=== PATIENT | female | born 1945 | race Caucasian/White ===

== ENCOUNTER 2016-06-11 07:54 | Day surgery (SDC) | payer MEDICARE ==
[2016-06-09 09:59] VITALS: BMI 27.6
[~2016-06-11 07:54] MED LIST: ALPRAZolam 0.25 MG TAB PO PRN; ALPRAZolam 0.5 MG TAB PO PRN; ASPIRIN 325 MG TAB PO STA; ATORVASTATIN 80 MG TAB PO STA; NITROGLYCERIN SL TABS 0.4 MG TAB SUBLINGUAL PRN; SODIUM CHLORIDE 0.9% 1,000 ML in EMPTY BAG 1 BAG IV ONE
[2016-06-11 08:18] VITALS: TEMP 99.1
[2016-06-11] MEDS ORDERED: SODIUM CHLORIDE 0.9% (PF) 10 ML VIAL ONE (08:46)
[2016-06-11] MEDS ORDERED: VERAPAMIL 2.5 MG/ML 2 ML AMP ONE (08:46)
[2016-06-11] MEDS ORDERED: LIDOCAINE 2% INJ 20 MG/ML (20 ML MDV) ONE ×2 (08:46→09:55)
[2016-06-11] MEDS ORDERED: HEPARIN SODIUM 1,000 UNIT/ML VIAL ONE (09:15)
[2016-06-11] MEDS ORDERED: diphenhydrAMINE 50 MG/ML 1 ML VIAL ONE (09:15)
[2016-06-11] MEDS ORDERED: fentaNYL (PF) 50 MCG/ML 2 ML AMP ONE (09:15)
[2016-06-11] MEDS ORDERED: diphenhydrAMINE 50 MG/ML 1 ML VIAL IVP ONE (09:38)
[2016-06-11] MEDS ORDERED: fentaNYL (PF) 50 MCG/ML 2 ML AMP IV ONE (09:38)
[2016-06-11] MEDS ORDERED: MIDAZOLAM 2 MG/2 ML VIAL IVP ONE (09:40)
[2016-06-11] MEDS ORDERED: MIDAZOLAM 2 MG/2 ML VIAL ONE (09:41)
[2016-06-11] MEDS ORDERED: LIDOCAINE 2% INJ 20 MG/ML SQ ONE ×2 (09:50→10:00)
[2016-06-11] MEDS ORDERED: IOHEXOL 300 MG/ML 100 ML BOTTLE IV ONE (10:06)
[2016-06-11] MEDS ORDERED: RX INFO: IV CONTRAST WAS GIVEN 1 EACH MISC MISCELLANE PRN (10:27)
[2016-06-11] MEDS ORDERED: HYDROcodone/APAP 10-325MG 1 EACH TAB PO PRN (10:28)
[2016-06-11] MEDS ORDERED: SODIUM CHLORIDE 0.9% 1,000 ML IV SCH (10:30)
--- NOTE | 2016-06-11 10:51 | CC ---
DATE OF SERVICE: Mrs. Kwon is a 71-year-old female with known history of hypertension, peripheral vascular disease, chronic tobacco use, who has been complaining of episode of progressive dyspnea, had a stress test that showed lateral wall ischemia. In view of that, recommendation regarding cardiac catheterization. The procedure as well as the risks and complications were discussed with the patient who is in full understanding and agreement. PROCEDURE: The patient was brought to the label machine operator in a fasting semi-sedated state after receiving fentanyl with Benadryl. She was draped and prepped in the usual conventional fashion. Using Xylocaine anesthesia and Seldinger technique, attempt to cannulate the right radial artery were unsuccessful because of vasospastic response. At that time, using Xylocaine anesthesia and Seldinger technique, a 6-Tuvaluan sheath was introduced in the right femoral artery. Selective right and left coronary angiography was performed using 6 Tuvaluan, 4 Bend right and left Shashank catheters. Multiple views of the coronary arteries including hemiaxial views were obtained. Following that, a 6-Tuvaluan tight pigtail catheter was introduced in the left ventricle, and a 30-degree FREEMAN view of the left ventricle was obtained. Following that, catheter and sheath were removed. Hemostasis was obtained with deployment of an Angio-Seal. There was no evidence of immediate complication. The patient was returned to her room in stable condition. LEFT MAIN: This is a large vessel bifurcating into left circumflex artery, left anterior descending artery. Left main coronary artery is without any obstructive disease. LEFT ANTERIOR DESCENDING ARTERY: This is a large aneurysmal vessel, giving rise to a large diagonal branch. The left anterior descending artery is quite tortuous throughout its course but has no evidence of high-grade stenosis. LEFT CIRCUMFLEX: This is a nondominant vessel giving rise to an obtuse marginal branch. The left circumflex as well as branches have no evidence of obstructive coronary artery disease. RIGHT CORONARY ARTERY: This is a large dominant vessel, aneurysmal, bifurcating into PDA and posterolateral segment and branches. The right coronary artery and its branches have no evidence of obstructive coronary artery disease. LEFT VENTRICULOGRAM: Left ventriculogram was performed in 30-degree FREEMAN view and revealed normal left ventricular size and systolic function. Ejection fraction 60%. There was aneurysmal dilatation of the ascending aorta with tortuosity of the abdominal aorta and calcification. HEMODYNAMICS: There was no gradient across the aortic valve. The left ventricle end-diastolic pressure was 16 mmHg. CONCLUSION: 1. Normal coronary arteries. 2. Normal left ventricular size and systolic function. 3. Aneurysmal ascending aorta. 4. Calcified abdominal aorta. RECOMMENDATIONS: In view of finding anatomy, recommend to continue medical therapy. The importance of smoking cessation was discussed with the patient who is in full understanding and agreement. SIMONA
--- NOTE | 2016-06-11 10:54 | LTR ---
June 11, 2016 SVETLANA KING DO RE: Angelina Kwon Dear Dr. King: I had the opportunity to perform cardiac catheterization on Mrs. Kwon had [facility] on the first june and a full copy of the procedure note will be forwarded to you. In brief, she was found to have no evidence of obstructive coronary artery disease with evidence of ascending aortic aneurysm and atherosclerotic changes of the abdominal aorta and based on those findings, recommend continuing medical therapy with aggressive coronary risk modification that has been initiated. Thank you again for allowing me the opportunity to participate in her care. Please feel free to call for any questions. Sincerely yours, LUZ BALDERAS MD
[2016-06-11 12:14] VITALS: RESP 16
[2016-06-11 13:29] VITALS: BP 121/59; PULSE 61
[2016-06-11] MEDS ORDERED: DICLOFENAC SODIUM 50 MG PO SCH (21:00)
[2016-06-11] MEDS ORDERED: SPIRONOLACTONE 100 MG PO SCH (21:00)
[2016-06-11] MEDS ORDERED: ARIPiprazole 5 MG TAB PO SCH (21:00)
[2016-06-11] MEDS ORDERED: DESVENLAFAXINE SUCCINATE 50 MG TAB.ER.24H PO SCH (21:00)
[2016-06-11] MEDS ORDERED: PRIMIDONE 250 MG TAB PO SCH (21:00)
[2016-06-12] MEDS ORDERED: amLODIPine 10 MG TAB PO SCH (09:00)
[2016-06-12] MEDS ORDERED: NON-FORMULARY DRUG (Aspirin [Adult Low Dose Aspirin Ec] 81 MG) PO SCH (09:00)
[2016-06-12] MEDS ORDERED: NON-FORMULARY DRUG (Flaxseed Oil [Omega-3 Flaxseed Oil] 1,000 MG) PO SCH (09:00)
[2016-06-12] MEDS ORDERED: MONTELUKAST 10 MG TAB PO SCH (09:00)
[2016-06-12] MEDS ORDERED: NON-FORMULARY DRUG (Cetirizine Hcl [Zyrtec] 10 MG) PO SCH (09:00)
[2016-06-12] MEDS ORDERED: NON-FORMULARY DRUG (Vitamin B Complex [Vitamin B Complex] 1 EACH) PO SCH (09:00)
[2016-06-12] MEDS ORDERED: CHOLECALCIFEROL 1,000 UNIT TAB PO SCH (09:00)
[2016-06-12] MEDS ORDERED: NON-FORMULARY DRUG (Turmeric Root Extract [Turmeric] 500 MG) PO SCH (09:00)
[2016-06-12] MEDS ORDERED: GINGER 500 MG PO SCH (09:00)
[2016-06-12] MEDS ORDERED: ATENOLOL 50 MG TAB PO SCH (09:00)
--- NOTE | 2016-06-13 11:31 | CDI ---
Pt Name: Angelina Kwon CONFIDENTIAL MR#: [id number] Adm Date: 06/11/2016 7:54:00 AM Printed:06/13/2016 Physician Documentation Request Page 1 of 1 ICD-10-CM Ready Physicians Documentation Request Patient: Angelina Kwon EPI: [id number] Account: [id number] Payer: MEDICARE Facility: [facility] Location: - Admit Date: 06/11/2016 7:54:00 AM Query Send By: Tabatha Silveira Phone #: Ext. Communication Date: 06/13/2016 11:26:00 AM Clarification Outpatient By submitting this query, we are merely seeking further clarification of documentation to accurately reflect all conditions that you are monitoring, evaluating, treating or that extend the hospitalization or utilize additional resources of care. Please utilize your independent clinical judgment when addressing the question(s) below. Dear Doctor Anil Garrido, The patients Clinical Indicators include: SEE BELOW Documentation Clarification OP The cardiac cath report states "semi-sedated after receiving fentanyl with Benadryl." Will you please clarify the level of sedation? Such as, moderate. Please answer as an addendum to your op report. Thank you. PLEASE DOCUMENT ANY ADDITIONAL DIAGNOSES AND/OR SPECIFICITY IN THE PROGRESS NOTES AND/OR DISCHARGE SUMMARY. Agreed & documented Unable to determine/unknown Disagree with the above request Need to discuss MTDD
--- NOTE | 2016-06-24 08:38 | CDI ---
Pt Name: Angelina Kwon CONFIDENTIAL MR#: [id number] Adm Date: 06/11/2016 7:54:00 AM Printed:06/24/2016 Physician Documentation Request Page 1 of 1 ICD-10-CM Ready Physicians Documentation Request Patient: Angelina Kwon EPI: [id number] Account: [id number] Payer: MEDICARE Facility: [facility] Location: - Admit Date: 06/11/2016 7:54:00 AM Query Send By: Tabatha Silveira Phone #: Ext. Communication Date: 06/24/2016 8:36:00 AM Clarification Outpatient By submitting this query, we are merely seeking further clarification of documentation to accurately reflect all conditions that you are monitoring, evaluating, treating or that extend the hospitalization or utilize additional resources of care. Please utilize your independent clinical judgment when addressing the question(s) below. Dear Doctor Anil Garrido, The patients Clinical Indicators include: see below Documentation Clarification OP The cardiac cath report states "semi-sedated after receiving fentanyl with Benadryl." Will you please clarify the level of sedation? Such as, moderate. Please answer as an addendum to your op report. Thank you. PLEASE DOCUMENT ANY ADDITIONAL DIAGNOSES AND/OR SPECIFICITY IN THE PROGRESS NOTES AND/OR DISCHARGE SUMMARY. Agreed & documented Unable to determine/unknown Disagree with the above request Need to discuss MTDD
--- NOTE | 2016-07-01 08:25 | CDI ---
Pt Name: Angelina Kwon CONFIDENTIAL MR#: [id number] Adm Date: 06/11/2016 7:54:00 AM Printed:07/01/2016 Physician Documentation Request Page 1 of 1 ICD-10-CM Ready Physicians Documentation Request Patient: Angelina Kwon EPI: [id number] Account: [id number] Payer: MEDICARE Facility: [facility] Location: - Admit Date: 06/11/2016 7:54:00 AM Query Send By: Tabatha Silveira Phone #: Ext. Communication Date: 07/01/2016 8:21:00 AM Clarification Outpatient By submitting this query, we are merely seeking further clarification of documentation to accurately reflect all conditions that you are monitoring, evaluating, treating or that extend the hospitalization or utilize additional resources of care. Please utilize your independent clinical judgment when addressing the question(s) below. Dear Doctor Anil Garrido, The patients Clinical Indicators include: see below Documentation Clarification OP The cardiac cath report states "semi-sedated after receiving fentanyl with Benadryl." Will you please clarify the level of sedation? Such as, moderate. This information is required for proper coding and billing purposes. Please answer as an addendum to your op report. If you don't understand what is needed , please contact my coding director, Francie Narayanan . Thank you. PLEASE DOCUMENT ANY ADDITIONAL DIAGNOSES AND/OR SPECIFICITY IN THE PROGRESS NOTES AND/OR DISCHARGE SUMMARY. Agreed & documented Unable to determine/unknown Disagree with the above request Need to discuss MTDD
--- NOTE | 2016-07-04 12:11 | CC ---
ADDENDUM TO CARDIAC CATHETERIZATION REPORT: Sedation was moderate instead of semi-sedated.
== END 2016-06-11 15:29 | disposition home or self-care (01) ==
LOC: CATHCVL 07:54
PROVIDERS: ATTEND Internal Medicine Interventional Cardiology
DX: I71.2 Thoracic aortic aneurysm, without rupture (principal); I70.0 Atherosclerosis of aorta; R94.39 Abnormal result of other cardiovascular function study; R06.00 Dyspnea, unspecified; I25.10 Atherosclerotic heart disease of native coronary artery without angina pectoris; I10 Essential (primary) hypertension; I73.9 Peripheral vascular disease, unspecified; M19.90 Unspecified osteoarthritis, unspecified site; J44.9 Chronic obstructive pulmonary disease, unspecified; G47.33 Obstructive sleep apnea (adult) (pediatric); F17.210 Nicotine dependence, cigarettes, uncomplicated; Z79.82 Long term (current) use of aspirin; Z79.891 Long term (current) use of opiate analgesic; Z79.899 Other long term (current) drug therapy; Z88.1 Allergy status to other antibiotic agents
CPT/HCPCS: 99152; 99153; 93458; C1760; C1894 ×2; C1769; J2001; J2250; J1200; J3010; Q9967

== ENCOUNTER 2016-09-11 10:22 | Day surgery (SDC) | payer MEDICARE ==
[2016-09-09 14:47] VITALS: BMI 28.3
[~2016-09-11 10:22] MED LIST changes: -ALPRAZolam 0.25 MG TAB PO PRN; -ALPRAZolam 0.5 MG TAB PO PRN; -ASPIRIN 325 MG TAB PO STA; -ATORVASTATIN 80 MG TAB PO STA; +LACTATED RINGERS 1,000 ML IV SCH; +LIDOCAINE 1% 20 ML VIAL (10MG/ML) FOR IV START INTRADERMA PRN; -NITROGLYCERIN SL TABS 0.4 MG TAB SUBLINGUAL PRN; -SODIUM CHLORIDE 0.9% 1,000 ML in EMPTY BAG 1 BAG IV ONE
[2016-09-11 11:00] VITALS: TEMP 98
[2016-09-11] MEDS ORDERED: LACTATED RINGERS 1,000 ML IV ONE (11:01)
[2016-09-11] MEDS ORDERED: PROPOFOL 10 MG/ML 20 ML VIAL IV ONE (11:31)
[2016-09-11] MEDS ORDERED: LIDOCAINE 1% INJ 10MG/ML (20 ML MDV) ONE (11:31)
--- NOTE | 2016-09-11 11:52 | P.PCN ---
Date of Procedure: 09/11/16 Preoperative Diagnosis: Postoperative Diagnosis: Procedure(s) Performed: Brief history: Patient is a pleasant 71-year-old white female, scheduled for an elective upper endoscopy as well as colonoscopy as a part of evaluation of abdominal pain, chronic diarrhea and heartburn for the last several months duration. Procedure performed: Esophagogastroduodenoscopy with biopsy Colonoscopy with biopsy Preoperative diagnosis: Abdominal pain, heartburn, chronic diarrhea a few months duration Anesthesia: MAC Procedure: After informed consent was obtained from the patient was brought into the endoscopy unit and IV sedation was administered by anesthesia under continuous monitoring. Initially upper endoscopy was done. The Olympus GF 160 video endoscope was inserted inserted into the mouth and esophagus intubated without any difficulty and was gradually advanced into the stomach and duodenum and carefully examined. The bulb and second part of the duodenum appeared normal. Biopsies were done from the duodenum to rule out celiac disease. The scope was then withdrawn into the stomach adequately insufflated with air and upon careful examination the antrum and body, had mild diffuse gastritis and biopsies were done from this area. The cardia and fundus appeared normal. The scope was then withdrawn into the esophagus. Small sliding Hiatal hernia noted. The GE junction was located at 40 cm to the incisors. It appeared regular with no erythema erosions or ulcerations. Rest of the esophagus appeared normal. Patient tolerated the procedure well. At this time the patient continued to remain sedation. Initial digital rectal examination was normal. Olympus CF 160 video colonoscope was then inserted into the rectum and gradually advanced to the cecum without any difficulty. Careful examination was performed as the scope was gradually being withdrawn. The prep was excellent. The cecum, ascending colon, transverse colon, descending colon, sigmoid colon and rectum appeared normal. Scattered sigmoid diverticulosis seen. Random biopsies were done from the ascending and descending colon to rule out microscopic/collagenous colitis. Retroflexion was performed in the rectum and small internal hemorrhoids were noted. Patient tolerated the procedure well. Impression: 1. Upper endoscopy revealed mild diffuse gastritis and small hiatal hernia. 2. Colonoscopy revealed scattered sigmoid diverticulosis and small internal hemorrhoids. Recommendations: Findings of this examination were discussed with the patient as well as her family. She was advised to follow with the biopsy results. She can have a repeat colonoscopy in 10 years. Implants: Indications for Procedure: Operative Findings: Description of Procedure:
[2016-09-11 11:56] VITALS: PULSE 65; RESP 16
[2016-09-11 12:18] VITALS: BP 143/71
== END 2016-09-11 12:47 | disposition home or self-care (01) ==
LOC: ORWHC2ENDO 10:22
PROVIDERS: ATTEND Internal Medicine Gastroenterology
DX: K44.9 Diaphragmatic hernia without obstruction or gangrene (principal); K57.30 Diverticulosis of large intestine without perforation or abscess without bleeding; I25.10 Atherosclerotic heart disease of native coronary artery without angina pectoris; I10 Essential (primary) hypertension; F17.200 Nicotine dependence, unspecified, uncomplicated; M79.7 Fibromyalgia; J44.9 Chronic obstructive pulmonary disease, unspecified; G47.33 Obstructive sleep apnea (adult) (pediatric); Z99.81 Dependence on supplemental oxygen; Z79.1 Long term (current) use of non-steroidal anti-inflammatories (NSAID); Z79.891 Long term (current) use of opiate analgesic; Z79.899 Other long term (current) drug therapy; Z88.1 Allergy status to other antibiotic agents; Z91.09 Other allergy status, other than to drugs and biological substances
CPT/HCPCS: 45380; 43239; J2001; J2704; 88305; 88313

== ENCOUNTER → 2016-12-03 | Outpatient (CLI) | payer MEDICARE ==
[2016-12-03 13:28] LABS: Blood Urea Nitrogen 11 mg/dL (7-17); Non-African American GFR(MDRD) >60 (>60 ml/min/1.73 sqM)
--- NOTE | 2016-12-03 14:49 | CT ---
EXAMINATION TYPE: CT chest w con DATE OF EXAM: 12/03/2016 COMPARISON: Prior CT chest 03/21/2016 HISTORY: Follow up of lung cancer CT DLP: 276.8 mGycm Automated exposure control for dose reduction was used. CONTRAST: CT scan of the chest is performed with IV Contrast, patient injected with 100 mL of Omnipaque 300. FINDINGS: LUNGS: There are interstitial changes within the lungs. Areas of honeycombing are present. Some bronc hiectasis noted in the lingula with a local subpleural calcification MEDIASTINUM: There are no greater than 1 cm hilar or mediastinal lymph nodes. Coronary artery calcif ications are present, the heart is enlarged. No pericardial effusion is seen. Pulmonary artery is en larged as compared to prior exam measuring 3.6 cm and on previous 3.2 cm, correlate for possible pulm onary artery hypertension. Ascending aorta is borderline enlarged at 4 cm. OTHER: Postop changes are noted to the left hilum IMPRESSION: Interstitial lung disease. Cardiomegaly. Correlate for possible pulmonary artery hyperte nsion.
== END | disposition home or self-care (01) ==
LOC: RADCTMAIN 12:25
PROVIDERS: ATTEND Internal Medicine Hematology & Oncology
DX: J84.9 Interstitial pulmonary disease, unspecified (principal); I51.7 Cardiomegaly; C34.92 Malignant neoplasm of unspecified part of left bronchus or lung
CPT/HCPCS: 82565; 84520; 71260; 36415; Q9967

== ENCOUNTER 2017-07-08 21:42 | Inpatient (IN) | payer MEDICARE ==
[2017-07-08] MEDS ORDERED: ALBUTEROL NEBULIZED 2.5 MG/3 ML INHALATION STA (22:09)
[2017-07-08] MEDS ORDERED: IPRATROPIUM 0.5 MG/2.5 ML NEBU INHALATION STA (22:09)
[2017-07-08] MEDS ORDERED: methylPREDNISolone SOD SUCCI 125 MG/2 ML VIAL IV STA (22:09)
[2017-07-08] MEDS ORDERED: SODIUM CHLORIDE 0.9% 1,000 ML IV STA (22:09)
--- NOTE | 2017-07-08 22:14 | ED ---
General Adult HPI - General Chief complaint: Shortness of Breath Stated complaint: GINGER Time Seen by Provider: 07/08/17 21:57 Source: patient, RN notes reviewed, old records reviewed Mode of arrival: EMS Limitations: no limitations - History of Present Illness Initial comments: 72-year-old female presenting with cough and dyspnea. Patient has past medical history COPD, she had significant previous tobacco use, she is currently still smoking. She reports that over the past 3 days she's had worsening cough which is productive of white and green sputum. She also has history of lung cancer status post resection, no active cancer at this time, no chemotherapy at this time. Patient denies lower extremity edema or calf tenderness. She does report nasal congestion and mild sore throat. Denies fever or chills. Denies myalgias. Denies chest pain, denies abdominal pain or nausea vomiting. - Related Data Home Medications Medication Instructions Recorded Confirmed Diclofenac Sodium [Voltaren] 50 mg PO BID 04/16/16 07/08/17 HYDROcodone/APAP 10-325MG [[place] 1 tab PO Q6H PRN 04/16/16 07/08/17 10-325] Primidone [Mysoline] 250 mg PO BID 04/16/16 07/08/17 Spironolactone 100 mg PO DAILY 04/16/16 07/08/17 amLODIPine [Norvasc] 10 mg PO DAILY 04/16/16 07/08/17 ARIPiprazole [Abilify] 15 mg PO HS 07/08/17 07/08/17 Calcium 600-Vit D3 800 1 tab PO HS 07/08/17 07/08/17 Citalopram Hydrobromide [CeleXA] 40 mg PO HS 07/08/17 07/08/17 Magnesium Oxide [Mag-Ox] 250 mg PO HS 07/08/17 07/08/17 Multivitamins, Thera [Multivitamin 1 tab PO DAILY 07/08/17 07/08/17 (formulary)] Oxybutynin Chloride [Ditropan] 5 mg PO TID 07/08/17 07/08/17 Turmeric Cucumin 500 mg PO DAILY 07/08/17 07/08/17 busPIRone HCL 15 mg PO TID PRN 07/08/17 07/08/17 Allergies Allergy/AdvReac Type Severity Reaction Status Date / Time levofloxacin [From Levaquin] Allergy Severe Diarrhea Verified 07/08/17 22:31 adhesive tape AdvReac Unknown IRRITATES Verified 07/08/17 22:31 SKIN Review of Systems ROS Statement: Those systems with pertinent positive or pertinent negative responses have been documented in the HPI. ROS Other: All systems not noted in ROS Statement are negative. Past Medical History Past Medical History: Coronary Artery Disease (CAD), Cancer, COPD, Fibromyalgia , Hypertension, Osteoarthritis (OA), Sleep Apnea/CPAP/BIPAP Additional Past Medical History / Comment(s): O2-3L AT NIGHT, BREAST, LUNG AND CERVICAL CANCER, TREMORS History of Any Multi-Drug Resistant Organisms: None Reported Past Surgical History: Breast Surgery, Cholecystectomy, Heart Catheterization, Hysterectomy, Joint Replacement, Orthopedic Surgery Additional Past Surgical History / Comment(s): LT TKA RT SHOULDER REPLACEMENT, LT BREAST LUMPECTOMY, CATARACTS REMOVED, LT KNEE SCOPE, THYROID BX, COLONOSCOPY , EGD Past Anesthesia/Blood Transfusion Reactions: No Reported Reaction Additional Past Anesthesia/Blood Transfusion Reaction / Comment(s): PT STATES THAT SHE HAS "HIGH" TOLERANCE TO IV SEDATION Past Psychological History: Anxiety, Depression Smoking Status: Current every day smoker - Past Family History Mother Family Medical History: Cancer Additional Family Medical History / Comment(s): LUNG General Exam Limitations: no limitations General appearance: alert, in distress Head exam: Present: atraumatic, normocephalic Eye exam: Present: normal appearance, PERRL ENT exam: Present: mucous membranes dry Neck exam: Present: normal inspection. Absent: tenderness, meningismus Respiratory exam: Present: respiratory distress, wheezes, rhonchi, decreased breath sounds, prolonged expiratory Cardiovascular Exam: Present: regular rate, normal rhythm GI/Abdominal exam: Present: soft. Absent: distended, tenderness, guarding Extremities exam: Present: normal inspection, normal capillary refill. Absent: pedal edema, calf tenderness Neurological exam: Present: alert, oriented X3, CN II-XII intact. Absent: motor sensory deficit Psychiatric exam: Present: normal affect, normal mood Skin exam: Present: warm, dry, intact. Absent: cyanosis, diaphoretic Course Vital Signs 07/08/17 07/08/17 07/08/17 21:47 22:28 22:44 Temperature 98.2 F Pulse Rate 68 63 75 Respiratory 19 Rate Blood Pressure 162/71 O2 Sat by Pulse 95 Oximetry 07/08/17 07/08/17 07/08/17 22:50 22:51 22:52 Temperature Pulse Rate 75 Respiratory 20 Rate Blood Pressure O2 Sat by Pulse 93 L Oximetry - Reevaluation(s) Reevaluation #1: 07/08/17 23:49 After initial treatment, patient does have improved air entry, however she has persistent rhonchi and wheezing throughout both lung [place], she remains quite dyspneic. EKG Findings - EKG Comments: EKG Findings:: EKG: Normal sinus rhythm, left axis deviation, left ventricular hypertrophy, ventricular rate 63, AZ interval 174, QRS duration 102, QTC 433, no ST segment elevation or depression Medical Decision Making - Medical Decision Making 72-year-old female presenting with worsening cough and dyspnea. Patient is in mild respiratory distress with rhonchi, and wheezing bilaterally. Chest x-ray is obtained, there is extensive fibrosis, no focal pneumonia. White blood cell count, stable hemoglobin, normal lites, troponin and BNP are normal. Patient's will be admitted for further treatment of COPD exacerbation. - Lab Data Result diagrams: 07/08/17 22:36 07/08/17 22:36 Lab Results 07/08/17 07/08/17 07/08/17 Range/Units 22:36 22:36 22:36 WBC 7.5 (3.8-10.6) k/uL RBC 4.26 (3.80-5.40) m/uL Hgb 13.1 (11.4-16.0) gm/dL Hct 39.7 (34.0-46.0) % MCV 93.1 (80.0-100.0) fL MCH 30.8 (25.0-35.0) pg MCHC 33.0 (31.0-37.0) g/dL RDW 13.5 (11.5-15.5) % Plt Count 323 (150-450) k/uL Neutrophils % 52 % Lymphocytes % 34 % Monocytes % 7 % Eosinophils % 4 % Basophils % 1 % Neutrophils # 3.9 (1.3-7.7) k/uL Lymphocytes # 2.6 (1.0-4.8) k/uL Monocytes # 0.5 (0-1.0) k/uL Eosinophils # 0.3 (0-0.7) k/uL Basophils # 0.0 (0-0.2) k/uL PT (9.0-12.0) sec INR (<1.2) APTT (22.0-30.0) sec Sodium 137 (137-145) mmol/L Potassium 3.6 (3.5-5.1) mmol/L Chloride 98 (98-107) mmol/L Carbon Dioxide 29 (22-30) mmol/L Anion Gap 10 mmol/L BUN 12 (7-17) mg/dL Creatinine 0.60 (0.52-1.04) mg/dL Est GFR (CKD-EPI)AfAm >90 (>60 ml/min/1.73 sqM) Est GFR (CKD-EPI)NonAf >90 (>60 ml/min/1.73 sqM) Glucose 124 H (74-99) mg/dL Plasma Lactic Acid Joe (0.7-2.0) mmol/L Calcium 9.8 (8.4-10.2) mg/dL Magnesium 2.0 (1.6-2.3) mg/dL Total Bilirubin 0.3 (0.2-1.3) mg/dL AST 19 (14-36) U/L ALT 20 (9-52) U/L Alkaline Phosphatase 71 (38-126) U/L Total Creatine Kinase 39 (30-135) U/L CK-MB (CK-2) 0.6 (0.0-2.4) ng/mL CK-MB (CK-2) Rel Index 1.5 Troponin I <0.012 (0.000-0.034) ng/mL NT-Pro-B Natriuret Pep pg/mL Total Protein 6.7 (6.3-8.2) g/dL Albumin 3.5 (3.5-5.0) g/dL Influenza Type A RNA (Not Detectd) Influenza Type B (PCR) (Not Detectd) 07/08/17 07/08/17 07/08/17 Range/Units 22:36 22:36 22:36 WBC (3.8-10.6) k/uL RBC (3.80-5.40) m/uL Hgb (11.4-16.0) gm/dL Hct (34.0-46.0) % MCV (80.0-100.0) fL MCH (25.0-35.0) pg MCHC (31.0-37.0) g/dL RDW (11.5-15.5) % Plt Count (150-450) k/uL Neutrophils % % Lymphocytes % % Monocytes % % Eosinophils % % Basophils % % Neutrophils # (1.3-7.7) k/uL Lymphocytes # (1.0-4.8) k/uL Monocytes # (0-1.0) k/uL Eosinophils # (0-0.7) k/uL Basophils # (0-0.2) k/uL PT 10.7 (9.0-12.0) sec INR 1.1 (<1.2) APTT 24.6 (22.0-30.0) sec Sodium (137-145) mmol/L Potassium (3.5-5.1) mmol/L Chloride (98-107) mmol/L Carbon Dioxide (22-30) mmol/L Anion Gap mmol/L BUN (7-17) mg/dL Creatinine (0.52-1.04) mg/dL Est GFR (CKD-EPI)AfAm (>60 ml/min/1.73 sqM) Est GFR (CKD-EPI)NonAf (>60 ml/min/1.73 sqM) Glucose (74-99) mg/dL Plasma Lactic Acid Joe 1.2 (0.7-2.0) mmol/L Calcium (8.4-10.2) mg/dL Magnesium (1.6-2.3) mg/dL Total Bilirubin (0.2-1.3) mg/dL AST (14-36) U/L ALT (9-52) U/L Alkaline Phosphatase (38-126) U/L Total Creatine Kinase (30-135) U/L CK-MB (CK-2) (0.0-2.4) ng/mL CK-MB (CK-2) Rel Index Troponin I (0.000-0.034) ng/mL NT-Pro-B Natriuret Pep 330 pg/mL Total Protein (6.3-8.2) g/dL Albumin (3.5-5.0) g/dL Influenza Type A RNA (Not Detectd) Influenza Type B (PCR) (Not Detectd) 07/08/17 Range/Units 22:43 WBC (3.8-10.6) k/uL RBC (3.80-5.40) m/uL Hgb (11.4-16.0) gm/dL Hct (34.0-46.0) % MCV (80.0-100.0) fL MCH (25.0-35.0) pg MCHC (31.0-37.0) g/dL RDW (11.5-15.5) % Plt Count (150-450) k/uL Neutrophils % % Lymphocytes % % Monocytes % % Eosinophils % % Basophils % % Neutrophils # (1.3-7.7) k/uL Lymphocytes # (1.0-4.8) k/uL Monocytes # (0-1.0) k/uL Eosinophils # (0-0.7) k/uL Basophils # (0-0.2) k/uL PT (9.0-12.0) sec INR (<1.2) APTT (22.0-30.0) sec Sodium (137-145) mmol/L Potassium (3.5-5.1) mmol/L Chloride (98-107) mmol/L Carbon Dioxide (22-30) mmol/L Anion Gap mmol/L BUN (7-17) mg/dL Creatinine (0.52-1.04) mg/dL Est GFR (CKD-EPI)AfAm (>60 ml/min/1.73 sqM) Est GFR (CKD-EPI)NonAf (>60 ml/min/1.73 sqM) Glucose (74-99) mg/dL Plasma Lactic Acid Joe (0.7-2.0) mmol/L Calcium (8.4-10.2) mg/dL Magnesium (1.6-2.3) mg/dL Total Bilirubin (0.2-1.3) mg/dL AST (14-36) U/L ALT (9-52) U/L Alkaline Phosphatase (38-126) U/L Total Creatine Kinase (30-135) U/L CK-MB (CK-2) (0.0-2.4) ng/mL CK-MB (CK-2) Rel Index Troponin I (0.000-0.034) ng/mL NT-Pro-B Natriuret Pep pg/mL Total Protein (6.3-8.2) g/dL Albumin (3.5-5.0) g/dL Influenza Type A RNA Not Detected (Not Detectd) Influenza Type B (PCR) Not Detected (Not Detectd) Disposition Clinical Impression: Acute exacerbation of chronic obstructive airways disease Disposition: ADMITTED IP TO THIS HOSP Condition: Stable Referrals: Landon King DO [Primary Care Provider] - 1-2 days Decision to Admit Reason: Admit from EC Decision Date: 07/08/17 Decision Time: 23:50
[2017-07-08 22:47] LABS: Basophils % (A) 1 %; Eosinophils # (A) 0.3 k/uL (0-0.7); Eosinophils % (A) 4 %; HCT 39.7 % (34.0-46.0); HGB 13.1 gm/dL (11.4-16.0); Lymphocytes # (A) 2.6 k/uL (1.0-4.8); Lymphocytes % (A) 34 %; MCH 30.8 pg (25.0-35.0); MCV 93.1 fL (80.0-100.0); Monocytes # (A) 0.5 k/uL (0-1.0); Monocytes % (A) 7 %; Neutrophils # (A) 3.9 k/uL (1.3-7.7); Neutrophils % (A) 52 %; Platelet Count 323 k/uL (150-450); RBC 4.26 m/uL (3.80-5.40); RDW 13.5 % (11.5-15.5); WBC 7.5 k/uL (3.8-10.6)
[2017-07-08 22:55] LABS: INR 1.1 (<1.2); Partial Thromboplastin Time 24.6 sec (22.0-30.0); Prothrombin Time 10.7 sec (9.0-12.0)
[2017-07-08 22:58] LABS: ALT 20 U/L (9-52); AST 19 U/L (14-36); Albumin 3.5 g/dL (3.5-5.0); Alkaline Phosphatase 71 U/L (38-126); Anion Gap 10 mmol/L; Blood Urea Nitrogen 12 mg/dL (7-17); Calcium 9.8 mg/dL (8.4-10.2); Carbon Dioxide 29 mmol/L (22-30); Chloride 98 mmol/L (98-107); Glucose 124 mg/dL (74-99); Potassium 3.6 mmol/L (3.5-5.1); Sodium 137 mmol/L (137-145); Total Bilirubin 0.3 mg/dL (0.2-1.3); Total Protein 6.7 g/dL (6.3-8.2)
--- NOTE | 2017-07-08 23:09 | XR ---
EXAMINATION TYPE: XR chest 2V DATE OF EXAM: 07/08/2017 COMPARISON: NONE HISTORY: Lung cancer. Short of breath. TECHNIQUE: Frontal and lateral views of the chest are obtained. FINDINGS: Heart appears enlarged. There is extensive coarse interstitial density in the lungs. Pulmo nary vasculature is difficult to evaluate because of the lung disease. I see no definite heart failur e. There are chest leads. There is no definite pleural effusion. IMPRESSION: Extensive pulmonary fibrosis. Atheromatous aorta. There is probably no change compared t o the chest CT scan of 12/03/2016.
[2017-07-08 23:14] LABS: Creatine Kinase 39 U/L (30-135)
[2017-07-08 23:27] LABS: Creatine Kinase MB 0.6 ng/mL (0.0-2.4); Troponin I <0.012 ng/mL (0.000-0.034)
[2017-07-08] MEDS ORDERED: IPRATROPIUM-ALBUTEROL 3 ML NEB INHALATION PRN (23:47)
[2017-07-09] MEDS: methylPREDNISolone SOD SUCCI 125 MG/2 ML VIAL IV SCH ×4 (03:07→17:05)
[2017-07-09] MEDS: HYDROcodone/APAP 10-325MG 1 EACH TAB PO PRN ×3 (04:21→20:55)
[2017-07-09 07:44] LABS: Glucose,Whole Blood 144 mg/dL (75-99)
[2017-07-09] MEDS: IPRATROPIUM-ALBUTEROL 3 ML NEB INHALATION SCH ×4 (07:45→21:09)
[2017-07-09] MEDS: OXYBUTYNIN CHLORIDE 5 MG TAB PO SCH ×3 (07:51→20:48)
[2017-07-09] MEDS: amLODIPine 10 MG TAB PO SCH (07:51)
[2017-07-09] MEDS: SPIRONOLACTONE 25 MG TAB PO SCH (07:52)
[2017-07-09] MEDS: ETODOLAC 200 MG CAPSULE PO SCH ×2 (07:52→20:47)
[2017-07-09] MEDS ORDERED: AZITHROMYCIN 500 MG in SODIUM CHLORIDE 0.9% 250 ML IVPB SCH (12:00)
[2017-07-09] MEDS: cefTRIAXone IN SWFI 1,000 MG/10 ML SYRINGE IVP SCH (12:09)
[2017-07-09 12:24] LABS: Glucose,Whole Blood 148 mg/dL (75-99)
[2017-07-09 14:16] VITALS: RESP 20
[2017-07-09 14:57] VITALS: BMI 29.2
--- NOTE | 2017-07-09 15:01 | P.HPIM ---
History of Present Illness H&P Date: 07/09/17 Chief Complaint: Shortness of breath 72 years old female patient of Dr. King past medical history of COPD, current tobacco use, history of lung cancer status post resection, depression. Presents in with acute shortness of breath and cough production for the past 1 week and stop patient's endorses productive cough. She is an active smoker and smokes half to three fourths of pack a day for 50+ years. Today patient denies any chest pain or fever or chills. She denies any lower extremity edema to stop she does have some nasal congestion and mild sore throat. Chest x-ray done in the ER suggestive of pulmonary fibrosis which is similar to the previous chest CT done on November 2016 is. Patient was unaware of the diagnosis of interstitial lung disease. Labs otherwise including CBC and BMP was unremarkable. Patient wears 2-3 L of oxygen during the night. He was found to be hypoxic to 86% on room air and is requiring 3 L of oxygen at rest during the day now. Patient will be admitted for acute bronchitis. Pulmonary consulted Review of Systems Constitutional: Denies chills, Denies fever, Denies lethargy, Denies malaise, Denies poor appetite, Denies weakness, Denies weight loss Eyes: denies decreased vision, denies diplopia, denies discharge, denies pain Ears: deny: decreased hearing Ears, nose, mouth and throat: Denies dental pain, Denies headache, Denies nasal discharge, Denies nose pain Cardiovascular: Denies chest pain, Denies decreased exercise tolerance, Denies edema, Denies high blood pressure, Denies irregular heart beat, Denies palpitations, Denies paroxysmal nocturnal dyspnea, Denies rapid heart beat, Denies shortness of breath Respiratory: Endorses congestion, cough with sputum production, dyspnea, home oxygen and wheezing Gastrointestinal: Denies abdominal pain, Denies change in bowel habits, Denies coffee ground emesis, Denies early satiety, Denies excessive gas, Denies heartburn, Denies hematemesis, Denies hematochezia, Denies loss of appetite, Denies nausea, Denies vomiting Genitourinary: Denies dysuria, Denies flank pain, Denies kidney stones, Denies menorrhagia, Denies urgency, Denies urinary frequency Musculoskeletal: Denies gait dysfunction, Denies limitation of motion, Denies morning stiffness, Denies muscle cramps Integumentary: Denies rash, Denies wounds, Denies brittle nails, Denies change in hair/nails, Denies darkening of skin Neurological: Denies balance difficulties, Denies change in speech, Denies double vision, Denies gait dysfunction, Denies loss of vision, Denies motor disturbance, Denies numbness, Denies paralysis, Denies paresthesias, Denies seizures Psychiatric: Denies anxiety, Denies depression Endocrine: Denies excessive sweating, Denies excessive thirst, Denies high blood sugars, Denies palpitations Hematologic/Lymphatic: Denies easy bruising, Denies lymphadenopathy Past Medical History Past Medical History: Cancer, COPD, Fibromyalgia, Hypertension, Osteoarthritis ( OA), Sleep Apnea/CPAP/BIPAP Additional Past Medical History / Comment(s): O2-3L AT NIGHT, BREAST, LUNG AND CERVICAL CANCER, ESSENTIAL TREMORS History of Any Multi-Drug Resistant Organisms: None Reported Past Surgical History: Breast Surgery, Cholecystectomy, Heart Catheterization, Hysterectomy, Joint Replacement, Orthopedic Surgery Additional Past Surgical History / Comment(s): LT TKA RT SHOULDER REPLACEMENT, LT BREAST LUMPECTOMY, CATARACTS REMOVED, LT KNEE SCOPE, THYROID BX, COLONOSCOPY , EGD Past Anesthesia/Blood Transfusion Reactions: No Reported Reaction Additional Past Anesthesia/Blood Transfusion Reaction / Comment(s): PT STATES THAT SHE HAS "HIGH" TOLERANCE TO IV SEDATION Past Psychological History: Anxiety, Depression Smoking Status: Current every day smoker Past Alcohol Use History: None Reported Additional Past Alcohol Use History / Comment(s): HAS BEEN SMOKING OFF AND ON SINCE 1966 Past Drug Use History: None Reported - Past Family History Mother Family Medical History: Cancer Additional Family Medical History / Comment(s): LUNG Medications and Allergies Home Medications Medication Instructions Recorded Confirmed Type Diclofenac Sodium [Voltaren] 50 mg PO BID 04/16/16 07/08/17 History HYDROcodone/APAP 10-325MG [[place] 1 tab PO Q6H PRN 04/16/16 07/08/17 History 10-325] Primidone [Mysoline] 250 mg PO BID 04/16/16 07/08/17 History Spironolactone 100 mg PO DAILY 04/16/16 07/08/17 History amLODIPine [Norvasc] 10 mg PO DAILY 04/16/16 07/08/17 History ARIPiprazole [Abilify] 15 mg PO HS 07/08/17 07/08/17 History Calcium 600-Vit D3 800 1 tab PO HS 07/08/17 07/08/17 History Citalopram Hydrobromide [CeleXA] 40 mg PO HS 07/08/17 07/08/17 History Magnesium Oxide [Mag-Ox] 250 mg PO HS 07/08/17 07/08/17 History Multivitamins, Thera [Multivitamin 1 tab PO DAILY 07/08/17 07/08/17 History (formulary)] Oxybutynin Chloride [Ditropan] 5 mg PO TID 07/08/17 07/08/17 History Turmeric Cucumin 500 mg PO DAILY 07/08/17 07/08/17 History busPIRone HCL 15 mg PO TID PRN 07/08/17 07/08/17 History Allergies Allergy/AdvReac Type Severity Reaction Status Date / Time levofloxacin [From Levaquin] Allergy Severe Diarrhea Verified 07/08/17 22:31 adhesive tape AdvReac Unknown IRRITATES Verified 07/08/17 22:31 SKIN Physical Exam Vitals: Vital Signs Temp Pulse Pulse Resp BP BP Pulse Ox 07/09/17 14:05 95 07/09/17 14:00 97.3 F L 96 20 154/80 86 L 07/09/17 11:54 92 07/09/17 11:45 92 07/09/17 07:53 76 07/09/17 07:46 76 07/09/17 07:15 98.0 F 90 18 142/96 94 L 07/09/17 00:40 97.6 F 77 20 143/83 95 07/09/17 00:33 95 07/09/17 00:00 98 F 77 20 139/68 97 07/08/17 22:52 20 07/08/17 22:51 93 L 07/08/17 22:50 75 07/08/17 22:44 75 07/08/17 22:28 63 07/08/17 21:47 98.2 F 68 19 162/71 95 Intake and Output 07/08/17 07/09/17 07/09/17 22:59 06:59 14:59 Intake Total 100 Balance 100 Intake: Oral 100 Other: # Voids 2 1 # Bowel Movements 0 Weight 68.039 kg 70.307 kg - Constitutional General appearance: cooperative, no acute distress, obese - EENT Eyes: anicteric sclerae, PERRLA, normal appearance ENT: hearing grossly normal - Neck Neck: no lymphadenopathy, normal ROM, no other, no rigidity, no stridor, no thyromegaly - Respiratory Respiratory: bilateral diminished with wheezing bilaterally, fine crackles heard at bases - Cardiovascular Rhythm: regular Heart sounds: normal: S1, S2 Abnormal Heart Sounds: no systolic murmur, no diastolic murmur, no rub, no S3 Gallop, no S4 Gallop, no click, no other - Gastrointestinal General gastrointestinal: normal bowel sounds, soft - Integumentary Integumentary: no rash - Neurologic Neurologic: CNII-XII intact - Musculoskeletal Musculoskeletal: gait normal, strength equal bilaterally - Psychiatric Psychiatric: A&O x's 3, appropriate affect Results CBC & Chem 7: 07/08/17 22:36 07/08/17 22:36 Labs: Abnormal Lab Results - Last 24 Hours (Table) 07/08/17 07/09/17 07/09/17 Range/Units 22:36 07:38 12:22 Glucose 124 H (74-99) mg/dL POC Glucose (mg/dL) 144 H 148 H (75-99) mg/dL Thrombosis Risk Factor Assmnt - DVT/VTE Prophylaxis DVT/VTE Prophylaxis: Pharmacologic Prophylaxis ordered - Choose All That Apply Any of the Below Risk Factors Present?: Yes Each Factor Represents 1 point: Abnormal pulmonary function (COPD), Obesity ( BMI >25), Swollen legs (current) Other Risk Factors: Yes Each Risk Factor Represents 2 Points: Age 61-74 years Thrombosis Risk Factor Assessment Total Risk Factor Score: 5 Thrombosis Risk Factor Assessment Level: High Risk Assessment and Plan Plan: #1 acute hypoxic respiratory failure secondary to acute bronchitis/COPD exacerbation. Continue Rocephin and azithromycin. Chest x-ray suggestive of underlying pulmonary fibrosis. Pulmonary consult. DuoNeb as needed for shortness of breath. Sputum culture. Incentive spirometry continue Solu- Medrol 60 IV every 6 hours #2 history of lung cancer status post resection, stable in remission #3 current tobacco abuse with history of ascending aortic aneurysm. Patient explained the importance of smoking cessation, and try Chantix in the past with no results. Patient currently not on beta mateo. We'll initiate on metoprolol 12.5 mg twice a day #4 history of sleep apnea wears 2-3 L at night. #5 DVT prophylaxis with heparin every 12 #6 GI prophylaxis with Pepcid 20 mg twice a day #6 hypertension continue Norvasc 10 mg by mouth daily, Spiriva lactone #7 history of depression continue Celexa #8 overactive bladder continue Ditropan 5 mg 3 times a day CODE STATUS full code Disposition patient need 1-2 inpatient nights
[2017-07-09] MEDS ORDERED: ACETAMINOPHEN TAB 325 MG TAB PO PRN (15:02)
[2017-07-09] MEDS ORDERED: MORPHINE SULFATE/PF 10MG/10ML VL IVP PRN (15:02)
[2017-07-09] MEDS ORDERED: RX INFO: IV CONTRAST WAS GIVEN 1 EACH MISC MISCELLANE PRN (15:56)
--- NOTE | 2017-07-09 15:56 | P.CNPUL ---
History of Present Illness Consult date: 07/09/17 Reason for consult: dyspnea History of present illness: A very pleasant 72-year-old female patient who moved from [place] to [place] approximately year ago. She has an extensive history. She has established herself with Dr. Spence. She is also seeing Dr. Aguillon from oncology knowing that she has history of malignancies From the pulmonary standpoint, the patient has history of COPD and a chest x- ray clearly shows underlying bibasilar pulmonary fibrosis which the patient was not aware of. She has chronic hypoxic respiratory failure maintained on oxygen at 2 L/m nasal cannula. 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 She was initially found to have a nodule in the left upper lobe upon lung cancer screening that was done in 2013. This was monitored and subsequent CAT scan of the chest from January 2015 showed enlargement in the size of the left upper lobe lesion and for that reason the patient underwent a thoracotomy and left upper lobe resection. Lymph node samplings were done and they were negative and the patient was found to have a 1.8 cm small cell lung cancer. She was started on adjuvant chemotherapy however it was stopped after 1 or 2 cycles as the patient did not tolerate the treatment and she declined any further treatment. Her treatment was in [place]. In addition, the patient has history of early stage breast cancer that was diagnosed in 2002. She has undergone left breast lumpectomy followed by radiation therapy and 5 years of adjuvant Arimidex. The patient also has history of cervical cancer with a previous hysterectomy. In terms of her lung cancer, the patient had a CAT scan of the chest on 2015 that showed no evidence of any recurrence. She also had a CAT scan on that revealed underlying COPD and interstitial lung disease and pulmonary fibrosis without evidence of any recurrence. This patient has history of chronic exertional dyspnea. She comes into the hospital because of increased cough and congestion and increased wheeze. She was being seen by nurse practitioner in her home setting or a visiting nurse who suggested the patient coming to the hospital for further evaluation. Her chest x-ray revealed evidence of pulmonary fibrosis. There is also some postsurgical changes on the left. Otherwise, no fever or chills. No hemoptysis or pleurisy. No angina. No other complaints. Review of Systems Constitutional: Denies chills, Denies fever, Denies lethargy, Denies malaise, Denies poor appetite, Denies weakness, Denies weight loss Eyes: denies decreased vision, denies diplopia, denies discharge, denies pain Ears: deny: decreased hearing Ears, nose, mouth and throat: Denies dental pain, Denies headache, Denies nasal discharge, Denies nose pain Cardiovascular: Denies chest pain, Denies decreased exercise tolerance, Denies edema, Denies high blood pressure, Denies irregular heart beat, Denies palpitations, Denies paroxysmal nocturnal dyspnea, Denies rapid heart beat, Denies shortness of breath Respiratory: Endorses congestion, cough with sputum production, dyspnea, home oxygen and wheezing Gastrointestinal: Denies abdominal pain, Denies change in bowel habits, Denies coffee ground emesis, Denies early satiety, Denies excessive gas, Denies heartburn, Denies hematemesis, Denies hematochezia, Denies loss of appetite, Denies nausea, Denies vomiting Genitourinary: Denies dysuria, Denies flank pain, Denies kidney stones, Denies menorrhagia, Denies urgency, Denies urinary frequency Musculoskeletal: Denies gait dysfunction, Denies limitation of motion, Denies morning stiffness, Denies muscle cramps Integumentary: Denies rash, Denies wounds, Denies brittle nails, Denies change in hair/nails, Denies darkening of skin Neurological: Denies balance difficulties, Denies change in speech, Denies double vision, Denies gait dysfunction, Denies loss of vision, Denies motor disturbance, Denies numbness, Denies paralysis, Denies paresthesias, Denies seizures Psychiatric: Denies anxiety, Denies depression Endocrine: Denies excessive sweating, Denies excessive thirst, Denies high blood sugars, Denies palpitations Hematologic/Lymphatic: Denies easy bruising, Denies lymphadenopathy Past Medical History Past Medical History: Cancer, COPD, Fibromyalgia, Hypertension, Osteoarthritis ( OA), Sleep Apnea/CPAP/BIPAP Additional Past Medical History / Comment(s): Chronic hypoxic respiratory failure maintained on oxygen, COPD, pulmonary fibrosis, history of small cell lung cancer with a previous left upper lobe resection details as mentioned above , history of cervical cancer with a previous hysterectomy, history of lung cancer with a previous lumpectomy followed by radiation therapy and Arimidex treatment, essential tremors, hypertension, fibromyalgia History of Any Multi-Drug Resistant Organisms: None Reported Past Surgical History: Breast Surgery, Cholecystectomy, Heart Catheterization, Hysterectomy, Joint Replacement, Orthopedic Surgery Additional Past Surgical History / Comment(s): LT TKA RT SHOULDER REPLACEMENT, LT BREAST LUMPECTOMY, CATARACTS REMOVED, LT KNEE SCOPE, THYROID BX, COLONOSCOPY , EGD Past Anesthesia/Blood Transfusion Reactions: No Reported Reaction Additional Past Anesthesia/Blood Transfusion Reaction / Comment(s): PT STATES THAT SHE HAS "HIGH" TOLERANCE TO IV SEDATION Past Psychological History: Anxiety, Depression Smoking Status: Current every day smoker Past Alcohol Use History: None Reported Additional Past Alcohol Use History / Comment(s): HAS BEEN SMOKING OFF AND ON SINCE 1966 Past Drug Use History: None Reported - Past Family History Mother Family Medical History: Cancer Additional Family Medical History / Comment(s): LUNG Medications and Allergies Home Medications Medication Instructions Recorded Confirmed Type Diclofenac Sodium [Voltaren] 50 mg PO BID 04/16/16 07/08/17 History HYDROcodone/APAP 10-325MG [[place] 1 tab PO Q6H PRN 04/16/16 07/08/17 History 10-325] Primidone [Mysoline] 250 mg PO BID 04/16/16 07/08/17 History Spironolactone 100 mg PO DAILY 04/16/16 07/08/17 History amLODIPine [Norvasc] 10 mg PO DAILY 04/16/16 07/08/17 History ARIPiprazole [Abilify] 15 mg PO HS 07/08/17 07/08/17 History Calcium 600-Vit D3 800 1 tab PO HS 07/08/17 07/08/17 History Citalopram Hydrobromide [CeleXA] 40 mg PO HS 07/08/17 07/08/17 History Magnesium Oxide [Mag-Ox] 250 mg PO HS 07/08/17 07/08/17 History Multivitamins, Thera [Multivitamin 1 tab PO DAILY 07/08/17 07/08/17 History (formulary)] Oxybutynin Chloride [Ditropan] 5 mg PO TID 07/08/17 07/08/17 History Turmeric Cucumin 500 mg PO DAILY 07/08/17 07/08/17 History busPIRone HCL 15 mg PO TID PRN 07/08/17 07/08/17 History Allergies Allergy/AdvReac Type Severity Reaction Status Date / Time levofloxacin [From [facility]aqbristol[facility]] Allergy Severe Diarrhea Verified 07/08/17 22:31 adhesive tape AdvReac Unknown IRRITATES Verified 07/08/17 22:31 SKIN Physical Exam Vitals: Vital Signs Temp Pulse Pulse Resp BP BP Pulse Ox 07/09/17 14:05 95 07/09/17 14:00 97.3 F L 96 20 154/80 86 L 07/09/17 11:54 92 07/09/17 11:45 92 07/09/17 07:53 76 07/09/17 07:46 76 07/09/17 07:15 98.0 F 90 18 142/96 94 L 07/09/17 00:40 97.6 F 77 20 143/83 95 07/09/17 00:33 95 07/09/17 00:00 98 F 77 20 139/68 97 07/08/17 22:52 20 07/08/17 22:51 93 L 07/08/17 22:50 75 07/08/17 22:44 75 07/08/17 22:28 63 07/08/17 21:47 98.2 F 68 19 162/71 95 Intake and Output 07/09/17 07/09/17 07/09/17 06:59 14:59 22:59 Intake Total 100 Balance 100 Intake: Oral 100 Other: # Voids 2 1 # Bowel Movements 0 Weight 70.307 kg 70.307 kg - Constitutional General appearance: cooperative, no acute distress, obese - EENT Eyes: anicteric sclerae, PERRLA, normal appearance ENT: hearing grossly normal - Neck Neck: no lymphadenopathy, normal ROM, no other, no rigidity, no stridor, no thyromegaly - Respiratory Respiratory: bilateral diminished with wheezing bilaterally, there are coarse Velcro crackles heard at bases - Cardiovascular Rhythm: regular Heart sounds: normal: S1, S2 Abnormal Heart Sounds: no systolic murmur, no diastolic murmur, no rub, no S3 Gallop, no S4 Gallop, no click, no other - Gastrointestinal General gastrointestinal: normal bowel sounds, soft - Integumentary Integumentary: no rash - Neurologic Neurologic: CNII-XII intact - Musculoskeletal Musculoskeletal: gait normal, strength equal bilaterally - Psychiatric Psychiatric: A&O x's 3, appropriate affect Results - Laboratory Findings CBC and BMP: 07/08/17 22:36 07/08/17 22:36 PT/INR, D-dimer PT 10.7 sec (9.0-12.0) 07/08/17 22:36 INR 1.1 (<1.2) 07/08/17 22:36 Abnormal lab findings: Abnormal Labs 07/08/17 07/09/17 07/09/17 22:36 07:38 12:22 Glucose 124 H POC Glucose (mg/dL) 144 H 148 H - Diagnostic Findings Chest x-ray: image reviewed Assessment and Plan Plan: Assessment 1 acute exacerbation of COPD with secondary shortness of breath. Noted the patient's chronic dyspnea related to her underlying COPD and pulmonary fibrosis 2 pulmonary fibrosis with seems to be most consistent with IPF knowing that it has bilateral lower lobe distribution along the subpleural areas more so on the lower lobes bilaterally 3 chronic hypoxic respiratory failure secondary to above 4 history of small cell lung cancer with a previous left upper lobe resection that was done in 2015 and the patient was unable to complete adjuvant chemotherapy due to toxicity and side effects. Noted the patient has had follow -up CAT scans in the last CAT scan of the chest was done on 12/03/2016 that showed no evidence of any tumor recurrence. 5 breast cancer with a previous lumpectomy followed by radiation therapy and Arimidex treatment for a total of 5 years 6 history of cervical cancer with a previous hysterectomy 7 smoker 8 fibromyalgia 9 coronary artery disease 10 abdominal aortic aneurysm 11 Depression 12 Degenerative arthritis Plan Patient's presentation is typical for an acute COPD exacerbation. Nevertheless , based on her history of small cell lung cancer with an increased risk of recurrence, I would like to obtain a follow-up CAT scan of the chest looking for any evidence of recurrence. This will also assess the progression of the underlying pulmonary fibrosis. Meanwhile, continue the current antibiotic coverage steroids and bronchodilator regimen. Heparin subcu for DVT prophylaxis. Smoking cessation counseling was done. Outpatient pulmonary function test to assess her baseline lung capacity. It seems that the patient has been maintained on Symbicort. Addition of Spiriva may be of value special that underlying COPD/fibrosis combination.
[2017-07-09 16:51] LABS: Glucose,Whole Blood 159 mg/dL (75-99)
--- NOTE | 2017-07-09 17:08 | CT ---
EXAMINATION TYPE: CT chest w con DATE OF EXAM: 07/09/2017 COMPARISON: 12/03/2016 HISTORY: Exacerbation of COPD CT DLP: 588 mGycm Automated exposure control for dose reduction was used. CONTRAST: CT scan of the chest is performed with IV Contrast, patient injected with 100 mL of Omnipaque 300. FINDINGS: There is pulmonary emphysema. There is patchy subpleural reticular interstitial infiltrate in both suki ngs consistent with moderate pulmonary fibrosis. Thoracic aorta is atheromatous. Ascending aorta jennifer ures up to 3.9 cm. There is no evidence of dissection. There are large central pulmonary arteries con sistent with pulmonary hypertension. There are mediastinal and bronchial lymph nodes that measure up to 1 cm. There is no pericardial effusion. Heart is enlarged. There is no pleural effusion. There is no adrenal mass. There are cysts in the liver that measure less than 1 cm. There is spurring in the t horacic spine. I see no compression fracture. IMPRESSION: Cardiomegaly. Emphysema. Pulmonary interstitial fibrosis. Mild aneurysm of ascending aor ta. Atherosclerotic vascular disease. Nonspecific mediastinal and bronchial lymph nodes. Changes of p ulmonary hypertension. No significant change compared to old exam.
[2017-07-09 18:51] LABS: Hemoglobin A1C 5.4 % (4.0-6.0)
[2017-07-09] MEDS: guaiFENesin 600 MG TABLET.ER PO SCH (20:46)
[2017-07-09] MEDS: METOPROLOL TARTRATE 12.5 MG TAB PO SCH (20:47)
[2017-07-09] MEDS: FAMOTIDINE 20 MG TAB PO SCH (20:48)
[2017-07-09] MEDS: HEPARIN SODIUM,PORCINE 5,000 UNIT/ML 1 ML VIAL SQ SCH (20:48)
[2017-07-09] MEDS ORDERED: ARIPiprazole 15 MG TAB PO SCH (21:00)
[2017-07-09] MEDS ORDERED: MAGNESIUM OXIDE 400 MG TAB PO SCH (21:00)
[2017-07-09 21:08] LABS: Glucose,Whole Blood 146 mg/dL (75-99)
[2017-07-10] MEDS: methylPREDNISolone SOD SUCCI 125 MG/2 ML VIAL IV SCH ×3 (01:12→11:49)
[2017-07-10] MEDS: IPRATROPIUM-ALBUTEROL 3 ML NEB INHALATION SCH ×2 (07:17→11:12)
[2017-07-10 07:35] LABS: Glucose,Whole Blood 154 mg/dL (75-99)
[2017-07-10 07:56] VITALS: BP 147/73; TEMP 97.4
[2017-07-10] MEDS: FAMOTIDINE 20 MG TAB PO SCH (08:22)
[2017-07-10] MEDS: guaiFENesin 600 MG TABLET.ER PO SCH (08:22)
[2017-07-10] MEDS: ETODOLAC 200 MG CAPSULE PO SCH (08:22)
[2017-07-10] MEDS: amLODIPine 10 MG TAB PO SCH (08:22)
[2017-07-10] MEDS: METOPROLOL TARTRATE 12.5 MG TAB PO SCH (08:22)
[2017-07-10] MEDS: HEPARIN SODIUM,PORCINE 5,000 UNIT/ML 1 ML VIAL SQ SCH (08:22)
[2017-07-10] MEDS: OXYBUTYNIN CHLORIDE 5 MG TAB PO SCH (08:22)
[2017-07-10] MEDS: SPIRONOLACTONE 25 MG TAB PO SCH (08:23)
[2017-07-10] MEDS: HYDROcodone/APAP 10-325MG 1 EACH TAB PO PRN (08:31)
[2017-07-10 09:24] LABS: Basophils % (A) 0 %; Eosinophils % (A) 0 %; HCT 41.3 % (34.0-46.0); HGB 13.4 gm/dL (11.4-16.0); Lymphocytes # (A) 1.1 k/uL (1.0-4.8); Lymphocytes % (A) 11 %; MCHC 32.5 g/dL (31.0-37.0); MCV 95.3 fL (80.0-100.0); Mean Platelet Volume 6.9; Monocytes # (A) 0.3 k/uL (0-1.0); Monocytes % (A) 3 %; Neutrophils # (A) 9.3 k/uL (1.3-7.7); Neutrophils % (A) 86 %; Platelet Count 321 k/uL (150-450); RBC 4.33 m/uL (3.80-5.40); RDW 13.7 % (11.5-15.5); WBC 10.8 k/uL (3.8-10.6)
[2017-07-10 09:42] LABS: ALT 22 U/L (9-52); AST 21 U/L (14-36); Alkaline Phosphatase 75 U/L (38-126); Anion Gap 11 mmol/L; Blood Urea Nitrogen 17 mg/dL (7-17); Calcium 10.2 mg/dL (8.4-10.2); Carbon Dioxide 26 mmol/L (22-30); Chloride 98 mmol/L (98-107); Glucose 147 mg/dL (74-99); Potassium 5.1 mmol/L (3.5-5.1); Sodium 135 mmol/L (137-145); Total Bilirubin 0.3 mg/dL (0.2-1.3); Total Protein 7.2 g/dL (6.3-8.2)
[2017-07-10 11:22] VITALS: PULSE 92
[2017-07-10] MEDS ORDERED: AZITHROMYCIN 500 MG TAB PO SCH (11:45)
[2017-07-10] MEDS ORDERED: DOCUSATE 100 MG CAP PO SCH (11:45)
[2017-07-10] MEDS: cefTRIAXone IN SWFI 1,000 MG/10 ML SYRINGE IVP SCH (11:50)
[2017-07-10 12:01] LABS: Glucose,Whole Blood 155 mg/dL (75-99)
[2017-07-10] MEDS ORDERED: MORPHINE SULFATE IR 15 MG TABLET PO PRN (13:00)
--- NOTE | 2017-07-10 14:58 | P.DS ---
Providers Date of admission: 07/08/17 23:47 Expected date of discharge: 07/10/17 Attending physician: James Andersen MD Consults: 07/09/17 11:53 Consult Physician Routine Consulting Provider: Dorene Anderson Consult Reason/Comments: pulmonary fibrosis and acute bronchitis Do you want consulting provider notified?: Yes Primary care physician: L[facility] Course: 72 years old female patient of Dr. King past medical history of COPD, current tobacco use, history of lung cancer status post resection, depression. Presents in with acute shortness of breath and cough production for the past 1 week and stop patient's endorses productive cough. She is an active smoker and smokes half to three fourths of pack a day for 50+ years. Today patient denies any chest pain or fever or chills. She denies any lower extremity edema to stop she does have some nasal congestion and mild sore throat. Chest x-ray done in the ER suggestive of pulmonary fibrosis which is similar to the previous chest CT done on November 2016 is. Patient was unaware of the diagnosis of interstitial lung disease. Labs otherwise including CBC and BMP was unremarkable. Patient wears 2-3 L of oxygen during the night. He was found to be hypoxic to 86% on room air and is requiring 3 L of oxygen at rest during the day now. Patient will be admitted for acute bronchitis. Pulmonary consulted 07/10: Patient states that her breathing status is much improved today. New nebulizer has been ordered for home through director of casework services. CT of the chest shows cardiomegaly, emphysema, pulmonary interstitial fibrosis. Mild aneurysm of ascending aorta. Atherosclerotic vascular disease. Nonspecific mediastinal and bronchial lymph nodes. Changes of pulmonary hypertension. No significant change compared to old exam from November 2016. Patient will be discharged home today in stable condition. Discharge diagnoses: 1 acute hypoxic respiratory failure secondary to acute bronchitis and COPD exacerbation. #2 history of lung cancer status post resection, stable in remission #3 current tobacco abuse with history of ascending aortic aneurysm. #4 history of sleep apnea wears 2-3 L at night. #5 hypertension #6 recurrent depression #7 overactive bladder Discharge plan: Return home Impression and plan of care have been directed as dictated by the signing physician. Belinda Gaona nurse practitioner acting as scribe for signing physician. Patient Condition at Discharge: Good Plan - Discharge Summary Discharge Rx Participant: Yes New Discharge Prescriptions: New Cefpodoxime Proxetil [Vantin] 100 mg PO Q12HR #10 tab Famotidine [Pepcid] 20 mg PO BID #60 tab guaiFENesin [Mucinex] 600 mg PO Q12HR tablet.er Ipratropium-Albuterol Nebulize [Duoneb 0.5 mg-3 mg/3 ml Soln] 3 ml INHALATION RT-QID #120 ampul.neb Metoprolol Tartrate [Lopressor] 12.5 mg PO BID #60 tab predniSONE 10 mg PO DAILY #30 tab Continue Primidone [Mysoline] 250 mg PO BID amLODIPine [Norvasc] 10 mg PO DAILY Spironolactone 100 mg PO DAILY HYDROcodone/APAP 10-325MG [[place] 10-325] 1 tab PO Q6H PRN PRN Reason: Pain Diclofenac Sodium [Voltaren] 50 mg PO BID Oxybutynin Chloride [Ditropan] 5 mg PO TID Calcium 600-Vit D3 800 1 tab PO HS Turmeric Cucumin 500 mg PO DAILY Multivitamins, Thera [Multivitamin (formulary)] 1 tab PO DAILY busPIRone HCL 15 mg PO TID PRN PRN Reason: Anxiety Magnesium Oxide [Mag-Ox] 250 mg PO HS Citalopram Hydrobromide [CeleXA] 40 mg PO HS ARIPiprazole [Abilify] 15 mg PO HS Discharge Medication List Diclofenac Sodium [Voltaren] 50 mg PO BID 04/16/16 [History] HYDROcodone/APAP 10-325MG [[place] 10-325] 1 tab PO Q6H PRN 04/16/16 [History] Primidone [Mysoline] 250 mg PO BID 04/16/16 [History] Spironolactone 100 mg PO DAILY 04/16/16 [History] amLODIPine [Norvasc] 10 mg PO DAILY 04/16/16 [History] ARIPiprazole [Abilify] 15 mg PO HS 07/08/17 [History] Calcium 600-Vit D3 800 1 tab PO HS 07/08/17 [History] Citalopram Hydrobromide [CeleXA] 40 mg PO HS 07/08/17 [History] Magnesium Oxide [Mag-Ox] 250 mg PO HS 07/08/17 [History] Multivitamins, Thera [Multivitamin (formulary)] 1 tab PO DAILY 07/08/17 [History ] Oxybutynin Chloride [Ditropan] 5 mg PO TID 07/08/17 [History] Turmeric Cucumin 500 mg PO DAILY 07/08/17 [History] busPIRone HCL 15 mg PO TID PRN 07/08/17 [History] Cefpodoxime Proxetil [Vantin] 100 mg PO Q12HR #10 tab 07/10/17 [Rx] Famotidine [Pepcid] 20 mg PO BID #60 tab 07/10/17 [Rx] Ipratropium-Albuterol Nebulize [Duoneb 0.5 mg-3 mg/3 ml Soln] 3 ml INHALATION RT -QID #120 ampul.neb 07/10/17 [Rx] Metoprolol Tartrate [Lopressor] 12.5 mg PO BID #60 tab 07/10/17 [Rx] guaiFENesin [Mucinex] 600 mg PO Q12HR tablet.er 07/10/17 [Rx] predniSONE 10 mg PO DAILY #30 tab 07/10/17 [Rx] Follow up Appointment(s)/Referral(s): Landon King DO [Primary Care Provider] - 1-2 days (Office closed, please call for appointment) Dorene Anderson MD [STAFF PHYSICIAN] - 07/17/17 3:30 pm [facility] Visiting Nurse, [NON-STAFF] - Patient Instructions/Handouts: COPD (Chronic Obstructive Pulmonary Disease) (DC ) Activity/Diet/Wound Care/Special Instructions: Activity as tolerated, limited until follow up. No smoking, cessation information provided and encouraged. Nebulizer ordered from [place]. Cardiac diet. Discharge Disposition: HOME WITH HOME HEALTH SERVICES
--- NOTE | 2017-07-10 15:07 | P.PN ---
Subjective Progress Note Date: 07/10/17 Principal diagnosis: Acute exacerbation of COPD was shortness of breath, pulmonary fibrosis, most consistent with IPF, chronic hypoxic respiratory failure A very pleasant 72-year-old female patient who moved from [place] to [place] approximately year ago. She has an extensive history. She has established herself with Dr. Spence. She is also seeing Dr. Aguillon from oncology knowing that she has history of malignancies From the pulmonary standpoint, the patient has history of COPD and a chest x- ray clearly shows underlying bibasilar pulmonary fibrosis which the patient was not aware of. She has chronic hypoxic respiratory failure maintained on oxygen at 2 L/m nasal cannula. 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 She was initially found to have a nodule in the left upper lobe upon lung cancer screening that was done in 2013. This was monitored and subsequent CAT scan of the chest from January 2015 showed enlargement in the size of the left upper lobe lesion and for that reason the patient underwent a thoracotomy and left upper lobe resection. Lymph node samplings were done and they were negative and the patient was found to have a 1.8 cm small cell lung cancer. She was started on adjuvant chemotherapy however it was stopped after 1 or 2 cycles as the patient did not tolerate the treatment and she declined any further treatment. Her treatment was in [place]. In addition, the patient has history of early stage breast cancer that was diagnosed in 2002. She has undergone left breast lumpectomy followed by radiation therapy and 5 years of adjuvant Arimidex. The patient also has history of cervical cancer with a previous hysterectomy. In terms of her lung cancer, the patient had a CAT scan of the chest on 2015 that showed no evidence of any recurrence. She also had a CAT scan on that revealed underlying COPD and interstitial lung disease and pulmonary fibrosis without evidence of any recurrence. This patient has history of chronic exertional dyspnea. She comes into the hospital because of increased cough and congestion and increased wheeze. She was being seen by nurse practitioner in her home setting or a visiting nurse who suggested the patient coming to the hospital for further evaluation. Her chest x-ray revealed evidence of pulmonary fibrosis. There is also some postsurgical changes on the left. Otherwise, no fever or chills. No hemoptysis or pleurisy. No angina. No other complaints. 07/10/2017 patient seen in follow-up. Reports improvement in dyspnea and wheezing, she has been afebrile, vital signs are stable. She did have some coughing last night, and some trouble sleeping related to that. No significant coughing this morning. She has been ambulating about the room, tolerating activity well. Lung sounds are Less wheezy, no rhonchi or rales noted, there are some coarse bibasilar crackles noted. Extremities. Nasal cannula with O2 sat 96% vital signs are stable. Her CAT scan from 07/09/[address] has been [address] Dr[address] Anderson showed cardiomegaly, emphysema, pulmonary interstitial fibrosis , nonspecific mediastinal and bronchial lymph nodes, changes of pulmonary hypertension. It was negative or any evidence of malignancy. This was shared with the patient. Overall patient is improving, requesting to go home today. From pulmonary standpoint patient is stable for discharge home today. She will need follow-up appointment in the office for follow-up regarding her pulmonary fibrosis, and her COPD, as well as to obtain a baseline PFT. Objective - Vital Signs Vital signs: Vital Signs Temp 97.4 F L 07/10/17 07:00 Pulse 92 07/10/17 11:22 Resp 20 07/10/17 00:05 BP 147/73 07/10/17 07:00 Pulse Ox 96 07/10/17 07:00 Intake & Output 07/09/17 07/10/17 07/10/17 18:59 06:59 18:59 Intake Total 500 Balance 500 Weight 70.307 kg Intake: Oral 500 Other: # Voids 3 2 3 # Bowel Movements 0 - Exam Constitutional General appearance: cooperative, no acute distress, obese - EENT Eyes: anicteric sclerae, PERRLA, normal appearance ENT: hearing grossly normal - Neck Neck: no lymphadenopathy, normal ROM, no other, no rigidity, no stridor, no thyromegaly - Respiratory Respiratory: there are coarse Velcro crackles heard at bases, no wheezes noted - Cardiovascular Rhythm: regular Heart sounds: normal: S1, S2 Abnormal Heart Sounds: no systolic murmur, no diastolic murmur, no rub, no S3 Gallop, no S4 Gallop, no click, no other - Gastrointestinal General gastrointestinal: normal bowel sounds, soft - Integumentary Integumentary: no rash - Neurologic Neurologic: CNII-XII intact - Musculoskeletal Musculoskeletal: gait normal, strength equal bilaterally - Psychiatric Psychiatric: A&O x's 3, appropriate affect - Labs CBC & Chem 7: 07/10/17 08:43 07/10/17 08:43 Labs: Abnormal Lab Results - Last 24 Hours (Table) 07/09/17 07/09/17 07/10/17 Range/Units 16:48 20:55 07:29 WBC (3.8-10.6) k/uL Neutrophils # (1.3-7.7) k/uL Sodium (137-145) mmol/L Glucose (74-99) mg/dL POC Glucose (mg/dL) 159 H 146 H 154 H (75-99) mg/dL 07/10/17 07/10/17 07/10/17 Range/Units 08:43 08:43 11:53 WBC 10.8 H (3.8-10.6) k/uL Neutrophils # 9.3 H (1.3-7.7) k/uL Sodium 135 L (137-145) mmol/L Glucose 147 H (74-99) mg/dL POC Glucose (mg/dL) 155 H (75-99) mg/dL Microbiology - Last 24 Hours (Table) 07/08/17 22:36 Blood Culture - Preliminary Blood No Growth after 24 hours Assessment and Plan Plan: Assessment: 1 acute exacerbation of COPD with secondary shortness of breath. Noted the patient's chronic dyspnea related to her underlying COPD and pulmonary fibrosis 2 pulmonary fibrosis with seems to be most consistent with IPF knowing that it has bilateral lower lobe distribution along the subpleural areas more so on the lower lobes bilaterally 3 chronic hypoxic respiratory failure secondary to above 4 history of small cell lung cancer with a previous left upper lobe resection that was done in 2016 and the patient was unable to complete adjuvant chemotherapy due to toxicity and side effects. Noted the patient has had follow -up CAT scans in the last CAT scan of the chest was done on 12/03/2016 that showed no evidence of any tumor recurrence. 5 breast cancer with a previous lumpectomy followed by radiation therapy and Arimidex treatment for a total of 5 years 6 history of cervical cancer with a previous hysterectomy 7 smoker 8 fibromyalgia 9 coronary artery disease 10 abdominal aortic aneurysm 11 Depression 12 Degenerative arthritis Plan Patient is improving, responded well to inpatient treatments, requesting to go home. Vital signs are stable, she's been afebrile. She is tolerating ambulation. Results of the CAT scan she or better, patient will need a follow- up appointment Dr. Anderson in the office regarding the pulmonary fibrosis, and COPD management. She will need a baseline PFT. From pulmonary standpoint patient is stable for discharge home today. I performed a history & physical examination of the patient and discussed their management with my nurse practitioner, Queenie Spear. I reviewed the nurse practitioner's note and agree with the documented findings and plan of care. Lung sounds are positive for Velcro cracles at the bases. The findings and the impression was discussed with the patient. I attest to the documentation by the nurse practitioner. Time with Patient: Less than 30
--- NOTE | 2017-08-04 08:53 | CDI ---
Last Revision, March 2017 Documentation Clarification Form Date: 08/04/17 From: Mayda Nunez Phone: If you have a question regarding this query, please call Francie Narayanan at [phone] between 8am and 5pm Admit Date: 07/08/2017 11:47:00 PM Patient Name: Angelina Kwon Visit Number: [id number] Discharge Date: 07/10/17 ATTENTION: The Clinical Documentation Specialists (CDI) and [facility] Coding Staff appreciate your assistance in clarifying documentation. Please respond to the clarification below the line at the bottom and electronically sign. The CDI & [facility] Coding staff will review the response and follow-up if needed. Please note: Queries are made part of the Legal Health Record. If you have any questions, please contact the author of this message via ITS. Dr. James Andersen Conflicting documentation has been found in the medical record. Acute hypoxic respiratory failure is documented in the H&P and discharge summary. Chronic hypoxic respiratory failure is documented in the pulmonology consult note and progress note. History/Risk Factors: Patient has a history of COPD and pulmonary fibrosis. Clinical Indicators: Chronic dyspnea, Patient is on home O2. Was maintained on O2 at 2 lpm while in the hospital. Respiratory rate stayed around 18 - 20, pulse ox dropped to 93 once and then to 86 once and then stayed around 94 - 97. Vital signs: T. 98.2, P. 68, R. 19, BP 162/71 Treatment: Ventolin and Duoneb inhalation. IV Zithromax, IV Solu-Medrol In your opinion can you clarify the acuity of the respiratory failure? Acute Chronic Acute on Chronic Other explanation of clinical findings Unable to determine (no explanation for clinical findings) Acute on chronic ____ MTDD
== END 2017-07-10 14:23 | disposition home health service (06) | DRG 202 ==
LOC: EC 21:42 → 4MS4W 23:47
PROVIDERS: ADMIT Internal Medicine; ATTEND Internal Medicine
DX: J20.9 Acute bronchitis, unspecified (principal); J96.21 Acute and chronic respiratory failure with hypoxia; F33.9 Major depressive disorder, recurrent, unspecified; J96.11 Chronic respiratory failure with hypoxia; I27.20 Pulmonary hypertension, unspecified; I71.2 Thoracic aortic aneurysm, without rupture; J43.9 Emphysema, unspecified; J84.112 Idiopathic pulmonary fibrosis; F17.210 Nicotine dependence, cigarettes, uncomplicated; F41.9 Anxiety disorder, unspecified; G25.0 Essential tremor; G47.30 Sleep apnea, unspecified; I10 Essential (primary) hypertension; I25.10 Atherosclerotic heart disease of native coronary artery without angina pectoris; I71.4 Abdominal aortic aneurysm, without rupture; M19.90 Unspecified osteoarthritis, unspecified site; M79.7 Fibromyalgia; N32.81 Overactive bladder; J02.9 Acute pharyngitis, unspecified; E66.9 Obesity, unspecified; Z68.29 Body mass index [BMI] 29.0-29.9, adult; Z79.899 Other long term (current) drug therapy; Z88.1 Allergy status to other antibiotic agents; Z91.048 Other nonmedicinal substance allergy status; Z85.118 Personal history of other malignant neoplasm of bronchus and lung; Z85.3 Personal history of malignant neoplasm of breast; Z85.41 Personal history of malignant neoplasm of cervix uteri; Z90.710 Acquired absence of both cervix and uterus; Z96.611 Presence of right artificial shoulder joint; Z96.652 Presence of left artificial knee joint; Z98.42 Cataract extraction status, left eye; Z98.41 Cataract extraction status, right eye; Z96.1 Presence of intraocular lens; Z99.81 Dependence on supplemental oxygen; Z90.49 Acquired absence of other specified parts of digestive tract; Z90.2 Acquired absence of lung [part of]; Z71.6 Tobacco abuse counseling; Z80.1 Family history of malignant neoplasm of trachea, bronchus and lung
CPT/HCPCS: 36415; 71046; 71260; 80053; 82550; 82553; 83036; 83605; 83735; 83880; 84484; 85025; 85610; 85730; 87040; 87502; 93005; 94640; 94760; 96361; 96374; 99285

== ENCOUNTER 2017-08-20 11:50 | Day surgery (SDC) | payer MEDICARE ==
[2017-08-18 14:20] VITALS: BMI 28.5
[~2017-08-20 11:50] MED LIST changes: -LIDOCAINE 1% 20 ML VIAL (10MG/ML) FOR IV START INTRADERMA PRN; +Pre Op ABX Message 1 EACH MISC MISCELLANE ONE
[2017-08-20 12:18] VITALS: RESP 16; TEMP 98.6
[2017-08-20] MEDS ORDERED: LIDOCAINE 1% 20 ML VIAL (10MG/ML) FOR IV START INTRADERMA ONE (12:24)
[2017-08-20] MEDS ORDERED: PROPOFOL 10 MG/ML 20 ML VIAL IV ONE (13:18)
[2017-08-20] MEDS ORDERED: LIDOCAINE 1% INJ 10MG/ML (20 ML MDV) ONE (13:18)
[2017-08-20] MEDS ORDERED: GLYCOPYRROLATE 0.2 MG/ML 2 ML VIAL ONE (13:18)
[2017-08-20] MEDS ORDERED: LIDOCAINE 2% INJ 20 MG/ML INTRATRACH ONE (13:31)
--- NOTE | 2017-08-20 13:49 | P.PCN ---
Date of Procedure: 08/20/17 Preoperative Diagnosis: COPD, shortness of breath Postoperative Diagnosis: 1 tracheal bronchomalacia 2 mucous impaction 3 oropharyngeal and laryngeal candidiasis Procedure(s) Performed: Flexible bronchoscopy, therapeutic airway suctioning Anesthesia: MAC Surgeon: Dorene Anderson Estimated Blood Loss (ml): 0 Pathology: none sent Condition: stable Disposition: ICU Indications for Procedure: SOB Operative Findings: This procedure was done under conscious sedation with an acidic it is being administered by anesthesia the bedside. After achieving adequate sedation, the flexible bronchoscope was inserted to the left nostril until both upper airway. The patient had significant crowding of the posterior oropharynx and larynx with significant obstruction, dynamic obstruction of the upper airways under conscious sedation. There was evidence of white cottage cheese-type of material covering the epiglottis, vallecula, and the laryngeal and pharyngeal wall. The arytenoids were visualized. The vocal cords were function is within normal limits. A total of 2 mL of 1% lidocaine was applied to the vocal cords and following that the bronchoscope was advanced into the upper trachea. Immediately, it was very obvious that the patient had significant and severe tracheal bronchomalacia with near complete occlusion of the airways with expiratory maneuvers and coughing mechanism. There was copious amount of relatively thick respiratory secretions that were creamy scattered throughout the patient's airways. These secretions were present in the trachea, bilateral mainstem bronchi, upper lobes and lower lobes bilaterally. There was symmetric changes of the mucosa especially in the left side, left upper lobe and lingular segment. As mentioned, the tracheal bronchomalacia was reviewed and the membranous trachea was nearly occluding the airway with axillary maneuvers and coughing. Therapeutic airway suctioning was done. The rest or secretions were irrigated with saline and following that there were suctioned out without any major problems. Lavage of the left lung was also done male in the lingular segment and a total of 5 mL of fluid was also collected and sent for analysis. Postop diagnosis 1 severe tracheal bronchomalacia 2 pharyngeal/laryngeal candidiasis 3 obstructive sleep apnea 4 mucous accumulation within the airway, mucous inspissation status post having airway suctioning. Possible underlying taken bronchitis.
[2017-08-20] MEDS ORDERED: ACETAMINOPHEN TAB 325 MG TAB PO ONE (14:23)
[2017-08-20] MEDS ORDERED: IPRATROPIUM-ALBUTEROL 3 ML NEB INHALATION STA (14:53)
[2017-08-20 15:23] VITALS: BP 127/83
[2017-08-20 15:35] VITALS: PULSE 70
[2017-08-20 20:49] LABS: Appearance,BF Clear; Color,BF Colorless; Nucleated Cells, Body Fluid 90 /uL; RBC, Body Fluid 860 /uL
[2017-08-20 21:26] LABS: Mononuclear WBC,Body Fluid 8 %; Polynuclear WBC,Body Fluid 91 %
[2017-08-21] MEDS ORDERED: LIDOCAINE 2% (PF) 20 MG/ML 2 ML AMP INHALATION ONE (05:00)
[2017-08-21] MEDS ORDERED: ALBUTEROL NEB (CONC) 2.5 MG/0.5 ML INHALATION ONE (05:00)
[2017-08-21] MEDS ORDERED: LACTATED RINGERS 1,000 ML IV ONE (05:00)
== END 2017-08-20 15:42 | disposition home or self-care (01) ==
LOC: ORWHC2ENDO 11:50
PROVIDERS: ATTEND Internal Medicine Critical Care Medicine
DX: J98.09 Other diseases of bronchus, not elsewhere classified (principal); B37.89 Other sites of candidiasis; J44.1 Chronic obstructive pulmonary disease with (acute) exacerbation; C34.90 Malignant neoplasm of unspecified part of unspecified bronchus or lung; J84.112 Idiopathic pulmonary fibrosis; G47.33 Obstructive sleep apnea (adult) (pediatric); J39.8 Other specified diseases of upper respiratory tract; F17.210 Nicotine dependence, cigarettes, uncomplicated; Z99.81 Dependence on supplemental oxygen; F41.9 Anxiety disorder, unspecified; M79.7 Fibromyalgia; I10 Essential (primary) hypertension; I72.9 Aneurysm of unspecified site; F32.9 Major depressive disorder, single episode, unspecified; K21.9 Gastro-esophageal reflux disease without esophagitis; Z79.1 Long term (current) use of non-steroidal anti-inflammatories (NSAID); Z79.891 Long term (current) use of opiate analgesic; Z79.51 Long term (current) use of inhaled steroids; Z79.52 Long term (current) use of systemic steroids; Z79.899 Other long term (current) drug therapy; Z88.1 Allergy status to other antibiotic agents; Z91.09 Other allergy status, other than to drugs and biological substances
CPT/HCPCS: 94640 ×2; 87798 ×3; 87496; 87498; 87529; 88108; 88305; 89050; 87252; 87502; 87634; 87070; 87205; 87116; 87102; 87206; 31624; J2001 ×3; J2704; 31645

== ENCOUNTER → 2017-08-26 | Outpatient (CLI) | payer MEDICARE ==
[2017-08-26 13:20] LABS: Blood Urea Nitrogen 11 mg/dL (7-17)
--- NOTE | 2017-08-26 15:24 | CT ---
EXAMINATION TYPE: CT soft tissue neck w con DATE OF EXAM: 08/26/2017 COMPARISON: Chest CT July 09, 2017 and older studies. HISTORY: History of lung cancer presents with hoarseness for 3 months. History of left breast cancer. CT DLP: 561 mGycm. Automated Exposure Control for Dose Reduction was Utilized. TECHNIQUE: CT scan of the neck is performed following with IV Contrast, patient injected with 100 mL of Isovue 300. FINDINGS: Airway: Slight asymmetric fullness of left piriform sinus is seen without obvious mass. Left-sided th yroid nodularity is redemonstrated now suspected greater than 1 cm in size axial image 49. There is e mphysematous change with subpleural reticulation and fibrosis with distortion bilaterally, increasing in prominence from older CT studies. Parotid/submandibular glands: No gross abnormality seen. Carotid/Vascular Structures: There is moderate plaque in the left common carotid artery. There is mor e mild plaque at left carotid bulb. No significant stenosis is seen. There is mild to moderate plaque in the distal right common carotid artery. There is moderate calcified plaque at right carotid bulb extending into proximal internal carotid artery. No significant stenosis is evident. There is moderat e mixed plaque in the aorta extending into 3 great vessels. Osseous Structures: Spine is straightened. There is moderate spurring and disc space narrowing C5-C6 and to greater degree C6-C7 levels . There is grade 1 anterolisthesis of C4 on C5. Other: There is a prominent tortuous posterior right paraspinal muscle likely reflecting varicose vei n seen near axial image 23, other etiologies are not excluded. There is no suspicious greater than 1 cm neck adenopathy identified. IMPRESSION: No significant abnormality is seen in the neck to account for patient's symptoms of hoar seness. No obvious mass or adenopathy. Emphysematous change with peripheral fibrosis is redemonstrate d. Thyroid nodularity is again seen, consider dedicated thyroid ultrasound to better evaluate and rodrigo racterize. Other chronic findings as noted above.
== END | disposition home or self-care (01) ==
LOC: RADCTMAIN 12:27
PROVIDERS: ATTEND Internal Medicine Hematology & Oncology
DX: C34.92 Malignant neoplasm of unspecified part of left bronchus or lung (principal); E07.89 Other specified disorders of thyroid
CPT/HCPCS: 82565; 84520; 70491; 36415; Q9967

== ENCOUNTER → 2017-11-18 | Outpatient (CLI) | payer MEDICARE ==
--- NOTE | 2017-11-19 08:40 | CT ---
CT CHEST FOR PULMONARY EMBOLISM. EXAMINATION TYPE: CT angio chest DATE OF EXAM: 11/18/2017 INDICATION: Thoracic aneurysm without mention of rupture. CT DLP: 476.2 mGycm, Automated exposure control for dose reduction was used. CONTRAST: Patient injected with 100 mL of Isovue 370. COMPARISON: 07/09/2017 TECHNIQUE: CT of the chest is performed on a spiral scan at 2 mm thick sections. Study is performed with intravenous contrast timed for evaluation for pulmonary embolism. This will limit additional po rtions of the evaluation. 3-D MIP images reconstructed by the technologist are reviewed on the compu ter in the coronal and sagittal planes. FINDINGS: There is some vague hypodensity within the lateral left lobe of the thyroid on postcontrast imaging. This was present R2 2018. Ultrasound can be performed for additional evaluation. No persistent filling defects are evident to suggest an acute pulmonary embolism. There are multiple pretracheal and superior mediastinal lymph nodes. Small subcarinal lymph node is p resent. There is an enlarged lymph node in the pretracheal space. Reference image series 3 image 22, node measuring 1.1 cm. Coronary artery calcification is present. The ascending aorta diameter at the level of the main pulm onary artery is 4.0 cm. The main pulmonary artery diameter at the bifurcation is 3.7 cm. No suspicious acute pulmonary emboli are evident. Note is made of vascular calcification within the a tomas. The aorta tapers throughout its visualized course. Three-D reconstructed images through the aor ta are performed by the technologist on the [employer] computer. Some mild increased lung markings at the lung apices appear to be chronic. The paraseptal emphysematous changes and/or pulmonary fibrosis is within the periphery. Calcified gra nuloma is in the lingula above the diaphragm. Limited CT section through the upper abdomen are unremarkable. IMPRESSIONS: 1. Ascending thoracic aortic aneurysm measuring 4.0 cm. 2. 0.8 cm hypodensity within the left lobe thyroid. Additional evaluation with ultrasound can be perf ormed. 3. Stable pulmonary fibrosis.
== END | disposition home or self-care (01) ==
LOC: RADCTMAIN 15:07
PROVIDERS: ATTEND Internal Medicine Interventional Cardiology
DX: I71.2 Thoracic aortic aneurysm, without rupture (principal); J84.10 Pulmonary fibrosis, unspecified
CPT/HCPCS: 82565; 84520; 71275; 36415; Q9967

== ENCOUNTER → 2018-04-20 | Outpatient (CLI) | payer MEDICARE ==
[2018-04-20 12:49] LABS: Blood Urea Nitrogen 10 mg/dL (7-17)
--- NOTE | 2018-04-20 17:53 | CT ---
EXAMINATION TYPE: CT chest w con DATE OF EXAM: 04/20/2018 COMPARISON: CTA chest 11/18/2017 HISTORY: SOB CT DLP: 528 mGycm, Automated exposure control for dose reduction was used. CONTRAST: Performed injected with 100 mL of Isovue 300. TECHNIQUE: Axial images were obtained at 5 mm thick sections. Reconstructed images are reviewed on [employer] computer in the coronal plane. FINDINGS: Portion of the thyroid visualized is normal. Paraseptal emphysematous changes and pulmonary fibrosis is present. Some very subtle soft tissue dens ity may be inferior to a bifurcating vessel measuring 0.8 cm in transverse dimension. Series 3 image 32 this could be volume averaging. Short-term follow-up is recommended. There is a 1.3 cm right suprahilar lymph node. Smaller pretracheal lymph nodes are present. The ascending aorta diameter at the level of the main pulmonary artery is 3.7 cm. The main pulmonary artery diameter at the bifurcation is 3.[address] sections are obtained through the upper abdomen. Abdomen is essentially unremarkable. Smal l cysts likely within the inferior right lobe liver. IMPRESSIONS: 1. Couple of subtle soft tissue type densities within the right hilar and right lower lobe. This is s omewhat more prominent than comparison. 2. 1.3 cm right suprahilar lymph node. 3. Consider PET CT for additional evaluation of these findings.
== END ==
LOC: RADCTMAIN 12:09
PROVIDERS: ATTEND Internal Medicine Critical Care Medicine
DX: R93.89 Abnormal findings on diagnostic imaging of other specified body structures (principal); R59.0 Localized enlarged lymph nodes
CPT/HCPCS: 82565; 84520; 71260; 36415; Q9967

== ENCOUNTER 2018-05-14 10:32 | Day surgery (SDC) | payer MEDICARE ==
[2018-05-13 09:52] VITALS: BMI 26.8
[~2018-05-14 10:32] MED LIST changes: +LIDOCAINE 1% 20 ML VIAL (10MG/ML) FOR IV START INTRADERMA PRN; -Pre Op ABX Message 1 EACH MISC MISCELLANE ONE
[2018-05-14 10:53] VITALS: RESP 16; TEMP 97.9
[2018-05-14] MEDS ORDERED: PROPOFOL 10 MG/ML 20 ML VIAL IV ONE (11:10)
--- NOTE | 2018-05-14 11:37 | P.PCN ---
Date of Procedure: 05/14/18 Procedure(s) Performed: Brief history: Patient is a pleasant 72-year-old white female, scheduled for an elective upper endoscopy as well as colonoscopy as a part of evaluation of abdominal pain, nausea vomiting and bloody diarrhea for the last 6 months duration. She has bowel movements every from this x-ray today. (See with small amount of blood and mucus in the stool. Procedure performed: Esophagogastroduodenoscopy with biopsy Colonoscopy with random biopsies Preoperative diagnosis: Nausea vomiting Diarrhea with rectal bleeding for 6 months duration Anesthesia: MAC Procedure: After informed consent was obtained from the patient was brought into the endoscopy unit and IV sedation was administered by anesthesia under continuous monitoring. Initially upper endoscopy was done. The Olympus GF 160 video endoscope was inserted inserted into the mouth and esophagus intubated without any difficulty and was gradually advanced into the stomach and duodenum and carefully examined. The bulb and second part of the duodenum appeared normal. Biopsies were done from the duodenum to rule out celiac disease. The scope was then withdrawn into the stomach adequately insufflated with air and upon careful examination the antrum had erosive gastritis and biopsies were done from this area. The body, cardia and fundus appeared normal. The scope was then withdrawn into the esophagus. The GE junction was located at 40 cm to the incisors. It appeared regular with no erythema erosions or ulcerations. Rest of the esophagus appeared normal. Patient tolerated the procedure well. At this time the patient continued to remain sedation. Initial digital rectal examination was normal. Olympus CF 160 video colonoscope was then inserted into the rectum and gradually advanced to the cecum without any difficulty. Careful examination was performed as the scope was gradually being withdrawn. The prep was excellent. The cecum, ascending colon, transverse colon, descending colon, sigmoid colon and rectum appeared normal. Random biopsies were done from ascending and descending colon to rule out microscopic/ collagenous colitis Retroflexion was performed in the rectum and grade 2 internal hemorrhoids were noted. Patient tolerated the procedure well. Impression: 1. Upper endoscopy revealed erosive gastritis and duodenitis but no evidence of peptic ulcer disease. 2. Colonoscopy revealed small internal hemorrhoids but no evidence of colitis or colorectal neoplasia status post random biopsies to rule out microscopic/ collagenous colitis Recommendations: Findings of this examination were discussed with the patient as well as her family. She was advised to follow with the biopsy results. She'll be seen in office in one to 2 weeks
[2018-05-14 11:59] VITALS: BP 148/90; PULSE 78
== END 2018-05-14 13:32 | disposition home or self-care (01) ==
LOC: ORWHC2ENDO 10:32
PROVIDERS: ATTEND Internal Medicine Gastroenterology
DX: K29.50 Unspecified chronic gastritis without bleeding (principal); K29.80 Duodenitis without bleeding; K64.1 Second degree hemorrhoids; Z88.3 Allergy status to other anti-infective agents; I10 Essential (primary) hypertension; J44.9 Chronic obstructive pulmonary disease, unspecified; G47.33 Obstructive sleep apnea (adult) (pediatric); Z99.89 Dependence on other enabling machines and devices; Z99.81 Dependence on supplemental oxygen; K21.9 Gastro-esophageal reflux disease without esophagitis; F17.200 Nicotine dependence, unspecified, uncomplicated; Z79.82 Long term (current) use of aspirin; Z79.899 Other long term (current) drug therapy; M79.7 Fibromyalgia; Z85.3 Personal history of malignant neoplasm of breast; Z79.891 Long term (current) use of opiate analgesic
CPT/HCPCS: 45380; 43239; 88305; J2704

== ENCOUNTER 2018-09-02 14:04 | Inpatient (IN) | payer MEDICARE ==
[2018-09-02] MEDS ORDERED: IPRATROPIUM-ALBUTEROL 3 ML NEB INHALATION STA ×2 (14:10→17:57)
--- NOTE | 2018-09-02 14:17 | ED ---
SOB HPI - General Stated Complaint: SOB Time Seen by Provider: 09/02/18 14:04 Source: patient, EMS, RN notes reviewed Mode of arrival: EMS - History of Present Illness Initial Comments: This is a 73-year-old female history of multiple medical problems including lung cancer Pulmicort fibrosis COPD who still is an occasional smoker who apparently yesterday started developing shortness of breath and perioral edema. She states it shortness breath is got worse she denies any fevers chills nausea vomiting sweats she is on multiple medications including Macrobid and Ditropan which are themedication she's been on she has been on for a while she states. No prior history of any thing like the edema before she does have a cough for the most part nonproductive no chest pain no abdominal pain or other symptoms reported. She was brought in by EMS she was noted to be hypoxemic when not on oxygen. She was given steroids and Benadryl by medics and route she did get some improvement in her breathing. MD Complaint: shortness of breath - Related Data Home Medications Medication Instructions Recorded Confirmed Diclofenac Sodium [Voltaren] 50 mg PO BID 04/16/16 09/02/18 Primidone [Mysoline] 250 mg PO TID 04/16/16 09/02/18 Spironolactone 100 mg PO DAILY 04/16/16 09/02/18 amLODIPine [Norvasc] 10 mg PO DAILY 04/16/16 09/02/18 Citalopram Hydrobromide [CeleXA] 40 mg PO HS 07/08/17 09/02/18 Oxybutynin Chloride [Ditropan] 5 mg PO TID 07/08/17 09/02/18 Aspirin [Adult Low Dose Aspirin EC] 81 mg PO DAILY 08/18/17 09/02/18 Atenolol [Tenormin] 100 mg PO BID 08/18/17 09/02/18 ARIPiprazole [Abilify] 5 mg PO DAILY 09/02/18 09/02/18 Albuterol Nebulized [Ventolin 2.5 mg INHALATION RT-Q6H PRN 09/02/18 09/02/18 Nebulized] Multivitamins, Thera [Multivitamin 1 tab PO DAILY 09/02/18 09/02/18 (formulary)] Nitrofurantoin Monohyd/M-Cryst 100 mg PO BID 09/02/18 09/02/18 [Macrobid] Omeprazole 20 mg PO DAILY 09/02/18 09/02/18 Allergies Allergy/AdvReac Type Severity Reaction Status Date / Time levofloxacin [From Levaquin] AdvReac Severe Diarrhea Verified 09/02/18 14:52 adhesive tape AdvReac Unknown IRRITATES Verified 09/02/18 14:52 SKIN Review of Systems ROS Statement: Those systems with pertinent positive or pertinent negative responses have been documented in the HPI. ROS Other: All systems not noted in ROS Statement are negative. 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 History of Any Multi-Drug Resistant Organisms: None Reported Past Surgical History: Breast Surgery, Cholecystectomy, Heart Catheterization, Hysterectomy, Joint Replacement, Orthopedic Surgery Additional Past Surgical History / Comment(s): Left total knee, Right Total shoulder, Left BREAST LUMPECTOMY, CATARACTS , LT KNEE SCOPE, THYROID BX, COLONOSCOPY, EGD, BRONCHOSCOPY, LEFT UPPER LOBE LUNG RESECTION Past Anesthesia/Blood Transfusion Reactions: Previous Problems w/ Anesthesia Additional Past Anesthesia/Blood Transfusion Reaction / Comment(s): PT STATES THAT SHE HAS "HIGH" TOLERANCE TO IV SEDATION. Smoking Status: Current some day smoker - Past Family History Mother Family Medical History: Cancer Additional Family Medical History / Comment(s): LUNG General Exam - General Exam Comments Initial Comments: This is a well-developed well-nourished awake alert oriented 3 female General appearance: alert, in no apparent distress Head exam: Present: atraumatic, normocephalic, normal inspection Eye exam: Present: normal appearance, PERRL, EOMI. Absent: scleral icterus, conjunctival injection, periorbital swelling ENT exam: Present: mucous membranes dry, other (He does demonstrate perioral edema to the upper and lower lips with erythema the posterior pharynx is clear) Neck exam: Present: normal inspection, full ROM Respiratory exam: Present: wheezes, rhonchi, decreased breath sounds Cardiovascular Exam: Present: regular rate, normal rhythm, normal heart sounds. Absent: systolic murmur, diastolic murmur, rubs, gallop, clicks GI/Abdominal exam: Present: soft, normal bowel sounds. Absent: distended, tenderness, guarding, rebound, rigid Extremities exam: Present: normal inspection, full ROM, normal capillary refill. Absent: tenderness, pedal edema, joint swelling, calf tenderness Back exam: Present: normal inspection Neurological exam: Present: alert, oriented X3, CN II-XII intact Psychiatric exam: Present: normal affect, normal mood Skin exam: Present: warm, dry, intact, normal color. Absent: rash Course Vital Signs 09/02/18 09/02/18 09/02/18 14:16 15:03 15:13 Temperature 98 F Pulse Rate 88 84 84 Respiratory 18 Rate Blood Pressure 151/85 O2 Sat by Pulse 98 Oximetry 09/02/18 09/02/18 09/02/18 18:10 18:20 19:54 Temperature Pulse Rate 116 H 116 H 105 H Respiratory 20 Rate Blood Pressure 147/93 O2 Sat by Pulse 95 Oximetry Medical Decision Making - Medical Decision Making I did review the patient's previous admissions as well as discussed the findings the patient and with Dr. Grissom who did come the emergency department see the patient. Patient be admitted with consultation by Dr. Anderson is somewhat unclear what may have triggered the angioedema he considerations are the diclofenac versus the Mysoline. Will be admitted these will be withheld no AARON inhibitor apparent on her med list that she is aware of. - Lab Data Result diagrams: 09/02/18 14:58 09/02/18 14:58 Lab Results 09/02/18 09/02/18 09/02/18 Range/Units 14:58 14:58 14:58 WBC 8.7 (3.8-10.6) k/uL RBC 4.48 (3.80-5.40) m/uL Hgb 12.8 (11.4-16.0) gm/dL Hct 39.7 (34.0-46.0) % MCV 88.6 (80.0-100.0) fL MCH 28.5 (25.0-35.0) pg MCHC 32.1 (31.0-37.0) g/dL RDW 16.8 H (11.5-15.5) % Plt Count 442 (150-450) k/uL Neutrophils % 89 % Lymphocytes % 9 % Monocytes % 1 % Eosinophils % 0 % Basophils % 0 % Neutrophils # 7.8 H (1.3-7.7) k/uL Lymphocytes # 0.8 L (1.0-4.8) k/uL Monocytes # 0.1 (0-1.0) k/uL Eosinophils # 0.0 (0-0.7) k/uL Basophils # 0.0 (0-0.2) k/uL Anisocytosis Slight PT 10.6 (9.0-12.0) sec INR 1.0 (<1.2) APTT 26.5 (22.0-30.0) sec Sodium 136 L (137-145) mmol/L Potassium 4.5 (3.5-5.1) mmol/L Chloride 99 (98-107) mmol/L Carbon Dioxide 29 (22-30) mmol/L Anion Gap 8 mmol/L BUN 10 (7-17) mg/dL Creatinine 0.50 L (0.52-1.04) mg/dL Est GFR (CKD-EPI)AfAm >90 (>60 ml/min/1.73 sqM) Est GFR (CKD-EPI)NonAf >90 (>60 ml/min/1.73 sqM) Glucose 128 H (74-99) mg/dL Calcium 10.4 H (8.4-10.2) mg/dL Magnesium 2.1 (1.6-2.3) mg/dL Total Bilirubin 0.3 (0.2-1.3) mg/dL AST 23 (14-36) U/L ALT 23 (9-52) U/L Alkaline Phosphatase 92 (38-126) U/L Troponin I (0.000-0.034) ng/mL NT-Pro-B Natriuret Pep pg/mL Total Protein 7.9 (6.3-8.2) g/dL Albumin 4.4 (3.5-5.0) g/dL 09/02/18 09/02/18 Range/Units 14:58 14:58 WBC (3.8-10.6) k/uL RBC (3.80-5.40) m/uL Hgb (11.4-16.0) gm/dL Hct (34.0-46.0) % MCV (80.0-100.0) fL MCH (25.0-35.0) pg MCHC (31.0-37.0) g/dL RDW (11.5-15.5) % Plt Count (150-450) k/uL Neutrophils % % Lymphocytes % % Monocytes % % Eosinophils % % Basophils % % Neutrophils # (1.3-7.7) k/uL Lymphocytes # (1.0-4.8) k/uL Monocytes # (0-1.0) k/uL Eosinophils # (0-0.7) k/uL Basophils # (0-0.2) k/uL Anisocytosis PT (9.0-12.0) sec INR (<1.2) APTT (22.0-30.0) sec Sodium (137-145) mmol/L Potassium (3.5-5.1) mmol/L Chloride (98-107) mmol/L Carbon Dioxide (22-30) mmol/L Anion Gap mmol/L BUN (7-17) mg/dL Creatinine (0.52-1.04) mg/dL Est GFR (CKD-EPI)AfAm (>60 ml/min/1.73 sqM) Est GFR (CKD-EPI)NonAf (>60 ml/min/1.73 sqM) Glucose (74-99) mg/dL Calcium (8.4-10.2) mg/dL Magnesium (1.6-2.3) mg/dL Total Bilirubin (0.2-1.3) mg/dL AST (14-36) U/L ALT (9-52) U/L Alkaline Phosphatase (38-126) U/L Troponin I <0.012 (0.000-0.034) ng/mL NT-Pro-B Natriuret Pep 606 pg/mL Total Protein (6.3-8.2) g/dL Albumin (3.5-5.0) g/dL - EKG Data -: EKG Interpreted by Oh EKG shows normal: sinus rhythm (Sinus rhythm rate of 91 appear interval 196 respiration 100 QT since QTC 360/442 left exodeviation pulmonary disease pattern some artifact is present LVH) - Radiology Data Radiology results: report reviewed (I did review the imaging and reports no definite acute findings are seen.), image reviewed Disposition Clinical Impression: Acute exacerbation of chronic obstructive airways disease, Adult respiratory distress syndrome, Angioedema Disposition: ADMITTED IP TO THIS HOSP Condition: Fair Referrals: Landon King DO [Primary Care Provider] - 1-2 days
[2018-09-02 15:18] LABS: Anisocytosis Slight; Basophils % (A) 0 %; Eosinophils % (A) 0 %; HCT 39.7 % (34.0-46.0); HGB 12.8 gm/dL (11.4-16.0); Lymphocytes # (A) 0.8 k/uL (1.0-4.8); Lymphocytes % (A) 9 %; MCH 28.5 pg (25.0-35.0); MCHC 32.1 g/dL (31.0-37.0); MCV 88.6 fL (80.0-100.0); Mean Platelet Volume 6.2; Monocytes # (A) 0.1 k/uL (0-1.0); Monocytes % (A) 1 %; Neutrophils # (A) 7.8 k/uL (1.3-7.7); Neutrophils % (A) 89 %; Platelet Count 442 k/uL (150-450); RBC 4.48 m/uL (3.80-5.40); RDW 16.8 % (11.5-15.5); WBC 8.7 k/uL (3.8-10.6)
[2018-09-02 15:27] LABS: Partial Thromboplastin Time 26.5 sec (22.0-30.0); Prothrombin Time 10.6 sec (9.0-12.0)
[2018-09-02 15:29] LABS: ALT 23 U/L (9-52); AST 23 U/L (14-36); African American GFR (CKD) >90 (>60 ml/min/1.73 sqM); Albumin 4.4 g/dL (3.5-5.0); Alkaline Phosphatase 92 U/L (38-126); Anion Gap 8 mmol/L; Blood Urea Nitrogen 10 mg/dL (7-17); Calcium 10.4 mg/dL (8.4-10.2); Carbon Dioxide 29 mmol/L (22-30); Chloride 99 mmol/L (98-107); Glucose 128 mg/dL (74-99); Magnesium 2.1 mg/dL (1.6-2.3); Potassium 4.5 mmol/L (3.5-5.1); Sodium 136 mmol/L (137-145); Total Bilirubin 0.3 mg/dL (0.2-1.3); Total Protein 7.9 g/dL (6.3-8.2)
--- NOTE | 2018-09-02 15:37 | XR ---
EXAMINATION TYPE: XR chest 2V DATE OF EXAM: 09/02/2018 COMPARISON: Chest CT dated 04/20/2018 and x-ray dated 07/08/2017 HISTORY: Difficulty breathing TECHNIQUE: Frontal and lateral views of the chest are obtained. FINDINGS: Prominence of the sheyla may relate to adenopathy seen on the exam of 04/20/2018. Cardia media stinal silhouette is mildly enlarged. Underlying emphysematous changes and pulmonary fibrosis seen pe ripherally are redemonstrated. Interstitial prominence is chronic. Mild/moderate degenerative changes of the spine are present. Cholecystectomy clips are seen. Post surgical change of the right shoulder . IMPRESSION: Chronic changes of pulmonary fibrosis with enlarged sheyla possibly related to the adenopa thy seen on the exam of 04/20/2018.
[2018-09-02] MEDS ORDERED: MAG HYDROX/AL HYDROX/SIMETH 30 ML, HYOSCYAMINE ELIXIR 10 ML, CIMETIDINE HCL 300 MG, LID... PO STA ×4 (17:57)
[2018-09-02] MEDS ORDERED: SODIUM CHLORIDE 0.9% 1,000 ML IV SCH (20:15)
[2018-09-02] MEDS: methylPREDNISolone SOD SUCCI 125 MG/2 ML VIAL IV SCH (22:24)
[2018-09-02] MEDS: CITALOPRAM HYDROBROMIDE 20 MG TAB PO SCH (22:24)
[2018-09-02] MEDS: FAMOTIDINE 20 MG/2 ML VIAL IV SCH (22:24)
[2018-09-02] MEDS: OXYBUTYNIN CHLORIDE 5 MG TAB PO SCH (22:24)
[2018-09-02] MEDS: ATENOLOL 50 MG TAB PO SCH (22:24)
[2018-09-02 22:46] VITALS: BMI 24.8
[2018-09-02] MEDS: HYDROcodone/APAP 7.5-325MG 1 EACH TAB PO PRN (23:21)
[2018-09-02] MEDS: IPRATROPIUM-ALBUTEROL 3 ML NEB INHALATION SCH (23:51)
[2018-09-03] MEDS: IPRATROPIUM-ALBUTEROL 3 ML NEB INHALATION SCH ×6 (04:35→23:41)
[2018-09-03] MEDS: methylPREDNISolone SOD SUCCI 125 MG/2 ML VIAL IV SCH ×4 (05:57→23:18)
[2018-09-03 07:12] LABS: Glucose,Whole Blood 114 mg/dL (75-99)
--- NOTE | 2018-09-03 08:04 | P.HPIM ---
History of Present Illness H&P Date: 09/02/18 Chief Complaint: Severe dyspnea and shortness of breath, COPD exacerbation, angioedema, pulm 73-year-old female one of Dr. King's patient with past history of COPD, pulmonary fibrosis, history of breast cancer, atherosclerotic heart disease who also had familial tremor presented to demurs department on 09/02/2018 with significant dyspnea and shortness of breath cough and wheezes with development of angioedema with swelling in the lips her mouth and the ton damon area as well for few hours earlier to hasn't patient she brought by EMS was seen and evaluated was diagnosed with injury edema was having mild hypoxia along with inspiratory expiratory wheezes. Patient was diagnosed with COPD exacerbation along with angioedema started on steroids, updraft treatment, O2 no AARON inhibitor on board was found patient has been on diclofenac and higher dose of primidone which might have caused angioedema which will be held for now. Patient seen pulmonary on regular basis no be consulted. Review of Systems CONSTITUTIONAL: Well-developed no acute respiratory distress. EYES: No icterus sclerae, no conjunctivitis. EARS, NOSE, MOUTH, THROAT, and FACE: Positive injury edema with swelling in the lips mouth in the back of her throat. RESPIRATORY: Positive dyspnea and shortness of breath cough wheezes. CARDIOVASCULAR: No CP, Palpitation, PND, Orthopnea, or angina. GASTROINTESTINAL: No Abd pain, Nausea or vomiting, no Diarrhea or constipation, No GI Bleed, no distention or masses. GENITOURINARY: Negative for Hematuria or UTI, no kidney stones. INTEGUMENT/BREAST: Negative for any muscular injury with mild osteoarthritis.. HEMATOLOGIC/LYMPHATIC: Negative for bleed or purpura. MUSCULOSKELTAL: Negative for Myalgia or arthralgia. NEURLOGICAL: No LOC, Sz or syncope, blurred vision dizziness or abnormality.. BEHAVIORAL/PSYCH: Negative. ENDOCRINE: Negative. 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 History of Any Multi-Drug Resistant Organisms: None Reported Date of last positivie culture/infection: 2013 Past Surgical History: Breast Surgery, Cholecystectomy, Heart Catheterization, Hysterectomy, Joint Replacement, Orthopedic Surgery Additional Past Surgical History / Comment(s): Left total knee, Right Total shoulder, Left BREAST LUMPECTOMY, CATARACTS , LT KNEE SCOPE, THYROID BX, COLONOSCOPY, EGD, BRONCHOSCOPY, LEFT UPPER LOBE LUNG RESECTION Past Anesthesia/Blood Transfusion Reactions: Previous Problems w/ Anesthesia Additional Past Anesthesia/Blood Transfusion Reaction / Comment(s): PT STATES THAT SHE HAS "HIGH" TOLERANCE TO IV SEDATION. Past Psychological History: Anxiety, Depression Smoking Status: Current some day smoker Past Alcohol Use History: None Reported Additional Past Alcohol Use History / Comment(s): TRYING TO QUIT, HAS NOT SMOKED IN 2 DAYS,HAS BEEN SMOKING OFF AND ON SINCE 1966. UP TO 1PPD Past Drug Use History: None Reported Additional Drug Use History / Comment(s): STATES MARIJUANA OVER 20 YEARS AGO- NO CURRENT USE. - Past Family History Mother Family Medical History: Cancer Additional Family Medical History / Comment(s): LUNG Medications and Allergies Home Medications Medication Instructions Recorded Confirmed Type Diclofenac Sodium [Voltaren] 50 mg PO BID 04/16/16 09/02/18 History Primidone [Mysoline] 250 mg PO TID 04/16/16 09/02/18 History Spironolactone 100 mg PO DAILY 04/16/16 09/02/18 History amLODIPine [Norvasc] 10 mg PO DAILY 04/16/16 09/02/18 History Citalopram Hydrobromide [CeleXA] 40 mg PO HS 07/08/17 09/02/18 History Oxybutynin Chloride [Ditropan] 5 mg PO TID 07/08/17 09/02/18 History Aspirin [Adult Low Dose Aspirin EC] 81 mg PO DAILY 08/18/17 09/02/18 History Atenolol [Tenormin] 100 mg PO BID 08/18/17 09/02/18 History ARIPiprazole [Abilify] 5 mg PO DAILY 09/02/18 09/02/18 History Albuterol Nebulized [Ventolin 2.5 mg INHALATION RT-Q6H PRN 09/02/18 09/02/18 History Nebulized] Multivitamins, Thera [Multivitamin 1 tab PO DAILY 09/02/18 09/02/18 History (formulary)] Nitrofurantoin Monohyd/M-Cryst 100 mg PO BID 09/02/18 09/02/18 History [Macrobid] Omeprazole 20 mg PO DAILY 09/02/18 09/02/18 History Allergies Allergy/AdvReac Type Severity Reaction Status Date / Time levofloxacin [From [facility]] AdvReac Severe Diarrhea Verified 09/02/18 14:52 adhesive tape AdvReac Unknown IRRITATES Verified 09/02/18 14:52 SKIN Physical Exam Vitals: Vital Signs Temp Pulse Pulse Resp BP BP Pulse Ox 09/02/18 22:00 98.2 F 96 20 141/85 93 L 09/02/18 21:22 97.6 F 103 H 20 144/84 97 09/02/18 19:54 105 H 20 147/93 95 09/02/18 18:20 116 H 09/02/18 18:10 116 H 09/02/18 15:13 84 09/02/18 15:03 84 09/02/18 14:16 98 F 88 18 151/85 98 Intake and Output 09/02/18 09/02/18 09/03/18 14:59 22:59 06:59 Other: Weight 61.6 kg General Appearance: Alert, cooperative, no distress, appears stated age. Neck HEENT: Supple, no lymphadenopathy, no thyroid enlargement, no carotid bruits. Positive swelling in the lips and tongue to become for moderate angioedema. Lungs: Decreased breath sound bilaterally with fine rhonchi possible mild expiratory wheezes. Chest Wall: Decrease expansion with deep inspiration no tenderness and no defo rmity was found on exam, no costochondral pain or discomfort. Heart: Regular rate and rhythm, S1, S2 normal, no murmur, rub or gallop. Back: Symmetric, no curvature, ROM normal, no CVA tenderness. Abdomen: Soft, non-tender, bowel sounds active all four quadrants, no masses, no organomegaly. Extremities: Extremities normal, atraumatic, no cyanosis or edema. Pulses: 2+ and symmetric. Skin: Skin color, texture, tugor normal, no rashes or lesions. Neurologic: Alert oriented x3 cranial nerves II through XII intact, no motor deficit, no abnormal balance or gait. Results CBC & Chem 7: 09/02/18 14:58 09/02/18 14:58 Labs: Abnormal Lab Results - Last 24 Hours (Table) 09/02/18 09/02/18 Range/Units 14:58 14:58 RDW 16.8 H (11.5-15.5) % Neutrophils # 7.8 H (1.3-7.7) k/uL Lymphocytes # 0.8 L (1.0-4.8) k/uL Sodium 136 L (137-145) mmol/L Creatinine 0.50 L (0.52-1.04) mg/dL Glucose 128 H (74-99) mg/dL Calcium 10.4 H (8.4-10.2) mg/dL Thrombosis Risk Factor Assmnt - DVT/VTE Prophylaxis DVT/VTE Prophylaxis: Pharmacologic Prophylaxis ordered, Mechanical Prophylaxis ordered - Choose All That Apply Any of the Below Risk Factors Present?: Yes Other Risk Factors: Yes Each Risk Factor Represents 2 Points: Age 61-74 years Thrombosis Risk Factor Assessment Total Risk Factor Score: 2 Thrombosis Risk Factor Assessment Level: Low Risk Assessment and Plan Plan: 1 acute respiratory failure: Combination of COPD exacerbation, pulmonary fibrosis, severe bronchitis and angioedema with treat underlying disease watch symptoms closely consult pulmonary continue O2 continue supportive care. 2 COPD excessive patient: Patient was started on Solu-Medrol, DuoNeb and Pulmicort. 3 acute angioedema: Cause is not a clear at this point patient is on Macrobid, diclofenac, and primidone no AARON inhibitor or ARB, we will eliminate those 3 meds continue to watch patient for any worsening and decompression might airway. 4 tracheal bronchitis: With patient's current symptoms use single agent like Rocephin 1 g daily for now. 5 atherosclerotic heart disease: Continue atenolol and amlodipine and will resume patient's spironolactone. 6 Hypertension: Well controlled currently on amlodipine and atenolol. 7 familial tremor: Will hold off on primidone for now patient using medication with the overdose and intended. 8 depression: Has been on citalopram and Abilify. 9 history of breast cancer: Has been in remission. 10 severe GERD: Patient is on omeprazole 20 mg daily. 11 DVT prophylaxis: Patient be on heparin 5000 units daily twice a day. 12 nicotine dependency: Was start patient on nicotine patch. CODE STATUS: Full code. Admit patient to inpatient status for more than 2 nights.
[2018-09-03 08:26] LABS: Anisocytosis Slight; Basophils % (A) 0 %; Eosinophils % (A) 0 %; HCT 35.9 % (34.0-46.0); HGB 11.4 gm/dL (11.4-16.0); Lymphocytes # (A) 1.5 k/uL (1.0-4.8); Lymphocytes % (A) 17 %; MCH 28.1 pg (25.0-35.0); MCHC 31.9 g/dL (31.0-37.0); MCV 88.3 fL (80.0-100.0); Mean Platelet Volume 6.2; Monocytes # (A) 0.4 k/uL (0-1.0); Monocytes % (A) 4 %; Neutrophils # (A) 6.8 k/uL (1.3-7.7); Neutrophils % (A) 77 %; Platelet Count 400 k/uL (150-450); RBC 4.06 m/uL (3.80-5.40); RDW 16.9 % (11.5-15.5); WBC 8.8 k/uL (3.8-10.6)
[2018-09-03] MEDS: HEPARIN SODIUM,PORCINE 5,000 UNIT/ML 1 ML VIAL SQ SCH ×2 (08:36→21:40)
[2018-09-03] MEDS: FAMOTIDINE 20 MG/2 ML VIAL IV SCH (08:36)
[2018-09-03] MEDS: SPIRONOLACTONE 25 MG TAB PO SCH (08:37)
[2018-09-03] MEDS: HYDROcodone/APAP 7.5-325MG 1 EACH TAB PO PRN ×2 (08:37→18:43)
[2018-09-03] MEDS: amLODIPine 10 MG TAB PO SCH (08:38)
[2018-09-03] MEDS: PANTOPRAZOLE 40 MG TABLET PO SCH (08:38)
[2018-09-03] MEDS: ATENOLOL 50 MG TAB PO SCH ×2 (08:38→21:39)
[2018-09-03] MEDS: ASPIRIN 81 MG PO SCH (08:38)
[2018-09-03] MEDS: OXYBUTYNIN CHLORIDE 5 MG TAB PO SCH ×3 (08:38→21:40)
[2018-09-03] MEDS: ARIPiprazole 5 MG TAB PO SCH (08:38)
[2018-09-03] MEDS: MULTIVITAMINS, THERA 1 EACH TAB PO SCH (08:38)
[2018-09-03 08:46] LABS: ALT 26 U/L (9-52); AST 20 U/L (14-36); African American GFR (CKD) >90 (>60 ml/min/1.73 sqM); Albumin 3.8 g/dL (3.5-5.0); Alkaline Phosphatase 74 U/L (38-126); Anion Gap 5 mmol/L; Blood Urea Nitrogen 12 mg/dL (7-17); Calcium 9.7 mg/dL (8.4-10.2); Carbon Dioxide 25 mmol/L (22-30); Chloride 103 mmol/L (98-107); Glucose 112 mg/dL (74-99); Potassium 4.2 mmol/L (3.5-5.1); Sodium 133 mmol/L (137-145); Total Bilirubin 0.4 mg/dL (0.2-1.3); Total Protein 7.1 g/dL (6.3-8.2)
--- NOTE | 2018-09-03 10:10 | P.PN ---
Subjective Progress Note Date: 09/03/18 73-year-old female one of Dr. King's patient with past history of COPD, pulmonary fibrosis, history of breast cancer, atherosclerotic heart disease who also had familial tremor presented to demurs department on 09/02/2018 with significant dyspnea and shortness of breath cough and wheezes wi th development of angioedema with swelling in the lips her mouth and the tongue area as well for few hours earlier to hasn't patient she brought by EMS was seen and evaluated was diagnosed with injury edema was having mild hypoxia along with inspiratory expiratory wheezes. Patient was diagnosed with COPD exacerbation along with angioedema started on steroids, updraft treatment, O2 no AARON inhibito r on board was found patient has been on diclofenac and higher dose of primidone which might have caused angioedema which will be held for now. Patient seen pulmonary on regular basis no be consulted. 09/03: Patient continues to have significant edema to the upper left and having soreness and difficulty eating. Lidocaine gel will be added. Patient states her breathing is a little bit better today. She is on IV Solu-Medrol and Humalog scale will be added. PT and OT will be added to evaluate for subacute rehab. Patient currently lives alone. She has been afebrile, blood pressure 144/75, heart rate 67 and pulse ox 95% on [address] Anderson is on consult. Objective - Vital Signs Vital signs: Vital Signs Temp 98.1 F 09/03/18 05:30 Pulse 67 09/03/18 05:30 Resp 18 09/03/18 05:30 BP 144/75 09/03/18 05:30 Pulse Ox 95 09/03/18 08:03 Intake & Output 09/02/18 09/03/18 09/03/18 18:59 06:59 18:59 Intake Total 1000 Balance 1000 Weight 61.6 kg Intake: Oral 1000 Other: # Voids 2 - Exam Review of Systems CONSTITUTIONAL: Well-developed no acute respiratory distress. EYES: No icterus sclerae, no conjunctivitis. EARS, NOSE, MOUTH, THROAT, and FACE: Positive edema with swelling in the lips mouth in the back of her throat. RESPIRATORY: Positive dyspnea and shortness of breath cough wheezes. CARDIOVASCULAR: No CP, Palpitation, PND, Orthopnea, or angina. GASTROINTESTINAL: No Abd pain, Nausea or vomiting, no Diarrhea or constipation, No GI Bleed, no distention or masses. GENITOURINARY: Negative for Hematuria or UTI, no kidney stones. INTEGUMENT/BREAST: Negative for any muscular injury with mild osteoarthritis.. HEMATOLOGIC/LYMPHATIC: Negative for bleed or purpura. MUSCULOSKELTAL: Negative for Myalgia or arthralgia. NEURLOGICAL: No LOC, Sz or syncope, blurred vision dizziness or abnormality.. BEHAVIORAL/PSYCH: Negative. ENDOCRINE: Negative. General Appearance: Alert, cooperative, no respiratory distress, appears stated age. Neck HEENT: Supple, no lymphadenopathy, no thyroid enlargement, no carotid bruits. Positive swelling in the lips and tongue to become for moderate angioedema-slight improvement from yesterday. Lungs: Decreased breath sound bilaterally with fine rhonchi possible mild expiratory wheezes. Chest Wall: Decrease expansion with deep inspiration no tenderness and no deformity was found on exam, no costochondral pain or discomfort. Heart: Regular rate and rhythm, S1, S2 normal, no murmur, rub or gallop. Back: Symmetric, no curvature, ROM normal, no CVA tenderness. Abdomen: Soft, non-tender, bowel sounds active all four quadrants, no masses, no organomegaly. Extremities: Extremities normal, atraumatic, no cyanosis or edema. Pulses: 2+ and symmetric. Skin: Skin color, texture, tugor normal, no rashes or lesions. Neurologic: Alert oriented x3 cranial nerves II through XII intact, no motor deficit, no abnormal balance or gait. - Labs CBC & Chem 7: 09/03/18 07:40 09/03/18 07:40 Labs: Abnormal Lab Results - Last 24 Hours (Table) 09/02/18 09/02/18 09/03/18 Range/Units 14:58 14:58 06:57 RDW 16.8 H (11.5-15.5) % Neutrophils # 7.8 H (1.3-7.7) k/uL Lymphocytes # 0.8 L (1.0-4.8) k/uL Sodium 136 L (137-145) mmol/L Creatinine 0.50 L (0.52-1.04) mg/dL Glucose 128 H (74-99) mg/dL POC Glucose (mg/dL) 114 H (75-99) mg/dL Calcium 10.4 H (8.4-10.2) mg/dL 09/03/18 09/03/18 Range/Units 07:40 07:40 RDW 16.9 H (11.5-15.5) % Neutrophils # (1.3-7.7) k/uL Lymphocytes # (1.0-4.8) k/uL Sodium 133 L (137-145) mmol/L Creatinine 0.48 L (0.52-1.04) mg/dL Glucose 112 H (74-99) mg/dL POC Glucose (mg/dL) (75-99) mg/dL Calcium (8.4-10.2) mg/dL Assessment and Plan Plan: 1 acute respiratory distress secondary to Combination of COPD exacerbation, pulmonary fibrosis, severe bronchitis and angioedema with treat underlying disease watch symptoms closely consult pulmonary continue O2 continue supportive care. 2 COPD exacerbation: Patient was started on Solu-Medrol, DuoNeb and Pulmicort. Consult with Dr. Anderson. 3 acute angioedema: Cause is not a clear at this point patient is on Macrobid, diclofenac, and primidone no AARON inhibitor or ARB, we will eliminate those 3 meds continue to watch patient for any worsening and decompression might airway. 4 tracheal bronchitis: With patient's current symptoms use single agent like Rocephin 1 g daily for now. 5 atherosclerotic heart disease: Continue atenolol and amlodipine and will resume patient's spironolactone. 6 Hypertension: Well controlled currently on amlodipine and atenolol. 7 familial tremor: Will hold off on primidone for now patient using medication with the overdose and intended. 8 . Recurrent depression: Has been on citalopram and Abilify. 9 history of breast cancer: Has been in remission. 10 severe GERD: Patient is on omeprazole 20 mg daily. 11 DVT prophylaxis: Patient be on heparin 5000 units daily twice a day. 12 nicotine dependency: Was start patient on nicotine patch. CODE STATUS: Full code. Discharge plan: To be determined. PT and OT added. Impression and plan of care have been directed as dictated by the signing physician. Belinda Gaona nurse practitioner acting as scribe for signing physician.
[2018-09-03] MEDS: INSULIN ASPART (NovoLOG) 100 UNIT/ML VIAL SQ SCH ×3 (11:22→21:40)
[2018-09-03] MEDS: NICOTINE 14MG/24HR PATCH TRANSDERM SCH (11:25)
[2018-09-03 11:29] LABS: Glucose,Whole Blood 116 mg/dL (75-99)
[2018-09-03] MEDS: LIDOCAINE VISCOUS 2% 15 ML CUP MUCOUS MEM PRN ×2 (12:13→19:48)
--- NOTE | 2018-09-03 16:18 | P.CNPUL ---
History of Present Illness Consult date: 09/03/18 Reason for consult: dyspnea Chief complaint: Shortness of breath, facial swelling, lip swelling History of present illness: This is a 73-year-old white female patient of Dr. 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 She denied any fever, chills, denies nausea vomiting, denied any sweats. Upon presentation to the emergency department patient was significantly dyspneic, and wheezing and mildly hypoxemic. Patient was not on any AARON inhibitor's, her dose of primidone and diclofenac suspected to be the culprit for her angioedema. Patient was started on IV steroids and Benadryl, chest x-ray was completed showing chronic changes of pulmonary fibrosis with enlarged adenopathy seen on the exam from April 2018. Patient regularly follows with Dr. Anderson in the pulmonary clinic, and her baseline FEV1 is 1.42 L or 75% of predicted, and forced vital capacity 1.77 L or 70% of predicted consistent with restrictive pulmonary defect. Patient had of follow- up CAT scan in April 2018 and there was no convincing evidence that the patient had a new lesion or cancer progression, there was supine hilar lymph nodes and a couple soft tissue densities in the right hilum and the right lower lobe, they were not thought to be malignant, however they are being followed on outpatient basis. Patient is calm and comfortable, she is afebrile, hemodynamically stable, she is on 3 L of oxygen with a pulse ox of 96%. She states her breathing is much better, and the swelling has gone down. No acute issues overnight. Lung sounds reveal decreased breath sounds bilaterally, with a few scattered rhonchi, and a few wheezes. Review of Systems All systems: negative Constitutional: Denies chills, Denies fever Eyes: denies blurred vision, denies pain Ears, nose, mouth and throat: Denies headache, Denies sore throat Cardiovascular: Denies chest pain, Denies shortness of breath Respiratory: Reports dyspnea, Reports home oxygen, Reports wheezing, Denies cough Gastrointestinal: Denies abdominal pain, Denies diarrhea, Denies nausea, Denies vomiting Genitourinary: Denies dysuria, Denies hematuria Musculoskeletal: Denies myalgias Integumentary: Denies pruritus, Denies rash Neurological: Denies numbness, Denies weakness Psychiatric: Denies anxiety, Denies depression Endocrine: Denies fatigue, Denies weight change Past Medical History Past Medical History: Cancer, COPD, Fibromyalgia, Hypertension, Osteoarthritis (OA), Respiratory Disorder, Sleep Apnea/CPAP/BIPAP Additional Past Medical History / Comment(s): CURRENT RECTAL BLEEDING, FREQUENT DIARRHEA, Chronic hypoxic respiratory failure , OXYGEN @ 3L AT NIGHT, pulmonary fibrosis, 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 History of Any Multi-Drug Resistant Organisms: None Reported Date of last positivie culture/infection: 2013 Past Surgical History: Breast Surgery, Cholecystectomy, Heart Catheterization, Hysterectomy, Joint Replacement, Orthopedic Surgery Additional Past Surgical History / Comment(s): Left total knee, Right Total shoulder, Left BREAST LUMPECTOMY, CATARACTS , LT KNEE SCOPE, THYROID BX, COLONOSCOPY, EGD, BRONCHOSCOPY, LEFT UPPER LOBE LUNG RESECTION Past Anesthesia/Blood Transfusion Reactions: Previous Problems w/ Anesthesia Additional Past Anesthesia/Blood Transfusion Reaction / Comment(s): PT STATES THAT SHE HAS "HIGH" TOLERANCE TO IV SEDATION. Past Psychological History: Anxiety, Depression Smoking Status: Current some day smoker Past Alcohol Use History: None Reported Additional Past Alcohol Use History / Comment(s): TRYING TO QUIT, HAS NOT SMOKED IN 2 DAYS,HAS BEEN SMOKING OFF AND ON SINCE 1966. UP TO 1PPD Past Drug Use History: None Reported Additional Drug Use History / Comment(s): STATES MARIJUANA OVER 20 YEARS AGO- NO CURRENT USE. - Past Family History Mother Family Medical History: Cancer Additional Family Medical History / Comment(s): LUNG Medications and Allergies Home Medications Medication Instructions Recorded Confirmed Type Diclofenac Sodium [Voltaren] 50 mg PO BID 04/16/16 09/02/18 History Primidone [Mysoline] 250 mg PO TID 04/16/16 09/02/18 History Spironolactone 100 mg PO DAILY 04/16/16 09/02/18 History amLODIPine [Norvasc] 10 mg PO DAILY 04/16/16 09/02/18 History Citalopram Hydrobromide [CeleXA] 40 mg PO HS 07/08/17 09/02/18 History Oxybutynin Chloride [Ditropan] 5 mg PO TID 07/08/17 09/02/18 History Aspirin [Adult Low Dose Aspirin EC] 81 mg PO DAILY 08/18/17 09/02/18 History Atenolol [Tenormin] 100 mg PO BID 08/18/17 09/02/18 History ARIPiprazole [Abilify] 5 mg PO DAILY 09/02/18 09/02/18 History Albuterol Nebulized [Ventolin 2.5 mg INHALATION RT-Q6H PRN 09/02/18 09/02/18 History Nebulized] Multivitamins, Thera [Multivitamin 1 tab PO DAILY 09/02/18 09/02/18 History (formulary)] Nitrofurantoin Monohyd/M-Cryst 100 mg PO BID 09/02/18 09/02/18 History [Macrobid] Omeprazole 20 mg PO DAILY 09/02/18 09/02/18 History Allergies Allergy/AdvReac Type Severity Reaction Status Date / Time levofloxacin [From [facility]] AdvReac Severe Diarrhea Verified 09/02/18 14:52 adhesive tape AdvReac Unknown IRRITATES Verified 09/02/18 14:52 SKIN Physical Exam Vitals: Vital Signs Temp Pulse Pulse Resp BP BP BP 09/03/18 15:13 92 09/03/18 15:04 90 09/03/18 13:28 97.8 F 89 18 139/74 09/03/18 11:39 92 09/03/18 11:30 96 09/03/18 08:11 84 09/03/18 08:03 88 09/03/18 05:30 98.1 F 67 18 144/75 09/03/18 04:44 92 09/03/18 04:35 92 09/03/18 00:10 100 09/02/18 23:51 100 09/02/18 22:00 98.2 F 96 20 141/85 09/02/18 21:22 97.6 F 103 H 20 144/84 09/02/18 19:54 105 H 20 147/93 05/23/19 18:20 116 H 09/02/18 18:10 116 H Pulse Ox 09/03/18 15:13 09/03/18 15:04 96 09/03/18 13:28 90 L 09/03/18 11:39 09/03/18 11:30 09/03/18 08:11 09/03/18 08:03 95 09/03/18 05:30 97 09/03/18 04:44 09/03/18 04:35 09/03/18 00:10 09/02/18 23:51 94 L 09/02/18 22:00 93 L 09/02/18 21:22 97 09/02/18 19:54 95 09/02/18 18:20 09/02/18 18:10 Intake and Output 09/03/18 09/03/18 09/03/18 06:59 14:59 22:59 Intake Total 1000 1170 Balance 1000 1170 Intake: IV 690 Sodium Chloride 0.9% 1, 640 000 ml @ 80 mls/hr IV . [id number] MORALES Rx#:[id number] cefTRIAXone 1 gm In 50 Sodium Chloride 0.9% 50 ml @ 100 mls/hr IVPB Q24HR MORALES Rx#:[id number] Oral 1000 480 Other: # Voids 2 Weight 61.6 kg GENERAL EXAM: Alert, pleasant, elderly 73-year-old white female on 3 L of oxygen comfortable in no apparent distress. HEAD: Normocephalic/atraumatic. EYES: Normal reaction of pupils, equal size. Conjunctiva pink, sclera white. NOSE: Clear with pink turbinates. THROAT: No erythema or exudates. NECK: No masses, no JVD, no thyroid enlargement, no adenopathy. CHEST: No chest wall deformity. Symmetrical expansion. LUNGS: Equal air entry with a few rhonchi, and a few expiratory wheezes CVS: Regular rate and rhythm, normal S1 and S2, no gallops, no murmurs, no rubs ABDOMEN: Soft, nontender. No hepatosplenomegaly, normal bowel sounds, no gua rding or rigidity. EXTREMITIES: No clubbing, no edema, no cyanosis, 2+ pulses and upper and lower extremities. MUSCULOSKELETAL: Muscle strength and tone normal. SPINE: No scoliosis or deformity SKIN: No rashes CENTRAL NERVOUS SYSTEM: Alert and oriented -3. No focal deficits, tone is normal in all 4 extremities. PSYCHIATRIC: Alert and oriented -3. Appropriate affect. Intact judgment and insight. Results - Laboratory Findings CBC and BMP: 09/03/18 07:40 09/03/18 07:40 PT/INR, D-dimer PT 10.6 sec (9.0-12.0) 09/02/18 14:58 INR 1.0 (<1.2) 09/02/18 14:58 Abnormal lab findings: Abnormal Labs 09/02/18 09/02/18 09/03/18 14:58 14:58 06:57 RDW 16.8 H Neutrophils # 7.8 H Lymphocytes # 0.8 L Sodium 136 L Creatinine 0.50 L Glucose 128 H POC Glucose (mg/dL) 114 H Calcium 10.4 H 09/03/18 09/03/18 09/03/18 07:40 07:40 11:18 RDW 16.9 H Neutrophils # Lymphocytes # Sodium 133 L Creatinine 0.48 L Glucose 112 H POC Glucose (mg/dL) 116 H Calcium - Diagnostic Findings Chest x-ray: report reviewed, image reviewed Assessment and Plan Plan: 1. Acute on chronic hypoxemic respiratory failure related to acute episode of angioedema, and bronchospasm, suspected to be related to primidone 2. History of COPD 3. Pulmonary fibrosis with chronic hypoxemic respiratory failure, and outpatient PFT showed FEV1 of 1.43 L or 75% of predicted, and forced vital capacity of 1.77 L or 70% of predicted related to restrictive pulmonary defect 4. History of small cell lung cancer, status post left lung wedge resection followed by chemotherapy, most recent CAT scan on 04/20/2018 showed no convincing evidence that the patient had a new lesion or cancer progression. There were a suprahilar lymph node and a couple of soft tissue densities in the right hilum in the right lower lobe that were not suspected to be malignant, however will be followed with a follow-up CAT scan in the 6 months time 5. Tracheobronchomalacia 6. History of [id number] smoking, and patient is a current smoker 7. Hypertension 8. Anxiety 9. Fibromyalgia 10. Sleep apnea 11. History of left breast cancer with lumpectomy and radiation and patient is on Arimidex Plan: Continue the IV steroids, Benadryl, breathing treatments, patient is doing better, swelling has gone down, no difficulty breathing. Vital signs are stable, patient is maintaining good oxygenation on 3 L of oxygen. Chest x-ray has been reviewed, and showed chronic changes of pulmonary fibrosis with an enlarged hilum that were previously seen on the exam on 04/20/2018. I performed a history & physical examination of the patient and discussed their management with my nurse practitioner, Queenie Spear. I reviewed the nurse practitioner's note and agree with the documented findings and plan of care. Lung sounds are positive for a few scattered wheezes. The findings and the impression was discussed with the patient. I attest to the documentation by the nurse practitioner. Time with Patient: Greater than 30
[2018-09-03 17:27] LABS: Glucose,Whole Blood 144 mg/dL (75-99)
[2018-09-03 20:28] LABS: Glucose,Whole Blood 153 mg/dL (75-99)
[2018-09-03] MEDS: CITALOPRAM HYDROBROMIDE 20 MG TAB PO SCH (21:39)
[2018-09-03] MEDS: FAMOTIDINE 20 MG TAB PO SCH (21:42)
[2018-09-03] MEDS ORDERED: ALPRAZolam 0.25 MG TAB PO STA (22:08)
[2018-09-04] MEDS: HYDROcodone/APAP 7.5-325MG 1 EACH TAB PO PRN ×4 (00:57→20:59)
[2018-09-04] MEDS: IPRATROPIUM-ALBUTEROL 3 ML NEB INHALATION SCH ×6 (03:25→23:09)
[2018-09-04] MEDS: methylPREDNISolone SOD SUCCI 125 MG/2 ML VIAL IV SCH ×2 (06:05→12:53)
[2018-09-04 06:51] LABS: Glucose,Whole Blood 131 mg/dL (75-99)
[2018-09-04] MEDS: ATENOLOL 50 MG TAB PO SCH ×2 (08:15→20:59)
[2018-09-04] MEDS: OXYBUTYNIN CHLORIDE 5 MG TAB PO SCH ×3 (08:16→21:00)
[2018-09-04] MEDS: FAMOTIDINE 20 MG TAB PO SCH ×2 (08:16→21:00)
[2018-09-04] MEDS: MULTIVITAMINS, THERA 1 EACH TAB PO SCH (08:16)
[2018-09-04] MEDS: amLODIPine 10 MG TAB PO SCH (08:16)
[2018-09-04] MEDS: ASPIRIN 81 MG PO SCH (08:16)
[2018-09-04] MEDS: HEPARIN SODIUM,PORCINE 5,000 UNIT/ML 1 ML VIAL SQ SCH ×2 (08:16→21:00)
[2018-09-04] MEDS: PANTOPRAZOLE 40 MG TABLET PO SCH (08:16)
[2018-09-04] MEDS: SPIRONOLACTONE 25 MG TAB PO SCH (08:16)
[2018-09-04] MEDS: NICOTINE 14MG/24HR PATCH TRANSDERM SCH (08:16)
[2018-09-04] MEDS: INSULIN ASPART (NovoLOG) 100 UNIT/ML VIAL SQ SCH ×4 (08:17→21:00)
[2018-09-04] MEDS: ARIPiprazole 5 MG TAB PO SCH (08:17)
[2018-09-04] MEDS: LIDOCAINE VISCOUS 2% 15 ML CUP MUCOUS MEM PRN ×2 (10:53→14:20)
[2018-09-04 12:03] LABS: Glucose,Whole Blood 118 mg/dL (75-99)
--- NOTE | 2018-09-04 13:49 | P.PN ---
Subjective Progress Note Date: 09/04/18 73-year-old female one of Dr. King's patient with past history of COPD, pulmonary fibrosis, history of breast cancer, atherosclerotic heart disease who also had familial tremor presented to demurs department on 09/02/2018 with significant dyspnea and shortness of breath cough and wheezes wi th development of angioedema with swelling in the lips her mouth and the tongue area as well for few hours earlier to hasn't patient she brought by EMS was seen and evaluated was diagnosed with injury edema was having mild hypoxia along with inspiratory expiratory wheezes. Patient was diagnosed with COPD exacerbation along with angioedema started on steroids, updraft treatment, O2 no AARON inhibito r on board was found patient has been on diclofenac and higher dose of primidone which might have caused angioedema which will be held for now. Patient seen pulmonary on regular basis no be consulted. 09/03: Patient continues to have significant edema to the upper left and having soreness and difficulty eating. Lidocaine gel will be added. Patient states her breathing is a little bit better today. She is on IV Solu-Medrol and Humalog scale will be added. PT and OT will be added to evaluate for subacute rehab. Patient currently lives alone. She has been afebrile, blood pressure 144/75, heart rate 67 and pulse ox 95% on [address] Anderson is on consult. 09/04: Patient is sitting at the edge of the bed she can use to have some issues with her upper lip she continues to progress better she was seen in consultation by pulmonary medicine we will start the patient would need to be in the hospital for another 24 hours, we'll decrease her Solu-Medrol, we'll continue nebulized treatment, we'll Hep-Lock IV. Objective - Vital Signs Vital signs: Vital Signs Temp 97.8 F 09/04/18 05:32 Pulse 78 09/04/18 07:44 Resp 18 09/04/18 05:32 BP 153/78 09/04/18 05:32 Pulse Ox 96 09/04/18 05:32 Intake & Output 09/03/18 09/04/18 09/04/18 18:59 06:59 18:59 Intake Total 1170 Balance 1170 Weight 61.6 kg Intake: IV 690 Sodium Chloride 0.9% 1, 640 000 ml @ 80 mls/hr IV . [id number] MORALES Rx#:[id number] cefTRIAXone 1 gm In 50 Sodium Chloride 0.9% 50 ml @ 100 mls/hr IVPB Q24HR MORALES Rx#:[id number] Oral 480 Other: Voiding Method Toilet Bedside Commode # Voids 2 - Exam Review of Systems CONSTITUTIONAL: Well-developed no acute respiratory distress. EYES: No icterus sclerae, no conjunctivitis. EARS, NOSE, MOUTH, THROAT, and FACE: Positive edema with swelling in the lips mouth in the back of her throat. RESPIRATORY: Positive dyspnea and shortness of breath cough wheezes. CARDIOVASCULAR: No CP, Palpitation, PND, Orthopnea, or angina. GASTROINTESTINAL: No Abd pain, Nausea or vomiting, no Diarrhea or constipation, No GI Bleed, no distention or masses. GENITOURINARY: Negative for Hematuria or UTI, no kidney stones. INTEGUMENT/BREAST: Negative for any muscular injury with mild osteoarthritis.. HEMATOLOGIC/LYMPHATIC: Negative for bleed or purpura. MUSCULOSKELTAL: Negative for Myalgia or arthralgia. NEURLOGICAL: No LOC, Sz or syncope, blurred vision dizziness or abnormality.. BEHAVIORAL/PSYCH: Negative. ENDOCRINE: Negative. General Appearance: Alert, cooperative, no respiratory distress, appears stated age. Neck HEENT: Supple, no lymphadenopathy, no thyroid enlargement, no carotid bruits. Positive swelling in the lips and tongue to become for moderate angioedema-slight improvement from yesterday. Lungs: Decreased breath sound bilaterally with fine rhonchi possible mild expiratory wheezes. Chest Wall: Decrease expansion with deep inspiration no tenderness and no deformity was found on exam, no costochondral pain or discomfort. Heart: Regular rate and rhythm, S1, S2 normal, no murmur, rub or gallop. Back: Symmetric, no curvature, ROM normal, no CVA tenderness. Abdomen: Soft, non-tender, bowel sounds active all four quadrants, no masses, no organomegaly. Extremities: Extremities normal, atraumatic, no cyanosis or edema. Pulses: 2+ and symmetric. Skin: Skin color, texture, tugor normal, no rashes or lesions. Neurologic: Alert oriented x3 cranial nerves II through XII intact, no motor def icit, no abnormal balance or gait. - Labs CBC & Chem 7: 09/03/18 07:40 09/03/18 07:40 Labs: Abnormal Lab Results - Last 24 Hours (Table) 09/03/18 09/03/18 09/03/18 Range/Units 11:18 17:16 20:28 POC Glucose (mg/dL) 116 H 144 H 153 H (75-99) mg/dL 09/04/18 Range/Units 06:48 POC Glucose (mg/dL) 131 H (75-99) mg/dL Microbiology - Last 24 Hours (Table) 09/02/18 14:58 Blood Culture - Preliminary Blood No Growth after 24 hours Assessment and Plan Assessment: Assessment and Plan Plan: 1 acute respiratory distress secondary to Combination of COPD exacerbation, pulmonary fibrosis, severe bronchitis and angioedema with treat underlying disease watch symptoms closely consult pulmonary continue O2 continue supportive care. 2 COPD exacerbation: Patient was started on Solu-Medrol, DuoNeb and Pulmicort. Consult with Dr. Justin clemons. 3 acute angioedema: Cause is not a clear at this point patient is on Macrobid, diclofenac, and primidone no AARON inhibitor or ARB, we will eliminate those 3 meds continue to watch patient for any worsening and decompression might airway. 4 tracheal bronchitis: With patient's current symptoms use single agent like Rocephin 1 g daily for now. 5 atherosclerotic heart disease: Continue atenolol and amlodipine and will res ume patient's spironolactone. 6 Hypertension: Well controlled currently on amlodipine and atenolol. 7 familial tremor: Will hold off on primidone for now patient using medication with the overdose and intended. 8 . Recurrent depression: Has been on citalopram and Abilify. 9 history of breast cancer: Has been in remission. 10 severe GERD: Patient is on omeprazole 20 mg daily. 11 DVT prophylaxis: Patient be on heparin 5000 units daily twice a day. 12 nicotine dependency: Was start patient on nicotine patch.
--- NOTE | 2018-09-04 14:28 | P.PN ---
Subjective Progress Note Date: 09/04/18 On 09/04/2018, the patient is doing well. Has sinus slightly swollen still. The patient remains on IV Solu Medrol. No significant chest pain. No shortness of breath. No nausea or vomiting. She is less bronchospastic and wheezy compared to yesterday. She is still on IV Solu Medrol. She is also on n ebulized treatments around the clock. Overall she is improving. She is on 3 L of oxygen by nasal cannula. She has history of extensive pulmonary fibrosis addition to underlying COPD. She also has a remote history of small cell lung cancer and her disease has been in remission since. Objective - Vital Signs Vital signs: Vital Signs Temp 97.8 F 09/04/18 05:32 Pulse 78 09/04/18 07:44 Resp 18 09/04/18 08:15 BP 153/78 09/04/18 05:32 Pulse Ox 96 09/04/18 05:32 Intake & Output 09/03/18 09/04/18 09/04/18 18:59 06:59 18:59 Intake Total 1170 Balance 1170 Weight 61.6 kg Intake: IV 690 Sodium Chloride 0.9% 1, 640 000 ml @ 80 mls/hr IV . [id number] [facility] Rx#:[id number] cefTRIAXone 1 gm In 50 Sodium Chloride 0.9% 50 ml @ 100 mls/hr IVPB Q24HR [facility] Rx#:[id number] Oral 480 Other: Voiding Method Toilet Bedside Commode # Voids 2 - Labs CBC & Chem 7: 09/03/18 07:40 09/03/18 07:40 Labs: Abnormal Lab Results - Last 24 Hours (Table) 09/03/18 09/03/18 09/04/18 Range/Units 17:16 20:28 06:48 POC Glucose (mg/dL) 144 H 153 H 131 H (75-99) mg/dL 09/04/18 Range/Units 12:01 POC Glucose (mg/dL) 118 H (75-99) mg/dL Microbiology - Last 24 Hours (Table) 09/02/18 14:58 Blood Culture - Preliminary Blood No Growth after 24 hours Assessment and Plan Plan: 1. Acute on chronic hypoxemic respiratory failure related to acute episode of angioedema, and bronchospasm, suspected to be related to primidone, versus any other agents whether is environment or medical. Improving while on IV Solu- Medrol. Less short of breath. Tongue swelling is improved. 2. History of COPD 3. Pulmonary fibrosis with chronic hypoxemic respiratory failure, and outpatient PFT showed FEV1 of 1.43 L or 75% of predicted, and forced vital capacity of 1.77 L or 70% of predicted related to restrictive pulmonary defect 4. History of small cell lung cancer, status post left lung wedge resection followed by chemotherapy, most recent CAT scan on 04/20/2018 showed no convincing evidence that the patient had a new lesion or cancer progression. T here were a suprahilar lymph node and a couple of soft tissue densities in the right hilum in the right lower lobe that were not suspected to be malignant, however will be followed with a follow-up CAT scan in the 6 months time 5. Tracheobronchomalacia 6. History of [id number] smoking, and patient is a current smoker 7. Hypertension 8. Anxiety 9. Fibromyalgia 10. Sleep apnea 11. History of left breast cancer with lumpectomy and radiation and patient is on Arimidex Plan New treatment for another 24 hours with IV Solu-Medrol. Continue bronchodilators. Discharge probably within next 24-48 hours. Overall condition is stable for now. No signs of any airway compromise. She is following up with final without any aspiration. Her speech is within normal limits.
[2018-09-04 16:49] LABS: Glucose,Whole Blood 194 mg/dL (75-99)
[2018-09-04] MEDS: methylPREDNISolone SOD SUCCI 40 MG/ML 1 ML VIAL IV SCH (17:06)
[2018-09-04] MEDS: LIDOCAINE 5% PATCH TOPICAL SCH (20:58)
[2018-09-04] MEDS: CITALOPRAM HYDROBROMIDE 20 MG TAB PO SCH (20:59)
[2018-09-04 21:15] LABS: Glucose,Whole Blood 180 mg/dL (75-99)
[2018-09-05] MEDS: methylPREDNISolone SOD SUCCI 40 MG/ML 1 ML VIAL IV SCH ×2 (00:08→08:33)
[2018-09-05] MEDS: IPRATROPIUM-ALBUTEROL 3 ML NEB INHALATION SCH ×5 (03:37→19:37)
[2018-09-05 07:27] LABS: Glucose,Whole Blood 128 mg/dL (75-99)
[2018-09-05 07:30] LABS: ALT 29 U/L (9-52); AST 27 U/L (14-36); African American GFR (CKD) >90 (>60 ml/min/1.73 sqM); Albumin 3.8 g/dL (3.5-5.0); Alkaline Phosphatase 67 U/L (38-126); Anion Gap 5 mmol/L; Blood Urea Nitrogen 22 mg/dL (7-17); Calcium 9.8 mg/dL (8.4-10.2); Carbon Dioxide 31 mmol/L (22-30); Chloride 99 mmol/L (98-107); Glucose 116 mg/dL (74-99); Potassium 4.2 mmol/L (3.5-5.1); Sodium 135 mmol/L (137-145); Total Bilirubin 0.3 mg/dL (0.2-1.3); Total Protein 6.9 g/dL (6.3-8.2)
[2018-09-05 08:08] LABS: Anisocytosis Slight; HCT 35.5 % (34.0-46.0); HGB 11.2 gm/dL (11.4-16.0); MCH 28.6 pg (25.0-35.0); MCHC 31.7 g/dL (31.0-37.0); MCV 90.3 fL (80.0-100.0); Mean Platelet Volume 6.9; Platelet Count 329 k/uL (150-450); RBC 3.93 m/uL (3.80-5.40); RDW 17.4 % (11.5-15.5); WBC 8.3 k/uL (3.8-10.6)
[2018-09-05] MEDS: FAMOTIDINE 20 MG TAB PO SCH ×2 (08:33→20:26)
[2018-09-05] MEDS: amLODIPine 10 MG TAB PO SCH (08:33)
[2018-09-05] MEDS: PANTOPRAZOLE 40 MG TABLET PO SCH (08:33)
[2018-09-05] MEDS: MULTIVITAMINS, THERA 1 EACH TAB PO SCH (08:33)
[2018-09-05] MEDS: ASPIRIN 81 MG PO SCH (08:33)
[2018-09-05] MEDS: OXYBUTYNIN CHLORIDE 5 MG TAB PO SCH ×3 (08:33→20:34)
[2018-09-05] MEDS: SPIRONOLACTONE 25 MG TAB PO SCH (08:33)
[2018-09-05] MEDS: NICOTINE 14MG/24HR PATCH TRANSDERM SCH (08:33)
[2018-09-05] MEDS: HEPARIN SODIUM,PORCINE 5,000 UNIT/ML 1 ML VIAL SQ SCH ×2 (08:33→20:23)
[2018-09-05] MEDS: ATENOLOL 50 MG TAB PO SCH ×2 (08:33→20:25)
[2018-09-05] MEDS: INSULIN ASPART (NovoLOG) 100 UNIT/ML VIAL SQ SCH (08:34)
[2018-09-05] MEDS: LIDOCAINE 5% PATCH TOPICAL SCH (08:40)
[2018-09-05] MEDS: HYDROcodone/APAP 7.5-325MG 1 EACH TAB PO PRN ×3 (08:41→23:59)
[2018-09-05] MEDS: ARIPiprazole 5 MG TAB PO SCH (08:41)
[2018-09-05 09:23] LABS: Lymphocytes # (M) 2.41 k/uL (1.0-4.8); Monocytes # (M) 0.66 k/uL (0-1.0); Neutrophils % (M) 63 %; Nucleated Red Blood Cells 0 /100 WBC (0-0); Total Cells Counted 100
[2018-09-05 09:24] LABS: Poikilocytosis (M) Present
[2018-09-05] MEDS: LIDOCAINE VISCOUS 2% 15 ML CUP MUCOUS MEM PRN (10:47)
[2018-09-05] MEDS: predniSONE 10 MG TAB PO SCH (10:56)
[2018-09-05] MEDS: NYSTATIN 100,000 UNIT/ML SUSP 500,000 UNIT/5 ML CUP PO SCH ×3 (10:57→20:34)
--- NOTE | 2018-09-05 11:06 | P.PN ---
Subjective Progress Note Date: 09/05/18 73-year-old female one of Dr. King's patient with past history of COPD, pulmonary fibrosis, history of breast cancer, atherosclerotic heart disease who also had familial tremor presented to demurs department on 09/02/2018 with significant dyspnea and shortness of breath cough and wheezes wi th development of angioedema with swelling in the lips her mouth and the tongue area as well for few hours earlier to hasn't patient she brought by EMS was seen and evaluated was diagnosed with injury edema was having mild hypoxia along with inspiratory expiratory wheezes. Patient was diagnosed with COPD exacerbation along with angioedema started on steroids, updraft treatment, O2 no AARON inhibito r on board was found patient has been on diclofenac and higher dose of primidone which might have caused angioedema which will be held for now. Patient seen pulmonary on regular basis no be consulted. 09/03: Patient continues to have significant edema to the upper left and having soreness and difficulty eating. Lidocaine gel will be added. Patient states her breathing is a little bit better today. She is on IV Solu-Medrol and Humalog scale will be added. PT and OT will be added to evaluate for subacute rehab. Patient currently lives alone. She has been afebrile, blood pressure 144/75, heart rate 67 and pulse ox 95% on [address] Anderson is on consult. 09/04: Patient is sitting at the edge of the bed she can use to have some issues with her upper lip she continues to progress better she was seen in consultation by pulmonary medicine we will start the patient would need to be in the hospital for another 24 hours, we'll decrease her Solu-Medrol, we'll continue nebulized treatment, we'll Hep-Lock IV. 09/05: Patient is sitting up in bed in no apparent distress, she is feeling better she continues to have some hoarsness in her voice, she has no shortness breath no drooling she will stay in the hospital for another 24 hours we'll switch her to oral medication she will be discharged home in the next 24 hours. Objective - Vital Signs Vital signs: Vital Signs Temp 97.3 F L 09/05/18 06:00 Pulse 74 09/05/18 08:41 Resp 16 09/05/18 06:00 BP 178/88 09/05/18 06:00 Pulse Ox 98 09/05/18 06:00 Intake & Output 09/04/18 09/05/18 09/05/18 18:59 06:59 18:59 Other: Voiding Method Toilet Bedside Commode # Voids 3 2 - Exam Review of Systems CONSTITUTIONAL: Well-developed no acute respiratory distress. EYES: No icterus sclerae, no conjunctivitis. EARS, NOSE, MOUTH, THROAT, and FACE: Positive edema with swelling in the lips mouth in the back of her throat. RESPIRATORY: Positive dyspnea and shortness of breath cough wheezes. CARDIOVASCULAR: No CP, Palpitation, PND, Orthopnea, or angina. GASTROINTESTINAL: No Abd pain, Nausea or vomiting, no Diarrhea or constipation, No GI Bleed, no distention or masses. GENITOURINARY: Negative for Hematuria or UTI, no kidney stones. INTEGUMENT/BREAST: Negative for any muscular injury with mild osteoarthritis.. HEMATOLOGIC/LYMPHATIC: Negative for bleed or purpura. MUSCULOSKELTAL: Negative for Myalgia or arthralgia. NEURLOGICAL: No LOC, Sz or syncope, blurred vision dizziness or abnormality.. BEHAVIORAL/PSYCH: Negative. ENDOCRINE: Negative. General Appearance: Alert, cooperative, no respiratory distress, appears stated age. Neck HEENT: Supple, no lymphadenopathy, no thyroid enlargement, no carotid bruits. Positive swelling in the lips and tongue to become for moderate angioedema-slight improvement from yesterday. Lungs: Decreased breath sound bilaterally with fine rhonchi possible mild expiratory wheezes. Chest Wall: Decrease expansion with deep inspiration no tenderness and no deformity was found on exam, no costochondral pain or discomfort. Heart: Regular rate and rhythm, S1, S2 normal, no murmur, rub or gallop. Back: Symmetric, no curvature, ROM normal, no CVA tenderness. Abdomen: Soft, non-tender, bowel sounds active all four quadrants, no masses, no organomegaly. Extremities: Extremities normal, atraumatic, no cyanosis or edema. Pulses: 2+ and symmetric. Skin: Skin color, texture, tugor normal, no rashes or lesions. Neurologic: Alert oriented x3 cranial nerves II through XII intact, no motor deficit, no abnormal balance or gait. - Labs CBC & Chem 7: 09/05/18 06:40 09/05/18 06:40 Labs: Abnormal Lab Results - Last 24 Hours (Table) 05/25/19 05/25/19 05/25/19 Range/Units 12:01 16:47 21:13 Hgb (11.4-16.0) gm/dL RDW (11.5-15.5) % Sodium (137-145) mmol/L Carbon Dioxide (22-30) mmol/L BUN (7-17) mg/dL Glucose (74-99) mg/dL POC Glucose (mg/dL) 118 H 194 H 180 H (75-99) mg/dL 09/05/18 09/05/18 09/05/18 Range/Units 06:40 06:40 07:18 Hgb 11.2 L (11.4-16.0) gm/dL RDW 17.4 H (11.5-15.5) % Sodium 135 L (137-145) mmol/L Carbon Dioxide 31 H (22-30) mmol/L BUN 22 H (7-17) mg/dL Glucose 116 H (74-99) mg/dL POC Glucose (mg/dL) 128 H (75-99) mg/dL Microbiology - Last 24 Hours (Table) 09/02/18 14:58 Blood Culture - Preliminary Blood No Growth after 48 hours Assessment and Plan Assessment: Assessment and Plan Plan: 1 acute respiratory distress secondary to Combination of COPD exacerbation, pulmonary fibrosis, severe bronchitis and angioedema. We will switch her to prednisone 40 mg orally once every day, discontinue IV antibiotic started on oral Omnicef 300 mg orally twice every day, Hep-Lock IV in anticipation of discharge. 2 COPD exacerbation. Continue patient on DuoNeb 3 mg nebulization 4 times every day, switch to prednisone 40 mg orally once every day. 3 acute angioedema: Cause is not a clear at this point patient is on Macrobid, diclofenac, and primidone. Appears better continue with prednisone. 4 tracheal bronchitis. Discontinue Rocephin and start the patient on Omnicef 300 mg orally twice every day. 5 atherosclerotic heart disease: Continue atenolol and amlodipine and will resume patient's spironolactone. 6 Hypertension: Well controlled currently on amlodipine and atenolol. 7 familial tremor: Will hold off on primidone for now patient using medication with the overdose and intended. 8 . Recurrent depression: Has been on citalopram and Abilify. 9 history of breast cancer: Has been in remission. 10 severe GERD: Patient is on omeprazole 20 mg daily. 11 DVT prophylaxis: Patient be on heparin 5000 units daily twice a day. 12 nicotine dependency: Was start patient on nicotine patch. 13. patient will be discharged home in the next 24 hours.
--- NOTE | 2018-09-05 12:56 | P.PN ---
Subjective Progress Note Date: 09/05/18 e. on 09/05/2018,patient is comfortable in bed. She feels weak. No significant shortness of breath. I discontinued IV Solu Medrol start the patient prednisone burst taper. She has no specific respiratory complaints. She is able to move around and walk and ambulate without any major difficulties. No altered mentation. No nausea. No vomiting. No diarrhea. No abdominal pain. Objective - Vital Signs Vital signs: Vital Signs Temp 97.3 F L 09/05/18 06:00 Pulse 78 09/05/18 12:16 Resp 16 09/05/18 08:00 BP 178/88 09/05/18 06:00 Pulse Ox 98 09/05/18 06:00 Intake & Output 09/04/18 09/05/18 09/05/18 18:59 06:59 18:59 Other: Voiding Method Toilet Bedside Commode # Voids 3 2 - Exam GENERAL EXAM: Alert, pleasant, elderly 73-year-old white female on 3 L of oxygen comfortable in no apparent distress. HEAD: Normocephalic/atraumatic. EYES: Normal reaction of pupils, equal size. Conjunctiva pink, sclera white. NOSE: Clear with pink turbinates. THROAT: No erythema or exudates. NECK: No masses, no JVD, no thyroid enlargement, no adenopathy. CHEST: No chest wall deformity. Symmetrical expansion. LUNGS: Equal air entry with a few rhonchi, and a few expiratory wheezes CVS: Regular rate and rhythm, normal S1 and S2, no gallops, no murmurs, no rubs ABDOMEN: Soft, nontender. No hepatosplenomegaly, normal bowel sounds, no guarding or rigidity. EXTREMITIES: No clubbing, no edema, no cyanosis, 2+ pulses and upper and lower extremities. MUSCULOSKELETAL: Muscle strength and tone normal. SPINE: No scoliosis or deformity SKIN: No rashes CENTRAL NERVOUS SYSTEM: Alert and oriented -3. No focal deficits, tone is normal in all 4 extremities. PSYCHIATRIC: Alert and oriented -3. Appropriate affect. Intact judgment and insight. - Labs CBC & Chem 7: 09/05/18 06:40 09/05/18 06:40 Labs: Abnormal Lab Results - Last 24 Hours (Table) 09/04/18 09/04/18 09/05/18 Range/Units 16:47 21:13 06:40 Hgb 11.2 L (11.4-16.0) gm/dL RDW 17.4 H (11.5-15.5) % Sodium (137-145) mmol/L Carbon Dioxide (22-30) mmol/L BUN (7-17) mg/dL Glucose (74-99) mg/dL POC Glucose (mg/dL) 194 H 180 H (75-99) mg/dL 09/05/18 09/05/18 Range/Units 06:40 07:18 Hgb (11.4-16.0) gm/dL RDW (11.5-15.5) % Sodium 135 L (137-145) mmol/L Carbon Dioxide 31 H (22-30) mmol/L BUN 22 H (7-17) mg/dL Glucose 116 H (74-99) mg/dL POC Glucose (mg/dL) 128 H (75-99) mg/dL Microbiology - Last 24 Hours (Table) 09/02/18 14:58 Blood Culture - Preliminary Blood No Growth after 48 hours Assessment and Plan Plan: 1. Acute on chronic hypoxemic respiratory failure related to acute episode of angioedema, and bronchospasm, suspected to be related to primidone, versus any other agents whether is environment or medical. Improving while on IV Solu- Medrol. Less short of breath. Tongue swelling is improved. 2. History of COPD 3. Pulmonary fibrosis with chronic hypoxemic respiratory failure, and outpatient PFT showed FEV1 of 1.43 L or 75% of predicted, and forced vital capacity of 1.77 L or 70% of predicted related to restrictive pulmonary defect 4. History of small cell lung cancer, status post left lung wedge resection followed by chemotherapy, most recent CAT scan on 04/20/2018 showed no convincing evidence that the patient had a new lesion or cancer progression. There were a suprahilar lymph node and a couple of soft tissue densities in the right hilum in the right lower lobe that were not suspected to be malignant, however will be followed with a follow-up CAT scan in the 6 months time 5. Tracheobronchomalacia 6. History of [id number] smoking, and patient is a current smoker 7. Hypertension 8. Anxiety 9. Fibromyalgia 10. Sleep apnea 11. History of left breast cancer with lumpectomy and radiation and patient is on Arimidex Plan prednisone burst taper started. Continue bronchodilators. Discharge from medicine. We'll sign off the case. IV antibiotics would also discontinue the patient was started on Omnicef.
[2018-09-05] MEDS: CITALOPRAM HYDROBROMIDE 20 MG TAB PO SCH (20:24)
[2018-09-05] MEDS ORDERED: ALPRAZolam 0.25 MG TAB PO STA (22:20)
[2018-09-06] MEDS: IPRATROPIUM-ALBUTEROL 3 ML NEB INHALATION SCH ×4 (00:36→11:32)
[2018-09-06 04:51] VITALS: BP 152/75; RESP 17; TEMP 97.4
[2018-09-06] MEDS: NICOTINE 14MG/24HR PATCH TRANSDERM SCH (08:05)
[2018-09-06] MEDS: SPIRONOLACTONE 25 MG TAB PO SCH (08:05)
[2018-09-06] MEDS: HEPARIN SODIUM,PORCINE 5,000 UNIT/ML 1 ML VIAL SQ SCH (08:05)
[2018-09-06] MEDS: FAMOTIDINE 20 MG TAB PO SCH (08:05)
[2018-09-06] MEDS: ATENOLOL 50 MG TAB PO SCH (08:06)
[2018-09-06] MEDS: amLODIPine 10 MG TAB PO SCH (08:06)
[2018-09-06] MEDS: MULTIVITAMINS, THERA 1 EACH TAB PO SCH (08:06)
[2018-09-06] MEDS: PANTOPRAZOLE 40 MG TABLET PO SCH (08:06)
[2018-09-06] MEDS: OXYBUTYNIN CHLORIDE 5 MG TAB PO SCH (08:06)
[2018-09-06] MEDS: ARIPiprazole 5 MG TAB PO SCH (08:06)
[2018-09-06] MEDS: ASPIRIN 81 MG PO SCH (08:06)
[2018-09-06] MEDS: predniSONE 10 MG TAB PO SCH (08:06)
[2018-09-06] MEDS: LIDOCAINE 5% PATCH TOPICAL SCH (08:07)
[2018-09-06] MEDS: NYSTATIN 100,000 UNIT/ML SUSP 500,000 UNIT/5 ML CUP PO SCH ×2 (08:07→13:38)
[2018-09-06] MEDS: HYDROcodone/APAP 7.5-325MG 1 EACH TAB PO PRN (08:14)
--- NOTE | 2018-09-06 10:41 | P.DS ---
Providers Date of admission: 09/03/18 08:28 Attending physician: Henrique Grissom Consults: 09/02/18 20:11 Consult Physician Routine Consulting Provider: Dorene Anderson Consult Reason/Comments: COPD, pulmonary fibrosis exacerbation Do you want consulting provider notified?: Yes [facility] [place] [facility] Course: 73-year-old female one of Dr. King's patient with past history of COPD, pulmonary fibrosis, history of breast cancer, atherosclerotic heart disease who also had familial tremor presented to demurs department on 09/02/2018 with significant dyspnea and shortness of breath cough and wheezes with development of angioedema with swelling in the lips her mouth and the tongue area as well for few hours earlier to hasn't patient she brought by EMS was seen and evaluated was diagnosed with injury edema was having mild hypoxia along with inspiratory expiratory wheezes. Patient was diagnosed with COPD exacerbation along with angioedema started on steroids, updraft treatment, O2 no AARON inhibitor on board was found patient has been on diclofenac and higher dose of primidone which might have caused angioedema which will be held for now. Patient seen pulmonary on regular basis no be consulted. 09/03: Patient continues to have significant edema to the upper left and having soreness and difficulty eating. Lidocaine gel will be added. Patient states her breathing is a little bit better today. She is on IV Solu-Medrol and Humalog scale will be added. PT and OT will be added to evaluate for subacute rehab. Patient currently lives alone. She has been afebrile, blood pressure 144/75, heart rate 67 and pulse ox 95% on [address] Anderson is on consult. 09/04: Patient is sitting at the edge of the bed she can use to have some issues with her upper lip she continues to progress better she was seen in consultation by pulmonary medicine we will start the patient would need to be in the hospital for another 24 hours, we'll decrease her Solu-Medrol, we'll continue nebulized treatment, we'll Hep-Lock IV. 09/05: Patient is sitting up in bed in no apparent distress, she is feeling better she continues to have some hoarsness in her voice, she has no shortness breath no drooling she will stay in the hospital for another 24 hours we'll switch her to oral medication she will be discharged home in the next 24 hours. discharge diagnoses: 1 acute respiratory distress secondary to Combination of COPD exacerbation, pulmonary fibrosis, severe bronchitis and angioedema. 2 COPD exacerbation. 3 acute angioedema. 4 tracheal bronchitis. 5 atherosclerotic heart disease. 6 Hypertension. 7 familial tremor. 8 . Recurrent depression. 9 history of breast cancer. 10 severe GERD: Patient Condition at Discharge: Fair Plan - Discharge Summary New Discharge Prescriptions: No Action Primidone [Mysoline] 250 mg PO TID amLODIPine [Norvasc] 10 mg PO DAILY Spironolactone 100 mg PO DAILY Diclofenac Sodium [Voltaren] 50 mg PO BID Oxybutynin Chloride [Ditropan] 5 mg PO TID Citalopram Hydrobromide [CeleXA] 40 mg PO HS Atenolol [Tenormin] 100 mg PO BID Aspirin [Adult Low Dose Aspirin EC] 81 mg PO DAILY Albuterol Nebulized [Ventolin Nebulized] 2.5 mg INHALATION RT-Q6H PRN PRN Reason: Shortness Of Breath Omeprazole 20 mg PO DAILY Nitrofurantoin Monohyd/M-Cryst [Macrobid] 100 mg PO BID Multivitamins, Thera [Multivitamin (formulary)] 1 tab PO DAILY ARIPiprazole [Abilify] 5 mg PO DAILY Discharge Medication List Diclofenac Sodium [Voltaren] 50 mg PO BID 04/16/16 [History] Primidone [Mysoline] 250 mg PO TID 04/16/16 [History] Spironolactone 100 mg PO DAILY 04/16/16 [History] amLODIPine [Norvasc] 10 mg PO DAILY 04/16/16 [History] Citalopram Hydrobromide [CeleXA] 40 mg PO HS 07/08/17 [History] Oxybutynin Chloride [Ditropan] 5 mg PO TID 07/08/17 [History] Aspirin [Adult Low Dose Aspirin EC] 81 mg PO DAILY 08/18/17 [History] Atenolol [Tenormin] 100 mg PO BID 08/18/17 [History] ARIPiprazole [Abilify] 5 mg PO DAILY 09/02/18 [History] Albuterol Nebulized [Ventolin Nebulized] 2.5 mg INHALATION RT-Q6H PRN 09/02/18 [History] Multivitamins, Thera [Multivitamin (formulary)] 1 tab PO DAILY 09/02/18 [History] Nitrofurantoin Monohyd/M-Cryst [Macrobid] 100 mg PO BID 09/02/18 [History] Omeprazole 20 mg PO DAILY 09/02/18 [History] Follow up Appointment(s)/Referral(s): Landon King DO [Primary Care Provider] - 1-2 days Patient Instructions/Handouts: COPD (Chronic Obstructive Pulmonary Disease) (DC) Activity/Diet/Wound Care/Special Instructions: activity as tolerated heart healthy diet continue 2-3L O2 at home as needed.
[2018-09-06 11:47] VITALS: PULSE 70
== END 2018-09-06 14:25 | disposition home or self-care (01) | DRG 191 ==
LOC: EC 14:04 → 4MS4W 20:12 → OBSVTOIN 09-03 08:28 → 4MS4W 09-06 00:31
PROVIDERS: ADMIT Internal Medicine Geriatric Medicine; ATTEND Internal Medicine Geriatric Medicine
DX: J44.0 Chronic obstructive pulmonary disease with (acute) lower respiratory infection (principal); F33.9 Major depressive disorder, recurrent, unspecified; J96.11 Chronic respiratory failure with hypoxia; J44.1 Chronic obstructive pulmonary disease with (acute) exacerbation; J84.10 Pulmonary fibrosis, unspecified; M41.9 Scoliosis, unspecified; J39.8 Other specified diseases of upper respiratory tract; R06.03 Acute respiratory distress; J20.9 Acute bronchitis, unspecified; T78.3XXA Angioneurotic edema, initial encounter; I25.10 Atherosclerotic heart disease of native coronary artery without angina pectoris; M79.7 Fibromyalgia; I10 Essential (primary) hypertension; M19.90 Unspecified osteoarthritis, unspecified site; G47.30 Sleep apnea, unspecified; G25.0 Essential tremor; M54.30 Sciatica, unspecified side; F41.9 Anxiety disorder, unspecified; K21.9 Gastro-esophageal reflux disease without esophagitis; R59.9 Enlarged lymph nodes, unspecified; R63.3 Feeding difficulties; F17.210 Nicotine dependence, cigarettes, uncomplicated; Z71.6 Tobacco abuse counseling; Z99.81 Dependence on supplemental oxygen; Z79.82 Long term (current) use of aspirin; Z79.899 Other long term (current) drug therapy; Z85.118 Personal history of other malignant neoplasm of bronchus and lung; Z90.2 Acquired absence of lung [part of]; Z90.710 Acquired absence of both cervix and uterus; Z85.41 Personal history of malignant neoplasm of cervix uteri; Z85.3 Personal history of malignant neoplasm of breast; Z90.49 Acquired absence of other specified parts of digestive tract; Z99.89 Dependence on other enabling machines and devices; Z88.1 Allergy status to other antibiotic agents; Z91.048 Other nonmedicinal substance allergy status; Z96.611 Presence of right artificial shoulder joint; Z96.652 Presence of left artificial knee joint; Z80.1 Family history of malignant neoplasm of trachea, bronchus and lung; Z98.42 Cataract extraction status, left eye; Z98.41 Cataract extraction status, right eye; Z87.19 Personal history of other diseases of the digestive system
CPT/HCPCS: 36415; 71046; 80053; 83735; 83880; 84484; 85025; 85610; 85730; 87040; 93005; 94640; 94760; 96360; 99285

== ENCOUNTER 2018-09-11 16:07 | Emergency (ER) | payer MEDICARE ==
[2018-09-11 16:13] VITALS: TEMP 98
[2018-09-11] MEDS ORDERED: IPRATROPIUM 0.5 MG/2.5 ML NEBU INHALATION STA (16:32)
[2018-09-11] MEDS ORDERED: ALBUTEROL NEBULIZED 2.5 MG/3 ML INHALATION STA (16:32)
[2018-09-11] MEDS ORDERED: DEXAMETHASONE 4 MG TAB PO STA (16:32)
--- NOTE | 2018-09-11 16:34 | ED ---
General Adult HPI - General Chief complaint: Shortness of Breath Stated complaint: SOB Time Seen by Provider: 09/11/18 16:22 Source: patient Mode of arrival: wheelchair Limitations: no limitations - History of Present Illness Initial comments: Dictation was produced using [employer] dictation software. please excuse any grammatical, word or spelling errors. Chief Complaint: 73-year-old female with past medical history of COPD, hypertension presents with shortness of breath History of Present Illness: Patient is a 73-year-old female presents with chief complaint of shortness of breath. The last 2-3 days she's been having worsening dyspnea. Patient has a history of COPD. 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 Denies any exacerbating factors. Patient does complain of some chills but no fevers. Denies any pain complaints. No lower extremity complaints. Patient has no history of blood clots. The ROS documented in this emergency department record has been reviewed and confirmed by me. Those systems with pertinent positive or negative responses have been documented in the HPI. All other systems are other negative and/or noncontributory. PHYSICAL EXAM: General Impression: Alert and oriented x3, not in acute distress HEENT: Normocephalic atraumatic, extra-ocular movements intact, pupils equal and reactive to light bilaterally, mucous membranes moist. Cardiovascular: Heart regular rate and rhythm, S1&S2 audible, no murmurs, rubs or gallops Chest: Bilateral wheezing, worse in the right than the left and the right posterior lung hamilton Abdomen: Bowel sounds present, abdomen soft, non-tender, non-distended, no organomegaly Musculoskeletal: Pulses present and equal in all extremities, no peripheral edema Motor: no focal deficits noted Neurological: CN II-XII grossly intact, no focal motor or sensory deficits noted Skin: Intact with no visualized rashes Psych: Normal affect and mood ED course: 73-year-old female clinical presentation consistent with COPD exacerbation. There is concern of concomitant pneumonia. Vital signs upon arrival are within acceptable limits. Patient's well-appearing and shows no respiratory distress at the moment. He does have positive lung auscultatory findings.Laboratory evaluation obtained. CBC, coag panel, metabolic panel is unremarkable. No signs of heart failure with negative prematurity peptide. Chest x-ray shows atelectasis and chronic changes. Patient given breathing treatment and corticosteroids. She is reevaluated with improvement of symptoms. Patient's clinical presentation consistent with COPD exacerbation. Patient brought up another concern with pain to her lips patient states she had a pos itive staph infection to her lips. Patient given antibiotics for that told to follow-up with her primary care physician. EKG interpretation: Ventricular rate 85, normal sinus rhythm, MN interval 160, care is 86, QTC 440. No MN prolongation, no QTC prolongation, no ST or T-wave changes noted. Overall, this EKG is unremarkable - Related Data Home Medications Medication Instructions Recorded Confirmed Spironolactone 100 mg PO DAILY 04/16/16 09/11/18 amLODIPine [Norvasc] 10 mg PO DAILY 04/16/16 09/11/18 Citalopram Hydrobromide [CeleXA] 40 mg PO HS 07/08/17 09/11/18 Oxybutynin Chloride [Ditropan] 5 mg PO TID 07/08/17 09/11/18 Aspirin [Adult Low Dose Aspirin EC] 81 mg PO DAILY 08/18/17 09/11/18 Atenolol [Tenormin] 100 mg PO DAILY 08/18/17 09/11/18 ARIPiprazole [Abilify] 5 mg PO DAILY 09/02/18 09/11/18 Multivitamins, Thera [Multivitamin 1 tab PO DAILY 09/02/18 09/11/18 (formulary)] Omeprazole 20 mg PO DAILY 09/02/18 09/11/18 Previous Rx's Medication Instructions Recorded Ipratropium-Albuterol Nebulize 3 ml INHALATION RT-Q4H #120 09/06/18 [Duoneb 0.5 mg-3 mg/3 ml Soln] ampul.neb Nicotine 14Mg/24Hr Patch [Habitrol] 1 patch TRANSDERM DAILY #28 patch 09/06/18 Nystatin 100,000 Unit/ml Susp 500,000 unit PO QID #28 cup 09/06/18 [Mycostatin Oral Susp] Primidone [Mysoline] 250 mg PO BID #60 09/06/18 predniSONE 10 mg PO DAILY #30 tab 09/06/18 Cephalexin [Keflex] 500 mg PO Q6HR 5 Days #20 cap 09/11/18 Allergies Allergy/AdvReac Type Severity Reaction Status Date / Time levofloxacin [From Levaquin] AdvReac Severe Diarrhea Verified 09/11/18 17:32 adhesive tape AdvReac Unknown IRRITATES Verified 09/11/18 17:32 SKIN Review of Systems ROS Statement: Those systems with pertinent positive or pertinent negative responses have been documented in the HPI. ROS Other: All systems not noted in ROS Statement are negative. 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 History of Any Multi-Drug Resistant Organisms: None Reported Date of last positivie culture/infection: 2013 Past Surgical History: Breast Surgery, Cholecystectomy, Heart Catheterization, Hysterectomy, Joint Replacement, Orthopedic Surgery Additional Past Surgical History / Comment(s): Left total knee, Right Total shoulder, Left BREAST LUMPECTOMY, CATARACTS , LT KNEE SCOPE, THYROID BX, COLONOSCOPY, EGD, BRONCHOSCOPY, LEFT UPPER LOBE LUNG RESECTION Past Anesthesia/Blood Transfusion Reactions: Previous Problems w/ Anesthesia Additional Past Anesthesia/Blood Transfusion Reaction / Comment(s): PT STATES THAT SHE HAS "HIGH" TOLERANCE TO IV SEDATION. Past Psychological History: Anxiety, Depression Smoking Status: Former smoker Past Alcohol Use History: None Reported Past Drug Use History: None Reported - Past Family History Mother Family Medical History: Cancer Additional Family Medical History / Comment(s): LUNG General Exam Limitations: no limitations Course Vital Signs 09/11/18 09/11/18 09/11/18 16:11 17:28 18:03 Temperature 98.0 F Pulse Rate 100 80 78 Respiratory 20 20 16 Rate Blood Pressure 142/78 O2 Sat by Pulse 96 Oximetry 09/11/18 18:33 Temperature Pulse Rate 103 H Respiratory 16 Rate Blood Pressure 142/87 O2 Sat by Pulse 95 Oximetry Medical Decision Making - Lab Data Result diagrams: 09/11/18 17:16 09/11/18 17:16 Lab Results 0609/11/18 09/11/18 Range/Units 17:16 17:16 17:16 WBC 7.0 (3.8-10.6) k/uL RBC 4.28 (3.80-5.40) m/uL Hgb 12.0 (11.4-16.0) gm/dL Hct 38.2 (34.0-46.0) % MCV 89.1 (80.0-100.0) fL MCH 28.1 (25.0-35.0) pg MCHC 31.5 (31.0-37.0) g/dL RDW 17.3 H (11.5-15.5) % Plt Count 365 (150-450) k/uL Neutrophils % 57 % Lymphocytes % 31 % Monocytes % 7 % Eosinophils % 2 % Basophils % 0 % Neutrophils # 3.9 (1.3-7.7) k/uL Lymphocytes # 2.2 (1.0-4.8) k/uL Monocytes # 0.5 (0-1.0) k/uL Eosinophils # 0.2 (0-0.7) k/uL Basophils # 0.0 (0-0.2) k/uL Anisocytosis Slight PT (9.0-12.0) sec INR (<1.2) APTT (22.0-30.0) sec Sodium 133 L (137-145) mmol/L Potassium 4.9 (3.5-5.1) mmol/L Chloride 96 L (98-107) mmol/L Carbon Dioxide 30 (22-30) mmol/L Anion Gap 7 mmol/L BUN 12 (7-17) mg/dL Creatinine 0.53 (0.52-1.04) mg/dL Est GFR (CKD-EPI)AfAm >90 (>60 ml/min/1.73 sqM) Est GFR (CKD-EPI)NonAf >90 (>60 ml/min/1.73 sqM) Glucose 119 H (74-99) mg/dL Calcium 9.7 (8.4-10.2) mg/dL Total Bilirubin 0.5 (0.2-1.3) mg/dL AST 34 (14-36) U/L ALT 45 (9-52) U/L Alkaline Phosphatase 62 (38-126) U/L Troponin I (0.000-0.034) ng/mL NT-Pro-B Natriuret Pep 577 pg/mL Total Protein 7.1 (6.3-8.2) g/dL Albumin 4.0 (3.5-5.0) g/dL 09/11/18 09/11/18 Range/Units 17:16 17:16 WBC (3.8-10.6) k/uL RBC (3.80-5.40) m/uL Hgb (11.4-16.0) gm/dL Hct (34.0-46.0) % MCV (80.0-100.0) fL MCH (25.0-35.0) pg MCHC (31.0-37.0) g/dL RDW (11.5-15.5) % Plt Count (150-450) k/uL Neutrophils % % Lymphocytes % % Monocytes % % Eosinophils % % Basophils % % Neutrophils # (1.3-7.7) k/uL Lymphocytes # (1.0-4.8) k/uL Monocytes # (0-1.0) k/uL Eosinophils # (0-0.7) k/uL Basophils # (0-0.2) k/uL Anisocytosis PT 10.9 (9.0-12.0) sec INR 1.0 (<1.2) APTT 22.5 (22.0-30.0) sec Sodium (137-145) mmol/L Potassium (3.5-5.1) mmol/L Chloride (98-107) mmol/L Carbon Dioxide (22-30) mmol/L Anion Gap mmol/L BUN (7-17) mg/dL Creatinine (0.52-1.04) mg/dL Est GFR (CKD-EPI)AfAm (>60 ml/min/1.73 sqM) Est GFR (CKD-EPI)NonAf (>60 ml/min/1.73 sqM) Glucose (74-99) mg/dL Calcium (8.4-10.2) mg/dL Total Bilirubin (0.2-1.3) mg/dL AST (14-36) U/L ALT (9-52) U/L Alkaline Phosphatase (38-126) U/L Troponin I <0.012 (0.000-0.034) ng/mL NT-Pro-B Natriuret Pep pg/mL Total Protein (6.3-8.2) g/dL Albumin (3.5-5.0) g/dL Disposition Clinical Impression: COPD exacerbation Disposition: HOME SELF-CARE Condition: Good Instructions (If sedation given, give patient instructions): COPD (Chronic Obstructive Pulmonary Disease) (ED) Prescriptions: Cephalexin [Keflex] 500 mg PO Q6HR 5 Days #20 cap Is patient prescribed a controlled substance at d/c from ED?: No Referrals: Landon King DO [Primary Care Provider] - 1-2 days Time of Disposition: 20:13
[2018-09-11 17:29] LABS: Anisocytosis Slight; Basophils % (A) 0 %; Eosinophils # (A) 0.2 k/uL (0-0.7); Eosinophils % (A) 2 %; HCT 38.2 % (34.0-46.0); Lymphocytes # (A) 2.2 k/uL (1.0-4.8); Lymphocytes % (A) 31 %; MCH 28.1 pg (25.0-35.0); MCHC 31.5 g/dL (31.0-37.0); MCV 89.1 fL (80.0-100.0); Mean Platelet Volume 6.3; Monocytes # (A) 0.5 k/uL (0-1.0); Monocytes % (A) 7 %; Neutrophils # (A) 3.9 k/uL (1.3-7.7); Neutrophils % (A) 57 %; Platelet Count 365 k/uL (150-450); RBC 4.28 m/uL (3.80-5.40); RDW 17.3 % (11.5-15.5)
[2018-09-11 17:46] LABS: ALT 45 U/L (9-52); AST 34 U/L (14-36); Alkaline Phosphatase 62 U/L (38-126); Anion Gap 7 mmol/L; Blood Urea Nitrogen 12 mg/dL (7-17); Calcium 9.7 mg/dL (8.4-10.2); Carbon Dioxide 30 mmol/L (22-30); Chloride 96 mmol/L (98-107); Glucose 119 mg/dL (74-99); Sodium 133 mmol/L (137-145); Total Bilirubin 0.5 mg/dL (0.2-1.3); Total Protein 7.1 g/dL (6.3-8.2)
[2018-09-11 17:50] LABS: Potassium 4.9 mmol/L (3.5-5.1)
[2018-09-11 18:08] LABS: Partial Thromboplastin Time 22.5 sec (22.0-30.0); Prothrombin Time 10.9 sec (9.0-12.0)
--- NOTE | 2018-09-11 19:00 | XR ---
EXAMINATION TYPE: XR chest 2V DATE OF EXAM: 09/11/2018 COMPARISON: Chest x-ray September 02, 2018. CT chest April 20, 2018. HISTORY: Shortness of breath. TECHNIQUE: Frontal and lateral views of the chest are obtained. FINDINGS: There is chronic parenchymal changes bilaterally without suspicious new focal airspace [place], pleural effusion, or pneumothorax.. The cardiac silhouette size remains enlarged. Metallic willis dware from right shoulder surgery is partially imaged. Levoconvex scoliosis centered in the lumbar sp ine is noted. Cholecystectomy clips are redemonstrated. IMPRESSION: Significant bilateral chronic parenchymal fibrosis raising concern for underlying IPF an d background of chronic emphysematous change and cardiomegaly without suspicious acute pulmonary proc ess
[2018-09-11] MEDS ORDERED: CEPHALEXIN 500 MG CAP PO STA (20:13)
[2018-09-11 20:34] VITALS: BP 133/79; PULSE 92; RESP 18
== END 2018-09-11 20:32 | disposition home or self-care (01) ==
LOC: EC 16:07
DX: J44.1 Chronic obstructive pulmonary disease with (acute) exacerbation (principal); I10 Essential (primary) hypertension; G47.30 Sleep apnea, unspecified; F41.9 Anxiety disorder, unspecified; F32.9 Major depressive disorder, single episode, unspecified; M19.90 Unspecified osteoarthritis, unspecified site; Z79.82 Long term (current) use of aspirin; Z79.899 Other long term (current) drug therapy; Z88.1 Allergy status to other antibiotic agents; Z91.040 Latex allergy status; Z95.5 Presence of coronary angioplasty implant and graft; Z96.652 Presence of left artificial knee joint; Z96.611 Presence of right artificial shoulder joint; Z85.3 Personal history of malignant neoplasm of breast; Z85.118 Personal history of other malignant neoplasm of bronchus and lung; Z85.41 Personal history of malignant neoplasm of cervix uteri; Z87.891 Personal history of nicotine dependence
CPT/HCPCS: 36415; 94640; 93005; 83880; 80053; 84484; 85025; 85610; 85730; 71046; 99285; J8540

== ENCOUNTER → 2018-11-03 | Outpatient (CLI) | payer MEDICARE ==
[2018-11-03 14:34] LABS: African American GFR (CKD) >90 (>60 ml/min/1.73 sqM); Blood Urea Nitrogen 10 mg/dL (7-17)
--- NOTE | 2018-11-03 15:32 | CT ---
EXAMINATION TYPE: CT chest w con DATE OF EXAM: 11/03/2018 COMPARISON: April 13, 2018 HISTORY: History of lung cancer and COPD. CT DLP: 406 mGycm Automated exposure control for dose reduction was used. CONTRAST: CT scan of the chest is performed with IV Contrast, patient injected with 100 mL of Isovue M300. FINDINGS: LUNGS: There is underlying pulmonary fibrosis. Paraseptal emphysematous changes noted. No definite ev idence for pulmonary nodule or mass. No evidence for volume loss. MEDIASTINUM: There are no greater than 1 cm hilar or mediastinal lymph nodes. No pericardial effusi on is seen. Ectasia thoracic without aneurysm. The heart is not enlarged. Pulmonary arterial hyperten laura noted. UPPER ABDOMEN: Splenic calcifications noted. Hepatic cyst is stable. OTHER: No additional significant abnormality is seen. IMPRESSION: 1. No evidence for suspicious mass or nodule. 2. Pulmonary fibrosis and paraseptal emphysema.
== END | disposition home or self-care (01) ==
LOC: RADCTMAIN 13:17
PROVIDERS: ATTEND Internal Medicine Critical Care Medicine
DX: C34.90 Malignant neoplasm of unspecified part of unspecified bronchus or lung (principal); J84.10 Pulmonary fibrosis, unspecified; J43.9 Emphysema, unspecified
CPT/HCPCS: 82565; 84520; 71260; 36415; Q9967

== ENCOUNTER 2019-02-01 01:14 | Inpatient (IN) | payer MEDICARE ==
[2019-02-01] MEDS ORDERED: IPRATROPIUM-ALBUTEROL 3 ML NEB INHALATION STA ×2 (02:02→05:33)
--- NOTE | 2019-02-01 02:15 | XR ---
EXAMINATION TYPE: XR chest 2V DATE OF EXAM: 02/01/2019 COMPARISON: 09/11/2018 HISTORY: Difficulty breathing TECHNIQUE: Frontal and lateral views of the chest are obtained. FINDINGS: There is general coarsening interstitial density throughout the lungs. Heart is slightly e nlarged. There is no heart failure. There is no pleural effusion. Thoracic aorta is atheromatous. The re is right shoulder prosthesis. IMPRESSION: Mild cardiomegaly. Pulmonary moderate interstitial fibrosis. Lungs unchanged compared to last exam. Heart appears increased compared to last exam.
[2019-02-01 02:41] LABS: Basophils # (A) 0.1 k/uL (0-0.2); Basophils % (A) 1 %; Eosinophils # (A) 0.3 k/uL (0-0.7); Eosinophils % (A) 4 %; HCT 36.3 % (34.0-46.0); HGB 11.5 gm/dL (11.4-16.0); Lymphocytes # (A) 2.4 k/uL (1.0-4.8); Lymphocytes % (A) 33 %; MCH 30.6 pg (25.0-35.0); MCHC 31.6 g/dL (31.0-37.0); MCV 96.9 fL (80.0-100.0); Monocytes # (A) 0.5 k/uL (0-1.0); Monocytes % (A) 7 %; Neutrophils # (A) 3.8 k/uL (1.3-7.7); Neutrophils % (A) 52 %; Platelet Count 301 k/uL (150-450); RBC 3.74 m/uL (3.80-5.40); RDW 15.6 % (11.5-15.5); WBC 7.3 k/uL (3.8-10.6)
--- NOTE | 2019-02-01 02:57 | ED ---
General Adult HPI - General Source: patient, EMS Mode of arrival: EMS <Orly Sotelo - Last Filed: 02/02/19 14:02> <Laine Bob - Last Filed: 02/03/19 01:47> - General Chief complaint: Shortness of Breath Stated complaint: GINGER Time Seen by Provider: 02/01/19 01:31 - History of Present Illness Initial comments: 73-year-old female presenting for shortness of breath 4 hours. Patient states she had had shortness breath 4 hours. She states she has history of COPD and feels that this is exacerbation admits to wheezing. Patient states she did to an at-home treatment was given a steroid as well as [address] after she called EMS for transportation to emergency department for evaluation. Patient denies any chest pain or thoracic back pain. Patient states that she did fall sleep the toilet then fell forward approximately 3 days ago striking her face. Patient unsure if she lost consciousness. Patient states she also hit the left side of her low back has been sore since the fall, she states she placed a lidocaine patch on the area. patient denies any increase in the pain tonight, denies new trauma, headaches, dizziness, visual changes, neck pain. Patient denies and leg swellling or hemoptysis. Patient denies experiencing low back pain before the fall. Patient denies loss of bowel or bladder control, urinary rentetion or loss of sensation of the LE. Patient states she has had increased sputum production denies fevers. Patient states she has had a mild cough. Immediately system negative. Upon arrival patient appears well no signs of acute distress. (Orly Sotelo) - Related Data Home Medications Medication Instructions Recorded Confirmed Spironolactone 100 mg PO DAILY 04/16/16 02/01/19 amLODIPine [Norvasc] 10 mg PO DAILY 04/16/16 02/01/19 Citalopram Hydrobromide [CeleXA] 40 mg PO HS 07/08/17 02/01/19 Oxybutynin Chloride [Ditropan] 5 mg PO TID 07/08/17 02/01/19 Aspirin [Adult Low Dose Aspirin EC] 81 mg PO DAILY 08/18/17 02/01/19 Atenolol [Tenormin] 100 mg PO DAILY 08/18/17 02/01/19 ARIPiprazole [Abilify] 5 mg PO DAILY 09/02/18 02/01/19 Multivitamins, Thera [Multivitamin 1 tab PO DAILY 09/02/18 02/01/19 (formulary)] Omeprazole 20 mg PO DAILY 09/02/18 02/01/19 Albuterol Sulfate [Proair Hfa] 1 - 2 puff INHALATION RT-Q6H PRN 02/01/19 02/01/19 Budesonide/Formoterol Fumarate 2 puff INHALATION RT-BID 02/01/19 02/01/19 [Symbicort 160-4.5 Mcg Inhaler] Calcium Carb-Vit D 250Mg-125Un 1 tab PO DAILY 02/01/19 02/01/19 [Oscal 250+D] Carbidopa-Levodopa 25-100 mg 1 tab PO DAILY 02/01/19 02/01/19 [Sinemet 25-100] Diclofenac Sodium [Voltaren] 50 mg PO BID 02/01/19 02/01/19 HYDROcodone/APAP 7.5-325MG [Showell 1 tab PO QID PRN 02/01/19 02/01/19 7.5-325] Mirtazapine [Remeron] 15 mg PO HS 02/01/19 02/01/19 Vitamin B Complex 1 cap PO DAILY 02/01/19 02/01/19 Previous Rx's Medication Instructions Recorded Nicotine 14Mg/24Hr Patch [Habitrol] 1 patch TRANSDERM DAILY #28 patch 09/06/18 Primidone [Mysoline] 250 mg PO BID #60 09/06/18 Allergies Allergy/AdvReac Type Severity Reaction Status Date / Time levofloxacin [From Levaquin] AdvReac Severe Diarrhea Verified 02/01/19 09:45 adhesive tape AdvReac Unknown IRRITATES Verified 02/01/19 09:45 SKIN Review of Systems ROS Other: All systems not noted in ROS Statement are negative. <Orly Sotelo - Last Filed: 02/02/19 14:02> ROS Other: All systems not noted in ROS Statement are negative. <Laine Bob P - Last Filed: 02/03/19 01:47> ROS Statement: Those systems with pertinent positive or pertinent negative responses have been documented in the HPI. 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 History of Any Multi-Drug Resistant Organisms: None Reported Date of last positivie culture/infection: 2013 Past Surgical History: Breast Surgery, Cholecystectomy, Heart Catheterization, Hysterectomy, Joint Replacement, Orthopedic Surgery Additional Past Surgical History / Comment(s): Left total knee, Right Total shoulder, Left BREAST LUMPECTOMY, CATARACTS , LT KNEE SCOPE, THYROID BX, C OLONOSCOPY, EGD, BRONCHOSCOPY, LEFT UPPER LOBE LUNG RESECTION Past Anesthesia/Blood Transfusion Reactions: Previous Problems w/ Anesthesia Additional Past Anesthesia/Blood Transfusion Reaction / Comment(s): PT STATES THAT SHE HAS "HIGH" TOLERANCE TO IV SEDATION. Past Psychological History: Anxiety, Depression Smoking Status: Former smoker Past Alcohol Use History: None Reported Past Drug Use History: None Reported - Past Family History Mother Family Medical History: Cancer Additional Family Medical History / Comment(s): LUNG Father Additional Family Medical History / Comment(s): Father at age 86 from COPD. Sister(s) Additional Family Medical History / Comment(s): Patient has one sister with hy pertension and rheumatoid arthritis. Patient is not have any brothers. Patient has 2 daughters with no major medical problems. <Orly Sotelo L - Last Filed: 02/02/19 14:02> General Exam <Orly Sotelo L - Last Filed: 02/02/19 14:02> - General Exam Comments Initial Comments: General: The patient is awake and alert, in no distress Eye: +3 mm pupils are equal, round and reactive to light, extra-ocular movements are intact. No nystagmus. There is normal conjunctiva bilaterally. No signs of icterus. Ears, nose, mouth and throat: There are moist mucous membranes and no oral lesions. No raccoon or Mclean sign. Neck: The neck is supple, there is no tenderness or JVD. Patient has no midline tenderness to patient of the cervical spine. Full range motion for flexion extension and flexion. There is small bruise of the nasal bridge. No deviation. No flattening. Cardiovascular: There is a regular rate and rhythm. No murmur, rub or gallop is appreciated. Respiratory: Respirations are non-labored, breath sounds are equal. No inspiratory wheeze, there was significant expiratory wheeze. There is no stridor or rales. Mild rhonchi. Gastrointestinal: Soft, non-distended, non-tender abdomen without masses or organomegaly noted. There is no rebound or guarding present. No CVA tenderness. Bowel sounds are unremarkable. Musculoskeletal: No bruising or lesions noted of the lumbar spine. Patient has paravertebral tenderness of the lumbar spine. No midline tenderness. Normal ROM, no tenderness. Strength 5/5. Sensation intact. Radial and DP pulses equal bilaterally 2+. Neurological: A&O x 3. CN II-XII intact grossly, There are no obvious motor or sensory deficits. Coordination appears grossly intact. Speech is normal. Skin: Skin is warm and dry and no rashes or lesions are noted. No LE edema. Psychiatric: Cooperative, appropriate mood & affect, normal judgment. (Orly Sotelo) Course <Orly Sotelo - Last Filed: 02/02/19 14:02> Vital Signs 02/01/19 02/01/19 02/01/19 01:16 01:24 02:22 Temperature Pulse Rate 72 66 Pulse Rate [ Bilateral Dorsalis Pedis] Respiratory 26 H 26 H 18 Rate Blood Pressure 135/75 Blood Pressure [Right Arm Sitting] O2 Sat by Pulse 97 Oximetry 02/01/19 02/01/19 02/01/19 02:30 03:30 04:00 Temperature Pulse Rate 69 72 65 Pulse Rate [ Bilateral Dorsalis Pedis] Respiratory 20 21 19 Rate Blood Pressure 126/64 120/73 136/77 Blood Pressure [Right Arm Sitting] O2 Sat by Pulse 96 94 L 91 L Oximetry 02/01/19 02/01/19 02/01/19 04:30 05:45 05:54 Temperature Pulse Rate 67 66 69 Pulse Rate [ Bilateral Dorsalis Pedis] Respiratory 21 Rate Blood Pressure 132/76 Blood Pressure [Right Arm Sitting] O2 Sat by Pulse 94 L Oximetry 02/01/19 02/01/1902/01/19 07:30 07:31 07:50 Temperature Pulse Rate 87 86 Pulse Rate [ Bilateral Dorsalis Pedis] Respiratory Rate Blood Pressure Blood Pressure [Right Arm Sitting] O2 Sat by Pulse 96 Oximetry 02/01/19 02/01/19 02/01/19 12:20 12:36 14:57 Temperature Pulse Rate 84 84 Pulse Rate [ Bilateral Dorsalis Pedis] Respiratory 19 Rate Blood Pressure Blood Pressure [Right Arm Sitting] O2 Sat by Pulse Oximetry 02/01/19 15:00 Temperature 97.8 F Pulse Rate Pulse Rate [ 79 Bilateral Dorsalis Pedis] Respiratory 19 Rate Blood Pressure Blood Pressure 123/57 [Right Arm Sitting] O2 Sat by Pulse 97 Oximetry - Reevaluation(s) Reevaluation #1: Patient care delayed from hemolyzed blood draw. 02/01/19 03:40 (Orly Sotelo) Reevaluation #2: After multiple duoneb treatments patient lung still have significant expiratory wheeze and dimished air movement will admit to further treatments and evaluation. 02/01/19 05:34 (Orly Sotelo) EKG Findings - EKG Comments: EKG Findings:: Ventricular rate 72 bpm, KS interval 162 ms, QRS duration 96 no seconds, QT/QTC 426/466 pulse ox. Normal sinus rhythm. There is nonspecific ST abnormality T-wave inversion is noted however this appreciated on previous EKG. EKG was reviewed by attending. <Orly Sotelo - Last Filed: 02/02/19 14:02> Medical Decision Making - Lab Data Result diagrams: 02/01/19 02:22 02/01/19 03:38 <Orly Sotelo - Last Filed: 02/02/19 14:02> - Lab Data Result diagrams: 02/01/19 02:22 02/01/19 03:38 <Laine Bob - Last Filed: 02/03/19 01:47> - Medical Decision Making 73-year-old female presents emergency department for evaluation of shortness of breath. Patient has history of COPD extensive wheezing on examination. Given DuoNeb treatments in the emergency department minimal improvement. Dimer elevated CTA negative. Aneurysm stable. Patient denied chest pain patient was complaining of left lower back pain after recent fall, denies pain prior to fall. There was paravertebral tenderness no midline tenderness. Given norco. Patient denies extremity injury or pain. Hx of head injury, CT (-). Patient has no other complaints. Will be admitted for COPD exacerbation. Discussed case with Dr. Bob who is agreeable with admission. Patient remains hold in ER. (Orly Sotelo) Patient care was discussed with Dr. chavarria her who agrees with plan for admission for COPD exacerbation and elderly female. (Laine Bob) - Lab Data Lab Results 02/01/19 02/01/19 02/01/19 Range/Units 02:22 02:22 03:35 WBC 7.3 (3.8-10.6) k/uL RBC 3.74 L (3.80-5.40) m/uL Hgb 11.5 (11.4-16.0) gm/dL Hct 36.3 (34.0-46.0) % MCV 96.9 (80.0-100.0) fL MCH 30.6 (25.0-35.0) pg MCHC 31.6 (31.0-37.0) g/dL RDW 15.6 H (11.5-15.5) % Plt Count 301 (150-450) k/uL Neutrophils % 52 % Lymphocytes % 33 % Monocytes % 7 % Eosinophils % 4 % Basophils % 1 % Neutrophils # 3.8 (1.3-7.7) k/uL Lymphocytes # 2.4 (1.0-4.8) k/uL Monocytes # 0.5 (0-1.0) k/uL Eosinophils # 0.3 (0-0.7) k/uL Basophils # 0.1 (0-0.2) k/uL PT 10.3 (9.0-12.0) sec INR 1.0 (<1.2) APTT 26.5 (22.0-30.0) sec D-Dimer 0.65 H (<0.60) mg/L FEU Sodium (137-145) mmol/L Potassium (3.5-5.1) mmol/L Chloride (98-107) mmol/L Carbon Dioxide (22-30) mmol/L Anion Gap mmol/L BUN (7-17) mg/dL Creatinine (0.52-1.04) mg/dL Est GFR (CKD-EPI)AfAm (>60 ml/min/1.73 sqM) Est GFR (CKD-EPI)NonAf (>60 ml/min/1.73 sqM) Glucose (74-99) mg/dL Calcium (8.4-10.2) mg/dL Magnesium (1.6-2.3) mg/dL Total Bilirubin (0.2-1.3) mg/dL AST (14-36) U/L ALT (9-52) U/L Alkaline Phosphatase (38-126) U/L Troponin I (0.000-0.034) ng/mL NT-Pro-B Natriuret Pep 443 pg/mL Total Protein (6.3-8.2) g/dL Albumin (3.5-5.0) g/dL 02/01/19 02/01/19 Range/Units 03:38 03:38 WBC (3.8-10.6) k/uL RBC (3.80-5.40) m/uL Hgb (11.4-16.0) gm/dL Hct (34.0-46.0) % MCV (80.0-100.0) fL MCH (25.0-35.0) pg MCHC (31.0-37.0) g/dL RDW (11.5-15.5) % Plt Count (150-450) k/uL Neutrophils % % Lymphocytes % % Monocytes % % Eosinophils % % Basophils % % Neutrophils # (1.3-7.7) k/uL Lymphocytes # (1.0-4.8) k/uL Monocytes # (0-1.0) k/uL Eosinophils # (0-0.7) k/uL Basophils # (0-0.2) k/uL PT (9.0-12.0) sec INR (<1.2) APTT (22.0-30.0) sec D-Dimer (<0.60) mg/L FEU Sodium 136 L (137-145) mmol/L Potassium 3.9 (3.5-5.1) mmol/L Chloride 103 (98-107) mmol/L Carbon Dioxide 24 (22-30) mmol/L Anion Gap 9 mmol/L BUN 15 (7-17) mg/dL Creatinine 0.76 (0.52-1.04) mg/dL Est GFR (CKD-EPI)AfAm 90 (>60 ml/min/1.73 sqM) Est GFR (CKD-EPI)NonAf 78 (>60 ml/min/1.73 sqM) Glucose 130 H (74-99) mg/dL Calcium 9.7 (8.4-10.2) mg/dL Magnesium 2.1 (1.6-2.3) mg/dL Total Bilirubin 0.1 L (0.2-1.3) mg/dL AST 22 (14-36) U/L ALT 15 (9-52) U/L Alkaline Phosphatase 83 (38-126) U/L Troponin I <0.012 (0.000-0.034) ng/mL NT-Pro-B Natriuret Pep pg/mL Total Protein 7.2 (6.3-8.2) g/dL Albumin 3.9 (3.5-5.0) g/dL Disposition Is patient prescribed a controlled substance at d/c from ED?: No Time of Disposition: 05:36 Decision to Admit Reason: Admit from EC Decision Date: 02/01/19 Decision Time: 05:36 <Orly Sotelo - Last Filed: 02/02/19 14:02> <Laine Bob P - Last Filed: 02/03/19 01:47> Clinical Impression: Shortness of breath, COPD exacerbation Disposition: ADMITTED IP TO THIS HOSP Condition: Stable
--- NOTE | 2019-02-01 03:28 | CT ---
EXAMINATION TYPE: CT [facility] DATE OF EXAM: 02/01/2019 COMPARISON: None HISTORY: Patient presents with pain after fall x3 days ago. CT DLP: 1297.1 mGycm Automated exposure control for dose reduction was used. TECHNIQUE: CT scan of the head and cervical spine are performed without contrast. FINDINGS: There is diffuse cerebral cortical atrophy. There is no mass effect nor midline shift. Th ere is no sign of intracranial hemorrhage. There is hypodensity in the periventricular white matter a nd more noticeable around the frontal horns of the lateral ventricles. There is 5 mm lacunar infarct left internal capsule. Calvarium is intact. Cervical vertebra have fairly normal alignment. There is a few millimeter anterior subluxation of C4 in relation to C5 that appears chronic. There is mild hypertrophic facet arthropathy in the mid cervi ben spine. There is degenerative disc space narrowing from C2 to C7. There is spur formation of the e ndplates. The skull base is intact. There is no compression fracture. IMPRESSION: There is a mild degenerative first-degree C4-5 spondylolisthesis. Multilevel spondylotic changes. No cervical spine fracture. Cerebral atrophy and chronic small vessel ischemia. No acute intracranial abnormality.
[2019-02-01 04:12] LABS: Albumin 3.9 g/dL (3.5-5.0); Calcium 9.7 mg/dL (8.4-10.2); Magnesium 2.1 mg/dL (1.6-2.3); Potassium 3.9 mmol/L (3.5-5.1); Total Bilirubin 0.1 mg/dL (0.2-1.3); Total Protein 7.2 g/dL (6.3-8.2)
[2019-02-01 04:34] LABS: Partial Thromboplastin Time 26.5 sec (22.0-30.0); Prothrombin Time 10.3 sec (9.0-12.0)
[2019-02-01 04:45] LABS: D-Dimer 0.65 mg/L FEU (<0.60)
--- NOTE | 2019-02-01 05:25 | CT ---
EXAMINATION TYPE: CT angio chest DATE OF EXAM: 02/01/2019 5:18 AM COMPARISON: 11/03/2018 HISTORY: R/O PE, SOB CT DLP: 318.60 mGycm Automated exposure control for dose reduction was used. CONTRAST: CTA scan of the thorax is performed with IV Contrast, patient injected with 90 mL of Isovue 370, pulm onary embolism protocol. There are 3-D post processed images.. FINDINGS: There is extensive reticular interstitial density throughout the lungs consistent with advanced pulmo nary fibrosis. There is honeycomb pattern in the periphery of both lungs. Thoracic aorta is atheromatous. There is 4.4 cm aneurysm of the ascending aorta. There is no dissecti on. Heart is slightly enlarged. There is no pericardial effusion. There is no pleural effusion. There is normal contrast opacification of the pulmonary arteries. There are no filling defects. There are large central pulmonary arteries. There are multiple bronchial and mediastinal lymph nodes that measure up to 1.5 cm. The bony thorax is intact. There is right shoulder prosthesis. IMPRESSION: NO EVIDENCE OF PULMONARY EMBOLISM. MEDIASTINAL AND BRONCHIAL ADENOPATHY ARE NONSPECIFIC AND COULD RELATE TO INFLAMMATORY DISEASE. ADVANCED PULMONARY INTERSTITIAL FIBROSIS. ENLARGED PULMONARY ARTERIES CONSISTENT WITH PULMONARY HYPER TENSION. 4.4 CM ANEURYSM OF THE ASCENDING AORTA.
[2019-02-01] MEDS ORDERED: HYDROcodone/APAP 5-325MG 1 EACH TAB PO STA (06:06)
[2019-02-01] MEDS: SODIUM CHLORIDE 0.9% 1,000 ML IV SCH (06:25)
[2019-02-01] MEDS: IPRATROPIUM-ALBUTEROL 3 ML NEB INHALATION SCH ×4 (07:29→20:59)
[2019-02-01] MEDS: AZITHROMYCIN 500 MG TAB PO SCH (08:50)
[2019-02-01] MEDS ORDERED: predniSONE 20 MG TAB PO SCH (09:00)
[2019-02-01] MEDS ORDERED: NON FORMULARY DRUG (Vitamin B Complex [Vitamin B Complex] 1 CAP) PO SCH (10:30)
[2019-02-01 12:28] LABS: Glucose,Whole Blood 159 mg/dL (75-99)
[2019-02-01] MEDS: SPIRONOLACTONE 25 MG TAB PO SCH (12:39)
[2019-02-01] MEDS: ASPIRIN 81 MG PO SCH (12:39)
[2019-02-01] MEDS: amLODIPine 10 MG TAB PO SCH (12:39)
[2019-02-01] MEDS: CARBIDOPA-LEVODOPA 25-100 MG 1 EACH TAB PO SCH (12:39)
[2019-02-01] MEDS: ARIPiprazole 5 MG TAB PO SCH (12:39)
[2019-02-01] MEDS: NICOTINE 14MG/24HR PATCH TRANSDERM SCH (12:40)
[2019-02-01] MEDS: ATENOLOL 50 MG TAB PO SCH (12:40)
[2019-02-01] MEDS: methylPREDNISolone SOD SUCCI 125 MG/2 ML VIAL IV SCH ×2 (12:40→16:54)
[2019-02-01] MEDS: PANTOPRAZOLE 40 MG TABLET PO SCH (13:30)
[2019-02-01] MEDS: INSULIN ASPART (NovoLOG) 100 UNIT/ML VIAL SQ SCH ×3 (13:30→22:09)
--- NOTE | 2019-02-01 13:33 | P.CNPUL ---
History of Present Illness Consult date: 02/01/19 Requesting physician: Sowmya Rodriguez Reason for consult: dyspnea, COPD Chief complaint: Shortness of breath, cough, congestion History of present illness: This is a very pleasant 73-year-old female patient who follows with Dr. King as her primary care physician. She has a history of anxiety, fibromyalgia, hypertension, sleep apnea. 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 She follows with Dr. Anderson in our office for the same. Her CAT scan of the chest done 11/03/2018 did not reveal any evidence of malignancy. There is scarring and emphysema and fibrosis. She was last seen 11/10/2018. Since that time she had been doing well until recently she developed increasing shortness of breath, cough and congestion. She also sustained a fall at home 3 days ago. She lives alone. She presented here today via EMS. Computed tomography scan of the brain and C- spine revealed no cervical spine fractures. No acute intracranial abnormalities. CT angiogram of the chest revealed no evidence of pulmonary embolism. There is mediastinal bronchial adenopathy which are nonspecific and suspected secondary to inflammatory process. There is advanced pulmonary interstitial fibrosis. Enlarged pulmonary arteries consistent with pulmonary hypertension. There is also a 4.4 cm aneurysm of the ascending aorta. She is seen in the emergency room with Dr. Beckham. She is awake and alert oriented 3. Feeling a bit easier today. She is maintaining O2 saturations in the mid 90s on 4 L/m per nasal cannula. White count 7.3. Hemoglobin 11.5. Sodium 136. Potassium 3.9. Creatinine 0.76. Troponin negative times one. ProBNP 443. She has been initiated and DuoNeb inhalations, Symbicort, IV Solu-Medrol, empiric antibiotics the form of azithromycin. NicoDerm patch is in place. Review of Systems REVIEW OF SYSTEMS: CONSTITUTIONAL: Denies any recent significant weight loss or weight gain. EYES: Denies change in vision. EARS, NOSE, MOUTH, THROAT: Denies headaches, denies sore throat. CARDIOVASCULAR: Denies chest pain, palpitations or syncopal episodes. RESPIRATORY: Positive for shortness of breath, cough, congestion no hemoptysis. GASTROINTESTINAL: Denies change in appetite, denies abdominal pain GENITOURINARY: Denies hematuria, denies infections. MUSKULOSKELETAL: Denies pain, denies swelling. INTEGUMENTARY: Denies rash, denies eczema. NEUROLOGICAL: Denies recent memory loss, no recent seizure activity. PSYCHIATRIC: Denies anxiety, denies depression. HEMATOLOGIC/LYMPHATIC: Denies anemia, denies enlarged lymph nodes. Past Medical History Past Medical History: Cancer, COPD, GI Bleed, Hypertension, Osteoarthritis (OA), Pneumonia, Respiratory Disorder, Sleep Apnea/CPAP/BIPAP Additional Past Medical History / Comment(s): L lung small cell lung cancer with upper lobe resection and chemo, cervical cancer with hysterectomy, L breast cancer with lumpectomy/radiation and arimidex treatment, bronchitis, scoliosis, chronic low back pain with bilateral sciatica, arthritis R knee and L hip, lower GI bleed, frequent diarrhea, EDMAR which resolved with weight loss. History of Any Multi-Drug Resistant Organisms: None Reported Date of last positivie culture/infection: 2013 Past Surgical History: Breast Surgery, Cholecystectomy, Heart Catheterization, Hysterectomy, Joint Replacement, Orthopedic Surgery Additional Past Surgical History / Comment(s): Bronchoscopy, L upper lobe resection, L breast lumpectomy, L knee arthroscopy, L total knee arthroplasty, R total shoulder arthroplasty, thyroid biopsy, EGD, colonoscopy. Past Anesthesia/Blood Transfusion Reactions: Previous Problems w/ Anesthesia Additional Past Anesthesia/Blood Transfusion Reaction / Comment(s): PT STATES THAT SHE HAS "HIGH" TOLERANCE TO IV SEDATION. Smoking Status: Former smoker - Past Family History Mother Family Medical History: Cancer Additional Family Medical History / Comment(s): LUNG Medications and Allergies Home Medications Medication Instructions Recorded Confirmed Type Spironolactone 100 mg PO DAILY 04/16/16 02/01/19 History amLODIPine [Norvasc] 10 mg PO DAILY 04/16/16 02/01/19 History Citalopram Hydrobromide [CeleXA] 40 mg PO HS 07/08/17 02/01/19 History Oxybutynin Chloride [Ditropan] 5 mg PO TID 07/08/17 02/01/19 History Aspirin [Adult Low Dose Aspirin EC] 81 mg PO DAILY 08/18/17 02/01/19 History Atenolol [Tenormin] 100 mg PO DAILY 08/18/17 02/01/19 History ARIPiprazole [Abilify] 5 mg PO DAILY 09/02/18 02/01/19 History Multivitamins, Thera [Multivitamin 1 tab PO DAILY 09/02/18 02/01/19 History (formulary)] Omeprazole 20 mg PO DAILY 09/02/18 02/01/19 History Nicotine 14Mg/24Hr Patch [Habitrol] 1 patch TRANSDERM DAILY #28 patch 09/06/18 02/01/19 Rx Primidone [Mysoline] 250 mg PO BID #60 09/06/18 02/01/19 Rx Albuterol Sulfate [Proair Hfa] 1 - 2 puff INHALATION RT-Q6H PRN 02/01/19 02/01/19 History Budesonide/Formoterol Fumarate 2 puff INHALATION RT-BID 02/01/19 02/01/19 History [Symbicort 160-4.5 Mcg Inhaler] Calcium Carb-Vit D 250Mg-125Un 1 tab PO DAILY 02/01/19 02/01/19 History [Oscal 250+D] Carbidopa-Levodopa 25-100 mg 1 tab PO DAILY 02/01/19 02/01/19 History [Sinemet 25-100] Diclofenac Sodium [Voltaren] 50 mg PO BID 02/01/19 02/01/19 History HYDROcodone/APAP 7.5-325MG [[place] 1 tab PO QID PRN 02/01/19 02/01/19 History 7.5-325] Mirtazapine [Remeron] 15 mg PO HS 02/01/19 02/01/19 History Vitamin B Complex 1 cap PO DAILY 02/01/19 02/01/19 History Allergies Allergy/AdvReac Type Severity Reaction Status Date / Time [facility] AdvReac Severe Diarrhea Verified 02/01/19 09:45 adhesive tape AdvReac Unknown IRRITATES Verified 02/01/19 09:45 SKIN Physical Exam Vitals: Vital Signs Pulse Resp BP Pulse Ox 02/01/19 12:36 84 02/01/19 12:20 84 02/01/19 07:50 86 02/01/19 07:31 96 02/01/19 07:30 87 02/01/19 05:54 69 02/01/19 05:45 66 02/01/19 04:30 67 21 132/76 94 L 02/01/19 04:00 65 19 136/77 91 L 02/01/19 03:30 72 21 120/73 94 L 02/01/19 02:30 69 20 126/64 96 02/01/19 02:22 66 18 02/01/19 01:24 26 H 02/01/19 01:16 72 26 H 135/75 97 Intake and Output 01/31/19 02/01/19 02/01/19 22:59 06:59 14:59 Other: Weight 61.689 kg GENERAL EXAM: Alert, pleasant 73-year-old female patient, on 4 L nasal cannula, comfortable in no apparent distress. HEAD: Normocephalic. Ecchymosis on the bridge of her nose. EYES: Normal reaction of pupils, equal size. NOSE: Clear with pink turbinates. THROAT: No erythema or exudates. NECK: No masses, no JVD. CHEST: No chest wall deformity. LUNGS: Equal air entry with bilateral end expiratory wheeze, few scattered rhonchi, coarse crackles in the posterior bases, diminished. CVS: S1 and S2 normal with no audible murmur, regular rhythm. ABDOMEN: No hepatosplenomegaly, normal bowel sounds, no guarding or rigidity. SPINE: No scoliosis or deformity SKIN: No rashes CENTRAL NERVOUS SYSTEM: No focal deficits, tone is normal in all 4 extremities. EXTREMITIES: There is no peripheral edema. No clubbing, no cyanosis. Peripheral pulses are intact. Results - Laboratory Findings CBC and BMP: 02/01/19 02:22 02/01/19 03:38 PT/INR, D-dimer PT 10.3 sec (9.0-12.0) 02/01/19 03:35 INR 1.0 (<1.2) 02/01/19 03:35 D-Dimer 0.65 mg/L FEU (<0.60) H 02/01/19 03:35 Abnormal lab findings: Abnormal Labs 02/01/19 02/01/19 02/01/19 02:22 03:35 03:38 RBC 3.74 L RDW 15.6 H D-Dimer 0.65 H Sodium 136 L Glucose 130 H POC Glucose (mg/dL) Total Bilirubin 0.1 L 02/01/19 12:25 RBC RDW D-Dimer Sodium Glucose POC Glucose (mg/dL) 159 H Total Bilirubin - Diagnostic Findings Chest x-ray: image reviewed CT scan - chest: image reviewed Assessment and Plan Assessment: Impression: #1 Acute exacerbation of chronic oxygen dependent obstructive pulmonary disease, complicated by purulent tracheobronchitis. #2 Chronic and ongoing tobacco dependence. #3 Advanced pulmonary fibrosis. 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 Status post left upper lobe resection with 2 cycles of adjuvant chemotherapy w hich the patient did not tolerate. Follow-up CT scans have not revealed any recurrence. #6 History of breast cancer status post left breast lumpectomy followed by radiation and 5 years of adjuvant Arimidex. #7 History of cervical cancer status post hysterectomy. #8 Hypertension. #9 Anxiety. Plan: The patient was seen and evaluated by Dr. Beckham. Chest x-ray and CAT scan reviewed. No evidence of malignancy. We'll continue with her treatment for COPD exacerbation including IV Solu-Medrol, DuoNeb inhalations, Symbicort, empiric antibiotics in the form of azithromycin. She is again educated regarding the importance of complete smoking cessation. NicoDerm patch is in place. We will continue to follow and make further recommendations based on her clinical status. I, the cosigning physician, performed a history & physical examination of the patient. Lungs sounds with bilateral end expiratory wheeze, few scattered rhonchi, coarse crackles in the bases, diminished. Maintaining good O2 saturations in the 90s on 4 L/m per nasal cannula. I discussed the assessment and plan of care with my nurse practitioner, Luz Elena Sanders. I attest to the above consultation as dictated by her. Time with Patient: Greater than 30
--- NOTE | 2019-02-01 15:04 | P.HPIM ---
History of Present Illness H&P Date: 02/01/19 Chief Complaint: Difficulty breathing This is a 73-year-old female patient of Dr. King and Dr. Anderson with past medical history of hypertension, COPD, pulmonary fibrosis, sleep apnea-not on CPAP-patient thinks it has resolved after weight loss, chronic hypoxic respira tory failure on home O2 at 3 L nasal cannula, small cell lung cancer with left upper lobe resection, cervical cancer, left breast cancer with lumpectomy and radiation and Arimidex treatment, essential tremors, generalized anxiety disorder, fibromyalgia, chronic tobacco use and dependencequit one week ago and now on nicotine patch, frequent urinary tract infections. Patient states that trouble started on Thursday at 3 AM when she was sitting on the toilet and she thinks she fell asleep ended up falling between the toilet and the tub and hit her face on the top. She thinks she had a brief period of loss of consciousness. She was not able to get herself up and scoot herself into the living room was finally able to climb up onto a chair. Patient states she was recently started on Remeron by her PCP and thinks this is too strong for her but it is helping her insomnia. She injured her left flank area and yesterday back pain was severe and she also developed difficulty in breathing. She complains of dysphagia with food this been going on for couple months and worsening. She complains of a cough and has noted some blood since yesterday but it has been going on and off but more frequently lately. She denies any fever or chills. CT of the chest done 11/03/2018 did not reveal any evidence of malignancy. There is scarring and emphysema and fibrosis. Patient came into [facility] emergency center for evaluation. Computed tomography scan of the brain and C-spine revealed no cervical spine fractures. No acute intracranial abnormalities. CT angiogram of the chest revealed no evidence of pulmonary embolism. There is mediastinal bronchial adenopathy which are nonspecific and suspected secondary to inflammatory process. There is advanced pulmonary interstitial fibrosis. Enlarged pulmonary arteries consistent with pulmonary hypertension. There is also a 4.4 cm aneurysm of the ascending aorta. White count 7.3. Hemoglobin 11.5. Sodium 136. Potassium 3.9. Creatinine 0.76. Troponin negative times one. ProBNP 443. Patient ordered for patient to MedSurg floor and consult with Dr. Beckham has been added. Review of Systems Constitutional: Reports fatigue, Reports weakness, Denies anorexia, Denies chills, Denies fever, Denies poor appetite Eyes: denies blurred vision, denies pain Ears, nose, mouth and throat: Reports dysphagia, Reports hoarseness, Reports s ore throat, Denies dental pain, Denies headache, Denies nasal congestion, Denies nasal discharge, Denies vertigo Cardiovascular: Reports decreased exercise tolerance, Reports dyspnea on exertion, Reports shortness of breath, Reports syncope, Denies edema, Denies leg edema, Denies lightheadedness, Denies palpitations Respiratory: Reports cough, Reports cough with sputum, Reports dyspnea, Reports hemoptysis, Reports home oxygen, Reports wheezing, Denies excessive sputum, Denies respiratory infections, Denies sleep apnea Gastrointestinal: Denies abdominal pain, Denies diarrhea, Denies loss of appetite, Denies nausea, Denies vomiting Genitourinary: Reports flank pain (left), Denies dysuria, Denies hematuria Musculoskeletal: Reports muscle weakness, Denies frequent falls, Denies gait dysfunction, Denies myalgias Integumentary: Reports darkening of skin, Denies pruritus, Denies rash, Denies wounds Neurological: Denies change in mentation, Denies change in speech, Denies numbness, Denies seizures, Denies weakness Psychiatric: Denies anxiety, Denies depression Endocrine: Denies fatigue, Denies weight change Past Medical History Past Medical History: Cancer, COPD, Fibromyalgia, Hypertension, Osteoarthritis (OA), Respiratory Disorder Additional Past Medical History / Comment(s): CURRENT RECTAL BLEEDING, FREQUENT DIARRHEA, Chronic hypoxic respiratory failure , OXYGEN @ 3L AT NIGHT, pulmonary fibrosis, 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 History of Any Multi-Drug Resistant Organisms: None Reported Date of last positivie culture/infection: 2013 Past Surgical History: Breast Surgery, Cholecystectomy, Heart Catheterization, Hysterectomy, Joint Replacement, Orthopedic Surgery Additional Past Surgical History / Comment(s): Left total knee, Right Total shoulder, Left BREAST LUMPECTOMY, CATARACTS , LT KNEE SCOPE, THYROID BX, COLONOSCOPY, EGD, BRONCHOSCOPY, LEFT UPPER LOBE LUNG RESECTION Past Anesthesia/Blood Transfusion Reactions: Previous Problems w/ Anesthesia Additional Past Anesthesia/Blood Transfusion Reaction / Comment(s): PT STATES THAT SHE HAS "HIGH" TOLERANCE TO IV SEDATION. Past Psychological History: Anxiety, Depression Smoking Status: Former smoker Past Alcohol Use History: None Reported Additional Past Alcohol Use History / Comment(s): Patient is a smoker one pack per day since 1966 and quit one week ago. She is currently in a nicotine patch. She no longer uses marijuana. No illicit drug use, no alcohol use. She lives alone with her cat. She has a walker, nebulizer and home O2 at 3 L nasal cannula. She does not have a CPAP. Past Drug Use History: None Reported - Past Family History Mother Family Medical History: Cancer Additional Family Medical History / Comment(s): Mother at age 73 from lung cancer. Father Additional Family Medical History / Comment(s): Father at age 86 from COPD. Sister(s) Additional Family Medical History / Comment(s): Patient has one sister with hypertension and rheumatoid arthritis. Patient is not have any brothers. Patient has 2 daughters with no major medical problems. Medications and Allergies Home Medications Medication Instructions Recorded Confirmed Type Spironolactone 100 mg PO DAILY 04/16/16 02/01/19 History amLODIPine [Norvasc] 10 mg PO DAILY 04/16/16 02/01/19 History Citalopram Hydrobromide [CeleXA] 40 mg PO HS 07/08/17 02/01/19 History Oxybutynin Chloride [Ditropan] 5 mg PO TID 07/08/17 02/01/19 History Aspirin [Adult Low Dose Aspirin EC] 81 mg PO DAILY 08/18/17 02/01/19 History Atenolol [Tenormin] 100 mg PO DAILY 08/18/17 02/01/19 History ARIPiprazole [Abilify] 5 mg PO DAILY 09/02/18 02/01/19 History Multivitamins, Thera [Multivitamin 1 tab PO DAILY 09/02/18 02/01/19 History (formulary)] Omeprazole 20 mg PO DAILY 09/02/18 02/01/19 History Nicotine 14Mg/24Hr Patch [Habitrol] 1 patch TRANSDERM DAILY #28 patch 09/06/18 02/01/19 Rx Primidone [Mysoline] 250 mg PO BID #60 09/06/18 02/01/19 Rx Albuterol Sulfate [Proair Hfa] 1 - 2 puff INHALATION RT-Q6H PRN 02/01/19 02/01/19 History Budesonide/Formoterol Fumarate 2 puff INHALATION RT-BID 02/01/19 02/01/19 History [Symbicort 160-4.5 Mcg Inhaler] Calcium Carb-Vit D 250Mg-125Un 1 tab PO DAILY 02/01/19 02/01/19 History [Oscal 250+D] Carbidopa-Levodopa 25-100 mg 1 tab PO DAILY 02/01/19 02/01/19 History [Sinemet 25-100] Diclofenac Sodium [Voltaren] 50 mg PO BID 02/01/19 02/01/19 History HYDROcodone/APAP 7.5-325MG [[place] 1 tab PO QID PRN 02/01/19 02/01/19 History 7.5-325] Mirtazapine [Remeron] 15 mg PO HS 02/01/19 02/01/19 History Vitamin B Complex 1 cap PO DAILY 02/01/19 02/01/19 History Allergies Allergy/AdvReac Type Severity Reaction Status Date / [facility] AdvReac Severe Diarrhea Verified 02/01/19 09:45 adhesive tape AdvReac Unknown IRRITATES Verified 02/01/19 09:45 SKIN Physical Exam Vitals: Vital Signs Pulse Resp BP Pulse Ox 02/01/19 07:31 96 02/01/19 07:30 87 02/01/19 05:54 69 02/01/19 05:45 66 02/01/19 04:30 67 21 132/76 94 L 02/01/19 04:00 65 19 136/77 91 L 02/01/19 03:30 72 21 120/73 94 L 02/01/19 02:30 69 20 126/64 96 02/01/19 02:22 66 18 02/01/19 01:24 26 H 02/01/19 01:16 72 26 H 135/75 97 Intake and Output 01/31/19 02/01/19 02/01/19 22:59 06:59 14:59 Other: Weight 61.689 kg Gen: This is a 73-year-old female. Patient is resting sitting up right on the ER stretcher and appears to be comfortable. Mild tachypnea noted. HEENT: Head is atraumatic, normocephalic. Pupils equal, round. Sclerae is anicteric. NECK: Supple. No JVD. No lymphadenopathy. No thyromegaly. LUNGS: Bilateral end expiratory wheeze, few scattered rhonchi, fine crackles. No intercostal retractions. HEART: Regular rate and rhythm. No murmur. ABDOMEN: Soft. Bowel sounds are present. No masses. No tenderness. EXTREMITIES: No pedal edema bilaterally. No calf tenderness. NEUROLOGICAL: Patient is awake, alert and oriented x3. Cranial nerves 2 through 12 are grossly intact. Results CBC & Chem 7: 02/01/19 02:22 02/01/19 03:38 Labs: Abnormal Lab Results - Last 24 Hours (Table) 02/01/19 02/01/19 02/01/19 Range/Units 02:22 03:35 03:38 RBC 3.74 L (3.80-5.40) m/uL RDW 15.6 H (11.5-15.5) % D-Dimer 0.65 H (<0.60) mg/L FEU Sodium 136 L (137-145) mmol/L Glucose 130 H (74-99) mg/dL Total Bilirubin 0.1 L (0.2-1.3) mg/dL Thrombosis Risk Factor Assmnt - DVT/VTE Prophylaxis DVT/VTE Prophylaxis: Pharmacologic Prophylaxis ordered Assessment and Plan Plan: 1. COPD exacerbation. Continue DuoNeb treatments 4 times daily and every 4 hours as needed, Symbicort twice daily, azithromycin, Solu-Medrol 60 mg IV every 6 hours, pulmonary consult appreciated. 2. Dysphagia with solid foods. Consult with speech therapy and possible modified barium swallow. 3. Pulmonary fibrosis. 4. Chronic hypoxic respiratory failure on home O2 at 3 L nasal cannula. 5. 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 6. History of cervical cancer status post hysterectomy and left breast cancer with lumpectomy and radiation and Arimidex treatment, stable. 7. Essential tremors. Continue primidone and Sinemet. 8. Generalized anxiety disorder. Continue Abilify 5 mg daily, Celexa 40 mg at bedtime. 9. Fibromyalgia. 10. Chronic tobacco use and dependence. Patient quit one week ago. Continue nicotine patch. 11. Tracheobronchial malacia. 12. Insomnia. Continue Remeron at reduced dose 7.5 mg at bedtime. 13. Hypertension. Continue Norvasc 10 mg daily, atenolol 100 mg daily, Aldactone 100 mg daily. 14. DVT prophylaxis. Heparin subcu. 15. GI prophylaxis. Protonix 40 mg daily. Patient will be admitted to the hospital for a minimum of 2 night stay. Discharge plan: To be determined. PT and OT added. Impression and plan of care have been directed as dictated by the signing physician. Belinda Gaona nurse practitioner acting as scribe for signing physician.
[2019-02-01] MEDS: HYDROcodone/APAP 7.5-325MG 1 EACH TAB PO PRN (15:10)
[2019-02-01] MEDS: OXYBUTYNIN CHLORIDE 5 MG TAB PO SCH ×2 (16:36→22:08)
[2019-02-01 17:09] LABS: Glucose,Whole Blood 169 mg/dL (75-99)
[2019-02-01 20:24] LABS: Glucose,Whole Blood 131 mg/dL (75-99)
[2019-02-01] MEDS: SYMBICORT 160-4.5 MCG INHALER INHALATION SCH (20:59)
[2019-02-01] MEDS ORDERED: MIRTAZAPINE 15 MG TAB PO SCH (21:00)
[2019-02-01] MEDS: MIRTAZAPINE 15 MG TAB PO SCH (22:08)
[2019-02-01] MEDS: CITALOPRAM HYDROBROMIDE 20 MG TAB PO SCH (22:08)
[2019-02-01] MEDS: HEPARIN SODIUM,PORCINE 5,000 UNIT/ML 1 ML VIAL SQ SCH (22:09)
[2019-02-01] MEDS: IPRATROPIUM-ALBUTEROL 3 ML NEB INHALATION PRN (22:26)
[2019-02-01] MEDS: PRIMIDONE 250 MG TAB PO SCH (22:51)
[2019-02-01] MEDS: ETODOLAC 200 MG CAPSULE PO SCH (22:51)
[2019-02-02] MEDS: methylPREDNISolone SOD SUCCI 125 MG/2 ML VIAL IV SCH ×3 (00:17→13:34)
[2019-02-02 07:11] LABS: Glucose,Whole Blood 151 mg/dL (75-99)
[2019-02-02] MEDS: IPRATROPIUM-ALBUTEROL 3 ML NEB INHALATION SCH ×4 (07:19→19:48)
[2019-02-02] MEDS: SYMBICORT 160-4.5 MCG INHALER INHALATION SCH ×2 (07:19→19:48)
[2019-02-02] MEDS: ETODOLAC 200 MG CAPSULE PO SCH ×2 (08:01→21:53)
[2019-02-02] MEDS: ARIPiprazole 5 MG TAB PO SCH (08:01)
[2019-02-02] MEDS: NICOTINE 14MG/24HR PATCH TRANSDERM SCH (08:01)
[2019-02-02] MEDS: PRIMIDONE 250 MG TAB PO SCH ×2 (08:01→21:53)
[2019-02-02] MEDS: AZITHROMYCIN 500 MG TAB PO SCH (08:02)
[2019-02-02] MEDS: SPIRONOLACTONE 25 MG TAB PO SCH (08:02)
[2019-02-02] MEDS: ATENOLOL 50 MG TAB PO SCH (08:02)
[2019-02-02] MEDS: amLODIPine 10 MG TAB PO SCH (08:02)
[2019-02-02] MEDS: ASPIRIN 81 MG PO SCH (08:03)
[2019-02-02] MEDS: HEPARIN SODIUM,PORCINE 5,000 UNIT/ML 1 ML VIAL SQ SCH ×2 (08:03→21:53)
[2019-02-02] MEDS: MULTIVITAMINS, THERA 1 EACH TAB PO SCH (08:03)
[2019-02-02] MEDS: OXYBUTYNIN CHLORIDE 5 MG TAB PO SCH ×3 (08:03→21:53)
[2019-02-02] MEDS: CALCIUM CARB-VIT D 500MG-200UN 1 EACH TAB PO SCH (08:03)
[2019-02-02] MEDS: CARBIDOPA-LEVODOPA 25-100 MG 1 EACH TAB PO SCH (08:03)
[2019-02-02] MEDS: PANTOPRAZOLE 40 MG TABLET PO SCH (08:03)
[2019-02-02] MEDS: INSULIN ASPART (NovoLOG) 100 UNIT/ML VIAL SQ SCH ×4 (08:04→21:54)
[2019-02-02] MEDS ORDERED: FAMOTIDINE 20 MG TAB PO SCH (09:00)
--- NOTE | 2019-02-02 10:19 | FL ---
EXAMINATION TYPE: FL barium swallow w video DATE OF EXAM: 02/02/2019 MODIFIED SWALLOW / DEGLUTITION STUDY CLINICAL HISTORY: Dysphagia. Rule out aspiration. TECHNIQUE: Deglutition study is performed utilizing thin liquid barium, honey and nectar thick liqui d barium, barium thick applesauce, and barium coated cracker. Total 1 minute 42 seconds of fluoroscop ic time was provided. 0 spot images are saved to PACS. COMPARISON: None. FINDINGS: The oral and pharyngeal phases show satisfactory initiation with all modalities tested. Mil dly sluggish epiglottis inversion is noted. Satisfactory mastication is seen with solid modalities te sted. There is some transient penetration which clears with subsequent swallowing with several modal ity tested. No aspiration observed. No significant pharyngeal residue was appreciated. IMPRESSION: No aspiration observed. Please refer to speech therapist notes for further details if ne cessary.
--- NOTE | 2019-02-02 10:39 | P.PN ---
Subjective Progress Note Date: 02/02/19 Principal diagnosis: Acute exacerbation of chronic obstructive pulmonary disease. This is a very pleasant 73-year-old female patient who follows with Dr. King as her primary care physician. She has a history of anxiety, fibromyalgia, hypertension, sleep apnea. 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 She follows with Dr. Anderson in our office for the same. Her CAT scan of the chest done 11/03/2018 did not reveal any evidence of malignancy. There is scarring and emphysema and fibrosis. She was last seen 11/10/2018. Since that time she had been doing well until recently she developed increasing shortness of breath, cough and congestion. She also sustained a fall at home 3 days ago. She lives alone. She presented here today via EMS. Computed tomography scan of the brain and C- spine revealed no cervical spine fractures. No acute intracranial abnormalities. CT angiogram of the chest revealed no evidence of pulmonary embolism. There is mediastinal bronchial adenopathy which are nonspecific and suspected secondary to inflammatory process. There is advanced pulmonary interstitial fibrosis. Enlarged pulmonary arteries consistent with pulmonary hypertension. There is also a 4.4 cm aneurysm of the ascending aorta. She is seen in the emergency room with Dr. Beckham. She is awake and alert oriented 3. Feeling a bit easier today. She is maintaining O2 saturations in the mid 90s on 4 L/m per nasal cannula. White count 7.3. Hemoglobin 11.5. Sodium 136. Potassium 3.9. Creatinine 0.76. Troponin negative times one. ProBNP 443. She has been initiated and DuoNeb inhalations, Symbicort, IV Solu-Medrol, empiric antibiotics the form of azithromycin. NicoDerm patch is in place. The patient is seen today 02/02/2019 in follow-up on the regular medical floor. She is currently resting comfortably in bed. Awake and alert in no acute distress. She is maintaining O2 saturation in the mid 90s on 3 L/m per nasal cannula. She is breathing easier today as compared to yesterday. Less bronchospastic and wheezy. She's been afebrile. Hemodynamically stable. She did go down for a barium swallow this morning. No aspiration observed. No significant pharyngeal residue appreciated. She is continued on DuoNeb inhalations, Symbicort, IV Solu-Medrol, antibiotics in form of azithromycin. NicoDerm patch is in place. Objective - Vital Signs Vital signs: Vital Signs Temp 98.2 F 02/02/19 05:00 Pulse 76 02/02/19 07:29 Resp 18 02/02/19 05:00 BP 127/74 02/02/19 05:00 Pulse Ox 95 02/02/19 05:00 Intake & Output 02/01/19 02/02/19 02/02/19 18:59 06:59 18:59 Intake Total 600 650 Balance 600 650 Intake: IV 60 Sodium Chloride 0.9% 1, 60 000 ml @ 20 mls/hr IV . Q24H [facility] Rx#:[id number] Oral 540 650 Other: # Voids 2 2 # Bowel Movements 1 - Exam GENERAL EXAM: Alert, pleasant 73-year-old female patient, on 3 L nasal cannula, O2 saturation 95%, comfortable in no apparent distress. HEAD: Normocephalic. Ecchymosis on the bridge of her nose. EYES: Normal reaction of pupils, equal size. NOSE: Clear with pink turbinates. THROAT: No erythema or exudates. NECK: No masses, no JVD. CHEST: No chest wall deformity. LUNGS: Equal air entry with bilateral end expiratory wheeze, coarse crackles in the posterior bases, diminished. CVS: S1 and S2 normal with no audible murmur, regular rhythm. ABDOMEN: No hepatosplenomegaly, normal bowel sounds, no guarding or rigidity. SPINE: No scoliosis or deformity SKIN: No rashes CENTRAL NERVOUS SYSTEM: No focal deficits, tone is normal in all 4 extremities. EXTREMITIES: There is no peripheral edema. No clubbing, no cyanosis. Peripheral pulses are intact. - Labs CBC & Chem 7: 02/01/19 02:22 02/01/19 03:38 Labs: Abnormal Lab Results - Last 24 Hours (Table) 02/01/19 02/01/19 02/01/19 Range/Units 12:25 16:49 20:22 POC Glucose (mg/dL) 159 H 169 H 131 H (75-99) mg/dL 02/02/19 Range/Units 07:08 POC Glucose (mg/dL) 151 H (75-99) mg/dL Assessment and Plan Assessment: Impression: #1 Acute exacerbation of chronic oxygen dependent obstructive pulmonary disease, complicated by purulent tracheobronchitis. #2 Chronic and ongoing tobacco dependence. #3 Advanced pulmonary fibrosis. 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 Status post left upper lobe resection with 2 cycles of adjuvant chemotherapy which the patient did not tolerate. Follow-up CT scans have not revealed any recurrence. #6 History of breast cancer status post left breast lumpectomy followed by radiation and 5 years of adjuvant Arimidex. #7 History of cervical cancer status post hysterectomy. #8 Hypertension. #9 Anxiety. Plan: The patient was seen and evaluated by Dr. Beckham. She is improved today compared to yesterday. No evidence of aspiration on barium swallow. We'll c ontinue with her treatment for COPD exacerbation. She is again educated regarding the importance of complete smoking cessation. NicoDerm patch is in place. We will continue to follow and make further recommendations based on her clinical status. Probable discharge in the a.m. I, the cosigning physician, performed a history & physical examination of the patient. Lungs sounds with bilateral end expiratory wheeze, coarse crackles in the bases, diminished. Maintaining good O2 saturations in the 90s on 3 L/m per nasal cannula. I discussed the assessment and plan of care with my nurse practitioner, Luz Elena Sanders. I attest to the above consultation as dictated by her.
[2019-02-02 12:02] LABS: Glucose,Whole Blood 158 mg/dL (75-99)
[2019-02-02] MEDS: SODIUM CHLORIDE 0.9% 1,000 ML IV SCH (13:28)
[2019-02-02 13:33] VITALS: BMI 24.8
--- NOTE | 2019-02-02 14:25 | P.PN ---
Subjective Progress Note Date: 02/02/19 This is a 73-year-old female patient of Dr. King and Dr. 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 Patient states that trouble started on Thursday at 3 AM when she was sitting on the toilet and she thinks she fell asleep ended up falling between the toilet and the tub and hit her face on the top. She thinks she had a brief period of loss of consciousness. She was not able to get herself up and scoot herself into the living room was finally able to climb up onto a chair. Patient states she was recently started on Remeron by her PCP and thinks this is too strong for her but it is helping her insomnia. She injured her left flank area and yesterday back pain was severe and she also developed difficulty in breathing. She complains of dysphagia with food this been going on for couple months and worsening. She complains of a cough and has noted some blood since yesterday but it has been going on and off but more frequently lately. She denies any fever or chills. CT of the chest done 11/03/2018 did not reveal any evidence of malignancy. There is scarring and emphysema and fibrosis. Patient came into [facility] emergency center for evaluation. Computed tomography scan of the brain and C-spine revealed no cervical spine fractures. No acute intracranial abnormalities. CT angiogram of the chest revealed no evidence of pulmonary embolism. There is mediastinal bronchial adenopathy which are nonspecific and suspected secondary to inflammatory process. There is advanced pulmonary interstitial fibrosis. Enlarged pulmonary arteries consistent with pulmonary hypertension. There is also a 4.4 cm aneurysm of the ascending aorta. White count 7.3. Hemoglobin 11.5. Sodium 136. Potassium 3.9. Creatinine 0.76. Troponin negative times one. ProBNP 443. Patient ordered for patient to [facility] floor and consult with Dr. Beckham has been added. 02/02: Patient states that she is still feeling poorly. Her respiratory status seems to be stable and she continues to have hoarseness and sensation of dysphagia. She underwent modified area and swallow that was negative and she was cleared for regular food and thin liquids. She has been afebrile, heart rate 69, blood pressure 127/74, pulse ox 95% on 3 L. Patient states she has been concerned because her aortic aneurysm has increased. Upon review in November 2017, ascending aortic aneurysm measured 4.0 and most recently at 4.4. We will plan to change her Solu-Medrol to 40 mg every 8 hours with anticipation that she will be ready for discharge by tomorrow. Objective - Vital Signs Vital signs: Vital Signs Temp 98.2 F 02/02/19 05:00 Pulse 76 02/02/19 11:28 Resp 18 02/02/19 05:00 BP 127/74 02/02/19 05:00 Pulse Ox 95 02/02/19 05:00 Intake & Output 02/01/19 02/02/19 02/02/19 18:59 06:59 18:59 Intake Total 600 650 Balance 600 650 Intake: IV 60 Sodium Chloride 0.9% 1, 60 000 ml @ 20 mls/hr IV . Q24H [facility] Rx#:[id number] Oral 540 650 Other: # Voids 2 2 # Bowel Movements 1 - Exam Review of Systems Constitutional: Reports fatigue, Reports weakness, Denies anorexia, Denies chills, Denies fever, Denies poor appetite Ears, nose, mouth and throat: Reports dysphagia, Reports hoarseness, Reports sore throat, Denies dental pain, Denies headache, Denies nasal congestion, Denies nasal discharge, Denies vertigo Cardiovascular: Reports decreased exercise tolerance, Reports dyspnea on exertion, Reports shortness of breath, Reports syncope, Denies edema, Denies leg edema, Denies lightheadedness, Denies palpitations Respiratory: Reports cough, Reports cough with sputum, Reports dyspnea, Reports hemoptysis, Reports home oxygen, Reports wheezing, Denies excessive sputum, Denies respiratory infections, Denies sleep apnea Gastrointestinal: Denies abdominal pain, Denies diarrhea, Denies loss of appetite, Denies nausea, Denies vomiting Genitourinary: Reports flank pain (left), Denies dysuria, Denies hematuria Musculoskeletal: Reports muscle weakness, Denies frequent falls, Denies gait dysfunction, Denies myalgias Integumentary: Reports darkening of skin, Denies pruritus, Denies rash, Denies wounds Neurological: Denies change in mentation, Denies change in speech, Denies numbness, Denies seizures, Denies weakness Psychiatric: Denies anxiety, Denies depression Endocrine: Denies fatigue, Denies weight change Gen: This is a 73-year-old female. Patient is resting sitting up right on the ER stretcher and appears to be comfortable. Mild tachypnea noted. HEENT: Head is atraumatic, normocephalic. Pupils equal, round. Sclerae is anicteric. NECK: Supple. No JVD. No lymphadenopathy. No thyromegaly. LUNGS: Diminished bilaterally with expiratory wheeze, few scattered rhonchi, fine crackles. No intercostal retractions. HEART: Regular rate and rhythm. No murmur. ABDOMEN: Soft. Bowel sounds are present. No masses. No tenderness. EXTREMITIES: No pedal edema bilaterally. No calf tenderness. NEUROLOGICAL: Patient is awake, alert and oriented x3. Cranial nerves 2 through 12 are grossly intact. - Labs CBC & Chem 7: 02/01/19 02:22 02/01/19 03:38 Labs: Abnormal Lab Results - Last 24 Hours (Table) 02/01/19 02/01/19 02/02/19 Range/Units 16:49 20:22 07:08 POC Glucose (mg/dL) 169 H 131 H 151 H (75-99) mg/dL 02/02/19 Range/Units 11:59 POC Glucose (mg/dL) 158 H (75-99) mg/dL Assessment and Plan Plan: 1. COPD exacerbation. Continue DuoNeb treatments 4 times daily and every 4 hours as needed, Symbicort twice daily, azithromycin, Solu-Medrol decreased to 40 mg every 8 hours, pulmonary consult appreciated. 2. Dysphagia with solid foods. Consult with speech therapy and possible modified barium swallow. 3. Pulmonary fibrosis. 4. Chronic hypoxic respiratory failure on home O2 at 3 L nasal cannula. 5. 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 6. History of cervical cancer status post hysterectomy and left breast cancer with lumpectomy and radiation and Arimidex treatment, stable. 7. Essential tremors. Continue primidone and Sinemet. 8. Generalized anxiety disorder. Continue Abilify 5 mg daily, Celexa 40 mg at bedtime. 9. Fibromyalgia. 10. Chronic tobacco use and dependence. Patient quit one week ago. Continue nicotine patch. 11. Tracheobronchial malacia. 12. Insomnia. Continue Remeron at reduced dose 7.5 mg at bedtime. 13. Hypertension. Continue Norvasc 10 mg daily, atenolol 100 mg daily, Aldactone 100 mg daily. 14. DVT prophylaxis. Heparin subcu. 15. GI prophylaxis. Protonix 40 mg daily. 16. Ascending aortic aneurysm measuring 4.4 cm, monitored by Dr. Garrido Discharge plan: Home tomorrow. Impression and plan of care have been directed as dictated by the signing physician. Belinda Gaona nurse practitioner acting as scribe for signing angel lazo.
[2019-02-02 17:03] LABS: Glucose,Whole Blood 98 mg/dL (75-99)
[2019-02-02] MEDS: HYDROcodone/APAP 7.5-325MG 1 EACH TAB PO PRN ×2 (17:03→23:27)
[2019-02-02] MEDS: methylPREDNISolone SOD SUCCI 40 MG/ML 1 ML VIAL IV SCH ×2 (17:04→23:27)
[2019-02-02 21:06] LABS: Glucose,Whole Blood 139 mg/dL (75-99)
[2019-02-02] MEDS: CITALOPRAM HYDROBROMIDE 20 MG TAB PO SCH (21:53)
[2019-02-02] MEDS: MIRTAZAPINE 15 MG TAB PO SCH (21:53)
[2019-02-03] MEDS: IPRATROPIUM-ALBUTEROL 3 ML NEB INHALATION PRN (00:06)
[2019-02-03] MEDS: HYDROcodone/APAP 7.5-325MG 1 EACH TAB PO PRN ×3 (05:43→20:46)
[2019-02-03] MEDS: SODIUM CHLORIDE 0.9% 1,000 ML IV SCH (05:49)
[2019-02-03 07:40] LABS: Glucose,Whole Blood 114 mg/dL (75-99)
[2019-02-03] MEDS: IPRATROPIUM-ALBUTEROL 3 ML NEB INHALATION SCH ×4 (08:07→21:14)
[2019-02-03] MEDS: SYMBICORT 160-4.5 MCG INHALER INHALATION SCH ×2 (08:11→21:14)
[2019-02-03] MEDS: INSULIN ASPART (NovoLOG) 100 UNIT/ML VIAL SQ SCH ×4 (08:30→20:38)
[2019-02-03] MEDS: amLODIPine 10 MG TAB PO SCH (08:39)
[2019-02-03] MEDS: SPIRONOLACTONE 25 MG TAB PO SCH (08:39)
[2019-02-03] MEDS: CALCIUM CARB-VIT D 500MG-200UN 1 EACH TAB PO SCH (08:39)
[2019-02-03] MEDS: PRIMIDONE 250 MG TAB PO SCH ×2 (08:39→20:46)
[2019-02-03] MEDS: methylPREDNISolone SOD SUCCI 40 MG/ML 1 ML VIAL IV SCH (08:39)
[2019-02-03] MEDS: HEPARIN SODIUM,PORCINE 5,000 UNIT/ML 1 ML VIAL SQ SCH ×2 (08:39→20:46)
[2019-02-03] MEDS: ETODOLAC 200 MG CAPSULE PO SCH ×2 (08:40→20:46)
[2019-02-03] MEDS: ASPIRIN 81 MG PO SCH (08:40)
[2019-02-03] MEDS: PANTOPRAZOLE 40 MG TABLET PO SCH (08:40)
[2019-02-03] MEDS: ATENOLOL 50 MG TAB PO SCH (08:40)
[2019-02-03] MEDS: CARBIDOPA-LEVODOPA 25-100 MG 1 EACH TAB PO SCH (08:40)
[2019-02-03] MEDS: MULTIVITAMINS, THERA 1 EACH TAB PO SCH (08:40)
[2019-02-03] MEDS: AZITHROMYCIN 500 MG TAB PO SCH (08:40)
[2019-02-03] MEDS: ARIPiprazole 5 MG TAB PO SCH (08:40)
[2019-02-03] MEDS: OXYBUTYNIN CHLORIDE 5 MG TAB PO SCH ×3 (08:40→20:46)
[2019-02-03] MEDS: NICOTINE 14MG/24HR PATCH TRANSDERM SCH (08:41)
--- NOTE | 2019-02-03 10:02 | P.PN ---
Subjective Progress Note Date: 02/03/19 Principal diagnosis: Acute exacerbation of chronic obstructive pulmonary disease. This is a very pleasant 73-year-old female patient who follows with Dr. King as her primary care physician. She has a history of anxiety, fibromyalgia, hypertension, sleep apnea. 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 She follows with Dr. Anderson in our office for the same. Her CAT scan of the chest done 11/03/2018 did not reveal any evidence of malignancy. There is scarring and emphysema and fibrosis. She was last seen 11/10/2018. Since that time she had been doing well until recently she developed increasing shortness of breath, cough and congestion. She also sustained a fall at home 3 days ago. She lives alone. She presented here today via EMS. Computed tomography scan of the brain and C- spine revealed no cervical spine fractures. No acute intracranial abnormalities. CT angiogram of the chest revealed no evidence of pulmonary embolism. There is mediastinal bronchial adenopathy which are nonspecific and suspected secondary to inflammatory process. There is advanced pulmonary interstitial fibrosis. Enlarged pulmonary arteries consistent with pulmonary hypertension. There is also a 4.4 cm aneurysm of the ascending aorta. She is seen in the emergency room with Dr. Beckham. She is awake and alert oriented 3. Feeling a bit easier today. She is maintaining O2 saturations in the mid 90s on 4 L/m per nasal cannula. White count 7.3. Hemoglobin 11.5. Sodium 136. Potassium 3.9. Creatinine 0.76. Troponin negative times one. ProBNP 443. She has been initiated and DuoNeb inhalations, Symbicort, IV Solu-Medrol, empiric antibiotics the form of azithromycin. NicoDerm patch is in place. The patient is seen today 02/02/2019 in follow-up on the regular medical floor. She is currently resting comfortably in bed. Awake and alert in no acute distress. She is maintaining O2 saturation in the mid 90s on 3 L/m per nasal cannula. She is breathing easier today as compared to yesterday. Less bronchospastic and wheezy. She's been afebrile. Hemodynamically stable. She did go down for a barium swallow this morning. No aspiration observed. No significant pharyngeal residue appreciated. She is continued on DuoNeb inhalations, Symbicort, IV Solu-Medrol, antibiotics in form of azithromycin. NicoDerm patch is in place. The patient is seen today 02/03/2018 in follow-up on the regular medical floor. She is currently awake and alert in no acute distress. Breathing easier today as compared to yesterday. Maintaining O2 saturations in the 90s on 2 L/m per nasal cannula. She's been afebrile. Hemodynamically stable.She is continued on DuoNeb inhalations, Symbicort, IV Solu-Medrol, antibiotics in form of azithromycin. NicoDerm patch is in place. Objective - Vital Signs Vital signs: Vital Signs Temp 98 F 02/03/19 08:35 Pulse 67 02/03/19 08:35 Resp 18 02/03/19 08:35 BP 158/75 02/03/19 08:35 Pulse Ox 93 L 02/03/19 05:00 Intake & Output 02/02/19 02/03/19 02/03/19 18:59 06:59 18:59 Intake Total 700 650 Balance 700 650 Weight 61.689 kg Intake: Intake, IV Titration 160 Amount Sodium Chloride 0.9% 1, 160 000 ml @ 20 mls/hr IV . Q24H [facility] Rx#:[id number] Oral 540 650 Other: Voiding Method Toilet # Voids 2 2 - Exam GENERAL EXAM: Alert, pleasant 73-year-old female patient, on 2 L nasal cannula, comfortable in no apparent distress. HEAD: Normocephalic. Ecchymosis on the bridge of her nose. EYES: Normal reaction of pupils, equal size. NOSE: Clear with pink turbinates. THROAT: No erythema or exudates. NECK: No masses, no JVD. CHEST: No chest wall deformity. LUNGS: Equal air entry with coarse crackles in the posterior bases, diminished. CVS: S1 and S2 normal with no audible murmur, regular rhythm. ABDOMEN: No hepatosplenomegaly, normal bowel sounds, no guarding or rigidity. SPINE: No scoliosis or deformity SKIN: No rashes CENTRAL NERVOUS SYSTEM: No focal deficits, tone is normal in all 4 extremities. EXTREMITIES: There is no peripheral edema. No clubbing, no cyanosis. Peripheral pulses are intact. - Labs CBC & Chem 7: 02/01/19 02:22 02/01/19 03:38 Labs: Abnormal Lab Results - Last 24 Hours (Table) 02/02/19 02/02/19 02/03/19 Range/Units 11:59 20:58 07:24 POC Glucose (mg/dL) 158 H 139 H 114 H (75-99) mg/dL Assessment and Plan Assessment: Impression: #1 Acute exacerbation of chronic oxygen dependent obstructive pulmonary disease, complicated by purulent tracheobronchitis. #2 Chronic and ongoing tobacco dependence. #3 Advanced pulmonary fibrosis. 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 Status post left upper lobe resection with 2 cycles of adjuvant chemotherapy wh ich the patient did not tolerate. Follow-up CT scans have not revealed any recurrence. #6 History of breast cancer status post left breast lumpectomy followed by radiation and 5 years of adjuvant Arimidex. #7 History of cervical cancer status post hysterectomy. #8 Hypertension. #9 Anxiety. Plan: The patient was seen and evaluated by Dr. Beckham. She is cleared for discharge from the pulmonary standpoint. Complete prednisone burst and taper. Complete course of antibiotics. Follow-up in our office in 1-2 weeks' time. She is again educated regarding the importance of complete smoking cessation. NicoDerm patch is in place. I, the cosigning physician, performed a history & physical examination of the patient. Lungs sounds with coarse crackles in the bases, diminished. Maintaining good O2 saturations in the 90s on 2 L/m per nasal cannula. I discussed the assessment and plan of care with my nurse practitioner, Luz Elena Sanders. I attest to the above note as dictated by her.
[2019-02-03 12:22] LABS: Glucose,Whole Blood 135 mg/dL (75-99)
--- NOTE | 2019-02-03 15:15 | P.PN ---
Subjective Progress Note Date: 02/03/19 This is a 73-year-old female patient of Dr. King and Dr. 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 Patient states that trouble started on Thursday at 3 AM when she was sitting on the toilet and she thinks she fell asleep ended up falling between the toilet and the tub and hit her face on the top. She thinks she had a brief period of loss of consciousness. She was not able to get herself up and scoot herself into the living room was finally able to climb up onto a chair. Patient states she was recently started on Remeron by her PCP and thinks this is too strong for her but it is helping her insomnia. She injured her left flank area and yesterday back pain was severe and she also developed difficulty in breathing. She complains of dysphagia with food this been going on for couple months and worsening. She complains of a cough and has noted some blood since yesterday but it has been going on and off but more frequently lately. She denies any fever or chills. CT of the chest done 11/03/2018 did not reveal any evidence of malignancy. There is scarring and emphysema and fibrosis. Patient came into [facility] emergency center for evaluation. Computed tomography scan of the brain and C-spine revealed no cervical spine fractures. No acute intracranial abnormalities. CT angiogram of the chest revealed no evidence of pulmonary embolism. There is mediastinal bronchial adenopathy which are nonspecific and suspected secondary to inflammatory process. There is advanced pulmonary interstitial fibrosis. Enlarged pulmonary arteries consistent with pulmonary hypertension. There is also a 4.4 cm aneurysm of the ascending aorta. White count 7.3. Hemoglobin 11.5. Sodium 136. Potassium 3.9. Creatinine 0.76. Troponin negative times one. ProBNP 443. Patient ordered for patient to [facility] floor and consult with Dr. Beckham has been added. 02/02: Patient states that she is still feeling poorly. Her respiratory status seems to be stable and she continues to have hoarseness and sensation of dysphagia. She underwent modified area and swallow that was negative and she was cleared for regular food and thin liquids. She has been afebrile, heart rate 69, blood pressure 127/74, pulse ox 95% on 3 L. Patient states she has been concerned because her aortic aneurysm has increased. Upon review in November 2017, ascending aortic aneurysm measured 4.0 and most recently at 4.4. We will plan to change her Solu-Medrol to 40 mg every 8 hours with anticipation that she will be ready for discharge by tomorrow. 02/03: Patient states that she is feeling terrible today. She states she is coughing a lot. She did not sleep well during the night. Patient has been afebrile, heart rate 67, blood pressure 158/75, pulse ox 93% on 3 L nasal cannula. Blood sugars running between 114 and 139. Patient has been seen by both her medicine today and cleared for discharge. We will plan to monitor overnight and plan for discharge home tomorrow. Objective - Vital Signs Vital signs: Vital Signs Temp 98 F 02/03/19 08:35 Pulse 72 02/03/19 12:30 Resp 18 02/03/19 08:35 BP 158/75 02/03/19 08:35 Pulse Ox 93 L 02/03/19 05:00 Intake & Output 02/02/19 02/03/19 02/03/19 18:59 06:59 18:59 Intake Total 700 650 Balance 700 650 Weight 61.689 kg Intake: Intake, IV Titration 160 Amount Sodium Chloride 0.9% 1, 160 000 ml @ 20 mls/hr IV . Q24H MORALES Rx#:[id number] Oral 540 650 Other: Voiding Method Toilet Toilet # Voids 2 2 2 - Exam Review of Systems Constitutional: Reports fatigue, Reports weakness, Denies anorexia, Denies chil ls, Denies fever, Denies poor appetite, complains of generalized malaise Ears, nose, mouth and throat: Reports dysphagia, Reports hoarseness, Reports sore throat, Denies dental pain, Denies headache, Denies nasal congestion, Denies nasal discharge, Denies vertigo Cardiovascular: Reports decreased exercise tolerance, Reports dyspnea on exertion, Reports shortness of breath, Reports syncope, Denies edema, Denies leg edema, Denies lightheadedness, Denies palpitations Respiratory: Reports cough, Reports cough with sputum, Reports dyspnea, Reports hemoptysis, Reports home oxygen, Reports wheezing, Denies excessive sputum, Denies respiratory infections, Denies sleep apnea Gastrointestinal: Denies abdominal pain, Denies diarrhea, Denies loss of appetite, Denies nausea, Denies vomiting Genitourinary: Reports flank pain (left), Denies dysuria, Denies hematuria Musculoskeletal: Reports muscle weakness, Denies frequent falls, Denies gait dysfunction, Denies myalgias Integumentary: Reports darkening of skin, Denies pruritus, Denies rash, Denies wounds Neurological: Denies change in mentation, Denies change in speech, Denies numbness, Denies seizures, Denies weakness Psychiatric: Denies anxiety, Denies depression Endocrine: Denies fatigue, Denies weight change Gen: This is a 73-year-old female. Patient is resting sitting up on t he edge of the bed and appears to be comfortable. HEENT: Head is atraumatic, normocephalic. Pupils equal, round. Sclerae is anicteric. NECK: Supple. No JVD. No lymphadenopathy. No thyromegaly. LUNGS: Diminished bilaterally with few expiratory wheeze, few scattered rhonchi, fine crackles. No intercostal retractions. HEART: Regular rate and rhythm. No murmur. ABDOMEN: Soft. Bowel sounds are present. No masses. No tenderness. EXTREMITIES: No pedal edema bilaterally. No calf tenderness. NEUROLOGICAL: Patient is awake, alert and oriented x3. Cranial nerves 2 through 12 are grossly intact. - Labs CBC & Chem 7: 02/01/19 02:22 02/01/19 03:38 Labs: Abnormal Lab Results - Last 24 Hours (Table) 02/02/19 02/03/19 02/03/19 Range/Units 20:58 07:24 11:54 POC Glucose (mg/dL) 139 H 114 H 135 H (75-99) mg/dL Assessment and Plan Plan: 1. COPD exacerbation. Continue DuoNeb treatments 4 times daily and every 4 hours as needed, Symbicort twice daily, azithromycin, Solu-Medrol transitioned to oral prednisone for morning, pulmonary consult appreciated. 2. Dysphagia with solid foods. Consult with speech therapy and possible modified barium swallow. 3. Pulmonary fibrosis. 4. Chronic hypoxic respiratory failure on home O2 at 3 L nasal cannula. 5. 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 6. History of cervical cancer status post hysterectomy and left breast cancer with lumpectomy and radiation and Arimidex treatment, stable. 7. Essential tremors. Continue primidone and Sinemet. 8. Generalized anxiety disorder. Continue Abilify 5 mg daily, Celexa 40 mg at bedtime. 9. Fibromyalgia. 10. Chronic tobacco use and dependence. Patient quit one week ago. Continue nicotine patch. 11. Tracheobronchial malacia. 12. Insomnia. Continue Remeron at reduced dose 7.5 mg at bedtime. 13. Hypertension. Continue Norvasc 10 mg daily, atenolol 100 mg daily, Aldactone 100 mg daily. 14. DVT prophylaxis. Heparin subcu. 15. GI prophylaxis. Protonix 40 mg daily. 16. Ascending aortic aneurysm measuring 4.4 cm, monitored by Dr. Garrido Discharge plan: Home tomorrow. Impression and plan of care have been directed as dictated by the signing physician. Belinda Gaona nurse practitioner acting as scribe for signing physician.
[2019-02-03 16:59] LABS: Glucose,Whole Blood 98 mg/dL (75-99)
[2019-02-03 20:21] LABS: Glucose,Whole Blood 107 mg/dL (75-99)
[2019-02-03] MEDS: MIRTAZAPINE 15 MG TAB PO SCH (20:46)
[2019-02-03] MEDS: CITALOPRAM HYDROBROMIDE 20 MG TAB PO SCH (20:46)
[2019-02-04] MEDS: SODIUM CHLORIDE 0.9% 1,000 ML IV SCH (04:39)
[2019-02-04] MEDS: AZITHROMYCIN 500 MG TAB PO SCH (06:59)
[2019-02-04] MEDS: NICOTINE 14MG/24HR PATCH TRANSDERM SCH (06:59)
[2019-02-04] MEDS: ETODOLAC 200 MG CAPSULE PO SCH (06:59)
[2019-02-04] MEDS: CALCIUM CARB-VIT D 500MG-200UN 1 EACH TAB PO SCH (06:59)
[2019-02-04] MEDS: amLODIPine 10 MG TAB PO SCH (06:59)
[2019-02-04] MEDS: SPIRONOLACTONE 25 MG TAB PO SCH (06:59)
[2019-02-04] MEDS: PRIMIDONE 250 MG TAB PO SCH (06:59)
[2019-02-04] MEDS: PANTOPRAZOLE 40 MG TABLET PO SCH (06:59)
[2019-02-04] MEDS: OXYBUTYNIN CHLORIDE 5 MG TAB PO SCH (06:59)
[2019-02-04] MEDS: MULTIVITAMINS, THERA 1 EACH TAB PO SCH (06:59)
[2019-02-04] MEDS: ASPIRIN 81 MG PO SCH (06:59)
[2019-02-04] MEDS: HYDROcodone/APAP 7.5-325MG 1 EACH TAB PO PRN (07:00)
[2019-02-04] MEDS: HEPARIN SODIUM,PORCINE 5,000 UNIT/ML 1 ML VIAL SQ SCH (07:00)
[2019-02-04] MEDS: ARIPiprazole 5 MG TAB PO SCH (07:00)
[2019-02-04] MEDS: CARBIDOPA-LEVODOPA 25-100 MG 1 EACH TAB PO SCH (07:00)
[2019-02-04] MEDS: ATENOLOL 50 MG TAB PO SCH (07:00)
[2019-02-04 07:02] LABS: Glucose,Whole Blood 106 mg/dL (75-99)
[2019-02-04] MEDS: INSULIN ASPART (NovoLOG) 100 UNIT/ML VIAL SQ SCH ×2 (07:03→12:07)
[2019-02-04] MEDS: IPRATROPIUM-ALBUTEROL 3 ML NEB INHALATION SCH ×2 (07:34→11:22)
[2019-02-04] MEDS: SYMBICORT 160-4.5 MCG INHALER INHALATION SCH (07:34)
[2019-02-04] MEDS ORDERED: predniSONE 20 MG TAB PO SCH (09:00)
--- NOTE | 2019-02-04 11:19 | P.PN ---
Subjective Progress Note Date: 02/04/19 Principal diagnosis: Acute exacerbation of chronic obstructive pulmonary disease. This is a very pleasant 73-year-old female patient who follows with Dr. King as her primary care physician. She has a history of anxiety, fibromyalgia, hypertension, sleep apnea. 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 She follows with Dr. Anderson in our office for the same. Her CAT scan of the chest done 11/03/2018 did not reveal any evidence of malignancy. There is scarring and emphysema and fibrosis. She was last seen 11/10/2018. Since that time she had been doing well until recently she developed increasing shortness of breath, cough and congestion. She also sustained a fall at home 3 days ago. She lives alone. She presented here today via EMS. Computed tomography scan of the brain and C- spine revealed no cervical spine fractures. No acute intracranial abnormalities. CT angiogram of the chest revealed no evidence of pulmonary embolism. There is mediastinal bronchial adenopathy which are nonspecific and suspected secondary to inflammatory process. There is advanced pulmonary interstitial fibrosis. Enlarged pulmonary arteries consistent with pulmonary hypertension. There is also a 4.4 cm aneurysm of the ascending aorta. She is seen in the emergency room with Dr. Beckham. She is awake and alert oriented 3. Feeling a bit easier today. She is maintaining O2 saturations in the mid 90s on 4 L/m per nasal cannula. White count 7.3. Hemoglobin 11.5. Sodium 136. Potassium 3.9. Creatinine 0.76. Troponin negative times one. ProBNP 443. She has been initiated and DuoNeb inhalations, Symbicort, IV Solu-Medrol, empiric antibiotics the form of azithromycin. NicoDerm patch is in place. The patient is seen today 02/02/2019 in follow-up on the regular medical floor. She is currently resting comfortably in bed. Awake and alert in no acute distress. She is maintaining O2 saturation in the mid 90s on 3 L/m per nasal cannula. She is breathing easier today as compared to yesterday. Less bronchospastic and wheezy. She's been afebrile. Hemodynamically stable. She did go down for a barium swallow this morning. No aspiration observed. No significant pharyngeal residue appreciated. She is continued on DuoNeb inhalations, Symbicort, IV Solu-Medrol, antibiotics in form of azithromycin. NicoDerm patch is in place. The patient is seen today 02/03/2018 in follow-up on the regular medical floor. She is currently awake and alert in no acute distress. Breathing easier today as compared to yesterday. Maintaining O2 saturations in the 90s on 2 L/m per nasal cannula. She's been afebrile. Hemodynamically stable.She is continued on DuoNeb inhalations, Symbicort, IV Solu-Medrol, antibiotics in form of azithromycin. NicoDerm patch is in place. The patient is seen today 02/04/2019 in follow-up on the regular medical floor. She is currently resting comfortably in bed. Awake and alert in no acute distress. Her breathing is back to her baseline. She is continued on DuoNeb inhalations, Symbicort, IV Solu-Medrol, antibiotics in form of azithromycin. NicoDerm patch is in place. She is continued on oxygen at 2 L/m. She does have home oxygen. She has a nebulizer. Objective - Vital Signs Vital signs: Vital Signs Temp 97.9 F 02/04/19 08:15 Pulse 61 02/04/19 08:15 Resp 22 02/04/19 08:35 BP 137/82 02/04/19 08:15 Pulse Ox 96 02/04/19 08:15 Intake & Output 02/03/19 02/04/19 02/04/19 18:59 06:59 18:59 Intake Total 500 Balance 500 Intake: Oral 500 Other: Voiding Method Toilet Toilet Toilet # Voids 2 3 # Bowel Movements 1 - Exam GENERAL EXAM: Alert, pleasant 73-year-old female patient, on 2 L nasal cannula, comfortable in no apparent distress. HEAD: Normocephalic. Ecchymosis on the bridge of her nose. EYES: Normal reaction of pupils, equal size. NOSE: Clear with pink turbinates. THROAT: No erythema or exudates. NECK: No masses, no JVD. CHEST: No chest wall deformity. LUNGS: Equal air entry with coarse crackles in the posterior bases, diminished. CVS: S1 and S2 normal with no audible murmur, regular rhythm. ABDOMEN: No hepatosplenomegaly, normal bowel sounds, no guarding or rigidity. SPINE: No scoliosis or deformity SKIN: No rashes CENTRAL NERVOUS SYSTEM: No focal deficits, tone is normal in all 4 extremities. EXTREMITIES: There is no peripheral edema. No clubbing, no cyanosis. Peripheral pulses are intact. - Labs CBC & Chem 7: 02/01/19 02:22 02/01/19 03:38 Labs: Abnormal Lab Results - Last 24 Hours (Table) 02/03/19 02/03/19 02/04/19 Range/Units 11:54 20:07 06:53 POC Glucose (mg/dL) 135 H 107 H 106 H (75-99) mg/dL Assessment and Plan Assessment: Impression: #1 Acute exacerbation of chronic oxygen dependent obstructive pulmonary disease, complicated by purulent tracheobronchitis. #2 Chronic and ongoing tobacco dependence. #3 Advanced pulmonary fibrosis. 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 Status post left upper lobe resection with 2 cycles of adjuvant chemotherapy which the patient did not tolerate. Follow-up CT scans have not revealed any recurrence. #6 History of breast cancer status post left breast lumpectomy followed by radiation and 5 years of adjuvant Arimidex. #7 History of cervical cancer status post hysterectomy. #8 Hypertension. #9 Anxiety. Plan: The patient was seen and evaluated by Dr. Beckham. She is cleared for discharge from the pulmonary standpoint. Complete prednisone burst and taper. Complete course of antibiotics. She is again educated regarding the importance of complete smoking cessation. NicoDerm patch is in place. Follow-up in our office in 1-2 weeks' time. I, the cosigning physician, performed a history & physical examination of the patient. Lungs sounds with coarse crackles in the bases, diminished. Estela ntaining good O2 saturations in the 90s on 2 L/m per nasal cannula. I discussed the assessment and plan of care with my nurse practitioner, Luz Elena Sanders. I attest to the above note as dictated by her.
[2019-02-04 11:52] LABS: Glucose,Whole Blood 147 mg/dL (75-99)
[2019-02-04 14:35] VITALS: BP 152/85; PULSE 70; RESP 16; TEMP 98.6
--- NOTE | 2019-02-04 15:46 | P.DS ---
Providers Date of admission: 02/01/19 05:48 Expected date of discharge: 02/04/19 Attending physician: Henrique Grissom Consults: 02/01/19 10:20 Consult Physician Routine Consulting Provider: Dorene Anderson Consult Reason/Comments: copd exac Do you want consulting provider notified?: Yes Primary care physician: [facility] Hospital Course: This is a 73-year-old female patient of Dr. King and Dr. 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 Patient states that trouble started on Thursday at 3 AM when she was sitting on the toilet and she thinks she fell asleep ended up falling between the toilet and the tub and hit her face on the top. She thinks she had a brief period of loss of consciousness. She was not able to get herself up and scoot herself into the living room was finally able to climb up onto a chair. Patient states she was recently started on Remeron by her PCP and thinks this is too strong for her but it is helping her insomnia. She injured her left flank area and yesterday back pain was severe and she also developed difficulty in breathing. She complains of dysphagia with food this been going on for couple months and worsening. She complains of a cough and has noted some blood since yesterday but it has been going on and off but more frequently lately. She denies any fever or chills. CT of the chest done 11/03/2018 did not reveal any evidence of malignancy. There is scarring and emphysema and fibrosis. Patient came into [facility] emergency center for evaluation. Computed tomography scan of the brain and C-spine revealed no cervical spine fractures. No acute intracranial abnormalities. CT angiogram of the chest revealed no evidence of pulmonary embolism. There is mediastinal bronchial adenopathy which are nonspecific and suspected secondary to inflammatory process. There is advanced pulmonary interstitial fibrosis. Enlarged pulmonary arteries consistent with pulmonary hypertension. There is also a 4.4 cm aneurysm of the ascending aorta. White count 7.3. Hemoglobin 11.5. Sodium 136. Potassium 3.9. Creatinine 0.76. Troponin negative times one. ProBNP 443. Patient ordered for patient to [facility] floor and consult with Dr. Beckham has been added. 02/02: Patient states that she is still feeling poorly. Her respiratory status seems to be stable and she continues to have hoarseness and sensation of dysphagia. She underwent modified area and swallow that was negative and she was cleared for regular food and thin liquids. She has been afebrile, heart rate 69, blood pressure 127/74, pulse ox 95% on 3 L. Patient states she has been concerned because her aortic aneurysm has increased. Upon review in November 2017, ascending aortic aneurysm measured 4.0 and most recently at 4.4. We will plan to change her Solu-Medrol to 40 mg every 8 hours with anticipation that she will be ready for discharge by tomorrow. 02/03: Patient states that she is feeling terrible today. She states she is coughing a lot. She did not sleep well during the night. Patient has been afebrile, heart rate 67, blood pressure 158/75, pulse ox 93% on 3 L nasal cannula. Blood sugars running between 114 and 139. Patient has been seen by both her medicine today and cleared for discharge. We will plan to monitor overnight and plan for discharge home tomorrow. 02/04: Patient is sleeping and arouses easily to verbal stimuli. She is resting and states that she is feeling much improved from yesterday. We will plan for discharge home today in stable condition. Discharge diagnoses: 1. COPD exacerbation. 2. Dysphagia with solid foods. No abnormality on modified barium swallow. 3. Pulmonary fibrosis. 4. Chronic hypoxic respiratory failure on home O2 at 3 L nasal cannula. 5. 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 6. History of cervical cancer status post hysterectomy and left breast cancer with lumpectomy and radiation and Arimidex treatment, stable. 7. Essential tremors. 8. Generalized anxiety disorder. 9. Fibromyalgia. 10. Chronic tobacco use and dependence. 11. Tracheobronchial malacia. 12. Insomnia. 13. Hypertension. 14. Ascending aortic aneurysm measuring 4.4 cm, monitored by Dr. Garrido Discharge plan: Home Impression and plan of care have been directed as dictated by the signing physician. Belinda Gaona nurse practitioner acting as scribe for signing physician. Patient Condition at Discharge: Good Plan - Discharge Summary Discharge Rx Participant: No New Discharge Prescriptions: New Azithromycin [Zithromax] 500 mg PO DAILY #3 tab predniSONE 0 mg PO DIRECTED #30 tab Continue amLODIPine [Norvasc] 10 mg PO DAILY Spironolactone 100 mg PO DAILY Oxybutynin Chloride [Ditropan] 5 mg PO TID Citalopram Hydrobromide [CeleXA] 40 mg PO HS Atenolol [Tenormin] 100 mg PO DAILY Aspirin [Adult Low Dose Aspirin EC] 81 mg PO DAILY Omeprazole 20 mg PO DAILY Multivitamins, Thera [Multivitamin (formulary)] 1 tab PO DAILY ARIPiprazole [Abilify] 5 mg PO DAILY Nicotine 14Mg/24Hr Patch [Habitrol] 1 patch TRANSDERM DAILY #28 patch Primidone [Mysoline] 250 mg PO BID #60 Vitamin B Complex 1 cap PO DAILY Diclofenac Sodium [Voltaren] 50 mg PO BID Carbidopa-Levodopa 25-100 mg [Sinemet 25-100 mg] 1 tab PO DAILY Mirtazapine [Remeron] 15 mg PO HS Calcium Carb-Vit D 250Mg-125Un [Oscal 250+D] 1 tab PO DAILY HYDROcodone/APAP 7.5-325MG [[place] 7.5-325] 1 tab PO QID PRN PRN Reason: Pain Albuterol Sulfate [Proair Hfa] 1 - 2 puff INHALATION RT-Q6H PRN PRN Reason: Shortness Of Breath Budesonide/Formoterol Fumarate [Symbicort 160-4.5 Mcg Inhaler] 2 puff INHALATION RT-BID Discharge Medication List Spironolactone 100 mg PO DAILY 04/16/16 [History] amLODIPine [Norvasc] 10 mg PO DAILY 04/16/16 [History] Citalopram Hydrobromide [CeleXA] 40 mg PO HS 07/08/17 [History] Oxybutynin Chloride [Ditropan] 5 mg PO TID 07/08/17 [History] Aspirin [Adult Low Dose Aspirin EC] 81 mg PO DAILY 08/18/17 [History] Atenolol [Tenormin] 100 mg PO DAILY 08/18/17 [History] ARIPiprazole [Abilify] 5 mg PO DAILY 09/02/18 [History] Multivitamins, Thera [Multivitamin (formulary)] 1 tab PO DAILY 09/02/18 [History] Omeprazole 20 mg PO DAILY 09/02/18 [History] Nicotine 14Mg/24Hr Patch [Habitrol] 1 patch TRANSDERM DAILY #28 patch 09/06/18 [Rx] Primidone [Mysoline] 250 mg PO BID #60 09/06/18 [Rx] Albuterol Sulfate [Proair Hfa] 1 - 2 puff INHALATION RT-Q6H PRN 02/01/19 [History] Budesonide/Formoterol Fumarate [Symbicort 160-4.5 Mcg Inhaler] 2 puff INHALATION RT-BID 02/01/19 [History] Calcium Carb-Vit D 250Mg-125Un [[place] 250+D] 1 tab PO DAILY 02/01/19 [History] Carbidopa-Levodopa 25-100 mg [Sinemet 25-100 mg] 1 tab PO DAILY 02/01/19 [History] Diclofenac Sodium [Voltaren] 50 mg PO BID 02/01/19 [History] HYDROcodone/APAP 7.5-325MG [[place] 7.5-325] 1 tab PO QID PRN 02/01/19 [History] Mirtazapine [Remeron] 15 mg PO HS 02/01/19 [History] Vitamin B Complex 1 cap PO DAILY 02/01/19 [History] Azithromycin [Zithromax] 500 mg PO DAILY #3 tab 02/04/19 [Rx] predniSONE 0 mg PO DIRECTED #30 tab 02/04/19 [Rx] Follow up Appointment(s)/Referral(s): Luz Elena Sanders NPC [Nurse Practitioner] - 02/11/19 3:30 pm Landon King DO [Primary Care Provider] - 02/17/19 2:30 pm Patient Instructions/Handouts: How to Stop Smoking (DC), COPD (Chronic Obstructive Pulmonary Disease) (DC) Activity/Diet/Wound Care/Special Instructions: activity as tolerated, continue with Home O2 Consistent Carb diet smoking cessation Discharge Disposition: HOME SELF-CARE
== END 2019-02-04 14:13 | disposition home or self-care (01) | DRG 191 ==
LOC: EC 01:14 → 4MS4W 05:48 → OBSVTOIN 02-03 10:59
PROVIDERS: ADMIT Internal Medicine Geriatric Medicine; ATTEND Internal Medicine Geriatric Medicine
DX: J43.9 Emphysema, unspecified (principal); J96.11 Chronic respiratory failure with hypoxia; F17.200 Nicotine dependence, unspecified, uncomplicated; F32.9 Major depressive disorder, single episode, unspecified; F41.1 Generalized anxiety disorder; G25.0 Essential tremor; G47.00 Insomnia, unspecified; G47.33 Obstructive sleep apnea (adult) (pediatric); I10 Essential (primary) hypertension; I27.20 Pulmonary hypertension, unspecified; I71.2 Thoracic aortic aneurysm, without rupture; J39.8 Other specified diseases of upper respiratory tract; J84.10 Pulmonary fibrosis, unspecified; M41.9 Scoliosis, unspecified; M79.7 Fibromyalgia; M17.11 Unilateral primary osteoarthritis, right knee; R13.10 Dysphagia, unspecified; Z79.51 Long term (current) use of inhaled steroids; Z79.82 Long term (current) use of aspirin; Z79.899 Other long term (current) drug therapy; Z80.1 Family history of malignant neoplasm of trachea, bronchus and lung; Z82.49 Family history of ischemic heart disease and other diseases of the circulatory system; Z82.5 Family history of asthma and other chronic lower respiratory diseases; Z85.118 Personal history of other malignant neoplasm of bronchus and lung; Z85.3 Personal history of malignant neoplasm of breast; Z85.41 Personal history of malignant neoplasm of cervix uteri; Z90.710 Acquired absence of both cervix and uterus; Z96.611 Presence of right artificial shoulder joint; Z96.652 Presence of left artificial knee joint; Z99.81 Dependence on supplemental oxygen; Z90.49 Acquired absence of other specified parts of digestive tract
CPT/HCPCS: 36415; 70450; 71046; 71275; 72125; 74230; 80053; 83735; 83880; 84484; 85025; 85379; 85610; 85730; 93005; 94640; 94760; 96374; 99285

== ENCOUNTER 2019-02-10 18:09 | Inpatient (IN) | payer MEDICARE ==
--- NOTE | 2019-02-10 18:36 | ED ---
General Adult HPI - General Chief complaint: Shortness of Breath Stated complaint: SOB Time Seen by Provider: 02/10/19 18:10 Source: patient, RN notes reviewed Mode of arrival: ambulatory Limitations: no limitations - History of Present Illness Initial comments: This a 73-year-old female who presents emergency department with past medical history significant for COPD and lung cancer. Patient was here about a week ago and discharged on Thursday. Patient states shortly thereafter she started having shortness of breath and has gotten progressively worse over the week. Patient denies any fever chills. Patient denies any chest pain or palpitations. Patient states the difficulty breathing is gotten worse with exertion for sure. Patient denies any sputum production but does states she is coughing quite a bit. Patient denies any leg swelling or calf tenderness. Patient denies any abdominal pain patient denies nausea vomiting diarrhea. Patient has any headache patient denies numbness weakness. Patient denies lightheadedness dizziness or near syncopal episode. - Related Data Home Medications Medication Instructions Recorded Confirmed Spironolactone 100 mg PO BID 04/16/16 02/10/19 amLODIPine [Norvasc] 10 mg PO DAILY 04/16/16 02/10/19 Citalopram Hydrobromide [CeleXA] 40 mg PO HS 07/08/17 02/10/19 Oxybutynin Chloride [Ditropan] 5 mg PO TID 07/08/17 02/10/19 Aspirin [Adult Low Dose Aspirin EC] 81 mg PO DAILY 08/18/17 02/10/19 Atenolol [Tenormin] 50 mg PO HS 08/18/17 02/10/19 ARIPiprazole [Abilify] 5 mg PO HS 09/02/18 02/10/19 Multivitamins, Thera [Multivitamin 1 tab PO DAILY 09/02/18 02/10/19 (formulary)] Omeprazole 20 mg PO DAILY 09/02/18 02/10/19 Albuterol Sulfate [Proair Hfa] 1 - 2 puff INHALATION RT-Q6H PRN 02/01/19 02/10/19 Budesonide/Formoterol Fumarate 2 puff INHALATION RT-BID 02/01/19 02/10/19 [Symbicort 160-4.5 Mcg Inhaler] Calcium Carb-Vit D 250Mg-125Un 1 tab PO DAILY 02/01/19 02/10/19 [Oscal 250+D] Carbidopa-Levodopa 25-100 mg 1 tab PO HS 02/01/19 02/10/19 [Sinemet 25-100 mg] Diclofenac Sodium [Voltaren] 50 mg PO BID 02/01/19 02/10/19 HYDROcodone/APAP 7.5-325MG [[place] 1 tab PO Q6H PRN 02/01/19 02/10/19 7.5-325] Mirtazapine [Remeron] 15 mg PO HS 02/01/19 02/10/19 Vitamin B Complex 1 cap PO DAILY 02/01/19 02/10/19 Chlorhexidine Gluconate [Peridex] 15 ml PO BID 02/10/19 02/10/19 Primidone [Mysoline] 250 mg PO TID 02/10/19 02/10/19 predniSONE See Taper PO DIRECTED 02/10/19 02/10/19 Previous Rx's Medication Instructions Recorded Nicotine 14Mg/24Hr Patch [Habitrol] 1 patch TRANSDERM DAILY #28 patch 09/06/18 Allergies Allergy/AdvReac Type Severity Reaction Status Date / Time levofloxacin [From Levaquin] AdvReac Severe Diarrhea Verified 02/10/19 18:57 adhesive tape AdvReac Unknown IRRITATES Verified 02/10/19 18:57 SKIN Review of Systems ROS Statement: Those systems with pertinent positive or pertinent negative responses have been documented in the HPI. ROS Other: All systems not noted in ROS Statement are negative. 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 History of Any Multi-Drug Resistant Organisms: None Reported Date of last positivie culture/infection: 2013 Past Surgical History: Breast Surgery, Cholecystectomy, Heart Catheterization, Hysterectomy, Joint Replacement, Orthopedic Surgery Additional Past Surgical History / Comment(s): Left total knee, Right Total shoulder, Left BREAST LUMPECTOMY, CATARACTS , LT KNEE SCOPE, THYROID BX, COLONOSCOPY, EGD, BRONCHOSCOPY, LEFT UPPER LOBE LUNG RESECTION Past Anesthesia/Blood Transfusion Reactions: Previous Problems w/ Anesthesia Additional Past Anesthesia/Blood Transfusion Reaction / Comment(s): PT STATES THAT SHE HAS "HIGH" TOLERANCE TO IV SEDATION. Past Psychological History: Anxiety, Depression Smoking Status: Former smoker Past Alcohol Use History: None Reported Past Drug Use History: None Reported - Past Family History Mother Family Medical History: Cancer Additional Family Medical History / Comment(s): LUNG Father Additional Family Medical History / Comment(s): Father at age 86 from COPD. Sister(s) Additional Family Medical History / Comment(s): Patient has one sister with hypertension and rheumatoid arthritis. Patient is not have any brothers. Patient has 2 daughters with no major medical problems. General Exam - General Exam Comments Initial Comments: GENERAL: Patient is well-developed and well-nourished. Patient is nontoxic and well- hydrated and is in mild distress. ENT: Neck is soft and supple. No significant lymphadenopathy is noted. Oropharynx is clear. Moist mucous membranes. Neck has full range of motion without eliciting any pain. EYES: The sclera were anicteric and conjunctiva were pink and moist. Extraocular movements were intact and pupils were equal round and reactive to light. Eyelids were unremarkable. PULMONARY: Patient has expiratory wheezing. Patient has crackles in the bases more on the right than the left CARDIOVASCULAR: There is a regular rate and rhythm without any murmurs gallops or rubs. ABDOMEN: Soft and nontender with normal bowel sounds. SKIN: Skin is clear with no lesions or rashes and otherwise unremarkable. NEUROLOGIC: Patient is alert and oriented x3. Cranial nerves II through XII are grossly intact. Motor and sensory are also intact. Normal speech, volume and content. Symmetrical smile. MUSCULOSKELETAL: Normal extremities with adequate strength and full range of motion. LYMPHATICS: No significant lymphadenopathy is noted PSYCHIATRIC: Normal psychiatric evaluation. Limitations: no limitations Course Vital Signs 02/10/19 18:12 Temperature 97.6 F Pulse Rate 99 Respiratory 40 H Rate Blood Pressure 140/82 O2 Sat by Pulse 94 L Oximetry Medical Decision Making - Medical Decision Making EKG shows sinus rhythm with occasional PVC at 93 bpm KS interval 166 dresses 90 QT interval 376 QTC is 467. Patient's EKG shows some T-wave inversions in leads V4 V5 and V6. Chest x-ray shows pulmonary fibrosis per patient received multiple breathing treatments emergency department as well as steroids but continues to wheeze and feel short of breath. - Lab Data Result diagrams: 02/10/19 18:45 02/10/19 18:45 Lab Results 02/10/19 02/10/19 02/10/19 Range/Units 18:45 18:45 18:45 WBC 7.1 (3.8-10.6) k/uL RBC 4.01 (3.80-5.40) m/uL Hgb 12.5 (11.4-16.0) gm/dL Hct 38.2 (34.0-46.0) % MCV 95.3 (80.0-100.0) fL MCH 31.2 (25.0-35.0) pg MCHC 32.7 (31.0-37.0) g/dL RDW 15.2 (11.5-15.5) % Plt Count 302 (150-450) k/uL Neutrophils % 70 % Lymphocytes % 16 % Monocytes % 7 % Eosinophils % 2 % Basophils % 2 % Neutrophils # 5.0 (1.3-7.7) k/uL Lymphocytes # 1.2 (1.0-4.8) k/uL Monocytes # 0.5 (0-1.0) k/uL Eosinophils # 0.1 (0-0.7) k/uL Basophils # 0.1 (0-0.2) k/uL PT (9.0-12.0) sec INR (<1.2) APTT (22.0-30.0) sec Sodium 136 L (137-145) mmol/L Potassium 3.7 (3.5-5.1) mmol/L Chloride 98 (98-107) mmol/L Carbon Dioxide 33 H (22-30) mmol/L Anion Gap 5 mmol/L BUN 9 (7-17) mg/dL Creatinine 0.68 (0.52-1.04) mg/dL Est GFR (CKD-EPI)AfAm >90 (>60 ml/min/1.73 sqM) Est GFR (CKD-EPI)NonAf 86 (>60 ml/min/1.73 sqM) Glucose 96 (74-99) mg/dL Calcium 9.9 (8.4-10.2) mg/dL Magnesium 2.0 (1.6-2.3) mg/dL Total Bilirubin 0.3 (0.2-1.3) mg/dL AST 22 (14-36) U/L ALT 21 (9-52) U/L Alkaline Phosphatase 70 (38-126) U/L Troponin I (0.000-0.034) ng/mL NT-Pro-B Natriuret Pep 710 pg/mL Total Protein 7.3 (6.3-8.2) g/dL Albumin 4.0 (3.5-5.0) g/dL 02/10/19 02/10/19 Range/Units 18:45 18:45 WBC (3.8-10.6) k/uL RBC (3.80-5.40) m/uL Hgb (11.4-16.0) gm/dL Hct (34.0-46.0) % MCV (80.0-100.0) fL MCH (25.0-35.0) pg MCHC (31.0-37.0) g/dL RDW (11.5-15.5) % Plt Count (150-450) k/uL Neutrophils % % Lymphocytes % % Monocytes % % Eosinophils % % Basophils % % Neutrophils # (1.3-7.7) k/uL Lymphocytes # (1.0-4.8) k/uL Monocytes # (0-1.0) k/uL Eosinophils # (0-0.7) k/uL Basophils # (0-0.2) k/uL PT 10.5 (9.0-12.0) sec INR 1.0 (<1.2) APTT 25.2 (22.0-30.0) sec Sodium (137-145) mmol/L Potassium (3.5-5.1) mmol/L Chloride (98-107) mmol/L Carbon Dioxide (22-30) mmol/L Anion Gap mmol/L BUN (7-17) mg/dL Creatinine (0.52-1.04) mg/dL Est GFR (CKD-EPI)AfAm (>60 ml/min/1.73 sqM) Est GFR (CKD-EPI)NonAf (>60 ml/min/1.73 sqM) Glucose (74-99) mg/dL Calcium (8.4-10.2) mg/dL Magnesium (1.6-2.3) mg/dL Total Bilirubin (0.2-1.3) mg/dL AST (14-36) U/L ALT (9-52) U/L Alkaline Phosphatase (38-126) U/L Troponin I <0.012 (0.000-0.034) ng/mL NT-Pro-B Natriuret Pep pg/mL Total Protein (6.3-8.2) g/dL Albumin (3.5-5.0) g/dL Disposition Clinical Impression: COPD exacerbation Disposition: ADMITTED IP TO THIS HOSP Referrals: Landon King DO [Primary Care Provider] - 1-2 days Time of Disposition: 20:04
[2019-02-10 18:59] LABS: Basophils # (A) 0.1 k/uL (0-0.2); Basophils % (A) 2 %; Eosinophils # (A) 0.1 k/uL (0-0.7); Eosinophils % (A) 2 %; HCT 38.2 % (34.0-46.0); HGB 12.5 gm/dL (11.4-16.0); Lymphocytes # (A) 1.2 k/uL (1.0-4.8); Lymphocytes % (A) 16 %; MCH 31.2 pg (25.0-35.0); MCHC 32.7 g/dL (31.0-37.0); MCV 95.3 fL (80.0-100.0); Mean Platelet Volume 6.1; Monocytes # (A) 0.5 k/uL (0-1.0); Monocytes % (A) 7 %; Neutrophils % (A) 70 %; Platelet Count 302 k/uL (150-450); RBC 4.01 m/uL (3.80-5.40); RDW 15.2 % (11.5-15.5); WBC 7.1 k/uL (3.8-10.6)
[2019-02-10 19:07] LABS: Partial Thromboplastin Time 25.2 sec (22.0-30.0); Prothrombin Time 10.5 sec (9.0-12.0)
[2019-02-10 19:22] LABS: ALT 21 U/L (9-52); AST 22 U/L (14-36); African American GFR (CKD) >90 (>60 ml/min/1.73 sqM); Alkaline Phosphatase 70 U/L (38-126); Anion Gap 5 mmol/L; Blood Urea Nitrogen 9 mg/dL (7-17); Calcium 9.9 mg/dL (8.4-10.2); Carbon Dioxide 33 mmol/L (22-30); Chloride 98 mmol/L (98-107); Glucose 96 mg/dL (74-99); Potassium 3.7 mmol/L (3.5-5.1); Sodium 136 mmol/L (137-145); Total Bilirubin 0.3 mg/dL (0.2-1.3); Total Protein 7.3 g/dL (6.3-8.2)
[2019-02-10] MEDS ORDERED: ALBUTEROL NEBULIZED 5 MG, IPRATROPIUM NEBULIZED 0.5 MG, SODIUM CHLORIDE 0.9% NEBULIZ 9 ML INHALATION ONE ×3 (19:44)
[2019-02-10] MEDS ORDERED: methylPREDNISolone SOD SUCCI 125 MG/2 ML VIAL IV STA (19:45)
--- NOTE | 2019-02-10 19:45 | XR ---
EXAMINATION TYPE: XR chest 2V DATE OF EXAM: 02/10/2019 COMPARISON: 02/01/2019 HISTORY: Short of breath TECHNIQUE: Frontal and lateral views of the chest are obtained. FINDINGS: There is coarse interstitial density in the lungs. Thoracic aorta is atheromatous. There i s no pleural effusion. There is right shoulder prosthesis. IMPRESSION: Pulmonary interstitial fibrosis. Right shoulder prosthesis. No pleural effusion. No obvi ous heart failure. No change compared to last exam.
[2019-02-11] MEDS ORDERED: MIRTAZAPINE 15 MG TAB PO SCH (00:30)
[2019-02-11] MEDS: HYDROcodone/APAP 7.5-325MG 1 EACH TAB PO PRN ×2 (00:39→19:41)
[2019-02-11] MEDS: CITALOPRAM HYDROBROMIDE 20 MG TAB PO SCH ×2 (00:40→20:24)
[2019-02-11] MEDS: ARIPiprazole 5 MG TAB PO SCH ×2 (00:40→20:24)
[2019-02-11] MEDS: PRIMIDONE 250 MG TAB PO SCH ×4 (00:40→20:24)
[2019-02-11] MEDS: CARBIDOPA-LEVODOPA 25-100 MG 1 EACH TAB PO SCH ×2 (00:40→20:24)
[2019-02-11] MEDS: methylPREDNISolone SOD SUCCI 125 MG/2 ML VIAL IV SCH ×3 (00:40→12:31)
[2019-02-11 03:26] VITALS: BMI 26.8
[2019-02-11] MEDS: IPRATROPIUM-ALBUTEROL 3 ML NEB INHALATION PRN ×3 (04:20→11:44)
[2019-02-11] MEDS: ASPIRIN 81 MG PO SCH (08:17)
[2019-02-11] MEDS: OXYBUTYNIN CHLORIDE 5 MG TAB PO SCH ×3 (08:17→20:24)
[2019-02-11] MEDS: CALCIUM CARB-VIT D 500MG-200UN 1 EACH TAB PO SCH (08:17)
[2019-02-11] MEDS: amLODIPine 10 MG TAB PO SCH (08:17)
[2019-02-11] MEDS: MULTIVITAMINS, THERA 1 EACH TAB PO SCH (08:17)
[2019-02-11] MEDS: PANTOPRAZOLE 40 MG TABLET PO SCH (08:17)
[2019-02-11] MEDS: ETODOLAC 400 MG TAB PO SCH ×2 (08:18→20:24)
[2019-02-11] MEDS: FOLIC ACID-VIT B COMPLEX-VIT C 1 CAP PO SCH (08:18)
[2019-02-11] MEDS: SPIRONOLACTONE 25 MG TAB PO SCH ×2 (08:19→20:23)
[2019-02-11] MEDS: CHLORHEXIDINE GLUCONATE 15 ML CUP MUCOUS MEM SCH ×2 (08:44→21:04)
[2019-02-11 11:31] LABS: Glucose,Whole Blood 123 mg/dL (75-99)
[2019-02-11] MEDS: INSULIN ASPART (NovoLOG) 100 UNIT/ML VIAL SQ SCH ×3 (12:26→21:05)
[2019-02-11] MEDS: NICOTINE 14MG/24HR PATCH TRANSDERM SCH (13:24)
--- NOTE | 2019-02-11 13:28 | P.HPIM ---
History of Present Illness H&P Date: 02/11/19 This is a 73-year-old female patient of Dr. King and Dr. 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 Patient had recent hospitalization February 01 through the which time she was treated fo r COPD exacerbation also had complaints of soreness and sensation of dysphagia. She underwent a modified barium swallow which was negative and she was cleared for regular food and thin liquids. She says she has had difficulty breathing since last week and it kept getting worse. She complains of a cough that is nonproductive. She has been on and off cigarettes for the past 2 weeks and utilizing her nicotine patch. She is currently using home O2 only at nighttime. She thinks she has also had a mild fever. She states she followed up with Luz Elena [] in the office after discharge was recommended to wear oxygen all the time. She did receive a steroid injection and yesterday she was called at home and if she wasn't improved patient was to come in the hospital which she did. She denies any lower extremity edema. No abdominal pain. She does complain of constipation. CT angiogram of the chest 02/01 revealed no evidence of pulmonary embolism. There is mediastinal bronchial adenopathy which are nonspecific and suspected secondary to inflammatory process. There is advanced pulmonary in terstitial fibrosis. Enlarged pulmonary arteries consistent with pulmonary hypertension. There is also a 4.4 cm aneurysm of the ascending aorta. Patient came into [facility] emergency center for evaluation. EKG was a sinus rhythm with some T-wave inversions. Chest x-ray showed pulmonary fibrosis. CBC was unremarkable. CO2 33, BUN 9 and creatinine 0.98, blood sugar 96. Troponin negative. Liver function tests within normal limits. ProBNP 710. She was afebrile, respiratory rate 40 and pulse ox 94% on oxygen. Patient admitted to [facility] floor and consult with pulmonary medicine has been added. Review of Systems Constitutional: Reports fatigue, Reports weakness, Denies anorexia, Denies chills, Denies fever, Denies poor appetite Eyes: denies blurred vision, denies pain Ears, nose, mouth and throat: Reports dysphagia, Reports hoarseness, Reports sore throat, Denies dental pain, Denies headache, Denies nasal congestion, Denies nasal discharge, Denies vertigo Cardiovascular: Reports decreased exercise tolerance, Reports dyspnea on exertion, Reports shortness of breath, Reports syncope, Denies edema, Denies leg edema, Denies lightheadedness, Denies palpitations Respiratory: Reports cough, Reports cough with sputum, Reports dyspnea, Reports hemoptysis, Reports home oxygen, Reports wheezing, Denies excessive sputum, Evaristo es respiratory infections, Denies sleep apnea Gastrointestinal: Denies abdominal pain, Denies diarrhea, Denies loss of appetite, Denies nausea, Denies vomiting Genitourinary: Denies dysuria, Denies hematuria Musculoskeletal: Reports muscle weakness, Denies frequent falls, Denies gait dysfunction, Denies myalgias Integumentary: Reports darkening of skin, Denies pruritus, Denies rash, Denies wounds Neurological: Denies change in mentation, Denies change in speech, Denies numbness, Denies seizures, Denies weakness Psychiatric: Denies anxiety, Denies depression Endocrine: Denies fatigue, Denies weight change Past Medical History Past Medical History: Cancer, COPD, Fibromyalgia, Hypertension, Osteoarthritis (OA), Respiratory Disorder Additional Past Medical History / Comment(s): Chronic hypoxic respiratory failure , OXYGEN @ 3L AT NIGHT, pulmonary fibrosis, 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 History of Any Multi-Drug Resistant Organisms: None Reported Date of last positivie culture/infection: 2013 Past Surgical History: Breast Surgery, Cholecystectomy, Heart Catheterization, Hysterectomy, Joint Replacement, Orthopedic Surgery Additional Past Surgical History / Comment(s): Left total knee, Right Total shoulder, Left BREAST LUMPECTOMY, CATARACTS , LT KNEE SCOPE, THYROID BX, COLONOSCOPY, EGD, BRONCHOSCOPY, LEFT UPPER LOBE LUNG RESECTION Past Anesthesia/Blood Transfusion Reactions: Previous Problems w/ Anesthesia Additional Past Anesthesia/Blood Transfusion Reaction / Comment(s): PT STATES THAT SHE HAS "HIGH" TOLERANCE TO IV SEDATION. Past Psychological History: Anxiety, Depression Additional Psychological History / Comment(s): Pt resides alone with her cat. She has home oxygen and nebulizer. She is moving to assisted living in [place]. She just got a walker. She drives. Smoking Status: Former smoker Past Alcohol Use History: None Reported Additional Past Alcohol Use History / Comment(s): Patient is a smoker one pack per day since 1966 and quit two weeks ago. She is currently in a nicotine patch. She no longer uses marijuana. No illicit drug use, no alcohol use. She lives alone with her cat. She has a walker, nebulizer and home O2 at 3 L nasal cannula. She does not have a CPAP. Past Drug Use History: None Reported Additional Drug Use History / Comment(s): STATES MARIJUANA OVER 20 YEARS AGO- NO CURRENT USE. - Past Family History Mother Family Medical History: Cancer Additional Family Medical History / Comment(s): Mother at age 73 from lung cancer. Father Additional Family Medical History / Comment(s): Father at age 86 from COPD. Sister(s) Additional Family Medical History / Comment(s): Patient has one sister with hypertension and rheumatoid arthritis. Patient is not have any brothers. Patient has 2 daughters with no major medical problems. Medications and Allergies Home Medications Medication Instructions Recorded Confirmed Type Spironolactone 100 mg PO BID 04/16/16 02/10/19 History amLODIPine [Norvasc] 10 mg PO DAILY 04/16/16 02/10/19 History Citalopram Hydrobromide [CeleXA] 40 mg PO HS 07/08/17 02/10/19 History Oxybutynin Chloride [Ditropan] 5 mg PO TID 07/08/17 02/10/19 History Aspirin [Adult Low Dose Aspirin EC] 81 mg PO DAILY 08/18/17 02/10/19 History Atenolol [Tenormin] 50 mg PO HS 08/18/17 02/10/19 History ARIPiprazole [Abilify] 5 mg PO HS 09/02/18 02/10/19 History Multivitamins, Thera [Multivitamin 1 tab PO DAILY 09/02/18 02/10/19 History (formulary)] Omeprazole 20 mg PO DAILY 09/02/18 02/10/19 History Nicotine 14Mg/24Hr Patch [Habitrol] 1 patch TRANSDERM DAILY #28 patch 09/06/18 02/10/19 Rx Albuterol Sulfate [Proair Hfa] 1 - 2 puff INHALATION RT-Q6H PRN 02/01/19 02/10/19 History Budesonide/Formoterol Fumarate 2 puff INHALATION RT-BID 02/01/19 02/10/19 History [Symbicort 160-4.5 Mcg Inhaler] Calcium Carb-Vit D 250Mg-125Un 1 tab PO DAILY 02/01/19 02/10/19 History [Oscal 250+D] Carbidopa-Levodopa 25-100 mg 1 tab PO HS 02/01/19 02/10/19 History [Sinemet 25-100 mg] Diclofenac Sodium [Voltaren] 50 mg PO BID 02/01/19 02/10/19 History HYDROcodone/APAP 7.5-325MG [[place] 1 tab PO Q6H PRN 02/01/19 02/10/19 History 7.5-325] Mirtazapine [Remeron] 15 mg PO HS 02/01/19 02/10/19 History Vitamin B Complex 1 cap PO DAILY 02/01/19 02/10/19 History Chlorhexidine Gluconate [Peridex] 15 ml PO BID 02/10/19 02/10/19 History Primidone [Mysoline] 250 mg PO TID 02/10/19 02/10/19 History predniSONE See Taper PO DIRECTED 02/10/19 02/10/19 History Allergies Allergy/AdvReac Type Severity Reaction Status Date / Time levofloxacin [From Levaquin] AdvReac Severe Diarrhea Verified 02/10/19 18:57 adhesive tape AdvReac Unknown IRRITATES Verified 02/10/19 18:57 SKIN Physical Exam Vitals: Vital Signs Temp Pulse Pulse Resp BP BP Pulse Ox 02/11/19 11:54 88 02/11/19 11:44 88 02/11/19 11:25 98.3 F 89 20 165/83 100 02/11/19 08:02 88 02/11/19 07:51 92 02/11/19 04:49 97.7 F 86 20 135/79 96 02/11/19 04:40 83 02/11/19 04:23 98 02/11/19 04:20 83 02/11/19 00:00 22 02/10/19 23:00 98.8 F 71 22 139/62 95 02/10/19 22:42 99.7 F H 70 24 130/78 96 02/10/19 22:37 90 L 02/10/19 20:59 78 02/10/19 20:33 99.4 F 73 20 137/78 96 02/10/19 20:32 73 02/10/19 18:12 97.6 F 99 40 H 140/82 94 L Intake and Output 02/10/19 02/11/19 02/11/19 22:59 06:59 14:59 Intake Total 720 240 480 Balance 720 240 480 Intake: Oral 720 240 480 Other: Voiding Method Toilet # Voids 1 1 Weight 64.41 kg Gen: This is a 73-year-old female. Patient is resting in chair with all wheezing. Mild tachypnea noted. HEENT: Head is atraumatic, normocephalic. Pupils equal, round. Sclerae is anicteric. NECK: Supple. No JVD. No lymphadenopathy. No thyromegaly. LUNGS: Bilateral end expiratory wheeze, few scattered rhonchi, fine crackles. No intercostal retractions. HEART: Regular rate and rhythm. No murmur. ABDOMEN: Soft. Bowel sounds are present. No masses. No tenderness. EXTREMITIES: No pedal edema bilaterally. No calf tenderness. NEUROLOGICAL: Patient is awake, alert and oriented x3. Cranial nerves 2 through 12 are grossly intact. Results CBC & Chem 7: 02/10/19 18:45 02/10/19 18:45 Labs: Abnormal Lab Results - Last 24 Hours (Table) 02/10/19 02/11/19 Range/Units 18:45 11:29 Sodium 136 L (137-145) mmol/L Carbon Dioxide 33 H (22-30) mmol/L POC Glucose (mg/dL) 123 H (75-99) mg/dL Thrombosis Risk Factor Assmnt - DVT/VTE Prophylaxis DVT/VTE Prophylaxis: Pharmacologic Prophylaxis ordered - Choose All That Apply Any of the Below Risk Factors Present?: Yes Each Factor Represents 1 point: Abnormal pulmonary function (COPD), Obesity (BMI >25) Other Risk Factors: Yes Each Risk Factor Represents 2 Points: Age 61-74 years Thrombosis Risk Factor Assessment Total Risk Factor Score: 4 Thrombosis Risk Factor Assessment Level: Moderate Risk Assessment and Plan Plan: 1. Acute exacerbation of COPD. Continue DuoNeb treatments 4 times daily and every 4 hours as needed, Pulmicort and Perforomist twice daily, Solu-Medrol 40 mg IV every 8 hours, pulmonary consult requested. 2. Recent hospitalization for acute COPD exacerbation and dysphagia with solid foods. Modified barium swallow was negative. 3. Pulmonary fibrosis. 4. Chronic hypoxic respiratory failure on home O2 at 3 L nasal cannula. 5. Abnormal EKG. Repeat troponins and echocardiogram ordered. No complaints of chest pain. 6. 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 7. History of cervical cancer status post hysterectomy and left breast cancer with lumpectomy and radiation and Arimidex treatment, stable. 8. Essential tremors. Continue primidone and Sinemet. 9. Generalized anxiety disorder. Continue Abilify 5 mg daily, Celexa 40 mg at bedtime. 10. Fibromyalgia. 11. Chronic tobacco use and dependence. Patient quit one week ago. Continue nicotine patch. 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 13. Insomnia. Continue Remeron at reduced dose 7.5 mg at bedtime. 14. Hypertension. Continue Norvasc 10 mg daily, atenolol 100 mg daily, Aldactone 100 mg daily. 15. DVT prophylaxis. Heparin subcu. 16. GI prophylaxis. Protonix 40 mg daily. Patient will be admitted to the hospital for a minimum of 2 night stay. Discharge plan: To be determined. PT and OT added. Impression and plan of care have been directed as dictated by the signing physician. Belinda Gaona nurse practitioner acting as scribe for signing physician.
--- NOTE | 2019-02-11 14:17 | P.CNPUL ---
History of Present Illness Consult date: 02/11/19 Requesting physician: James Andersen Reason for consult: dyspnea, COPD Chief complaint: Shortness of breath, dyspnea on exertion History of present illness: This is a very pleasant 73-year-old female patient who follows with Dr. King as her primary care physician. She has a history of anxiety, fibromyalgia, hypertension, sleep apnea, breast cancer. 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 She follows with Dr. Anderson in our office for the same. She was here in January 2019 with a COPD exacerbation, complicated by purulent tracheobronchitis. Computed tomography scan of the chest revealed no evidence of malignancy. No pulmonary embolism. There was noted advanced pulmonary interstitial fibrosis. Pulmonary hypertension. She presented here yesterday with complaints of increasing shortness of breath, cough and congestion. Her cough is nonproductive. She is dyspneic with minimal exertion. Dyspneic on conversation. Maintaining good O2 saturations in the upper 90s on 3 L/m per nasal cannula. She's afebrile. White count 7.1. Hemoglobin 12.5. Sodium 136. Creatinine 0.68. Troponins negative 2. ProBNP 710. Echocardiogram pending. Chest x-ray reveals no acute pulmonary process. There is interstitial fibrosis noted. Review of Systems REVIEW OF SYSTEMS: CONSTITUTIONAL: Denies any recent significant weight loss or weight gain. EYES: Denies change in vision. EARS, NOSE, MOUTH, THROAT: Denies headaches, positive for hoarseness. CARDIOVASCULAR: Denies chest pain, palpitations or syncopal episodes. RESPIRATORY: Positive for shortness of breath, cough, congestion no hemoptysis. GASTROINTESTINAL: Denies change in appetite, denies abdominal pain GENITOURINARY: Denies hematuria, denies infections. MUSKULOSKELETAL: Denies pain, denies swelling. INTEGUMENTARY: Denies rash, denies eczema. NEUROLOGICAL: Denies recent memory loss, no recent seizure activity. PSYCHIATRIC: Denies anxiety, denies depression. HEMATOLOGIC/LYMPHATIC: Denies anemia, denies enlarged lymph nodes. Past Medical History Past Medical History: Cancer, COPD, Fibromyalgia, Hypertension, Osteoarthritis (OA), Respiratory Disorder Additional Past Medical History / Comment(s): Chronic hypoxic respiratory failure , OXYGEN @ 3L AT NIGHT, pulmonary fibrosis, history of small cell lung cancer with left upper lobe resection, history of cervical cancer, HX of LEFT breast cancer with lumpectomy & radiation & Arimidex treatment( 2002), essential tremors, states she thinks sleep apnea was resolved with wt loss, sc oliosis, back & sciatica pain, pain in knees & hips. History of Any Multi-Drug Resistant Organisms: None Reported Date of last positivie culture/infection: 2013 Past Surgical History: Breast Surgery, Cholecystectomy, Heart Catheterization, Hysterectomy, Joint Replacement, Orthopedic Surgery Additional Past Surgical History / Comment(s): Left total knee, Right Total shoulder, Left BREAST LUMPECTOMY, CATARACTS , LT KNEE SCOPE, THYROID BX, COLONOSCOPY, EGD, BRONCHOSCOPY, LEFT UPPER LOBE LUNG RESECTION Past Anesthesia/Blood Transfusion Reactions: Previous Problems w/ Anesthesia Additional Past Anesthesia/Blood Transfusion Reaction / Comment(s): PT STATES THAT SHE HAS "HIGH" TOLERANCE TO IV SEDATION. Past Psychological History: Anxiety, Depression Additional Psychological History / Comment(s): Pt resides alone with her cat. She has home oxygen and nebulizer. She is moving to assisted living in [place]. She just got a walker. She drives. Smoking Status: Former smoker Past Alcohol Use History: None Reported Additional Past Alcohol Use History / Comment(s): Patient is a smoker one pack per day since 1966 and quit two weeks ago. She is currently in a nicotine patch. She no longer uses marijuana. No illicit drug use, no alcohol use. She lives alone with her cat. She has a walker, nebulizer and home O2 at 3 L nasal cannula. She does not have a CPAP. Past Drug Use History: None Reported Additional Drug Use History / Comment(s): STATES MARIJUANA OVER 20 YEARS AGO- NO CURRENT USE. - Past Family History Mother Family Medical History: Cancer Additional Family Medical History / Comment(s): Mother at age 73 from lung cancer. Father Additional Family Medical History / Comment(s): Father at age 86 from COPD. Sister(s) Additional Family Medical History / Comment(s): Patient has one sister with hypertension and rheumatoid arthritis. Patient is not have any brothers. Patient has 2 daughters with no major medical problems. Medications and Allergies Home Medications Medication Instructions Recorded Confirmed Type Spironolactone 100 mg PO BID 04/16/16 02/10/19 History amLODIPine [Norvasc] 10 mg PO DAILY 04/16/16 02/10/19 History Citalopram Hydrobromide [CeleXA] 40 mg PO HS 07/08/17 02/10/19 History Oxybutynin Chloride [Ditropan] 5 mg PO TID 07/08/17 02/10/19 History Aspirin [Adult Low Dose Aspirin EC] 81 mg PO DAILY 08/18/17 02/10/19 History Atenolol [Tenormin] 50 mg PO HS 08/18/17 02/10/19 History ARIPiprazole [Abilify] 5 mg PO HS 09/02/18 02/10/19 History Multivitamins, Thera [Multivitamin 1 tab PO DAILY 09/02/18 02/10/19 History (formulary)] Omeprazole 20 mg PO DAILY 09/02/18 02/10/19 History Nicotine 14Mg/24Hr Patch [Habitrol] 1 patch TRANSDERM DAILY #28 patch 09/06/18 02/10/19 Rx Albuterol Sulfate [Proair Hfa] 1 - 2 puff INHALATION RT-Q6H PRN 02/01/19 02/10/19 History Budesonide/Formoterol Fumarate 2 puff INHALATION RT-BID 02/01/19 02/10/19 History [Symbicort 160-4.5 Mcg Inhaler] Calcium Carb-Vit D 250Mg-125Un 1 tab PO DAILY 02/01/19 02/10/19 History [Oscal 250+D] Carbidopa-Levodopa 25-100 mg 1 tab PO HS 02/01/19 02/10/19 History [Sinemet 25-100 mg] Diclofenac Sodium [Voltaren] 50 mg PO BID 02/01/19 02/10/19 History HYDROcodone/APAP 7.5-325MG [Campbell 1 tab PO Q6H PRN 02/01/19 02/10/19 History 7.5-325] Mirtazapine [Remeron] 15 mg PO HS 02/01/19 02/10/19 History Vitamin B Complex 1 cap PO DAILY 02/01/19 02/10/19 History Chlorhexidine Gluconate [Peridex] 15 ml PO BID 02/10/19 02/10/19 History Primidone [Mysoline] 250 mg PO TID 02/10/19 02/10/19 History predniSONE See Taper PO DIRECTED 02/10/19 02/10/19 History Allergies Allergy/AdvReac Type Severity Reaction Status Date / Time levofloxacin [From Levaquin] AdvReac Severe Diarrhea Verified 02/10/19 18:57 adhesive tape AdvReac Unknown IRRITATES Verified 02/10/19 18:57 SKIN Physical Exam Vitals: Vital Signs Temp Pulse Pulse Resp BP BP Pulse Ox 02/11/19 11:54 88 02/11/19 11:44 88 02/11/19 11:25 98.3 F 89 20 165/83 100 02/11/19 08:02 88 02/11/19 07:51 92 02/11/19 04:49 97.7 F 86 20 135/79 96 02/11/19 04:40 83 02/11/19 04:23 98 02/11/19 04:20 83 02/11/19 00:00 22 02/10/19 23:00 98.8 F 71 22 139/62 95 02/10/19 22:42 99.7 F H 70 24 130/78 96 02/10/19 22:37 90 L 02/10/19 20:59 78 02/10/19 20:33 99.4 F 73 20 137/78 96 02/10/19 20:32 73 02/10/19 18:12 97.6 F 99 40 H 140/82 94 L Intake and Output 02/10/19 02/11/19 02/11/19 22:59 06:59 14:59 Intake Total 720 240 480 Balance 720 240 480 Intake: Oral 720 240 480 Other: Voiding Method Toilet # Voids 1 1 Weight 64.41 kg GENERAL EXAM: Alert, pleasant 73-year-old female patient, on 3 L nasal cannula, comfortable in no apparent distress. HEAD: Normocephalic. EYES: Normal reaction of pupils, equal size. NOSE: Clear with pink turbinates. THROAT: No erythema or exudates. NECK: No masses, no JVD. CHEST: No chest wall deformity. LUNGS: Equal air entry with bilateral end expiratory wheeze, coarse crackles in the bases. CVS: S1 and S2 normal with no audible murmur, regular rhythm. ABDOMEN: No hepatosplenomegaly, normal bowel sounds, no guarding or rigidity. SPINE: No scoliosis or deformity SKIN: No rashes CENTRAL NERVOUS SYSTEM: No focal deficits, tone is normal in all 4 extremities. EXTREMITIES: There is no peripheral edema. No clubbing, no cyanosis. Peripheral pulses are intact. Results - Laboratory Findings CBC and BMP: 02/10/19 18:45 02/10/19 18:45 PT/INR, D-dimer PT 10.5 sec (9.0-12.0) 02/10/19 18:45 INR 1.0 (<1.2) 02/10/19 18:45 Abnormal lab findings: Abnormal Labs 02/10/19 02/11/19 18:45 11:29 Sodium 136 L Carbon Dioxide 33 H POC Glucose (mg/dL) 123 H - Diagnostic Findings Chest x-ray: image reviewed Assessment and Plan Assessment: Impression: #1 Acute exacerbation of chronic oxygen dependent obstructive pulmonary disease. #2 Chronic and ongoing tobacco dependence. #3 Advanced pulmonary fibrosis. #4 Acute on chronic hypoxic respiratory failure secondary to above. #5 Tracheobronchomalacia as noted on previous bronchoscopy #6 History of stage IA small cell lung cancer the left upper lobe in 2014. Status post left upper lobe resection with 2 cycles of adjuvant chemotherapy which the patient did not tolerate. Follow-up CT scans have not revealed any recurrence. #7 History of breast cancer status post left breast lumpectomy followed by radiation and 5 years of adjuvant Arimidex. #8 History of cervical cancer status post hysterectomy. #9 Hypertension. #10 Anxiety. Plan: The patient was seen and evaluated by Dr. Singletary. Chest x-ray and labs reviewed. We will continue with her treatment for her COPD exacerbation including DuoNeb inhalations, Pulmicort and Perforomist inhalations, IV Solu-Medrol. Empiric antibiotics in the form of azithromycin. She is again educated regarding the importance of complete smoking cessation. NicoDerm patches in place. She will need to have portable oxygen tanks available to her prior to her discharge. She does have a home concentrator supplied through [facility] but was initiated in [place]. We will continue to follow and make further recommendations based on her clinical status. I, the cosigning physician, performed a history & physical examination of the patient. Lungs sounds with bilateral end expiratory wheeze, coarse crackles in the bases. Maintaining good O2 saturations in the 90s on 3 L/m per nasal cannula. I discussed the assessment and plan of care with my nurse practitioner, Luz Elena Sanders. I attest to the above note as dictated by her. Time with Patient: Greater than 30
[2019-02-11] MEDS: IPRATROPIUM-ALBUTEROL 3 ML NEB INHALATION SCH ×2 (16:16→20:22)
[2019-02-11] MEDS: AZITHROMYCIN 500 MG TAB PO SCH (16:41)
[2019-02-11] MEDS: methylPREDNISolone SOD SUCCI 40 MG/ML 1 ML VIAL IV SCH (16:41)
[2019-02-11 17:09] LABS: Glucose,Whole Blood 103 mg/dL (75-99)
--- NOTE | 2019-02-11 20:00 | ECHOF ---
Referral Reason:LVF MEASUREMENTS -------- HEIGHT: 152.4 cm WEIGHT: 64.4 kg BP: IVSd: 1.4 cm (0.6 - 1.1) LVIDd: 4.6 cm (3.9 - 5.3) LVPWd: 1.2 cm (0.6 - 1.1) IVSs: 1.8 cm LVIDs: 3.3 cm LVPWs: 1.5 cm LA Diam: 4.9 cm (2.7 - 3.8) LAESV Index (A-L): 36.28 ml/m Ao Diam: 3.8 cm (2.0 - 3.7) AV Cusp: 1.8 cm (1.5 - 2.6) LA Diam: 5.0 cm (2.7 - 3.8) MV EXCURSION: 17.874 mm (> 18.000) MV EF SLOPE: 72 mm/s (70 - 150) EPSS: 0.6 cm MV E Brett: 0.54 m/s MV DecT: 179 ms MV A Brett: 1.04 m/s MV E/A Ratio: 0.52 AV maxP.56 mmHg AV meanP.19 mmHg RAP: 5.00 mmHg RVSP: 55.13 mmHg FINDINGS -------- Sinus rhythm. This was a technically adequate study. The left ventricular size is normal. There is moderate concentric left ventricular hypertrophy. O verall left ventricular systolic function is normal with, an EF between 55 - 60 %. The right ventricle is normal in size. The left atrium is markedly dilated. LA is severely dilated >40 ml/m2 The right atrial size is normal. There is mild aortic valve sclerosis. There is no evidence of aortic regurgitation. Mild mitral annular calcification present. Mild mitral regurgitation is present. Mild tricuspid regurgitation present. There is moderate pulmonary hypertension. The right ventric ular systolic pressure, as measured by Doppler, is 55.13mmHg. There is no pulmonic regurgitation present. The aortic root size is normal. There is no pericardial effusion. CONCLUSIONS -------- 1. Sinus rhythm. 2. This was a technically adequate study. 3. The left ventricular size is normal. 4. There is moderate concentric left ventricular hypertrophy. 5. Overall left ventricular systolic function is normal with, an EF between 55 - 60 %. 6. The right ventricle is normal in size. 7. The left atrium is markedly dilated. 8. LA is severely dilated >40 ml/m2 9. The right atrial size is normal. 10. There is mild aortic valve sclerosis. 11. Mild mitral annular calcification present. 12. Mild mitral regurgitation is present. 13. Mild tricuspid regurgitation present. 14. There is moderate pulmonary hypertension. 15. The right ventricular systolic pressure, as measured by Doppler, is 55.13mmHg. 16. There is no pulmonic regurgitation present. 17. The aortic root size is normal. 18. There is no pericardial effusion. MEAT HOSTESS: Katherine Cervantes RDCS
[2019-02-11 20:18] LABS: Glucose,Whole Blood 138 mg/dL (75-99)
[2019-02-11] MEDS: BUDESONIDE 1 MG/2 ML NEBU INHALATION SCH (20:22)
[2019-02-11] MEDS: FORMOTEROL FUMARATE 20 MCG/2 ML NEBU INHALATION SCH (20:22)
[2019-02-11] MEDS: ATENOLOL 50 MG TAB PO SCH (20:24)
[2019-02-11] MEDS: MIRTAZAPINE 15 MG TAB PO SCH (20:24)
[2019-02-11] MEDS: HEPARIN SODIUM,PORCINE 5,000 UNIT/ML 1 ML VIAL SQ SCH (20:25)
[2019-02-12] MEDS: methylPREDNISolone SOD SUCCI 40 MG/ML 1 ML VIAL IV SCH ×4 (00:16→23:43)
[2019-02-12 07:07] LABS: Glucose,Whole Blood 105 mg/dL (75-99)
[2019-02-12] MEDS: INSULIN ASPART (NovoLOG) 100 UNIT/ML VIAL SQ SCH ×4 (07:37→21:20)
[2019-02-12] MEDS: PANTOPRAZOLE 40 MG TABLET PO SCH (07:49)
[2019-02-12] MEDS: NICOTINE 14MG/24HR PATCH TRANSDERM SCH (07:49)
[2019-02-12] MEDS: CALCIUM CARB-VIT D 500MG-200UN 1 EACH TAB PO SCH (07:49)
[2019-02-12] MEDS: MULTIVITAMINS, THERA 1 EACH TAB PO SCH (07:49)
[2019-02-12] MEDS: ASPIRIN 81 MG PO SCH (07:49)
[2019-02-12] MEDS: amLODIPine 10 MG TAB PO SCH (07:50)
[2019-02-12] MEDS: SPIRONOLACTONE 25 MG TAB PO SCH ×2 (07:50→20:28)
[2019-02-12] MEDS: PRIMIDONE 250 MG TAB PO SCH ×3 (07:50→20:28)
[2019-02-12] MEDS: AZITHROMYCIN 500 MG TAB PO SCH (07:50)
[2019-02-12] MEDS: ETODOLAC 400 MG TAB PO SCH ×2 (07:51→20:29)
[2019-02-12] MEDS: OXYBUTYNIN CHLORIDE 5 MG TAB PO SCH ×3 (07:51→20:27)
[2019-02-12] MEDS: FOLIC ACID-VIT B COMPLEX-VIT C 1 CAP PO SCH (07:52)
[2019-02-12] MEDS: HEPARIN SODIUM,PORCINE 5,000 UNIT/ML 1 ML VIAL SQ SCH ×2 (07:54→20:27)
[2019-02-12] MEDS: HYDROcodone/APAP 7.5-325MG 1 EACH TAB PO PRN ×2 (07:55→20:38)
[2019-02-12] MEDS: IPRATROPIUM-ALBUTEROL 3 ML NEB INHALATION SCH ×4 (08:09→20:00)
[2019-02-12] MEDS: FORMOTEROL FUMARATE 20 MCG/2 ML NEBU INHALATION SCH ×2 (08:09→19:59)
[2019-02-12] MEDS: BUDESONIDE 1 MG/2 ML NEBU INHALATION SCH ×2 (08:09→19:59)
[2019-02-12] MEDS: CHLORHEXIDINE GLUCONATE 15 ML CUP MUCOUS MEM SCH ×2 (10:41→20:27)
[2019-02-12] MEDS: guaiFENesin 600 MG TABLET.ER PO SCH ×2 (11:04→20:29)
[2019-02-12 11:08] LABS: Glucose,Whole Blood 176 mg/dL (75-99)
--- NOTE | 2019-02-12 11:43 | P.PN ---
Subjective Progress Note Date: 02/12/19 Principal diagnosis: Acute exacerbation of chronic obstructive pulmonary disease. This is a very pleasant 73-year-old female patient who follows with Dr. King as her primary care physician. She has a history of anxiety, fibromyalgia, hypertension, sleep apnea, breast cancer. 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 She follows with Dr. Anderson in our office for the same. She was here in January 2019 with a COPD exacerbation, complicated by purulent tracheobronchitis. Computed tomography scan of the chest revealed no evidence of malignancy. No pulmonary embolism. There was not ed advanced pulmonary interstitial fibrosis. Pulmonary hypertension. She presented here yesterday with complaints of increasing shortness of breath, cough and congestion. Her cough is nonproductive. She is dyspneic with minimal exertion. Dyspneic on conversation. Maintaining good O2 saturations in the upper 90s on 3 L/m per nasal cannula. She's afebrile. White count 7.1. Hemoglobin 12.5. Sodium 136. Creatinine 0.68. Troponins negative 2. ProBNP 710. Echocardiogram pending. Chest x-ray reveals no acute pulmonary process. There is interstitial fibrosis noted. The patient is seen today in 02/12/2019. She is awake and alert in no acute distress. She is still quite dyspneic on minimal exertion and with conversation. Currently maintaining good O2 saturations in the 90s on 3 L/m per nasal cannula. She's been afebrile. Hemodynamically stable. She still has a loose congested cough. Difficulty in expectorating her mucus. Blood culture reveals no growth. She is continued on DuoNeb inhalation, Pulmicort and Perforomist inhalations, IV Solu-Medrol, azithromycin. NicoDerm patch in place. Objective - Vital Signs Vital signs: Vital Signs Temp 97.0 F L 02/12/19 05:00 Pulse 72 02/12/19 11:30 Resp 22 02/12/19 08:00 BP 147/79 02/12/19 05:00 Pulse Ox 96 02/12/19 05:00 Intake & Output 02/11/19 02/12/19 02/12/19 18:59 06:59 18:59 Intake Total 1680 1070 Balance 1680 1070 Intake: Oral 1680 1070 Other: Voiding Method Toilet Toilet Toilet # Voids 4 1 - Exam GENERAL EXAM: Alert, pleasant 73-year-old female patient, on 3 L nasal cannula, comfortable in no apparent distress. HEAD: Normocephalic. EYES: Normal reaction of pupils, equal size. NOSE: Clear with pink turbinates. THROAT: No erythema or exudates. NECK: No masses, no JVD. CHEST: No chest wall deformity. LUNGS: Equal air entry with bilateral end expiratory wheeze, coarse crackles in the bases. CVS: S1 and S2 normal with no audible murmur, regular rhythm. ABDOMEN: No hepatosplenomegaly, normal bowel sounds, no guarding or rigidity. SPINE: No scoliosis or deformity SKIN: No rashes CENTRAL NERVOUS SYSTEM: No focal deficits, tone is normal in all 4 extremities. EXTREMITIES: There is no peripheral edema. No clubbing, no cyanosis. Peripheral pulses are intact. - Labs CBC & Chem 7: 02/10/19 18:45 02/10/19 18:45 Labs: Abnormal Lab Results - Last 24 Hours (Table) 02/11/19 02/11/19 02/12/19 Range/Units 17:07 20:16 06:56 POC Glucose (mg/dL) 103 H 138 H 105 H (75-99) mg/dL 02/12/19 Range/Units 11:05 POC Glucose (mg/dL) 176 H (75-99) mg/dL Microbiology - Last 24 Hours (Table) 02/10/19 18:45 Blood Culture - Preliminary Blood No Growth after 24 hours Assessment and Plan Assessment: Impression: #1 Acute exacerbation of chronic oxygen dependent obstructive pulmonary disease. #2 Chronic and ongoing tobacco dependence. #3 Advanced pulmonary fibrosis. #4 Acute on chronic hypoxic respiratory failure secondary to above. #5 Tracheobronchomalacia as noted on previous bronchoscopy #6 History of stage IA small cell lung cancer the left upper lobe in 2015. Status post left upper lobe resection with 2 cycles of adjuvant chemotherapy which the patient did not tolerate. Follow-up CT scans have not revealed any recurrence. #7 History of breast cancer status post left breast lumpectomy followed by radiation and 5 years of adjuvant Arimidex. #8 History of cervical cancer status post hysterectomy. #9 Hypertension. #10 Anxiety. Plan: The patient was seen and evaluated by Dr. Singletary. We will continue with her current treatment plan. Add Mucinex. Add flutter valve. She is again educated regarding the importance of complete smoking cessation. NicoDerm patch in place. She does need to be re-qualified for home oxygen and portable tanks with [facility] in the [facility]. We will continue to follow and make further recommendations based on her clinical status. I, the cosigning physician, performed a history & physical examination of the patient. Lungs sounds with bilateral end expiratory wheeze, coarse crackles in the bases. Maintaining good O2 saturations in the 90s on 3 L/m per nasal cannula. I discussed the assessment and plan of care with my nurse practitioner, Luz Elena Sanders. I attest to the above note as dictated by her.
--- NOTE | 2019-02-12 13:18 | P.PN ---
Subjective Progress Note Date: 02/12/19 This is a 73-year-old female patient of Dr. King and Dr. 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 Patient had recent hospitalization February 01 through the which time she was treated for COPD exacerbation also had complaints of soreness and sensation of dysphagia. She underwent a modified barium swallow which was negative and she was cleared for regular food and thin liquids. She says she has had difficulty breathing since last week and it kept getting worse. She complains of a cough that is nonproductive. She has been on and off cigarettes for the past 2 weeks and utilizing her nicotine patch. She is currently using home O2 only at nighttime. She thinks she has also had a mild fever. She states she followed up with Luz Elena [] in the office after discharge was recommended to wear oxygen all the time. She did receive a steroid injection and yesterday she was called at home and if she wasn't improved patient was to come in the hospital which she did. She denies any lower extremity edema. No abdominal pain. She does complain of constipation. CT angiogram of the chest 02/01 revealed no evidence of pulmonary embolism. There is mediastinal bronchial adenopathy which are nonspecific and suspected secondary to inflammatory process. There is advanced pulmonary interstitial fibrosis. Enlarged pulmonary arteries consistent with pulmonary hypertension. There is also a 4.4 cm aneurysm of the ascending aorta. Patient came into [facility] emergency center for evaluation. EKG was a sinus rhythm with some T-wave inversions. Chest x-ray showed pulmon ophelia fibrosis. CBC was unremarkable. CO2 33, BUN 9 and creatinine 0.98, blood sugar 96. Troponin negative. Liver function tests within normal limits. ProBNP 710. She was afebrile, respiratory rate 40 and pulse ox 94% on oxygen. Patient admitted to [facility] floor and consult with pulmonary medicine has been added. 02/12/2019: Patient states that she continues have shortness of breath especiall y with exertion. Patient is requesting Senokot due to constipation. Patient had a bowel movement since Thursday. Patient is also requesting melatonin to help her sleep at night. Echocardiogram shows EF between 55 and 60%, left atrium is markedly dilated, pulmonary hypertension, mild aortic valve sclerosis, mild mitral annular occasion present, mild mitral regurgitation is present, mild tricuspid regurgitation. Review of Systems: Constitutional: Reports fatigue, Reports weakness, Denies anorexia, Denies chills, Denies fever, Denies poor appetite Eyes: denies blurred vision, denies pain Ears, nose, mouth and throat: Reports dysphagia, Reports hoarseness, Reports sore throat, Denies dental pain, Denies headache, Denies nasal congestion, Denies nasal discharge, Denies vertigo Cardiovascular: Reports decreased exercise tolerance, Reports dyspnea on exertion, Reports shortness of breath, Reports syncope, Denies edema, Denies leg edema, Denies lightheadedness, Denies palpitations Respiratory: Reports cough, Reports cough with sputum, Reports dyspnea, Reports hemoptysis, Reports home oxygen, Reports wheezing, Denies excessive sputum, Denies respiratory infections, Denies sleep apnea Gastrointestinal: Denies abdominal pain, Denies diarrhea, Denies loss of appetite, Denies nausea, Denies vomiting Genitourinary: Denies dysuria, Denies hematuria Musculoskeletal: Reports muscle weakness, Denies frequent falls, Denies gait dysfunction, Denies myalgias Integumentary: Reports darkening of skin, Denies pruritus, Denies rash, Denies wounds Neurological: Denies change in mentation, Denies change in speech, Denies numbness, Denies seizures, Denies weakness Psychiatric: Denies anxiety, Denies depression Endocrine: Denies fatigue, Denies weight change Objective - Vital Signs Vital signs: Vital Signs Temp 98.5 F 02/12/19 12:40 Pulse 74 02/12/19 12:40 Resp 16 02/12/19 12:40 BP 126/72 02/12/19 12:40 Pulse Ox 96 02/12/19 12:40 Intake & Output 02/11/19 02/12/19 02/12/19 18:59 06:59 18:59 Intake Total 1680 1070 1180 Balance 1680 1070 1180 Intake: Oral 1680 1070 1180 Other: Voiding Method Toilet Toilet Toilet # Voids 4 1 2 - Exam Gen: This is a 73-year-old female. Patient is resting in chair with all wheezing. Mild tachypnea noted. HEENT: Head is atraumatic, normocephalic. Pupils equal, round. Sclerae is ani cteric. NECK: Supple. No JVD. No lymphadenopathy. No thyromegaly. LUNGS: Bilateral end expiratory wheeze, few scattered rhonchi, fine crackles. No intercostal retractions. HEART: Regular rate and rhythm. No murmur. ABDOMEN: Soft. Bowel sounds are present. No masses. No tenderness. EXTREMITIES: No pedal edema bilaterally. No calf tenderness. NEUROLOGICAL: Patient is awake, alert and oriented x3. Cranial nerves 2 through 12 are grossly intact. - Labs CBC & Chem 7: 02/10/19 18:45 02/10/19 18:45 Labs: Abnormal Lab Results - Last 24 Hours (Table) 02/11/19 02/11/19 02/12/19 Range/Units 17:07 20:16 06:56 POC Glucose (mg/dL) 103 H 138 H 105 H (75-99) mg/dL 02/12/19 Range/Units 11:05 POC Glucose (mg/dL) 176 H (75-99) mg/dL Microbiology - Last 24 Hours (Table) 02/10/19 18:45 Blood Culture - Preliminary Blood No Growth after 24 hours Assessment and Plan Plan: 1. Acute exacerbation of COPD. Continue DuoNeb treatments 4 times daily and every 4 hours as needed, Pulmicort and Perforomist twice daily, Solu-Medrol 40 mg IV every 8 hours, pulmonary consult requested. 2. Recent hospitalization for acute COPD exacerbation and dysphagia with solid foods. Modified barium swallow was negative. 3. Pulmonary fibrosis. 4. Chronic hypoxic respiratory failure on home O2 at 3 L nasal cannula. 5. Abnormal EKG. Repeat troponins and echocardiogram ordered. No complaints of chest pain. 6. 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 7. History of cervical cancer status post hysterectomy and left breast cancer with lumpectomy and radiation and Arimidex treatment, stable. 8. Essential tremors. Continue primidone and Sinemet. 9. Generalized anxiety disorder. Continue Abilify 5 mg daily, Celexa 40 mg at bedtime. 10. Fibromyalgia. 11. Chronic tobacco use and dependence. Patient quit one week ago. Continue nicotine patch. 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 13. Insomnia. Continue Remeron at reduced dose 7.5 mg at bedtime. 14. Hypertension. Continue Norvasc 10 mg daily, atenolol 100 mg daily, Aldactone 100 mg daily. 15. Insomnia. Melatonin 5 mg daily at bedtime 16. Constipation. Senokot S 1 tablet daily 17. GI prophylaxis. Protonix 40 mg daily 18. DVT prophylaxis. Heparin subcu. Patient will be admitted to the hospital for a minimum of 2 night stay. Discharge plan: To be determined. PT and OT added. Impression and plan of care have been directed as dictated by the signing physician. Chloé Harrington nurse practitioner acting as scribe for signing physician.
[2019-02-12] MEDS: SENNOSIDES-DOCUSATE SODIUM 1 EACH TAB PO SCH (13:35)
[2019-02-12 17:28] LABS: Glucose,Whole Blood 115 mg/dL (75-99)
[2019-02-12 20:06] LABS: Glucose,Whole Blood 153 mg/dL (75-99)
[2019-02-12] MEDS: CARBIDOPA-LEVODOPA 25-100 MG 1 EACH TAB PO SCH (20:27)
[2019-02-12] MEDS: ARIPiprazole 5 MG TAB PO SCH (20:27)
[2019-02-12] MEDS: MIRTAZAPINE 15 MG TAB PO SCH (20:28)
[2019-02-12] MEDS: CITALOPRAM HYDROBROMIDE 20 MG TAB PO SCH (20:28)
[2019-02-12] MEDS: MELATONIN 5 MG TABLET PO SCH (20:29)
[2019-02-12] MEDS: ATENOLOL 50 MG TAB PO SCH (20:29)
[2019-02-13] MEDS: HYDROcodone/APAP 7.5-325MG 1 EACH TAB PO PRN ×4 (01:46→21:04)
[2019-02-13] MEDS: IPRATROPIUM-ALBUTEROL 3 ML NEB INHALATION PRN (05:41)
[2019-02-13 07:05] LABS: Glucose,Whole Blood 92 mg/dL (75-99)
[2019-02-13] MEDS: INSULIN ASPART (NovoLOG) 100 UNIT/ML VIAL SQ SCH ×4 (07:06→21:02)
[2019-02-13] MEDS: AZITHROMYCIN 500 MG TAB PO SCH (07:49)
[2019-02-13] MEDS: CALCIUM CARB-VIT D 500MG-200UN 1 EACH TAB PO SCH (07:49)
[2019-02-13] MEDS: PANTOPRAZOLE 40 MG TABLET PO SCH (07:49)
[2019-02-13] MEDS: NICOTINE 14MG/24HR PATCH TRANSDERM SCH (07:49)
[2019-02-13] MEDS: guaiFENesin 600 MG TABLET.ER PO SCH ×2 (07:50→21:01)
[2019-02-13] MEDS: HEPARIN SODIUM,PORCINE 5,000 UNIT/ML 1 ML VIAL SQ SCH ×2 (07:50→21:02)
[2019-02-13] MEDS: ASPIRIN 81 MG PO SCH (07:50)
[2019-02-13] MEDS: MULTIVITAMINS, THERA 1 EACH TAB PO SCH (07:50)
[2019-02-13] MEDS: SPIRONOLACTONE 25 MG TAB PO SCH ×2 (07:50→21:01)
[2019-02-13] MEDS: SENNOSIDES-DOCUSATE SODIUM 1 EACH TAB PO SCH (07:50)
[2019-02-13] MEDS: CHLORHEXIDINE GLUCONATE 15 ML CUP MUCOUS MEM SCH ×2 (07:51→21:49)
[2019-02-13] MEDS: ETODOLAC 400 MG TAB PO SCH ×2 (07:52→21:01)
[2019-02-13] MEDS: methylPREDNISolone SOD SUCCI 40 MG/ML 1 ML VIAL IV SCH ×3 (07:52→23:55)
[2019-02-13] MEDS: PRIMIDONE 250 MG TAB PO SCH ×3 (07:52→21:01)
[2019-02-13] MEDS: OXYBUTYNIN CHLORIDE 5 MG TAB PO SCH ×3 (07:53→21:01)
[2019-02-13] MEDS: amLODIPine 10 MG TAB PO SCH (07:55)
[2019-02-13] MEDS: FOLIC ACID-VIT B COMPLEX-VIT C 1 CAP PO SCH (07:56)
[2019-02-13] MEDS: FORMOTEROL FUMARATE 20 MCG/2 ML NEBU INHALATION SCH ×2 (08:02→20:01)
[2019-02-13] MEDS: BUDESONIDE 1 MG/2 ML NEBU INHALATION SCH ×2 (08:02→20:01)
[2019-02-13] MEDS: IPRATROPIUM-ALBUTEROL 3 ML NEB INHALATION SCH ×4 (08:03→20:01)
--- NOTE | 2019-02-13 10:21 | P.PN ---
Subjective Progress Note Date: 02/13/19 Principal diagnosis: Acute exacerbation of chronic acute pulmonary disease This is a very pleasant 73-year-old female patient who follows with Dr. King as her primary care physician. She has a history of anxiety, fibromyalgia, hypertension, sleep apnea, breast cancer. 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 She follows with Dr. Anderson in our office for the same. She was here in January 2019 with a COPD exacerbation, complicated by purulent tracheobronchitis. Computed tomography scan of the chest revealed no evidence of malignancy. No pulmonary embolism. There was noted advanced pulmonary interstitial fibrosis. Pulmonary hypertension. She presented here yesterday with complaints of increasing shortness of breath, cough and congestion. Her cough is nonproductive. She is dyspneic with minimal exertion. Dyspneic on conversation. Maintaining good O2 saturations in the upper 90s on 3 L/m per nasal cannula. She's afebrile. White count 7.1. Hemoglobin 12.5. Sodium 136. Creatinine 0.68. Troponins negative 2. ProBNP 710. Echocardiogram pending. Chest x-ray reveals no acute pulmonary process. There is interstitial fibrosis noted. The patient is seen today in 02/12/2019. She is awake and alert in no acute distress. She is still quite dyspneic on minimal exertion and with conversation. Currently maintaining good O2 saturations in the 90s on 3 L/m per nasal cannula. She's been afebrile. Hemodynamically stable. She still has a loose congested cough. Difficulty in expectorating her mucus. Blood culture reveals no growth. She is continued on DuoNeb inhalation, Pulmicort and Perforomist inhalations, IV Solu-Medrol, azithromycin. NicoDerm patch in place. On 02/13/2019 patient seen in follow-up on medical surgical floor. She is awake and alert, in no acute distress, although still has dyspnea with minimal exertion, and with conversation, patient states subjectively she is not feeling any better since she came in, focal planning of dyspnea, lung sounds reveal some scattered rhonchi, and there is persistent voice hoarseness, ENT consultation was requested however because of non-urgent nature of the consultation, she will be evaluated on outpatient basis by ENT specialist. She remains on 2 L of oxygen and the pulse ox of 95%, she is afebrile, hemodynamically patient is stable, occasional cough, without much phlegm production, blood culture showed no growth. No couplets of chest pain. She remains on empiric antibiotics in the form of azithromycin, nebulized bronchodilators and IV steroids. Objective - Vital Signs Vital signs: Vital Signs Temp 97.7 F 02/13/19 03:57 Pulse 72 02/13/19 08:36 Resp 20 02/13/19 03:57 BP 142/76 02/13/19 03:57 Pulse Ox 95 02/13/19 03:57 Intake & Output 02/12/19 02/13/19 02/13/19 19:59 06:59 18:59 Intake Total Balance Intake: Oral Other: Voiding Method Toilet # Voids 3 - Exam GENERAL EXAM: Alert, pleasant, 73-year-old white female, on 2 L of oxygen with a pulse ox of 95% comfortable in no apparent distress. HEAD: Normocephalic/atraumatic. EYES: Normal reaction of pupils, equal size. Conjunctiva pink, sclera white. NOSE: Clear with pink turbinates. THROAT: No erythema or exudates. NECK: No masses, no JVD, no thyroid enlargement, no adenopathy. CHEST: No chest wall deformity. Symmetrical expansion. LUNGS: Equal air entry with no crackles, wheeze, rhonchi or dullness. CVS: Regular rate and rhythm, normal S1 and S2, no gallops, no murmurs, no rubs ABDOMEN: Soft, nontender. No hepatosplenomegaly, normal bowel sounds, no guarding or rigidity. EXTREMITIES: No clubbing, no edema, no cyanosis, 2+ pulses and upper and lower extremities. MUSCULOSKELETAL: Muscle strength and tone normal. SPINE: No scoliosis or deformity SKIN: No rashes CENTRAL NERVOUS SYSTEM: Alert and oriented -3. No focal deficits, tone is nor mal in all 4 extremities. PSYCHIATRIC: Alert and oriented -3. Appropriate affect. Intact judgment and insight. - Labs CBC & Chem 7: 02/10/19 18:45 02/10/19 18:45 Labs: Abnormal Lab Results - Last 24 Hours (Table) 02/12/19 02/12/19 Range/Units 17:16 20:04 POC Glucose (mg/dL) 115 H 153 H (75-99) mg/dL Microbiology - Last 24 Hours (Table) 02/10/19 18:45 Blood Culture - Preliminary Blood No Growth after 48 hours Assessment and Plan Plan: Assessment: #1 Acute exacerbation of chronic oxygen dependent obstructive pulmonary disease. #2 Chronic and ongoing tobacco dependence. #3 Advanced pulmonary fibrosis. #4 Acute on chronic hypoxic respiratory failure secondary to above. #5 Tracheobronchomalacia as noted on previous bronchoscopy #6 History of stage IA small cell lung cancer the left upper lobe in 2014. Status post left upper lobe resection with 2 cycles of adjuvant chemotherapy which the patient did not tolerate. Follow-up CT scans have not revealed any recurrence. #7 History of breast cancer status post left breast lumpectomy followed by radiation and 5 years of adjuvant Arimidex. #8 History of cervical cancer status post hysterectomy. #9 Hypertension. #10 Anxiety. Plan: Continue current medical treatment, continue empiric antibiotics, IV steroids, and nebulized bronchodilators, continue flutter valve and Mucinex, NicoDerm patch is in place. Patient still dyspneic with minimal exertion and even with conversation. Not back to baseline yet, continue medical treatment, patient does qualify for home oxygen, her pulse ox with the ambulation was down to 86% on room air. I performed a history & physical examination of the patient and discussed their management with my nurse practitioner, Queenie Spear. I reviewed the nurse practitioner's note and agree with the documented findings and plan of care. Lung sounds are positive for scattered rhonchi. The findings and the impression was discussed with the patient. I attest to the documentation by the nurse practitioner. Time with Patient: Less than 30
[2019-02-13 10:53] LABS: Glucose,Whole Blood 109 mg/dL (75-99)
--- NOTE | 2019-02-13 13:35 | P.PN ---
Subjective Progress Note Date: 02/13/19 This is a 73-year-old female patient of Dr. King and Dr. 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 Patient had recent hospitalization February 01 through the which time she was treated for COPD exacerbation also had complaints of soreness and sensation of dysphagia. She underwent a modified barium swallow which was negative and she was cleared for regular food and thin liquids. She says she has had difficulty breathing since last week and it kept getting worse. She complains of a cough that is nonproductive. She has been on and off cigarettes for the past 2 weeks and utilizing her nicotine patch. She is currently using home O2 only at nighttime. She thinks she has also had a mild fever. She states she followed up with Luz Elena [] in the office after discharge was recommended to wear oxygen all the time. She did receive a steroid injection and yesterday she was called at home and if she wasn't improved patient was to come in the hospital which she did. She denies any lower extremity edema. No abdominal pain. She does complain of constipation. CT angiogram of the chest 02/01 revealed no evidence of pulmonary embolism. There is mediastinal bronchial adenopathy which are nonspecific and suspected secondary to inflammatory process. There is advanced pulmonary interstitial fibrosis. Enlarged pulmonary arteries consistent with pulmonary hypertension. There is also a 4.4 cm aneurysm of the ascending aorta. Patient came into [facility] emergency center for evaluation. EKG was a sinus rhythm with some T-wave inversions. Chest x-ray showed pulmon ophelia fibrosis. CBC was unremarkable. CO2 33, BUN 9 and creatinine 0.98, blood sugar 96. Troponin negative. Liver function tests within normal limits. ProBNP 710. She was afebrile, respiratory rate 40 and pulse ox 94% on oxygen. Patient admitted to [facility] floor and consult with pulmonary medicine has been added. 02/12/2019: Patient states that she continues have shortness of breath especiall y with exertion. Patient is requesting Senokot due to constipation. Patient had a bowel movement since Thursday. Patient is also requesting melatonin to help her sleep at night. Echocardiogram shows EF between 55 and 60%, left atrium is markedly dilated, pulmonary hypertension, mild aortic valve sclerosis, mild mitral annular occasion present, mild mitral regurgitation is present, mild tricuspid regurgitation. 02/13: Patient is resting in bed in no acute distress. Patient states that she is still getting short of breath with exertion. However she is able to converse without any shortness of breath. Patient appears to be improving more alert and talkative during exam. Patient is still on IV steroids, empiric anabiotic, and breathing treatments. Review of Systems: Constitutional: Reports fatigue, Reports weakness, Denies anorexia, Denies chills, Denies fever, Denies poor appetite Eyes: denies blurred vision, denies pain Ears, nose, mouth and throat: Reports dysphagia, Reports hoarseness, Reports sore throat, Denies dental pain, Denies headache, Denies nasal congestion, Denie s nasal discharge, Denies vertigo Cardiovascular: Reports decreased exercise tolerance, Reports dyspnea on exertion, Reports shortness of breath, Reports syncope, Denies edema, Denies leg edema, Denies lightheadedness, Denies palpitations Respiratory: Reports cough, Reports cough with sputum, Reports dyspnea, Reports hemoptysis, Reports home oxygen, Reports wheezing, Denies excessive sputum, Denies respiratory infections, Denies sleep apnea Gastrointestinal: Denies abdominal pain, Denies diarrhea, Denies loss of appetite, Denies nausea, Denies vomiting Genitourinary: Denies dysuria, Denies hematuria Musculoskeletal: Reports muscle weakness, Denies frequent falls, Denies gait dysfunction, Denies myalgias Integumentary: Reports darkening of skin, Denies pruritus, Denies rash, Denies wounds Neurological: Denies change in mentation, Denies change in speech, Denies numbness, Denies seizures, Denies weakness Psychiatric: Denies anxiety, Denies depression Endocrine: Denies fatigue, Denies weight change Objective - Vital Signs Vital signs: Vital Signs Temp 97.7 F 02/13/19 03:57 Pulse 72 02/13/19 11:50 Resp 20 02/13/19 03:57 BP 142/76 02/13/19 03:57 Pulse Ox 95 02/13/19 03:57 Intake & Output 02/12/19 02/13/19 02/13/19 19:59 06:59 18:59 Intake Total 780 Balance 780 Intake: Oral 780 Other: Voiding Method Toilet # Voids 2 - Exam Gen: This is a 73-year-old female. Patient is resting in chair with all wheezing. Mild tachypnea noted. HEENT: Head is atraumatic, normocephalic. Pupils equal, round. Sclerae is anicteric. NECK: Supple. No JVD. No lymphadenopathy. No thyromegaly. LUNGS: Bilateral end expiratory wheeze, few scattered rhonchi, fine crackles. No intercostal retractions. HEART: Regular rate and rhythm. No murmur. ABDOMEN: Soft. Bowel sounds are present. No masses. No tenderness. EXTREMITIES: No pedal edema bilaterally. No calf tenderness. NEUROLOGICAL: Patient is awake, alert and oriented x3. Cranial nerves 2 through 12 are grossly intact. - Labs CBC & Chem 7: 02/10/19 18:45 02/10/19 18:45 Labs: Abnormal Lab Results - Last 24 Hours (Table) 02/12/19 02/12/19 02/13/19 Range/Units 17:16 20:04 10:51 POC Glucose (mg/dL) 115 H 153 H 109 H (75-99) mg/dL Microbiology - Last 24 Hours (Table) 02/10/19 18:45 Blood Culture - Preliminary Blood No Growth after 48 hours Assessment and Plan Plan: 1. Acute exacerbation of COPD. Continue DuoNeb treatments 4 times daily and every 4 hours as needed, Pulmicort and Perforomist twice daily, Solu-Medrol 40 mg IV every 8 hours, pulmonary consult appreciated 2. Recent hospitalization for acute COPD exacerbation and dysphagia with solid foods. Modified barium swallow was negative. 3. Pulmonary fibrosis. Continue with IV steroids, breathing treatments. 4. Chronic hypoxic respiratory failure on home O2 at 3 L nasal cannula. 5. Abnormal EKG. Repeat troponins and echocardiogram ordered. No complaints of chest pain. 6. 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 7. History of cervical cancer status post hysterectomy and left breast cancer with lumpectomy and radiation and Arimidex treatment, stable. 8. Essential tremors. Continue primidone and Sinemet. 9. Generalized anxiety disorder. Continue Abilify 5 mg daily, Celexa 40 mg at bedtime. 10. Fibromyalgia. 11. Chronic tobacco use and dependence. Patient quit one week ago. Continue nicotine patch. 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 13. Insomnia. Continue Remeron at reduced dose 7.5 mg at bedtime. 14. Hypertension. Continue Norvasc 10 mg daily, atenolol 100 mg daily, Aldactone 100 mg daily. 15. Insomnia. Melatonin 5 mg daily at bedtime 16. Constipation. Senokot S 1 tablet daily 17. GI prophylaxis. Protonix 40 mg daily 18. DVT prophylaxis. Heparin subcu. Patient will be admitted to the hospital for a minimum of 2 night stay. Discharge plan: Possibly home tomorrow PT and OT added. Impression and plan of care have been directed as dictated by the signing physician. Chloé Harrington nurse practitioner acting as scribe for signing physician.
[2019-02-13 17:10] LABS: Glucose,Whole Blood 127 mg/dL (75-99)
[2019-02-13 20:03] LABS: Glucose,Whole Blood 168 mg/dL (75-99)
[2019-02-13] MEDS: MIRTAZAPINE 15 MG TAB PO SCH (21:01)
[2019-02-13] MEDS: CITALOPRAM HYDROBROMIDE 20 MG TAB PO SCH (21:02)
[2019-02-13] MEDS: ARIPiprazole 5 MG TAB PO SCH (21:02)
[2019-02-13] MEDS: MELATONIN 5 MG TABLET PO SCH (21:02)
[2019-02-13] MEDS: ATENOLOL 50 MG TAB PO SCH (21:02)
[2019-02-13] MEDS: CARBIDOPA-LEVODOPA 25-100 MG 1 EACH TAB PO SCH (21:02)
[2019-02-14 07:12] LABS: Glucose,Whole Blood 121 mg/dL (75-99)
[2019-02-14] MEDS: FORMOTEROL FUMARATE 20 MCG/2 ML NEBU INHALATION SCH ×2 (07:50→20:51)
[2019-02-14] MEDS: BUDESONIDE 1 MG/2 ML NEBU INHALATION SCH ×2 (07:50→20:51)
[2019-02-14] MEDS: IPRATROPIUM-ALBUTEROL 3 ML NEB INHALATION SCH ×4 (07:50→20:52)
[2019-02-14] MEDS: INSULIN ASPART (NovoLOG) 100 UNIT/ML VIAL SQ SCH ×4 (08:13→21:47)
[2019-02-14] MEDS: OXYBUTYNIN CHLORIDE 5 MG TAB PO SCH ×3 (08:25→21:47)
[2019-02-14] MEDS: SPIRONOLACTONE 25 MG TAB PO SCH ×2 (08:25→21:47)
[2019-02-14] MEDS: MULTIVITAMINS, THERA 1 EACH TAB PO SCH (08:25)
[2019-02-14] MEDS: guaiFENesin 600 MG TABLET.ER PO SCH ×2 (08:25→21:47)
[2019-02-14] MEDS: ETODOLAC 400 MG TAB PO SCH ×2 (08:25→21:47)
[2019-02-14] MEDS: CALCIUM CARB-VIT D 500MG-200UN 1 EACH TAB PO SCH (08:25)
[2019-02-14] MEDS: amLODIPine 10 MG TAB PO SCH (08:26)
[2019-02-14] MEDS: AZITHROMYCIN 500 MG TAB PO SCH (08:26)
[2019-02-14] MEDS: methylPREDNISolone SOD SUCCI 40 MG/ML 1 ML VIAL IV SCH ×3 (08:26→23:27)
[2019-02-14] MEDS: PANTOPRAZOLE 40 MG TABLET PO SCH (08:26)
[2019-02-14] MEDS: PRIMIDONE 250 MG TAB PO SCH ×3 (08:26→21:47)
[2019-02-14] MEDS: FOLIC ACID-VIT B COMPLEX-VIT C 1 CAP PO SCH (08:26)
[2019-02-14] MEDS: SENNOSIDES-DOCUSATE SODIUM 1 EACH TAB PO SCH (08:26)
[2019-02-14] MEDS: NICOTINE 14MG/24HR PATCH TRANSDERM SCH (08:26)
[2019-02-14] MEDS: HEPARIN SODIUM,PORCINE 5,000 UNIT/ML 1 ML VIAL SQ SCH ×2 (08:26→21:47)
[2019-02-14] MEDS: ASPIRIN 81 MG PO SCH (08:26)
[2019-02-14] MEDS: CHLORHEXIDINE GLUCONATE 15 ML CUP MUCOUS MEM SCH ×2 (08:27→21:48)
[2019-02-14 11:30] LABS: Glucose,Whole Blood 93 mg/dL (75-99)
--- NOTE | 2019-02-14 14:17 | P.PN ---
Subjective Progress Note Date: 02/14/19 This is a 73-year-old female patient of Dr. King and Dr. 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 Patient had recent hospitalization February 01 through the which time she was treated for COPD exacerbation also had complaints of soreness and sensation of dysphagia. She underwent a modified barium swallow which was negative and she was cleared for regular food and thin liquids. She says she has had difficulty breathing since last week and it kept getting worse. She complains of a cough that is nonproductive. She has been on and off cigarettes for the past 2 weeks and utilizing her nicotine patch. She is currently using home O2 only at nighttime. She thinks she has also had a mild fever. She states she followed up with Luz Elena [] in the office after discharge was recommended to wear oxygen all the time. She did receive a steroid injection and yesterday she was called at home and if she wasn't improved patient was to come in the hospital which she did. She denies any lower extremity edema. No abdominal pain. She does complain of constipation. CT angiogram of the chest 02/01 revealed no evidence of pulmonary embolism. There is mediastinal bronchial adenopathy which are nonspecific and suspected secondary to inflammatory process. There is advanced pulmonary interstitial fibrosis. Enlarged pulmonary arteries consistent with pulmonary hypertension. There is also a 4.4 cm aneurysm of the ascending aorta. Patient came into [facility] emergency center for evaluation. EKG was a sinus rhythm with some T-wave inversions. Chest x-ray showed pulmo nary fibrosis. CBC was unremarkable. CO2 33, BUN 9 and creatinine 0.98, blood sugar 96. Troponin negative. Liver function tests within normal limits. ProBNP 710. She was afebrile, respiratory rate 40 and pulse ox 94% on oxygen. Patient admitted to [facility] floor and consult with pulmonary medicine has been added. 02/12/2019: Patient states that she continues have shortness of breath especial ly with exertion. Patient is requesting Senokot due to constipation. Patient had a bowel movement since Thursday. Patient is also requesting melatonin to help her sleep at night. Echocardiogram shows EF between 55 and 60%, left atrium is markedly dilated, pulmonary hypertension, mild aortic valve sclerosis, mild mitral annular occasion present, mild mitral regurgitation is present, mild tricuspid regurgitation. 02/13: Patient is resting in bed in no acute distress. Patient states that she is still getting short of breath with exertion. However she is able to converse without any shortness of breath. Patient appears to be improving more alert and talkative during exam. Patient is still on IV steroids, empiric anabiotic, and breathing treatments. 02/14: Patient complains of hoarseness and mild shortness of breath which has improved since admission. She is currently on Solu-Medrol 40 mg every [address] Anderson would like to keep the patient another day and perform bedside spirometry to check flow loops. Review of Systems: Constitutional: Reports fatigue, Reports weakness, Denies anorexia, Denies chills, Denies fever, Denies poor appetite Ears, nose, mouth and throat: Reports dysphagia, Reports hoarseness, Reports sore throat, Denies dental pain, Denies headache, Denies nasal congestion, Denies nasal discharge, Denies vertigo Cardiovascular: Reports decreased exercise tolerance, Reports dyspnea on exertion, Reports shortness of breath, Reports syncope, Denies edema, Denies leg edema, Denies lightheadedness, Denies palpitations Respiratory: Reports cough, Reports cough with sputum, Reports dyspnea, Reports hemoptysis, Reports home oxygen, Reports wheezing, Denies excessive sputum, Denies respiratory infections, Denies sleep apnea Gastrointestinal: Denies abdominal pain, Denies diarrhea, Denies loss of appetite, Denies nausea, Denies vomiting Genitourinary: Denies dysuria, Denies hematuria Musculoskeletal: Reports muscle weakness, Denies frequent falls, Denies gait dysfunction, Denies myalgias Integumentary: Denies pruritus, Denies rash, Denies wounds Neurological: Denies change in mentation, Denies change in speech, Denies numbness, Denies seizures, Denies weakness Psychiatric: Denies anxiety, Denies depression Endocrine: Denies fatigue, Denies weight change Objective - Vital Signs Vital signs: Vital Signs Temp 97.6 F 02/14/19 11:30 Pulse 91 02/14/19 12:08 Resp 18 02/14/19 11:30 BP 149/77 02/14/19 11:30 Pulse Ox 98 02/14/19 11:30 Intake & Output 02/13/19 02/14/19 02/14/19 18:59 06:59 18:59 Intake Total 780 830 Balance 780 830 Intake: Oral 780 830 Other: Voiding Method Toilet Toilet Toilet # Voids 2 1 - Exam Gen: This is a 73-year-old female. Patient is resting in bed HEENT: Head is atraumatic, normocephalic. Pupils equal, round. Sclerae is anicteric. NECK: Supple. No JVD. No lymphadenopathy. No thyromegaly. LUNGS: Bilateral end expiratory wheeze, few scattered rhonchi, fine crackles. No intercostal retractions. HEART: Regular rate and rhythm. No murmur. ABDOMEN: Soft. Bowel sounds are present. No masses. No tenderness. EXTREMITIES: No pedal edema bilaterally. No calf tenderness. NEUROLOGICAL: Patient is awake, alert and oriented x3. Cranial nerves 2 through 12 are grossly intact. - Labs CBC & Chem 7: 02/10/19 18:45 02/10/19 18:45 Labs: Abnormal Lab Results - Last 24 Hours (Table) 02/13/19 02/13/19 02/14/19 Range/Units 17:07 20:00 07:12 POC Glucose (mg/dL) 127 H 168 H 121 H (75-99) mg/dL Microbiology - Last 24 Hours (Table) 02/10/19 18:45 Blood Culture - Preliminary Blood No Growth after 72 hours Assessment and Plan Plan: 1. Acute exacerbation of COPD. Continue DuoNeb treatments 4 times daily and every 4 hours as needed, Pulmicort and Perforomist twice daily, Solu-Medrol 40 mg IV every 8 hours, pulmonary consult appreciated. Bedside spirometry to check flow loops. 2. Recent hospitalization for acute COPD exacerbation and dysphagia with solid foods. Modified barium swallow was negative. 3. Pulmonary fibrosis. Continue with IV steroids, breathing treatments. 4. Chronic hypoxic respiratory failure on home O2 at 3 L nasal cannula. 5. Abnormal EKG. Repeat troponins and echocardiogram ordered. No complaints of chest pain. 6. 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 7. History of cervical cancer status post hysterectomy and left breast cancer with lumpectomy and radiation and Arimidex treatment, stable. 8. Essential tremors. Continue primidone and Sinemet. 9. Generalized anxiety disorder. Continue Abilify 5 mg daily, Celexa 40 mg at bedtime. 10. Fibromyalgia. 11. Chronic tobacco use and dependence. Patient quit one week ago. Continue nicotine patch. 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 13. Insomnia. Continue Remeron at reduced dose 7.5 mg at bedtime. 14. Hypertension. Continue Norvasc 10 mg daily, atenolol 100 mg daily, Aldactone 100 mg daily. 15. Insomnia. Melatonin 5 mg daily at bedtime 16. Constipation. Senokot S 1 tablet daily 17. GI prophylaxis. Protonix 40 mg daily 18. DVT prophylaxis. Heparin subcu. Discharge plan: possibly home tomorrow Impression and plan of care have been directed as dictated by the signing physician. Belinda Gaona nurse practitioner acting as scribe for signing physician.
--- NOTE | 2019-02-14 14:48 | P.PN ---
Subjective Progress Note Date: 02/14/19 Principal diagnosis: Acute exacerbation of chronic obstructive pulmonary disease. This is a very pleasant 73-year-old female patient who follows with Dr. King as her primary care physician. She has a history of anxiety, fibromyalgia, hypertension, sleep apnea, breast cancer. 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 She follows with Dr. Anderson in our office for the same. She was here in January 2019 with a COPD exacerbation, complicated by purulent tracheobronchitis. Computed tomography scan of the chest revealed no evidence of malignancy. No pulmonary embolism. There was not ed advanced pulmonary interstitial fibrosis. Pulmonary hypertension. She presented here yesterday with complaints of increasing shortness of breath, cough and congestion. Her cough is nonproductive. She is dyspneic with minimal exertion. Dyspneic on conversation. Maintaining good O2 saturations in the upper 90s on 3 L/m per nasal cannula. She's afebrile. White count 7.1. Hemoglobin 12.5. Sodium 136. Creatinine 0.68. Troponins negative 2. ProBNP 710. Echocardiogram pending. Chest x-ray reveals no acute pulmonary process. There is interstitial fibrosis noted. The patient is seen today in 02/12/2019. She is awake and alert in no acute distress. She is still quite dyspneic on minimal exertion and with conversation. Currently maintaining good O2 saturations in the 90s on 3 L/m per nasal cannula. She's been afebrile. Hemodynamically stable. She still has a loose congested cough. Difficulty in expectorating her mucus. Blood culture reveals no growth. She is continued on DuoNeb inhalation, Pulmicort and Perforomist inhalations, IV Solu-Medrol, azithromycin. NicoDerm patch in place. On 02/13/2019 patient seen in follow-up on medical surgical floor. She is awake and alert, in no acute distress, although still has dyspnea with minimal exertion, and with conversation, patient states subjectively she is not feeling any better since she came in, focal planning of dyspnea, lung sounds reveal some scattered rhonchi, and there is persistent voice hoarseness, ENT consultation was requested however because of non-urgent nature of the consultation, she will be evaluated on outpatient basis by ENT specialist. She remains on 2 L of oxygen and the pulse ox of 95%, she is afebrile, hemodynamically patient is stable, occasional cough, without much phlegm production, blood culture showed no growth. No couplets of chest pain. She remains on empiric antibiotics in the form of azithromycin, nebulized bronchodilators and IV steroids. The patient is seen today 02/14/2019 in follow-up on the regular medical floor. She is currently sitting up at the bedside. Awake and alert in no acute distress. She does remain quite hoarse. She is maintaining O2 saturation in the 90s on 2 L/m per nasal cannula. She does desaturate to 83% on room air with exercise. Blood cultures reveal no growth. She remains on DuoNeb inhalations, Pulmicort and Perforomist inhalations, IV Solu-Medrol. NicoDerm patch is in place. Objective - Vital Signs Vital signs: Vital Signs Temp 97.6 F 02/14/19 11:30 Pulse 91 02/14/19 12:08 Resp 18 02/14/19 11:30 BP 149/77 02/14/19 11:30 Pulse Ox 98 02/14/19 11:30 Intake & Output 02/13/19 02/14/19 02/14/19 18:59 06:59 18:59 Intake Total 780 830 Balance 780 830 Intake: Oral 780 830 Other: Voiding Method Toilet Toilet Toilet # Voids 2 1 - Exam GENERAL EXAM: Alert, pleasant 73-year-old female patient, on 2 L nasal cannula, comfortable in no apparent distress. HEAD: Normocephalic. EYES: Normal reaction of pupils, equal size. NOSE: Clear with pink turbinates. THROAT: No erythema or exudates. Continued hoarseness. NECK: No masses, no JVD. CHEST: No chest wall deformity. LUNGS: Equal air entry with bilateral end expiratory wheeze, coarse crackles in the bases. CVS: S1 and S2 normal with no audible murmur, regular rhythm. ABDOMEN: No hepatosplenomegaly, normal bowel sounds, no guarding or rigidity. SPINE: No scoliosis or deformity SKIN: No rashes CENTRAL NERVOUS SYSTEM: No focal deficits, tone is normal in all 4 extremities. EXTREMITIES: There is no peripheral edema. No clubbing, no cyanosis. Peripheral pulses are intact. - Labs CBC & Chem 7: 02/10/19 18:45 02/10/19 18:45 Labs: Abnormal Lab Results - Last 24 Hours (Table) 02/13/19 02/13/19 02/14/19 Range/Units 17:07 20:00 07:12 POC Glucose (mg/dL) 127 H 168 H 121 H (75-99) mg/dL Microbiology - Last 24 Hours (Table) 02/10/19 18:45 Blood Culture - Preliminary Blood No Growth after 72 hours Assessment and Plan Assessment: Impression: #1 Acute exacerbation of chronic oxygen dependent obstructive pulmonary disease. #2 Chronic and ongoing tobacco dependence. #3 Advanced pulmonary fibrosis. #4 Acute on chronic hypoxic respiratory failure secondary to above. #5 Tracheobronchomalacia as noted on previous bronchoscopy #6 History of stage IA small cell lung cancer the left upper lobe in 2014. Status post left upper lobe resection with 2 cycles of adjuvant chemotherapy which the patient did not tolerate. Follow-up CT scans have not revealed any recurrence. #7 History of breast cancer status post left breast lumpectomy followed by radiation and 5 years of adjuvant Arimidex. #8 History of cervical cancer status post hysterectomy. #9 Hypertension. #10 Anxiety. #11 Hoarseness. Plan: The patient was seen and evaluated by Dr. Anderson. Based on her ongoing hoarseness we will plan for bronchoscopy with BAL and vocal cord evaluation. She is agreeable to the plan. She is again educated regarding the importance of complete smoking cessation. NicoDerm patch in place. She does qualify for home oxygen and portable tanks that will be ordered at discharge. We will continue to follow and make further recommendations based on her clinical status. I, the cosigning physician, performed a history & physical examination of the patient. Lungs sounds with bilateral end expiratory wheeze, coarse crackles in the bases. Maintaining good O2 saturations in the 90s on 2 L/m per nasal cannula. I discussed the assessment and plan of care with my nurse practitioner, Luz Elena Sanders. I attest to the above note as dictated by her.
[2019-02-14] MEDS: HYDROcodone/APAP 7.5-325MG 1 EACH TAB PO PRN ×2 (15:18→21:50)
[2019-02-14 17:01] LABS: Glucose,Whole Blood 103 mg/dL (75-99)
[2019-02-14 20:13] LABS: Glucose,Whole Blood 160 mg/dL (75-99)
[2019-02-14] MEDS: ATENOLOL 50 MG TAB PO SCH (21:48)
[2019-02-14] MEDS: ARIPiprazole 5 MG TAB PO SCH (21:48)
[2019-02-14] MEDS: MIRTAZAPINE 15 MG TAB PO SCH (21:48)
[2019-02-14] MEDS: CITALOPRAM HYDROBROMIDE 20 MG TAB PO SCH (21:48)
[2019-02-14] MEDS: MELATONIN 5 MG TABLET PO SCH (21:48)
[2019-02-14] MEDS: CARBIDOPA-LEVODOPA 25-100 MG 1 EACH TAB PO SCH (21:49)
[2019-02-15 06:53] LABS: Glucose,Whole Blood 108 mg/dL (75-99)
[2019-02-15] MEDS: IPRATROPIUM-ALBUTEROL 3 ML NEB INHALATION SCH ×3 (07:01→15:23)
[2019-02-15] MEDS: FORMOTEROL FUMARATE 20 MCG/2 ML NEBU INHALATION SCH (07:01)
[2019-02-15] MEDS: BUDESONIDE 1 MG/2 ML NEBU INHALATION SCH (07:01)
[2019-02-15] MEDS: amLODIPine 10 MG TAB PO SCH (07:43)
[2019-02-15] MEDS: methylPREDNISolone SOD SUCCI 40 MG/ML 1 ML VIAL IV SCH (07:43)
[2019-02-15] MEDS: OXYBUTYNIN CHLORIDE 5 MG TAB PO SCH ×2 (07:44→16:08)
[2019-02-15] MEDS: PANTOPRAZOLE 40 MG TABLET PO SCH (07:44)
[2019-02-15] MEDS: NICOTINE 14MG/24HR PATCH TRANSDERM SCH (07:44)
[2019-02-15] MEDS: AZITHROMYCIN 500 MG TAB PO SCH (07:44)
[2019-02-15] MEDS: SENNOSIDES-DOCUSATE SODIUM 1 EACH TAB PO SCH (07:44)
[2019-02-15] MEDS: SPIRONOLACTONE 25 MG TAB PO SCH (07:44)
[2019-02-15] MEDS: PRIMIDONE 250 MG TAB PO SCH ×2 (07:44→16:08)
[2019-02-15] MEDS: guaiFENesin 600 MG TABLET.ER PO SCH (07:44)
[2019-02-15] MEDS: INSULIN ASPART (NovoLOG) 100 UNIT/ML VIAL SQ SCH ×2 (07:45→12:20)
[2019-02-15] MEDS: HYDROcodone/APAP 7.5-325MG 1 EACH TAB PO PRN (07:47)
--- NOTE | 2019-02-15 10:21 | P.PN ---
Subjective Progress Note Date: 02/15/19 This is a very pleasant 73-year-old female patient who follows with Dr. King as her primary care physician. She has a history of anxiety, fibromyalgia, hypertension, sleep apnea, breast cancer. She also has a history of chronic tobacco dependence, oxygen dependent chronic obstructive pulmonary di sease, small cell carcinoma of the lung status post left upper lobectomy and chemotherapy, along with pulmonary fibrosis. She follows with Dr. Anderson in our office for the same. She was here in January 2019 with a COPD exacerbation, complicated by purulent tracheobronchitis. Computed tomography scan of the chest revealed no evidence of malignancy. No pulmonary embolism. There was noted advanced pulmonary interstitial fibrosis. Pulmonary hypertension. She presented here yesterday with complaints of increasing shortness of breath, cough and congestion. Her cough is nonproductive. She is dyspneic with minimal exertion. Dyspneic on conversation. Maintaining good O2 saturations in the upper 90s on 3 L/m per nasal cannula. She's afebrile. White count 7.1. Hemoglobin 12.5. Sodium 136. Creatinine 0.68. Troponins negative 2. ProBNP 710. Echocardiogram pending. Chest x-ray reveals no acute pulmonary process. There is interstitial fibrosis noted. The patient is seen today in 02/12/2019. She is awake and alert in no acute distress. She is still quite dyspneic on minimal exertion and with conversation. Currently maintaining good O2 saturations in the 90s on 3 L/m per nasal cannula. She's been afebrile. Hemodynamically stable. She still has a loose congested cough. Difficulty in expectorating her mucus. Blood culture reveals no growth. She is continued on DuoNeb inhalation, Pulmicort and Perforomist inhalations, IV Solu-Medrol, azithromycin. NicoDerm patch in place. On 02/13/2019 patient seen in follow-up on medical surgical floor. She is awake and alert, in no acute distress, although still has dyspnea with minimal exertion, and with conversation, patient states subjectively she is not feeling any better since she came in, focal planning of dyspnea, lung sounds reveal some scattered rhonchi, and there is persistent voice hoarseness, ENT consultation was requested however because of non-urgent nature of the consultation, she will be evaluated on outpatient basis by ENT specialist. She remains on 2 L of oxygen and the pulse ox of 95%, she is afebrile, hemodynamically patient is stable, occasional cough, without much phlegm production, blood culture showed no growth. No couplets of chest pain. She remains on empiric antibiotics in the form of azithromycin, nebulized bronchodilators and IV steroids. The patient is seen today 02/14/2019 in follow-up on the regular medical floor. She is currently sitting up at the bedside. Awake and alert in no acute distress. She does remain quite hoarse. She is maintaining O2 saturation in the 90s on 2 L/m per nasal cannula. She does desaturate to 83% on room air with exercise. Blood cultures reveal no growth. She remains on DuoNeb inhalations, Pulmicort and Perforomist inhalations, IV Solu-Medrol. NicoDerm patch is in place. Objective - Vital Signs Vital signs: Vital Signs Temp 97.8 F 02/15/19 07:58 Pulse 66 02/15/19 07:58 Resp 20 02/15/19 07:58 BP 163/81 02/15/19 07:58 Pulse Ox 95 02/15/19 04:48 Intake & Output 02/14/19 02/15/19 02/15/19 18:59 06:59 18:59 Other: Voiding Method Toilet Toilet # Voids 4 1 - Exam GENERAL EXAM: Alert, pleasant 73-year-old female patient, on 2 L nasal cannula, comfortable in no apparent distress. HEAD: Normocephalic. EYES: Normal reaction of pupils, equal size. NOSE: Clear with pink turbinates. THROAT: No erythema or exudates. Continued hoarseness. NECK: No masses, no JVD. CHEST: No chest wall deformity. LUNGS: Equal air entry with bilateral end expiratory wheeze, coarse crackles in the bases. CVS: S1 and S2 normal with no audible murmur, regular rhythm. ABDOMEN: No hepatosplenomegaly, normal bowel sounds, no guarding or rigidity. SPINE: No scoliosis or deformity SKIN: No rashes CENTRAL NERVOUS SYSTEM: No focal deficits, tone is normal in all 4 extremities. EXTREMITIES: There is no peripheral edema. No clubbing, no cyanosis. Peripheral pulses are intact. - Labs CBC & Chem 7: 02/10/19 18:45 02/10/19 18:45 Labs: Abnormal Lab Results - Last 24 Hours (Table) 02/14/19 02/14/19 02/15/19 Range/Units 17:00 20:12 06:52 POC Glucose (mg/dL) 103 H 160 H 108 H (75-99) mg/dL Microbiology - Last 24 Hours (Table) 02/10/19 18:45 Blood Culture - Preliminary Blood No Growth after 96 hours Assessment and Plan Plan: #1 Acute exacerbation of chronic oxygen dependent obstructive pulmonary disease. The patient is having some hoarseness/muffled voice and the patient had a bedside spirometry that showed no evidence of any upper airway obstruction. FEV1 based on spirometry was in the order of 63% of predicted and there was no flattening of the inspiratory terms of the flow volume loop curve. #2 Chronic and ongoing tobacco dependence. #3 Advanced pulmonary fibrosis. #4 Acute on chronic hypoxic respiratory failure secondary to above. #5 Tracheobronchomalacia as noted on previous bronchoscopy #6 History of stage IA small cell lung cancer the left upper lobe in 2014. Status post left upper lobe resection with 2 cycles of adjuvant chemotherapy which the patient did not tolerate. Follow-up CT scans have not revealed any recurrence. #7 History of breast cancer status post left breast lumpectomy followed by r adiation and 5 years of adjuvant Arimidex. #8 History of cervical cancer status post hysterectomy. #9 Hypertension. #10 Anxiety. #11 Hoarseness. Plan Bronchoscopy today for upper and lower airway his inspection. If negative, the patient can be discharged home on routine prednisone burst taper in addition to bronchodilators. We'll continue to follow.
[2019-02-15] MEDS: HEPARIN SODIUM,PORCINE 5,000 UNIT/ML 1 ML VIAL SQ SCH (10:22)
[2019-02-15] MEDS ORDERED: MIDAZOLAM 2 MG/2 ML VIAL ONE (10:43)
[2019-02-15] MEDS ORDERED: fentaNYL (PF) 50 MCG/ML 2 ML AMP ONE (10:43)
[2019-02-15] MEDS ORDERED: PROPOFOL 10 MG/ML 20 ML VIAL IV ONE (10:43)
[2019-02-15] MEDS ORDERED: LACTATED RINGERS 1,000 ML IV ONE (10:52)
[2019-02-15] MEDS ORDERED: LIDOCAINE 2% INJ 20 MG/ML INTRATRACH ONE (11:26)
--- NOTE | 2019-02-15 11:31 | P.PCN ---
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 After achieving adequate sedation, the flexible bronchoscope was inserted through the left nostril to postoperatively. Examination of the posterior oropharynx was done and was within normal limits. Following that the bronchoscope was moved to the larynx and epiglottis was identified. An upper airway inspection was done and the arytenoids were inspected. The arytenoids were slightly asymmetric. Nevertheless, the vocal cords were functional and in midline and there was no evidence of any vocal cord dysfunction or paralysis. A total of 2 mL of 1% lidocaine was applied to the vocal cords and then the bronchoscope was passed through the vocal cords into the upper trachea. In the subglottic trachea, the patient had a significant degree of malacia with membranous trachea was causing dynamic anatomic obstruction of the upper airway causing narrowing of the upper trachea with exhalation and coughing. There was also severe degree of tracheal bronchomalacia throughout the patient's airway. Copious amount of rest or secretions were encountered. The secretions were thick and they're unable to come up by routine suctioning. Irrigation was done with saline and the bronchoscope had to be removed on multiple occasions as the mucous plugs were being suctioned out of the airway. Extensive multiple mucous plugs were recovered from the patient's airway without any major difficulties and airway patency was achieved. Most of the plugs were recovered from the right lower lobe. The bronchioloalveolar lavage of the right lower lobe was done. A total of 25- cc of fluid was recovered from the right lower lobe after being irrigated by around 60. Airway inspection was completed. The distal trachea, bilateral mainstem bronchi, right upper lobe bronchus, bronchus intermedius, right middle lobe bronchus, left upper lobe bronchi were all patent within normal limits at the end of the procedure and were able to recover the majority of the respiratory secretions and mucous plug. At the completion of the procedure, therapeutic it was suctioning was done and the bronchoscope was removed and the patient was transferred to room in a stable condition. No complications. We'll follow. Samples were sent for microbial cultures.
[2019-02-15 11:43] LABS: Glucose,Whole Blood 113 mg/dL (75-99)
[2019-02-15] MEDS: ETODOLAC 400 MG TAB PO SCH (12:15)
[2019-02-15] MEDS: MULTIVITAMINS, THERA 1 EACH TAB PO SCH (12:15)
[2019-02-15] MEDS: ASPIRIN 81 MG PO SCH (12:15)
[2019-02-15] MEDS: CALCIUM CARB-VIT D 500MG-200UN 1 EACH TAB PO SCH (12:15)
[2019-02-15] MEDS: FOLIC ACID-VIT B COMPLEX-VIT C 1 CAP PO SCH (12:15)
[2019-02-15] MEDS: CHLORHEXIDINE GLUCONATE 15 ML CUP MUCOUS MEM SCH (12:15)
[2019-02-15 12:36] VITALS: BP 147/72; RESP 22; TEMP 97.5
[2019-02-15 15:26] VITALS: PULSE 75
== END 2019-02-15 17:25 | disposition home or self-care (01) | DRG 190 ==
LOC: EC 18:09 → 3NMEDONC 20:04
PROVIDERS: ADMIT Internal Medicine; ATTEND Internal Medicine
PROC: 3E1F88Z Irrigation of Respiratory Tract using Irrigating Substance, Via Natural or Artificial Opening Endoscopic (ICD-10-PCS; 2019-02-15)
PROC: 0B9F8ZZ Drainage of Right Lower Lung Lobe, Via Natural or Artificial Opening Endoscopic (ICD-10-PCS; 2019-02-15)
PROC: 0BC68ZZ Extirpation of Matter from Right Lower Lobe Bronchus, Via Natural or Artificial Opening Endoscopic (ICD-10-PCS; principal; 2019-02-15 07:30)
DX: J44.1 Chronic obstructive pulmonary disease with (acute) exacerbation (principal); J96.21 Acute and chronic respiratory failure with hypoxia; T17.590A Other foreign object in bronchus causing asphyxiation, initial encounter; Z71.6 Tobacco abuse counseling; F17.210 Nicotine dependence, cigarettes, uncomplicated; I49.3 Ventricular premature depolarization; I71.2 Thoracic aortic aneurysm, without rupture; J39.8 Other specified diseases of upper respiratory tract; J84.10 Pulmonary fibrosis, unspecified; J98.09 Other diseases of bronchus, not elsewhere classified; K59.00 Constipation, unspecified; M41.9 Scoliosis, unspecified; M79.7 Fibromyalgia; Z79.51 Long term (current) use of inhaled steroids; Z79.82 Long term (current) use of aspirin; Z79.899 Other long term (current) drug therapy; Z80.1 Family history of malignant neoplasm of trachea, bronchus and lung; Z82.49 Family history of ischemic heart disease and other diseases of the circulatory system; F32.9 Major depressive disorder, single episode, unspecified; F41.1 Generalized anxiety disorder; G25.0 Essential tremor; G47.00 Insomnia, unspecified; I10 Essential (primary) hypertension; I27.20 Pulmonary hypertension, unspecified; Z82.5 Family history of asthma and other chronic lower respiratory diseases; Z85.118 Personal history of other malignant neoplasm of bronchus and lung; Z85.3 Personal history of malignant neoplasm of breast; Z85.41 Personal history of malignant neoplasm of cervix uteri; Z90.2 Acquired absence of lung [part of]; Z90.710 Acquired absence of both cervix and uterus; Z99.81 Dependence on supplemental oxygen; Z92.21 Personal history of antineoplastic chemotherapy; Z92.3 Personal history of irradiation; Z88.1 Allergy status to other antibiotic agents; Z82.61 Family history of arthritis; Z79.1 Long term (current) use of non-steroidal anti-inflammatories (NSAID); Z90.49 Acquired absence of other specified parts of digestive tract; Z98.49 Cataract extraction status, unspecified eye; Z60.2 Problems related to living alone; Z96.652 Presence of left artificial knee joint; Z96.611 Presence of right artificial shoulder joint; M54.30 Sciatica, unspecified side; M25.552 Pain in left hip; M25.551 Pain in right hip; M25.562 Pain in left knee; M25.561 Pain in right knee; M19.90 Unspecified osteoarthritis, unspecified site
CPT/HCPCS: 31624; 36415; 71046; 80053; 83735; 83880; 84484; 85025; 85610; 85730; 87040; 87070; 87102; 87116; 87205; 87206; 87252; 87496; 87498; 87502; 87529; 87634; 87798; 93005; 93306; 94150; 94640; 94667; 94760; 96374; 99285

== ENCOUNTER 2019-03-15 17:58 | Inpatient (IN) | payer MEDICARE ==
[2019-03-15] MEDS ORDERED: SODIUM CHLORIDE 0.9% 1,000 ML IV ONE ×2 (18:09→19:42)
[2019-03-15] MEDS ORDERED: KETOROLAC 60 MG/2 ML VIAL IVP STA (18:10)
[2019-03-15] MEDS ORDERED: MORPHINE SULFATE 2 MG/ML SYRINGE IVP STA ×2 (18:10→20:01)
[2019-03-15 18:28] LABS: Basophils % (A) 0 %; Eosinophils # (A) 0.1 k/uL (0-0.7); Eosinophils % (A) 1 %; HCT 45.2 % (34.0-46.0); HGB 14.2 gm/dL (11.4-16.0); Lymphocytes # (A) 1.2 k/uL (1.0-4.8); Lymphocytes % (A) 13 %; MCHC 31.4 g/dL (31.0-37.0); MCV 98.7 fL (80.0-100.0); Macrocytosis Slight; Mean Platelet Volume 6.3; Monocytes # (A) 0.3 k/uL (0-1.0); Monocytes % (A) 3 %; Neutrophils # (A) 7.7 k/uL (1.3-7.7); Neutrophils % (A) 82 %; Platelet Count 347 k/uL (150-450); RBC 4.58 m/uL (3.80-5.40); RDW 15.3 % (11.5-15.5); WBC 9.5 k/uL (3.8-10.6)
[2019-03-15] MEDS ORDERED: diphenhydrAMINE 50 MG/ML 1 ML VIAL IVP STA (18:51)
--- NOTE | 2019-03-15 18:54 | XR ---
EXAMINATION TYPE: XR chest 2V DATE OF EXAM: 03/15/2019 COMPARISON: 02/10/2019 HISTORY: Cough and short of breath TECHNIQUE: Frontal and lateral views of the chest are obtained. FINDINGS: There is coarse interstitial density throughout the lungs. There is no heart failure. Thor acic aorta is atheromatous. There is right shoulder prosthesis. There is no pleural effusion. IMPRESSION: Moderately severe pulmonary interstitial fibrosis. No change.
[2019-03-15] MEDS ORDERED: SODIUM CHLORIDE 0.9% 500 ML 500 ML IV STA (19:11)
[2019-03-15 19:18] LABS: Albumin 4.4 g/dL (3.5-5.0); Calcium 10.4 mg/dL (8.4-10.2); Magnesium 1.9 mg/dL (1.6-2.3); Total Bilirubin 0.6 mg/dL (0.2-1.3); Total Protein 7.9 g/dL (6.3-8.2)
[2019-03-15 19:19] LABS: Potassium 5.4 mmol/L (3.5-5.1)
[2019-03-15] MEDS ORDERED: AMPICILLIN-SULBACTAM 3 GM in SODIUM CHLORIDE 0.9% 100 ML IVPB STA (19:38)
[2019-03-15] MEDS ORDERED: methylPREDNISolone SOD SUCCI 125 MG/2 ML VIAL IV STA (19:40)
--- NOTE | 2019-03-15 19:41 | ED ---
General Adult HPI - General Chief complaint: Skin/Abscess/Foreign Body Stated complaint: poss allergic reaction Time Seen by Provider: 03/15/19 18:10 Source: patient, RN notes reviewed, old records reviewed Mode of arrival: ambulatory Limitations: no limitations - History of Present Illness Initial comments: This is a 73-year-old female presents emergency Department complaining of a red and painful face. Patient states the rash is not spreading down to her neck. Patient states it started about a week ago she was seen by a doctor on Thursday and she cannot remember what they diagnosed with per patient states since then the rash continues to get worse and becomes more painful. Patient denies any difficulty swallowing or breathing. Patient states she's not putting makeup on her face any lotions new soaps or any Medication and her face. Patient states she's never had this in the past. Patient denies any fevers or chills. Patient denies any rash anywhere else. - Related Data Home Medications Medication Instructions Recorded Confirmed Spironolactone 100 mg PO BID 04/16/16 02/10/19 amLODIPine [Norvasc] 10 mg PO DAILY 04/16/16 02/10/19 Citalopram Hydrobromide [CeleXA] 40 mg PO HS 07/08/17 02/10/19 Oxybutynin Chloride [Ditropan] 5 mg PO TID 07/08/17 02/10/19 Aspirin [Adult Low Dose Aspirin EC] 81 mg PO DAILY 08/18/17 02/10/19 Atenolol [Tenormin] 50 mg PO HS 08/18/17 02/10/19 ARIPiprazole [Abilify] 5 mg PO HS 09/02/18 02/10/19 Multivitamins, Thera [Multivitamin 1 tab PO DAILY 09/02/18 02/10/19 (formulary)] Omeprazole 20 mg PO DAILY 09/02/18 02/10/19 Albuterol Sulfate [Proair Hfa] 1 - 2 puff INHALATION RT-Q6H PRN 02/01/19 02/10/19 Budesonide/Formoterol Fumarate 2 puff INHALATION RT-BID 02/01/19 02/10/19 [Symbicort 160-4.5 Mcg Inhaler] Calcium Carb-Vit D 250Mg-125Un 1 tab PO DAILY 02/01/19 02/10/19 [Oscal 250+D] Carbidopa-Levodopa 25-100 mg 1 tab PO HS 02/01/19 02/10/19 [Sinemet 25-100 mg] Diclofenac Sodium [Voltaren] 50 mg PO BID 02/01/19 02/10/19 HYDROcodone/APAP 7.5-325MG [[place] 1 tab PO Q6H PRN 02/01/19 02/10/19 7.5-325] Mirtazapine [Remeron] 15 mg PO HS 02/01/19 02/10/19 Vitamin B Complex 1 cap PO DAILY 02/01/19 02/10/19 Chlorhexidine Gluconate [Peridex] 15 ml PO BID 02/10/19 02/10/19 Primidone [Mysoline] 250 mg PO TID 02/10/19 02/10/19 Melatonin 5 mg PO HS 02/11/19 02/11/19 Previous Rx's Medication Instructions Recorded Nicotine 14Mg/24Hr Patch [Habitrol] 1 patch TRANSDERM DAILY #28 patch 09/06/18 Azithromycin [Zithromax] 500 mg PO DAILY #3 tab 02/14/19 guaiFENesin [Mucinex] 1,200 mg PO Q12HR tablet.er 02/14/19 predniSONE 0 mg PO DIRECTED #30 tab 02/14/19 Allergies Allergy/AdvReac Type Severity Reaction Status Date / Time levofloxacin [From Levaquin] AdvReac Severe Diarrhea Verified 03/15/19 18:12 adhesive tape AdvReac Unknown IRRITATES Verified 03/15/19 18:12 SKIN Review of Systems ROS Statement: Those systems with pertinent positive or pertinent negative responses have been documented in the HPI. ROS Other: All systems not noted in ROS Statement are negative. 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 History of Any Multi-Drug Resistant Organisms: None Reported Date of last positivie culture/infection: 2013 Past Surgical History: Breast Surgery, Cholecystectomy, Heart Catheterization, Hysterectomy, Joint Replacement, Orthopedic Surgery Additional Past Surgical History / Comment(s): Left total knee, Right Total shoulder, Left BREAST LUMPECTOMY, CATARACTS , LT KNEE SCOPE, THYROID BX, COLONOSCOPY, EGD, BRONCHOSCOPY, LEFT UPPER LOBE LUNG RESECTION Past Anesthesia/Blood Transfusion Reactions: Previous Problems w/ Anesthesia Additional Past Anesthesia/Blood Transfusion Reaction / Comment(s): PT STATES TH AT SHE HAS "HIGH" TOLERANCE TO IV SEDATION. Past Psychological History: Anxiety, Depression Smoking Status: Former smoker Past Alcohol Use History: None Reported Past Drug Use History: None Reported - Past Family History Mother Family Medical History: Cancer Additional Family Medical History / Comment(s): Mother at age 73 from lung cancer. Father Additional Family Medical History / Comment(s): Father at age 86 from COPD. Sister(s) Additional Family Medical History / Comment(s): Patient has one sister with hypertension and rheumatoid arthritis. Patient is not have any brothers. Patient has 2 daughters with no major medical problems. General Exam - General Exam Comments Initial Comments: GENERAL: Patient is well-developed and well-nourished. Patient is nontoxic and well- hydrated and is in mild distress. ENT: Neck is soft and supple. No significant lymphadenopathy is noted. Oropharynx is clear. Moist mucous membranes. Neck has full range of motion without elic iting any pain. EYES: The sclera were anicteric and conjunctiva were pink and moist. Extraocular movements were intact and pupils were equal round and reactive to light. Eyelids were unremarkable. PULMONARY: Unlabored respirations. Good breath sounds bilaterally. No audible rales rhonchi or wheezing was noted. CARDIOVASCULAR: There is a regular rate and rhythm without any murmurs gallops or rubs. ABDOMEN: Soft and nontender with normal bowel sounds. SKIN: Face is erythematous from the forehead to the chin and there is some erythema of the neck. Is warm and mildly swollen patient states is very tender to palpation. NEUROLOGIC: Patient is alert and oriented x3. Cranial nerves II through XII are grossly intact. Motor and sensory are also intact. Normal speech, volume and content. Symmetrical smile. MUSCULOSKELETAL: Normal extremities with adequate strength and full range of motion. No lower extremity swelling or edema. No calf tenderness. LYMPHATICS: No significant lymphadenopathy is noted PSYCHIATRIC: Normal psychiatric evaluation. Limitations: no limitations Course Vital Signs 03/15/19 03/15/19 03/15/19 18:10 18:25 19:00 Temperature 98 F Pulse Rate 90 86 82 Respiratory 16 16 16 Rate Blood Pressure 131/86 131/86 120/68 O2 Sat by Pulse 93 L 94 L 95 Oximetry Procedures - [place] Protocol (Time Out) Nurse: Sara Rollins Medical Decision Making - Medical Decision Making I spoke with Dr. Guerra he agreed to admit the patient he wanted the patient antibiotics and steroids twice elevation in the morning. I wrote admitting orders and I continued antibiotics on the floor as well as steroids. - Lab Data Result diagrams: 03/15/19 18:12 03/15/19 18:12 Lab Results 03/15/19 03/15/19 03/15/19 Range/Units 18:12 18:12 18:12 WBC 9.5 (3.8-10.6) k/uL RBC 4.58 (3.80-5.40) m/uL Hgb 14.2 (11.4-16.0) gm/dL Hct 45.2 (34.0-46.0) % MCV 98.7 (80.0-100.0) fL MCH 31.0 (25.0-35.0) pg MCHC 31.4 (31.0-37.0) g/dL RDW 15.3 (11.5-15.5) % Plt Count 347 (150-450) k/uL Neutrophils % 82 % Lymphocytes % 13 % Monocytes % 3 % Eosinophils % 1 % Basophils % 0 % Neutrophils # 7.7 (1.3-7.7) k/uL Lymphocytes # 1.2 (1.0-4.8) k/uL Monocytes # 0.3 (0-1.0) k/uL Eosinophils # 0.1 (0-0.7) k/uL Basophils # 0.0 (0-0.2) k/uL Macrocytosis Slight Sodium 134 L (137-145) mmol/L Potassium 5.4 H (3.5-5.1) mmol/L Chloride 99 (98-107) mmol/L Carbon Dioxide 23 (22-30) mmol/L Anion Gap 12 mmol/L BUN 27 H (7-17) mg/dL Creatinine 0.89 (0.52-1.04) mg/dL Est GFR (CKD-EPI)AfAm 74 (>60 ml/min/1.73 sqM) Est GFR (CKD-EPI)NonAf 64 (>60 ml/min/1.73 sqM) Glucose 129 H (74-99) mg/dL Plasma Lactic Acid Joe 3.2 H* (0.7-2.0) mmol/L Calcium 10.4 H (8.4-10.2) mg/dL Magnesium 1.9 (1.6-2.3) mg/dL Total Bilirubin 0.6 (0.2-1.3) mg/dL AST 37 H (14-36) U/L ALT 14 (9-52) U/L Alkaline Phosphatase 108 (38-126) U/L Total Protein 7.9 (6.3-8.2) g/dL Albumin 4.4 (3.5-5.0) g/dL Disposition Clinical Impression: Facial dermatitis Disposition: ADMITTED IP TO THIS [facility] Referrals: Landon King DO [Primary Care Provider] - 1-2 days Time of Disposition: 19:41
[2019-03-15] MEDS ORDERED: MORPHINE SULFATE 2 MG/ML SYRINGE IVP PRN (20:01)
[2019-03-15] MEDS ORDERED: LIDOCAINE VISCOUS 2% 15 ML CUP MUCOUS MEM PRN (22:26)
[2019-03-15] MEDS ORDERED: DOXYCYCLINE 100 MG CAP PO SCH (22:30)
[2019-03-15] MEDS: HYDROcodone/APAP 7.5-325MG 1 EACH TAB PO PRN (22:44)
[2019-03-15] MEDS: MIRTAZAPINE 15 MG TAB PO SCH (23:13)
[2019-03-15] MEDS: TOBRA-DEXAMET 0.3-0.1% OPHTH DROPS 2.5 ML BTL BOTH EYES SCH (23:13)
[2019-03-15] MEDS: ATENOLOL 50 MG TAB PO SCH (23:13)
[2019-03-15] MEDS: CITALOPRAM HYDROBROMIDE 20 MG TAB PO SCH (23:13)
[2019-03-15] MEDS: MELATONIN 5 MG TABLET PO SCH (23:13)
[2019-03-15] MEDS: CARBIDOPA-LEVODOPA 25-100 MG 1 EACH TAB PO SCH (23:13)
[2019-03-15] MEDS: guaiFENesin 600 MG TABLET.ER PO SCH (23:13)
[2019-03-15] MEDS: ARIPiprazole 5 MG TAB PO SCH (23:13)
[2019-03-15] MEDS: OXYBUTYNIN CHLORIDE 5 MG TAB PO SCH (23:13)
[2019-03-15] MEDS: ACYCLOVIR 200 MG CAP PO SCH (23:13)
[2019-03-15] MEDS: PRIMIDONE 250 MG TAB PO SCH (23:13)
[2019-03-15] MEDS: CHLORHEXIDINE GLUCONATE 15 ML CUP MUCOUS MEM SCH (23:14)
[2019-03-15] MEDS: NYSTATIN 100,000 UNIT/ML SUSP 500,000 UNIT/5 ML CUP PO SCH (23:14)
[2019-03-16] MEDS: methylPREDNISolone SOD SUCCI 125 MG/2 ML VIAL IV SCH ×4 (00:26→16:49)
[2019-03-16] MEDS: KETOROLAC 30 MG/ML 1 ML VIAL IVP SCH ×4 (00:26→18:18)
[2019-03-16] MEDS: AMPICILLIN-SULBACTAM 3 GM in SODIUM CHLORIDE 0.9% 100 ML IVPB SCH ×4 (02:54→20:31)
[2019-03-16] MEDS: CHLORHEXIDINE GLUCONATE 15 ML CUP MUCOUS MEM SCH ×2 (08:53→23:54)
[2019-03-16] MEDS: PRIMIDONE 250 MG TAB PO SCH ×3 (08:53→20:51)
[2019-03-16] MEDS: NYSTATIN 100,000 UNIT/ML SUSP 500,000 UNIT/5 ML CUP PO SCH ×3 (08:53→20:51)
[2019-03-16] MEDS: OXYBUTYNIN CHLORIDE 5 MG TAB PO SCH ×3 (08:54→20:50)
[2019-03-16] MEDS: guaiFENesin 600 MG TABLET.ER PO SCH ×2 (08:54→20:50)
[2019-03-16] MEDS: HYDROcodone/APAP 7.5-325MG 1 EACH TAB PO PRN ×2 (08:54→20:14)
[2019-03-16] MEDS: ACYCLOVIR 200 MG CAP PO SCH (08:54)
[2019-03-16] MEDS: TOBRA-DEXAMET 0.3-0.1% OPHTH DROPS 2.5 ML BTL BOTH EYES SCH ×3 (08:56→20:51)
[2019-03-16] MEDS: SYMBICORT 160-4.5 MCG INHALER INHALATION SCH ×3 (09:08→20:28)
[2019-03-16] MEDS: TRIAMCINOLONE ACET 0.5% CREAM 15 GM TUBE TOPICAL SCH ×2 (11:11→20:52)
--- NOTE | 2019-03-16 13:29 | P.HPIM ---
History of Present Illness H&P Date: 03/16/19 Chief Complaint: Facial rash This is a 73-year-old female patient of Dr. King and Dr. 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 Patient had recent hospitalizations for COPD exacerbation. Patient states that she had a follow-up appointment with Dr. Anderson after her recent hospitalization and at that time did have some sores in her mouth which sound like thrush. Patient was subsequently seen by Dr. King and she was on possibly placed on acyclovir cream. Patient complains of a rash to her face and neck for about one week. It is painful, not itchy. She denies any new creams or soaps. She has not seen a college tutor. She also has a small patchy areas to her hands. Her breathing status is currently stable at its baseline. Patient came into [facility] emergency center for evaluation. Vital signs were stable, CBC unremarkable, blood sugar 129, sodium 134, potassium 5.4, chloride 99, CO2 23, BUN 27 creatinine 0.89. Lactic acid 3.2. Chest x-ray reveals moderately severe pulmonary interstitial fibrosis. No change. Patient was admitted to the [facility] floor and started on Toradol, morphine, [place], IV Solu-Medrol. Consult added for Dr. Flanagan and dermatology. Review of Systems Constitutional: Denies anorexia, Denies chills, Denies fatigue, Denies fever, Denies lethargy, Denies malaise, Denies poor appetite, Denies weakness Eyes: denies blurred vision, denies pain Ears, nose, mouth and throat: Reports mouth pain, Denies headache, Denies sore throat, Denies vertigo Cardiovascular: Denies chest pain, Denies edema, Denies leg edema, Denies lightheadedness, Denies palpitations, Denies shortness of breath Respiratory: Denies cough, Denies cough with sputum, Denies dyspnea, Denies excessive sputum, Denies hemoptysis, Denies respiratory infections, Denies wheezing Gastrointestinal: Denies abdominal pain, Denies diarrhea, Denies nausea, Denies vomiting Genitourinary: Denies dysuria, Denies hematuria Musculoskeletal: Denies myalgias Integumentary: Reports color changes, Reports darkening of skin, Reports rash, Denies pruritus Neurological: Denies change in mentation, Denies change in speech, Denies numbness, Denies weakness Psychiatric: Denies anxiety, Denies depression Endocrine: Denies fatigue, Denies weight change Past Medical History Past Medical History: Cancer, COPD, Fibromyalgia, Hypertension, Osteoarthritis (OA), Respiratory Disorder Additional Past Medical History / Comment(s): Chronic hypoxic respiratory failure , OXYGEN @ 3L AT NIGHT, pulmonary fibrosis, 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 History of Any Multi-Drug Resistant Organisms: None Reported Date of last positivie culture/infection: 2013 Past Surgical History: Breast Surgery, Cholecystectomy, Heart Catheterization, Hysterectomy, Joint Replacement, Orthopedic Surgery Additional Past Surgical History / Comment(s): Left total knee, Right Total shoulder, Left BREAST LUMPECTOMY, CATARACTS , LT KNEE SCOPE, THYROID BX, COLONOSCOPY, EGD, BRONCHOSCOPY, LEFT UPPER LOBE LUNG RESECTION Past Anesthesia/Blood Transfusion Reactions: Previous Problems w/ Anesthesia Additional Past Anesthesia/Blood Transfusion Reaction / Comment(s): PT STATES THAT SHE HAS "HIGH" TOLERANCE TO IV SEDATION. Past Psychological History: Anxiety, Depression Additional Psychological History / Comment(s): Pt resides alone with her cat. She has home oxygen and nebulizer. She is moving to assisted living in [place]. She just got a walker. She drives. Smoking Status: Former smoker Past Alcohol Use History: None Reported Additional Past Alcohol Use History / Comment(s): Patient is a smoker one pack per day since 1966 and quit two weeks ago. She is currently in a nicotine patch. She no longer uses marijuana. No illicit drug use, no alcohol use. She lives alone with her cat. She has a walker, nebulizer and home O2 at 3 L nasal cannula. She does not have a CPAP. Past Drug Use History: None Reported Additional Drug Use History / Comment(s): STATES MARIJUANA OVER 20 YEARS AGO- NO CURRENT USE. - Past Family History Mother Family Medical History: Cancer Additional Family Medical History / Comment(s): Mother at age 73 from lung cancer. Father Additional Family Medical History / Comment(s): Father at age 86 from COPD. Sister(s) Additional Family Medical History / Comment(s): Patient has one sister with hypertension and rheumatoid arthritis. Patient is not have any brothers. Patient has 2 daughters with no major medical problems. Medications and Allergies Home Medications Medication Instructions Recorded Confirmed Type Spironolactone 100 mg PO DAILY 04/16/16 03/15/19 History amLODIPine [Norvasc] 10 mg PO DAILY 04/16/16 03/15/19 History Citalopram Hydrobromide [CeleXA] 40 mg PO HS 07/08/17 03/15/19 History Oxybutynin Chloride [Ditropan] 5 mg PO TID 07/08/17 03/15/19 History Aspirin [Adult Low Dose Aspirin EC] 81 mg PO DAILY 08/18/17 03/15/19 History Atenolol [Tenormin] 50 mg PO HS 08/18/17 03/15/19 History ARIPiprazole [Abilify] 5 mg PO HS 09/02/18 03/15/19 History Multivitamins, Thera [Multivitamin 1 tab PO DAILY 09/02/18 03/15/19 History (formulary)] Omeprazole 20 mg PO DAILY 09/02/18 03/15/19 History Budesonide/Formoterol Fumarate 2 puff INHALATION RT-BID 02/01/19 03/15/19 History [Symbicort 160-4.5 Mcg Inhaler] Calcium Carb-Vit D 250Mg-125Un 1 tab PO DAILY 02/01/19 03/15/19 History [Oscal 250+D] Carbidopa-Levodopa 25-100 mg 1 tab PO HS 02/01/19 03/15/19 History [Sinemet 25-100 mg] HYDROcodone/APAP 7.5-325MG [[place] 1 tab PO Q6H PRN 02/01/19 03/15/19 History 7.5-325] Mirtazapine [Remeron] 15 mg PO HS 02/01/19 03/15/19 History Vitamin B Complex 1 cap PO DAILY 02/01/19 03/15/19 History Chlorhexidine Gluconate [Peridex] 15 ml PO BID 02/10/19 03/15/19 History Primidone [Mysoline] 250 mg PO TID 02/10/19 03/15/19 History Melatonin 5 mg PO HS 02/11/19 03/15/19 History guaiFENesin [Mucinex] 1,200 mg PO Q12HR tablet.er 02/14/19 03/15/19 Rx Acyclovir 400 mg PO BID 03/15/19 03/15/19 History Doxycycline Hyclate 100 mg PO BID 03/15/19 03/15/19 History Etodolac [Lodine XR] 400 mg PO DAILY 03/15/19 03/15/19 History Fluconazole [Diflucan] 100 mg PO DAILY 03/15/19 03/15/19 History Lidocaine Viscous 2% [Xylocaine 5 ml MUCOUS MEM QID PRN 03/15/19 03/15/19 History Viscous] Nystatin 100,000 Unit/ml Susp 500,000 units PO TID 03/15/19 03/15/19 History [Mycostatin Oral Susp] Tobramycin/Dexamethasone [Tobradex 2 drops BOTH EYES TID 03/15/19 03/15/19 History Ophth Susp] Allergies Allergy/AdvReac Type Severity Reaction Status Date / Time levofloxacin [From Levaquin] AdvReac Severe Diarrhea Verified 03/15/19 21:03 adhesive tape AdvReac Unknown IRRITATES Verified 03/15/19 21:03 SKIN Physical Exam Vitals: Vital Signs Temp Pulse Pulse Resp BP BP Pulse Ox 03/16/19 08:00 24 03/16/19 04:30 97.5 F L 62 24 128/76 92 L 03/15/19 22:15 97.6 F 73 24 127/75 95 03/15/19 21:01 71 20 133/74 95 03/15/19 19:00 82 16 120/68 95 03/15/19 18:25 86 16 131/86 94 L 03/15/19 18:10 98 F 90 16 131/86 93 L Intake and Output 03/15/19 03/16/19 03/16/19 22:59 06:59 14:59 Intake Total 200 200 Balance 200 200 Intake: Oral 200 200 Other: Voiding Method Toilet Toilet Bedside Commode # Voids 3 Weight 61.235 kg Gen: This is a 73-year-old female. Patient is resting in in bed with mild tachypnea noted. This is patient's baseline. HEENT: Head is atraumatic, normocephalic. Pupils equal, round. Sclerae is anicteric. Patient has significant deep red rash covering her face bilaterally starting under eyelids and including anterior neck area area clear areas of demarcation. No open wounds or bruising. NECK: Supple. No JVD. No lymphadenopathy. No thyromegaly. LUNGS: Bilateral end expiratory wheeze, few scattered rhonchi, fine crackles. No intercostal retractions. HEART: Regular rate and rhythm. No murmur. ABDOMEN: Soft. Bowel sounds are present. No masses. No tenderness. EXTREMITIES: No pedal edema bilaterally. No calf tenderness. NEUROLOGICAL: Patient is awake, alert and oriented x3. Cranial nerves 2 through 12 are grossly intact. Results CBC & Chem 7: 03/15/19 18:12 03/15/19 18:12 Labs: Abnormal Lab Results - Last 24 Hours (Table) 03/15/19 03/15/19 Range/Units 18:12 18:12 Sodium 134 L (137-145) mmol/L Potassium 5.4 H (3.5-5.1) mmol/L BUN 27 H (7-17) mg/dL Glucose 129 H (74-99) mg/dL Plasma Lactic Acid Jeo 3.2 H* (0.7-2.0) mmol/L Calcium 10.4 H (8.4-10.2) mg/dL AST 37 H (14-36) U/L Thrombosis Risk Factor Assmnt - DVT/VTE Prophylaxis DVT/VTE Prophylaxis: Pharmacologic Prophylaxis ordered - Choose All That Apply Any of the Below Risk Factors Present?: Yes Each Factor Represents 1 point: Abnormal pulmonary function (COPD) Other Risk Factors: Yes Each Risk Factor Represents 2 Points: Age 61-74 years Thrombosis Risk Factor Assessment Total Risk Factor Score: 3 Thrombosis Risk Factor Assessment Level: Moderate Risk Assessment and Plan Plan: 1. Facial dermatitis, possible contact dermatitis. Continue pain management, Solu-Medrol 60 mg IV every 6 hours, Toradol 15 mg every 6 hours, Unasyn, consults with dermatology and Dr. Flanagan. Discontinue acyclovir. Triamcinolone cream twice daily. 2. Recent hospitalization for acute COPD exacerbation and dysphagia with solid foods. Modified barium swallow was negative. COPD is stable without exacerbation. Continue Symbicort twice daily, DuoNeb treatments 4 times daily as needed 3. Pulmonary fibrosis. 4. Chronic hypoxic respiratory failure on home O2 at 3 L nasal cannula. 5. Lactic acidosis, resolved. Patient is status post cardiac liters of IV fluid. 6. 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 7. History of cervical cancer status post hysterectomy and left breast cancer with lumpectomy and radiation and Arimidex treatment, stable. 8. Essential tremors. Continue primidone and Sinemet. 9. Generalized anxiety disorder. Continue Abilify 5 mg daily, Celexa 40 mg at bedtime. 10. Fibromyalgia. 11. Chronic tobacco use and dependence, patient quit in January. 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 13. Insomnia. Continue Remeron 15 mg at bedtime. 14. Hypertension. Continue Norvasc 10 mg daily, atenolol 100 mg daily, Aldactone 100 mg daily. 15. DVT prophylaxis. Heparin subcu. 16. GI prophylaxis. Protonix 40 mg daily. Patient will be admitted to the hospital for a minimum of 2 night stay. Discharge plan: Most likely home. PT added. Impression and plan of care have been directed as dictated by the signing physician. Belinda Gaona nurse practitioner acting as scribe for signing cyn guzmán.
--- NOTE | 2019-03-16 16:11 | P.CONS ---
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 Patient had recent hospitalizations for COPD exacerbation. Patient states that she had a follow-up appointment with Dr. Anderson after her recent hospitalization and at that time did have some sores in her mouth which sound like thrush. Patient was subsequently seen by Dr. King and she was on possibly placed on acyclovir cream. Patient complains of a rash to her face and neck for about one week. It is painful, not itchy. She denies any new creams or soaps. She has not seen a technician plant and maintenance. She also has a small patchy areas to her hands. Her breathing status is currently stable at its baseline. Patient came into [facility] emergency center for evaluation. Vital signs were stable, CBC unremarkable, blood sugar 129, sodium 134, potassium 5.4, chloride 99, CO2 23, BUN 27 creatinine 0.89. Lactic acid 3.2. Chest x-ray reveals moderately severe pulmonary interstitial fibrosis. No change. Patient was admitted to the MedSur floor and started on Toradol, morphine, [place], IV Solu-Medrol. Consult in place with dermatology. Review of Systems Constitutional: Denies anorexia, Denies chills, Denies fatigue, Denies fever, Denies lethargy, Denies malaise, Denies poor appetite, Denies weakness Eyes: denies blurred vision, denies pain Ears, nose, mouth and throat: Reports mouth pain, Denies headache, Denies sore throat, Denies vertigo Cardiovascular: Denies chest pain, Denies edema, Denies leg edema, Denies lightheadedness, Denies palpitations, Denies shortness of breath Respiratory: Denies cough, Denies cough with sputum, Denies dyspnea, Denies excessive sputum, Denies hemoptysis, Denies respiratory infections, Denies wheezing Gastrointestinal: Denies abdominal pain, Denies diarrhea, Denies nausea, Denies vomiting Genitourinary: Denies dysuria, Denies hematuria Musculoskeletal: Denies myalgias Integumentary: Reports color changes, Reports darkening of skin, Reports rash, Denies pruritus Neurological: Denies change in mentation, Denies change in speech, Denies numbness, Denies weakness Psychiatric: Denies anxiety, Denies depression Endocrine: Denies fatigue, Denies weight change Past Medical History Past Medical History: Cancer, COPD, Fibromyalgia, Hypertension, Osteoarthritis (OA), Respiratory Disorder Additional Past Medical History / Comment(s): Chronic hypoxic respiratory failure , OXYGEN @ 3L AT NIGHT, pulmonary fibrosis, 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 History of Any Multi-Drug Resistant Organisms: None Reported Year Discovered:: 2013 Past Surgical History: Breast Surgery, Cholecystectomy, Heart Catheterization, Hysterectomy, Joint Replacement, Orthopedic Surgery Additional Past Surgical History / Comment(s): Left total knee, Right Total shoulder, Left BREAST LUMPECTOMY, CATARACTS , LT KNEE SCOPE, THYROID BX, COLONOSCOPY, EGD, BRONCHOSCOPY, LEFT UPPER LOBE LUNG RESECTION Past Anesthesia/Blood Transfusion Reactions: Previous Problems w/ Anesthesia Additional Past Anesthesia/Blood Transfusion Reaction / Comm: PT STATES THAT SHE HAS "HIGH" TOLERANCE TO IV SEDATION. Past Psychological History: Anxiety, Depression Additional Psychological History / Comment(s): Pt resides alone with her cat. She has home oxygen and nebulizer. She is moving to assisted living in [place]. She just got a walker. She drives. Smoking Status: Former smoker Past Alcohol Use History: None Reported Additional Past Alcohol Use History / Comment(s): Patient is a smoker one pack per day since 1966 and quit two weeks ago. She is currently in a nicotine patch. She no longer uses marijuana. No illicit drug use, no alcohol use. She lives alone with her cat. She has a walker, nebulizer and home O2 at 3 L nasal cannula. She does not have a CPAP. Past Drug Use History: None Reported Additional Drug Use History / Comment(s): STATES MARIJUANA OVER 20 YEARS AGO- NO CURRENT USE. - Past Family History Mother Family Medical History: Cancer Additional Family Medical History / Comment(s): Mother at age 73 from lung cancer. Father Additional Family Medical History / Comment(s): Father at age 86 from COPD. Sister(s) Additional Family Medical History / Comment(s): Patient has one sister with hypertension and rheumatoid arthritis. Patient is not have any brothers. Patient has 2 daughters with no major medical problems. Medications and Allergies Home Medications Medication Instructions Recorded Confirmed Type Spironolactone 100 mg PO DAILY 04/16/16 03/15/19 History amLODIPine [Norvasc] 10 mg PO DAILY 04/16/16 03/15/19 History Citalopram Hydrobromide [CeleXA] 40 mg PO HS 07/08/17 03/15/19 History Oxybutynin Chloride [Ditropan] 5 mg PO TID 07/08/17 03/15/19 History Aspirin [Adult Low Dose Aspirin EC] 81 mg PO DAILY 08/18/17 03/15/19 History Atenolol [Tenormin] 50 mg PO HS 08/18/17 03/15/19 History ARIPiprazole [Abilify] 5 mg PO HS 09/02/18 03/15/19 History Multivitamins, Thera [Multivitamin 1 tab PO DAILY 09/02/18 03/15/19 History (formulary)] Omeprazole 20 mg PO DAILY 09/02/18 03/15/19 History Budesonide/Formoterol Fumarate 2 puff INHALATION RT-BID 02/01/19 03/15/19 History [Symbicort 160-4.5 Mcg Inhaler] Calcium Carb-Vit D 250Mg-125Un 1 tab PO DAILY 02/01/19 03/15/19 History [Oscal 250+D] Carbidopa-Levodopa 25-100 mg 1 tab PO HS 02/01/19 03/15/19 History [Sinemet 25-100 mg] HYDROcodone/APAP 7.5-325MG [[place] 1 tab PO Q6H PRN 02/01/19 03/15/19 History 7.5-325] Mirtazapine [Remeron] 15 mg PO HS 02/01/19 03/15/19 History Vitamin B Complex 1 cap PO DAILY 02/01/19 03/15/19 History Chlorhexidine Gluconate [Peridex] 15 ml PO BID 02/10/19 03/15/19 History Primidone [Mysoline] 250 mg PO TID 02/10/19 03/15/19 History Melatonin 5 mg PO HS 02/11/19 03/15/19 History guaiFENesin [Mucinex] 1,200 mg PO Q12HR tablet.er 02/14/19 03/15/19 Rx Acyclovir 400 mg PO BID 03/15/19 03/15/19 History Doxycycline Hyclate 100 mg PO BID 03/15/19 03/15/19 History Etodolac [Lodine XR] 400 mg PO DAILY 03/15/19 03/15/19 History Fluconazole [Diflucan] 100 mg PO DAILY 03/15/19 03/15/19 History Lidocaine Viscous 2% [Xylocaine 5 ml MUCOUS MEM QID PRN 03/15/19 03/15/19 History Viscous] Nystatin 100,000 Unit/ml Susp 500,000 units PO TID 03/15/19 03/15/19 History [Mycostatin Oral Susp] Tobramycin/Dexamethasone [Tobradex 2 drops BOTH EYES TID 03/15/19 03/15/19 History Ophth Susp] Allergies Allergy/AdvReac Type Severity Reaction Status Date / Time levofloxacin [From [facility]] AdvReac Severe Diarrhea Verified 03/15/19 21:03 adhesive tape AdvReac Unknown IRRITATES Verified 03/15/19 21:03 SKIN Physical Exam Vitals: Vital Signs Temp Pulse Pulse Resp BP BP Pulse Ox 03/16/19 15:47 16 03/16/19 14:53 97.6 F 72 16 159/82 94 L 03/16/19 08:00 24 03/16/19 04:30 97.5 F L 62 24 128/76 92 L 03/15/19 22:15 97.6 F 73 24 127/75 95 03/15/19 21:01 71 20 133/74 95 03/15/19 19:00 82 16 120/68 95 03/15/19 18:25 86 16 131/86 94 L 03/15/19 18:10 98 F 90 16 131/86 93 L Intake and Output 03/16/19 03/16/19 03/16/19 06:59 14:59 22:59 Intake Total 200 Balance 200 Intake: Oral 200 Other: Voiding Method Toilet Toilet # Voids 3 3 Gen: This is a 73-year-old female. Patient is resting in in bed with mild tachypnea noted. This is patient's baseline. HEENT: Head is atraumatic, normocephalic. Pupils equal, round. Sclerae is anicteric. Patient has significant deep red rash covering her face bilaterally starting under eyelids and including anterior neck area area clear areas of demarcation. No open wounds or bruising. NECK: Supple. No JVD. No lymphadenopathy. No thyromegaly. LUNGS: Bilateral end expiratory wheeze, few scattered rhonchi, fine crackles. No intercostal retractions. HEART: Regular rate and rhythm. No murmur. ABDOMEN: Soft. Bowel sounds are present. No masses. No tenderness. EXTREMITIES: No pedal edema bilaterally. No calf tenderness. NEUROLOGICAL: Patient is awake, alert and oriented x3. Cranial nerves 2 through 12 are grossly intact. Results Results: Laboratory Results WBC 9.5 k/uL (3.8-10.6) 03/15/19 18:12 RBC 4.58 m/uL (3.80-5.40) 03/15/19 18:12 Hgb 14.2 gm/dL (11.4-16.0) 03/15/19 18:12 Hct 45.2 % (34.0-46.0) 03/15/19 18:12 MCV 98.7 fL (80.0-100.0) 03/15/19 18:12 MCH 31.0 pg (25.0-35.0) 03/15/19 18:12 MCHC 31.4 g/dL (31.0-37.0) 03/15/19 18:12 RDW 15.3 % (11.5-15.5) 03/15/19 18:12 Plt Count 347 k/uL (150-450) 03/15/19 18:12 Neutrophils % 82 % 03/15/19 18:12 Lymphocytes % 13 % 03/15/19 18:12 Monocytes % 3 % 03/15/19 18:12 Eosinophils % 1 % 03/15/19 18:12 Basophils % 0 % 03/15/19 18:12 Neutrophils # 7.7 k/uL (1.3-7.7) 03/15/19 18:12 Lymphocytes # 1.2 k/uL (1.0-4.8) 03/15/19 18:12 Monocytes # 0.3 k/uL (0-1.0) 03/15/19 18:12 Eosinophils # 0.1 k/uL (0-0.7) 03/15/19 18:12 Basophils # 0.0 k/uL (0-0.2) 03/15/19 18:12 Macrocytosis Slight 03/15/19 18:12 Sodium 134 mmol/L (137-145) L 03/15/19 18:12 Potassium 5.4 mmol/L (3.5-5.1) H 03/15/19 18:12 Chloride 99 mmol/L (98-107) 03/15/19 18:12 Carbon Dioxide 23 mmol/L (22-30) 03/15/19 18:12 Anion Gap 12 mmol/L 03/15/19 18:12 BUN 27 mg/dL (7-17) H 03/15/19 18:12 Creatinine 0.89 mg/dL (0.52-1.04) 03/15/19 18:12 Est GFR (CKD-EPI)AfAm 74 (>60 ml/min/1.73 sqM) 03/15/19 18:12 Est GFR (CKD-EPI)NonAf 64 (>60 ml/min/1.73 sqM) 03/15/19 18:12 Glucose 129 mg/dL (74-99) H 03/15/19 18:12 Lactic Ac Sepsis Rflx Y 03/15/19 19:01 Plasma Lactic Acid Joe 0.8 mmol/L (0.7-2.0) 03/15/19 22:18 Calcium 10.4 mg/dL (8.4-10.2) H 03/15/19 18:12 Magnesium 1.9 mg/dL (1.6-2.3) 03/15/19 18:12 Total Bilirubin 0.6 mg/dL (0.2-1.3) 03/15/19 18:12 AST 37 U/L (14-36) H 03/15/19 18:12 ALT 14 U/L (9-52) 03/15/19 18:12 Alkaline Phosphatase 108 U/L (38-126) 03/15/19 18:12 Total Protein 7.9 g/dL (6.3-8.2) 03/15/19 18:12 Albumin 4.4 g/dL (3.5-5.0) 03/15/19 18:12 CBC & Chem 7: 03/15/19 18:12 03/15/19 18:12 Labs: Abnormal Lab Results - Last 24 Hours (Table) 03/15/19 03/15/19 Range/Units 18:12 18:12 Sodium 134 L (137-145) mmol/L Potassium 5.4 H (3.5-5.1) mmol/L BUN 27 H (7-17) mg/dL Glucose 129 H (74-99) mg/dL Plasma Lactic Acid Joe 3.2 H* (0.7-2.0) mmol/L Calcium 10.4 H (8.4-10.2) mg/dL AST 37 H (14-36) U/L Assessment and Plan Plan: This is a 73-year-old female who presents to hospital with facial dermatitis, possible contact dermatitis. Patient denies using any new lotions creams or soaps. She is currently on Solu-Medrol 60 mg IV every 6 hours, Toradol 15 mg every 6 hours, Unasyn, and Triamcinolone cream twice daily was started this morning. There is a dermatology consult also in place. Blood culture is status post received. Continue supportive care. Further recommendations as patient progresses. The above dictated assessment and findings were discussed with Dr. Flanagan. The impression and plan of care have been directed as dictated. Belinda Gaona nurse practitioner acting as scribe for Dr. Flanagan.
[2019-03-16] MEDS ORDERED: MINERAL OIL-WHITE PETROLATUM 120 GM JAR TOPICAL PRN (19:52)
[2019-03-16] MEDS: CARBIDOPA-LEVODOPA 25-100 MG 1 EACH TAB PO SCH (20:50)
[2019-03-16] MEDS: ATENOLOL 50 MG TAB PO SCH (20:50)
[2019-03-16] MEDS: CITALOPRAM HYDROBROMIDE 20 MG TAB PO SCH (20:50)
[2019-03-16] MEDS: MELATONIN 5 MG TABLET PO SCH (20:50)
[2019-03-16] MEDS: MIRTAZAPINE 15 MG TAB PO SCH (20:50)
[2019-03-16] MEDS: ARIPiprazole 5 MG TAB PO SCH (20:51)
--- NOTE | 2019-03-16 23:04 | P.CON ---
Consult Note - . 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 Patient had recent hospitalizations for COPD exacerbation. Patient states that she had a follow-up appointment with Dr. Anderson after her recent hospitalization and at that time did have some sores in her mouth which sound like thrush. Patient was subsequently seen by Dr. King and she was on possibly placed on acyclovir cream. Patient complains of a rash to her face and neck for about one week. It is painful, not itchy. She denies any new creams or soaps. She has not seen a chemistry technician. She also has a small patchy areas to her hands. Her breathing status is currently stable at its baseline. Patient came into [facility] emergency center for evaluation. Vital signs were stable, CBC unremarkable, blood sugar 129, sodium 134, potassium 5.4, chloride 99, CO2 23, BUN 27 creatinine 0.89. Lactic acid 3.2. Chest x-ray reveals moderately severe pulmonary interstitial fibrosis. No change. Patient was admitted to the MedSur floor and started on Toradol, morphine, [place], IV Solu-Medrol. Consult in place with dermatology. Please see the consult note is dictated by nurse practitioner Mrs. Belinda Gaona. This pleasant woman relates that she has developed the sudden onset of this extensive facial rash which is very uncomfortable. It is okay to be just at the lower aspect of the orbits bilaterally across the nose down to her neck. Interesting is the area of sparing in the fold on her neck. She relates that she is quite miserable due to the discomfort that she is of the skin which even makes chewing and swallowing uncomfortable. The patient relates that she just has been discharged from the hospital. Where she was being treated for the difficulties with her mouth. She had oral lesions thought to be thrush and was treated with multiple medications to make this improve which included fluconazole. The patient has had no the treatments to her face, she has had no laser treatments or peels performed to her face. She has not applied any new chemicals to her face. At this time a fixed drug eruption appears to be occurring to her face likely related to the medications were used to treat the recent oral infection at the outside hospital. She has no peeling or blistering at this time making Loza-Félix TEN less likely, however since she has some oral mucosal involvement DRESS is considered. She should only apply minimal materials to her face. Eucerin requested given very gentle nature and the triamcinolone cream should be alternated with the Eucerin. This will give her some relief to the discomfort. She is receiving pain medications.Would continue his steroid therapy which is systemic and topical. If she does not rapidly improve facial skin biopsy will be needed. Fortunately the patient relates that her significant oral cavity discomfort has improved over the last few days.
[2019-03-17] MEDS: KETOROLAC 30 MG/ML 1 ML VIAL IVP SCH ×5 (00:49→23:21)
[2019-03-17] MEDS: methylPREDNISolone SOD SUCCI 125 MG/2 ML VIAL IV SCH ×5 (00:53→23:21)
[2019-03-17] MEDS: AMPICILLIN-SULBACTAM 3 GM in SODIUM CHLORIDE 0.9% 100 ML IVPB SCH ×4 (03:54→19:34)
[2019-03-17] MEDS: SYMBICORT 160-4.5 MCG INHALER INHALATION SCH ×2 (07:30→21:04)
[2019-03-17] MEDS: IPRATROPIUM-ALBUTEROL 3 ML NEB INHALATION PRN ×2 (07:30→10:50)
[2019-03-17] MEDS: NYSTATIN 100,000 UNIT/ML SUSP 500,000 UNIT/5 ML CUP PO SCH ×3 (08:15→20:46)
[2019-03-17] MEDS: PRIMIDONE 250 MG TAB PO SCH ×3 (08:15→20:45)
[2019-03-17] MEDS: SPIRONOLACTONE 25 MG TAB PO SCH (08:15)
[2019-03-17] MEDS: TRIAMCINOLONE ACET 0.5% CREAM 15 GM TUBE TOPICAL SCH ×2 (08:15→20:46)
[2019-03-17] MEDS: CHLORHEXIDINE GLUCONATE 15 ML CUP MUCOUS MEM SCH ×2 (08:15→20:45)
[2019-03-17] MEDS: PANTOPRAZOLE 40 MG TABLET PO SCH (08:16)
[2019-03-17] MEDS: guaiFENesin 600 MG TABLET.ER PO SCH ×2 (08:16→20:44)
[2019-03-17] MEDS: OXYBUTYNIN CHLORIDE 5 MG TAB PO SCH ×3 (08:16→20:44)
[2019-03-17] MEDS: amLODIPine 10 MG TAB PO SCH (08:16)
[2019-03-17] MEDS: ASPIRIN 81 MG PO SCH (08:16)
[2019-03-17] MEDS: TOBRA-DEXAMET 0.3-0.1% OPHTH DROPS 2.5 ML BTL BOTH EYES SCH ×3 (08:16→20:46)
[2019-03-17 10:45] LABS: ALT 27 U/L (9-52); AST 23 U/L (14-36); African American GFR (CKD) >90 (>60 ml/min/1.73 sqM); Albumin 3.1 g/dL (3.5-5.0); Alkaline Phosphatase 71 U/L (38-126); Anion Gap 6 mmol/L; Blood Urea Nitrogen 23 mg/dL (7-17); Calcium 9.4 mg/dL (8.4-10.2); Carbon Dioxide 26 mmol/L (22-30); Chloride 106 mmol/L (98-107); Glucose 149 mg/dL (74-99); Non-African American GFR(CKD) 88 (>60 ml/min/1.73 sqM); Potassium 4.4 mmol/L (3.5-5.1); Sodium 138 mmol/L (137-145); Total Bilirubin 0.3 mg/dL (0.2-1.3); Total Protein 5.7 g/dL (6.3-8.2)
[2019-03-17 11:08] LABS: Basophils % (A) 0 %; Eosinophils % (A) 0 %; HCT 38.8 % (34.0-46.0); HGB 12.6 gm/dL (11.4-16.0); Lymphocytes # (A) 0.7 k/uL (1.0-4.8); Lymphocytes % (A) 8 %; MCH 32.6 pg (25.0-35.0); MCHC 32.5 g/dL (31.0-37.0); MCV 100.1 fL (80.0-100.0); Macrocytosis Slight; Mean Platelet Volume 5.9; Monocytes # (A) 0.2 k/uL (0-1.0); Monocytes % (A) 2 %; Neutrophils # (A) 8.3 k/uL (1.3-7.7); Neutrophils % (A) 89 %; Platelet Count 286 k/uL (150-450); RBC 3.88 m/uL (3.80-5.40); RDW 15.3 % (11.5-15.5); WBC 9.3 k/uL (3.8-10.6)
[2019-03-17] MEDS: HYDROcodone/APAP 7.5-325MG 1 EACH TAB PO PRN ×2 (13:29→19:32)
--- NOTE | 2019-03-17 13:51 | P.PN ---
Subjective Progress Note Date: 03/17/19 Principal diagnosis: Severe facial rash, contact dermatitis, COPD, pulmonary fibrosis, chronic respiratory failure, history of small cell see if the lung This is a 73-year-old female patient of Dr. King and Dr. 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 Patient had recent hospitalizations for COPD exacerbation. Patient states that she had a follow-up appointment with Dr. Anderson after her recent hospitalization and at that time did have some sores in her mouth which sound like thrush. Patient was subsequently seen by Dr. King and she was on possibly placed on acyclovir cream. Patient complains of a rash to her face and neck for about one week. It is painful, not itchy. She denies any new creams or soaps. She has not seen a exchange mechanic. She also has a small patchy areas to her hands. Her breathing status is currently stable at its baseline. Patient came into [facility] emergency center for evaluation. Vital signs were stable, CBC unremarkable, blood sugar 129, sodium 134, potassium 5.4, chloride 99, CO2 23, BUN 27 creatinine 0.89. Lactic acid 3.2. Chest x-ray reveals moderately severe pulmonary interstitial fibrosis. No change. Patient was admitted to the MedSurg floor and started on Toradol, morphine, [place], IV Solu-Medrol. Consult added for Dr. Flanagan and dermatology. 03/17: Respond to current treatment with systemic and topical steroid patient is doing slightly but better, has not seen dermatology at seen Dr. Flanagan who agree with the current management. And prepare for seen in dermatology if needed skin biopsy can be done or arrange as an outpatient if no improvement. Patient will be ready to be discharged home tomorrow most likely. Objective - Vital Signs Vital signs: Vital Signs Temp 97.4 F L 03/17/19 04:30 Pulse 65 03/17/19 04:30 Resp 20 03/17/19 04:30 BP 143/76 03/17/19 04:30 Pulse Ox 95 03/17/19 04:30 Intake & Output 03/16/19 03/17/19 03/17/19 18:59 06:59 18:59 Intake Total 800 Balance 800 Intake: Oral 800 Other: Voiding Method Toilet Toilet # Voids 3 2 - Exam Review of Systems Constitutional: Denies anorexia, Denies chills, Denies fatigue, Denies fever, Denies lethargy, Denies malaise, Denies poor appetite, Denies weakness Eyes: denies blurred vision, denies pain Ears, nose, mouth and throat: Reports mouth pain, Denies headache, Denies sore throat, Denies vertigo Cardiovascular: Denies chest pain, Denies edema, Denies leg edema, Denies lightheadedness, Denies palpitations, Denies shortness of breath Respiratory: Denies cough, Denies cough with sputum, Denies dyspnea, Denies excessive sputum, Denies hemoptysis, Denies respiratory infections, Denies wheezing Gastrointestinal: Denies abdominal pain, Denies diarrhea, Denies nausea, Denies vomiting Genitourinary: Denies dysuria, Denies hematuria Musculoskeletal: Denies myalgias Integumentary: Reports color changes, Reports darkening of skin, Reports rash, Denies pruritus Neurological: Denies change in mentation, Denies change in speech, Denies numbness, Denies weakness Psychiatric: Denies anxiety, Denies depression Endocrine: Denies fatigue, Denies weight change Physical Exam Gen: This is a 73-year-old female. Patient is resting in in bed with mild tachypnea noted. This is patient's baseline. HEENT: Head is atraumatic, normocephalic. Pupils equal, round. Sclerae is anicteric. Patient has significant deep red rash covering her face bilaterally starting under eyelids and including anterior neck area area clear areas of demarcation. No open wounds or bruising. NECK: Supple. No JVD. No lymphadenopathy. No thyromegaly. LUNGS: Bilateral end expiratory wheeze, few scattered rhonchi, fine crackles. No intercostal retractions. HEART: Regular rate and rhythm. No murmur. ABDOMEN: Soft. Bowel sounds are present. No masses. No tenderness. EXTREMITIES: No pedal edema bilaterally. No calf tenderness. NEUROLOGICAL: Patient is awake, alert and oriented x3. Cranial nerves 2 through 12 are grossly intact. - Labs CBC & Chem 7: 03/17/19 10:07 03/17/19 10:07 Labs: Microbiology - Last 24 Hours (Table) 03/15/19 19:00 Blood Culture - Preliminary Blood No Growth after 24 hours Assessment and Plan Plan: 1. Facial dermatitis, possible contact dermatitis. Continue pain management, Solu-Medrol 60 mg IV every 6 hours, Toradol 15 mg every 6 hours, Unasyn, consults with dermatology and Dr. Flanagan. Discontinue acyclovir. Triamcinolone cream twice daily. Doing better, still waiting for dermatology to be seen and if needed biopsy. Otherwise hopefully will be able to discharge a [facility] home jayy orrow to follow-up with dermatology PCP as an outpatient. 2. Recent hospitalization for acute COPD exacerbation and dysphagia with solid foods. Modified barium swallow was negative. COPD is stable without exacerbation. Continue Symbicort twice daily, DuoNeb treatments 4 times daily as needed 3. Pulmonary fibrosis. No change in stable. 4. Chronic hypoxic respiratory failure on home O2 at 3 L nasal cannula. 5. Lactic acidosis, resolved. Patient is status post cardiac liters of IV fluid. 6. 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 7. History of cervical cancer status post hysterectomy and left breast cancer with lumpectomy and radiation and Arimidex treatment, stable. 8. Essential tremors. Continue primidone and Sinemet. 9. Generalized anxiety disorder. Continue Abilify 5 mg daily, Celexa 40 mg at bedtime. 10. Fibromyalgia. 11. Chronic tobacco use and dependence, patient quit in January. 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 13. Insomnia. Continue Remeron 15 mg at bedtime. 14. Hypertension. Continue Norvasc 10 mg daily, atenolol 100 mg daily, Aldactone 100 mg daily.
[2019-03-17] MEDS: MELATONIN 5 MG TABLET PO SCH (20:43)
[2019-03-17] MEDS: MIRTAZAPINE 15 MG TAB PO SCH (20:44)
[2019-03-17] MEDS: CITALOPRAM HYDROBROMIDE 20 MG TAB PO SCH (20:44)
[2019-03-17] MEDS: CARBIDOPA-LEVODOPA 25-100 MG 1 EACH TAB PO SCH (20:44)
[2019-03-17] MEDS: ATENOLOL 50 MG TAB PO SCH (20:44)
[2019-03-17] MEDS: ARIPiprazole 5 MG TAB PO SCH (20:45)
[2019-03-17 23:53] VITALS: RESP 24
--- NOTE | 2019-03-17 23:58 | CONS ---
CONSULTATION DATE OF CONSULT: 03/17/2019. REQUESTING PHYSICIAN: Dr. Grissom. REASON FOR CONSULT: Facial dermatitis. HISTORY OF PRESENT ILLNESS: The patient is a 73-year-old female with no past dermatological history. Patient states she was given acyclovir cream by her PCP for some sores that she had on her lips during recent hospitalization. The patient states that she used on her entire face and neck thinking it would help with a recent rash that she developed. The patient stated that within an hour of applying the medication, the affected areas were painful and burning and starting to become red and swollen. The patient states she went to the ER after the reaction started to occur. PAST MEDICAL HISTORY: The patient has a past medical history of cancer, COPD, fibromyalgia, hypertension, osteoarthritis, and respiratory disorder. PAST SURGICAL HISTORY: The patient has history of breast surgery, cholecystectomy, heart catheterization, hysterectomy, and joint replacement and orthopedic surgery. MEDICATIONS ON ADMISSION: See chart. ALLERGIES: Levaquin- Rxn - Severe Diarrhea Adhesive Tape - Rxn - Skin Irritation SOCIAL HISTORY: The patient denies any tobacco or alcohol use. Denies illegal substance abuse. REVIEW OF SYSTEM/PHYSICAL EXAMINATION: Review of the vital signs shows temperature of 97.5 degrees Fahrenheit, a pulse of 62 beats per minute. Respirations 24 breaths per minute and a blood pressure of 128/76 mmHg. Pulse ox is 92. General: The patient is in no apparent distress. She is alert and oriented x3. She is well nourished, well developed, cooperative, and anxious or agitated. Neurologic: Cranial nerves 2-12 are grossly intact. Head and neck. HEAD: Normocephalic and atraumatic. NECK: Supple. Trachea is midline. No JVD noted. Eyes: Denies Foriegn body sensation Lungs: Respirations are slightly labored. Extremities: No obvious focal neurological is noted. Skin: Erythematous scaly patches on the face, neck, and fingers. LABORATORY DATA: See chart. IMPRESSIONS AND RECOMMENDATIONS: 1. Contact dermatitis secondary to acyclovir cream. Continue triamcinolone ointment b.i.d. x5 days. I would recommend switching to hydrocortisone 2.5% ointment b.i.d. x2 weeks, then every other day until rash is resolved. 2. Continue with IV Solu-Medrol q.6 hours until rash is greatly improved. 3. Recommending upon discharge patient be given hydrocortisone 2.5% ointment to be used every other day until rash resolves. Also recommending a prednisone taper. Taper is as follows: 40 mg p.o. x7 days, 30 mg p.o. x7 days, 20 mg p.o. x7 days, 10 mg p.o. x7 days and then discontinue. Please have patient follow up at Dermatology office within 1 week of discharge. Thank you for this consultation. I performed a History & Physical Examination of the patient and discussed their management with nurse practitioner. I reviewed the nurse practitioner's note and agree with the documented findings and plan of care. RAADL / WATSONN: [id number] / SIMONA
[2019-03-18] MEDS: AMPICILLIN-SULBACTAM 3 GM in SODIUM CHLORIDE 0.9% 100 ML IVPB SCH ×2 (01:44→08:25)
[2019-03-18 04:43] VITALS: BP 146/71; TEMP 98.4
[2019-03-18] MEDS: methylPREDNISolone SOD SUCCI 125 MG/2 ML VIAL IV SCH ×2 (05:13→11:55)
[2019-03-18] MEDS: KETOROLAC 30 MG/ML 1 ML VIAL IVP SCH ×2 (05:13→11:54)
[2019-03-18] MEDS: SYMBICORT 160-4.5 MCG INHALER INHALATION SCH (07:26)
[2019-03-18] MEDS: SPIRONOLACTONE 25 MG TAB PO SCH (08:20)
[2019-03-18] MEDS: NYSTATIN 100,000 UNIT/ML SUSP 500,000 UNIT/5 ML CUP PO SCH (08:20)
[2019-03-18] MEDS: PANTOPRAZOLE 40 MG TABLET PO SCH (08:20)
[2019-03-18] MEDS: PRIMIDONE 250 MG TAB PO SCH (08:20)
[2019-03-18] MEDS: CHLORHEXIDINE GLUCONATE 15 ML CUP MUCOUS MEM SCH (08:21)
[2019-03-18] MEDS: ASPIRIN 81 MG PO SCH (08:21)
[2019-03-18] MEDS: amLODIPine 10 MG TAB PO SCH (08:21)
[2019-03-18] MEDS: guaiFENesin 600 MG TABLET.ER PO SCH (08:21)
[2019-03-18] MEDS: TOBRA-DEXAMET 0.3-0.1% OPHTH DROPS 2.5 ML BTL BOTH EYES SCH (08:21)
[2019-03-18] MEDS: TRIAMCINOLONE ACET 0.5% CREAM 15 GM TUBE TOPICAL SCH (08:22)
[2019-03-18] MEDS: OXYBUTYNIN CHLORIDE 5 MG TAB PO SCH (08:22)
[2019-03-18] MEDS: HYDROcodone/APAP 7.5-325MG 1 EACH TAB PO PRN (08:25)
[2019-03-18] MEDS: IPRATROPIUM-ALBUTEROL 3 ML NEB INHALATION PRN (11:05)
[2019-03-18 11:16] VITALS: PULSE 74
--- NOTE | 2019-03-18 13:47 | P.DS ---
Providers Date of admission: 03/17/19 14:17 Attending physician: Henrique Grissom Consults: 03/16/19 10:25 Consult Physician Routine Consulting Provider: Tom Oden Consult Reason/Comments: facial rash Do you want consulting provider notified?: Yes 03/16/19 10:27 Consult Physician Routine Consulting Provider: Henrique Flanagan Consult Reason/Comments: facial rash Do you want consulting provider notified?: Yes Primary care physician: [facility] Course: Principal diagnosis: Severe facial rash, contact dermatitis, COPD, pulmonary fibrosis, chronic respiratory failure, history of small cell see if the lung This is a 73-year-old female patient of Dr. King and Dr. 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 Patient had recent hospitalizations for COPD exacerbation. Patient states that she had a follow-up appointment with Dr. Anderson after her recent hospitalization and at that time did have some sores in her mouth which sound like thrush. Patient was subsequently seen by Dr. King and she was on possibly placed on acyclovir cream. Patient complains of a rash to her face and neck for about one week. It is painful, not itchy. She denies any new creams or soaps. She has not seen a web user experience strategist. She also has a small patchy areas to her hands. Her breathing status is currently stable at its baseline. Patient came into [facility] emergency center for evaluation. Vital signs were stable, CBC unremarkable, blood sugar 129, sodium 134, pota ssium 5.4, chloride 99, CO2 23, BUN 27 creatinine 0.89. Lactic acid 3.2. Chest x-ray reveals moderately severe pulmonary interstitial fibrosis. No change. Patient was admitted to the [facility] floor and started on Toradol, morphine, Wendell, IV Solu-Medrol. Consult added for Dr. Flanagan and dermatology. 03/17: Respond to current treatment with systemic and topical steroid patient is doing slightly but better, has not seen dermatology at seen Dr. Flanagan who agree with the current management. And prepare for seen in dermatology if needed skin biopsy can be done or arrange as an outpatient if no improvement. Patient will be ready to be discharged home tomorrow most likely. Patient was seen by tami agree with topical dermatitis and mild cellulitis agree with the current management with the steroid topical along with oral antibiotic and oral steroid. Patient be discharged home today on Augmentin and topical steroid she is doing much better. Review of Systems Constitutional: Denies anorexia, Denies chills, Denies fatigue, Denies fever, Denies lethargy, Denies malaise, Denies poor appetite, Denies weakness Eyes: denies blurred vision, denies pain Ears, nose, mouth and throat: Reports mouth pain, Denies headache, Denies sore throat, Denies vertigo Cardiovascular: Denies chest pain, Denies edema, Denies leg edema, Denies lightheadedness, Denies palpitations, Denies shortness of breath Respiratory: Denies cough, Denies cough with sputum, Denies dyspnea, Denies excessive sputum, Denies hemoptysis, Denies respiratory infections, Denies wheezing Gastrointestinal: Denies abdominal pain, Denies diarrhea, Denies nausea, Denies vomiting Genitourinary: Denies dysuria, Denies hematuria Musculoskeletal: Denies myalgias Integumentary: Reports color changes, Reports darkening of skin, Reports rash, Denies pruritus Neurological: Denies change in mentation, Denies change in speech, Denies numbness, Denies weakness Psychiatric: Denies anxiety, Denies depression Endocrine: Denies fatigue, Denies weight change Physical Exam Gen: This is a 73-year-old female. Patient is resting in in bed with mild tachypnea noted. This is patient's baseline. HEENT: Head is atraumatic, normocephalic. Pupils equal, round. Sclerae is anicteric. Patient has significant deep red rash covering her face bilaterally starting under eyelids and including anterior neck area area clear areas of demarcation. No open wounds or bruising. NECK: Supple. No JVD. No lymphadenopathy. No thyromegaly. LUNGS: Bilateral end expiratory wheeze, few scattered rhonchi, fine crackles. No intercostal retractions. HEART: Regular rate and rhythm. No murmur. ABDOMEN: Soft. Bowel sounds are present. No masses. No tenderness. EXTREMITIES: No pedal edema bilaterally. No calf tenderness. NEUROLOGICAL: Patient is awake, alert and oriented x3. Cranial nerves 2 through 12 are grossly intact. Assessment and Plan Plan: 1. Facial dermatitis, possible contact dermatitis. Continue pain management, Solu-Medrol 60 mg IV every 6 hours, Toradol 15 mg every 6 hours, Unasyn, consults with dermatology and Dr. Flanagan. Discontinue acyclovir. Triamcinolone cream twice daily. Doing better, still waiting for dermatology to be seen and if needed biopsy. Otherwise hopefully will be able to discharge a Chin home tomorrow to follow-up with dermatology PCP as an outpatient. 2. Recent hospitalization for acute COPD exacerbation and dysphagia with solid foods. Modified barium swallow was negative. COPD is stable without exacerbation. Continue Symbicort twice daily, DuoNeb treatments 4 times daily as needed 3. Pulmonary fibrosis. No change in stable. 4. Chronic hypoxic respiratory failure on home O2 at 3 L nasal cannula. 5. Lactic acidosis, resolved. Patient is status post cardiac liters of IV fluid. 6. 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 7. History of cervical cancer status post hysterectomy and left breast cancer with lumpectomy and radiation and Arimidex treatment, stable. 8. Essential tremors. Continue primidone and Sinemet. 9. Generalized anxiety disorder. Continue Abilify 5 mg daily, Celexa 40 mg at bedtime. 10. Fibromyalgia. 11. Chronic tobacco use and dependence, patient quit in January. 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 13. Insomnia. Continue Remeron 15 mg at bedtime. 14. Hypertension. Continue Norvasc 10 mg daily, atenolol 100 mg daily, Aldactone 100 mg daily. After was seen and evaluated by dermatology agree with the current management with switch oral meds to Augmentin and continue hydrocortisone topical patient be sent home to follow-up with her primary care and dermatology in the next few days. Patient is very stable hemodynamically and feeling better. Patient Condition at Discharge: Fair Plan - Discharge Summary Discharge Rx Participant: No New Discharge Prescriptions: New Amoxicillin/Potassium Clav [Augmentin 875-125 Tablet] 1 tab PO Q12HR #30 tab Ipratropium-Albuterol Nebulize [Duoneb 0.5 mg-3 mg/3 ml Soln] 3 ml INHALATION RT-QID PRN ampul.neb PRN Reason: Shortness Of Breath Or Wheezing Triamcinolone 0.5% Cream [Kenalog 0.5% Cream] 1 applic TOPICAL BID #60 gm predniSONE 10 mg PO DAILY #60 tab Continue amLODIPine [Norvasc] 10 mg PO DAILY Spironolactone 100 mg PO DAILY Oxybutynin Chloride [Ditropan] 5 mg PO TID Citalopram Hydrobromide [CeleXA] 40 mg PO HS Atenolol [Tenormin] 50 mg PO HS Aspirin [Adult Low Dose Aspirin EC] 81 mg PO DAILY Omeprazole 20 mg PO DAILY Multivitamins, Thera [Multivitamin (formulary)] 1 tab PO DAILY ARIPiprazole [Abilify] 5 mg PO HS Vitamin B Complex 1 cap PO DAILY Carbidopa-Levodopa 25-100 mg [Sinemet 25-100 mg] 1 tab PO HS Mirtazapine [Remeron] 15 mg PO HS Calcium Carb-Vit D 250Mg-125Un [Oscal 250+D] 1 tab PO DAILY HYDROcodone/APAP 7.5-325MG [Wendell 7.5-325] 1 tab PO Q6H PRN PRN Reason: Pain Budesonide/Formoterol Fumarate [Symbicort 160-4.5 Mcg Inhaler] 2 puff INHALATION RT-BID Chlorhexidine Gluconate [Peridex] 15 ml PO BID Primidone [Mysoline] 250 mg PO TID Melatonin 5 mg PO HS guaiFENesin [Mucinex] 1,200 mg PO Q12HR tablet.er Lidocaine Viscous 2% [Xylocaine Viscous] 5 ml MUCOUS MEM QID PRN PRN Reason: Pain Tobramycin/Dexamethasone [Tobradex Ophth Susp] 2 drops BOTH EYES TID Nystatin 100,000 Unit/ml Susp [Mycostatin Oral Susp] 500,000 units PO TID Etodolac [Lodine XR] 400 mg PO DAILY Discontinued Doxycycline Hyclate 100 mg PO BID Fluconazole [Diflucan] 100 mg PO DAILY Acyclovir 400 mg PO BID Discharge Medication List Spironolactone 100 mg PO DAILY 04/16/16 [History] amLODIPine [Norvasc] 10 mg PO DAILY 04/16/16 [History] Citalopram Hydrobromide [CeleXA] 40 mg PO HS 07/08/17 [History] Oxybutynin Chloride [Ditropan] 5 mg PO TID 07/08/17 [History] Aspirin [Adult Low Dose Aspirin EC] 81 mg PO DAILY 08/18/17 [History] Atenolol [Tenormin] 50 mg PO HS 08/18/17 [History] ARIPiprazole [Abilify] 5 mg PO HS 09/02/18 [History] Multivitamins, Thera [Multivitamin (formulary)] 1 tab PO DAILY 09/02/18 [History] Omeprazole 20 mg PO DAILY 09/02/18 [History] Budesonide/Formoterol Fumarate [Symbicort 160-4.5 Mcg Inhaler] 2 puff INHALATION RT-BID 02/01/19 [History] Calcium Carb-Vit D 250Mg-125Un [Oscal 250+D] 1 tab PO DAILY 02/01/19 [History] Carbidopa-Levodopa 25-100 mg [Sinemet 25-100 mg] 1 tab PO HS 02/01/19 [History] HYDROcodone/APAP 7.5-325MG [Wendell 7.5-325] 1 tab PO Q6H PRN 02/01/19 [History] Mirtazapine [Remeron] 15 mg PO HS 02/01/19 [History] Vitamin B Complex 1 cap PO DAILY 02/01/19 [History] Chlorhexidine Gluconate [Peridex] 15 ml PO BID 02/10/19 [History] Primidone [Mysoline] 250 mg PO TID 02/10/19 [History] Melatonin 5 mg PO HS 02/11/19 [History] guaiFENesin [Mucinex] 1,200 mg PO Q12HR tablet.er 02/14/19 [Rx] Etodolac [Lodine XR] 400 mg PO DAILY 03/15/19 [History] Lidocaine Viscous 2% [Xylocaine Viscous] 5 ml MUCOUS MEM QID PRN 03/15/19 [History] Nystatin 100,000 Unit/ml Susp [Mycostatin Oral Susp] 500,000 units PO TID 03/15/19 [History] Tobramycin/Dexamethasone [Tobradex Ophth Susp] 2 drops BOTH EYES TID 03/15/19 [History] Amoxicillin/Potassium Clav [Augmentin 875-125 Tablet] 1 tab PO Q12HR #30 tab 03/18/19 [Rx] Ipratropium-Albuterol Nebulize [Duoneb 0.5 mg-3 mg/3 ml Soln] 3 ml INHALATION RT-QID PRN ampul.neb 03/18/19 [Rx] Triamcinolone 0.5% Cream [Kenalog 0.5% Cream] 1 applic TOPICAL BID #60 gm 03/18/19 [Rx] predniSONE 10 mg PO DAILY #60 tab 03/18/19 [Rx] Follow up Appointment(s)/Referral(s): Tom Oden MD [STAFF PHYSICIAN] - 03/22/19 10:30 am [facility], [NON-STAFF] - Landon King DO [Primary Care Provider] - 03/22/19 2:00 pm Patient Instructions/Handouts: Contact Dermatitis (DC) Activity/Diet/Wound Care/Special Instructions: Regular diet Activity as tolerated. Oxygen as needed. Wash face a few times daily with mild soap. Continue to apply Kenalog cream twice daily to face. Eucerin lotion to alternate. Discharge Disposition: HOME WITH HOME HEALTH SERVICES
== END 2019-03-18 13:29 | disposition home health service (06) | DRG 607 ==
LOC: EC 17:58 → 4MS4W 19:42 → OBSVTOIN 03-17 14:17
PROVIDERS: ADMIT Internal Medicine Geriatric Medicine; ATTEND Internal Medicine Geriatric Medicine
DX: L25.9 Unspecified contact dermatitis, unspecified cause (principal); J96.11 Chronic respiratory failure with hypoxia; E87.2 Acidosis; L03.211 Cellulitis of face; J44.9 Chronic obstructive pulmonary disease, unspecified; I10 Essential (primary) hypertension; M79.7 Fibromyalgia; M19.90 Unspecified osteoarthritis, unspecified site; M41.9 Scoliosis, unspecified; Z96.652 Presence of left artificial knee joint; Z96.611 Presence of right artificial shoulder joint; F41.1 Generalized anxiety disorder; L25.1 Unspecified contact dermatitis due to drugs in contact with skin; F32.9 Major depressive disorder, single episode, unspecified; J84.10 Pulmonary fibrosis, unspecified; G25.0 Essential tremor; G47.00 Insomnia, unspecified; T49.0X5A Adverse effect of local antifungal, anti-infective and anti-inflammatory drugs, initial encounter; Z99.81 Dependence on supplemental oxygen; Z79.899 Other long term (current) drug therapy; Z79.82 Long term (current) use of aspirin; Z79.51 Long term (current) use of inhaled steroids; Z88.1 Allergy status to other antibiotic agents; Z91.048 Other nonmedicinal substance allergy status; Z90.49 Acquired absence of other specified parts of digestive tract; Z98.890 Other specified postprocedural states; Z98.49 Cataract extraction status, unspecified eye; Z80.1 Family history of malignant neoplasm of trachea, bronchus and lung; Z82.5 Family history of asthma and other chronic lower respiratory diseases; Z82.49 Family history of ischemic heart disease and other diseases of the circulatory system; Z82.61 Family history of arthritis; Z87.891 Personal history of nicotine dependence; Z85.118 Personal history of other malignant neoplasm of bronchus and lung; Z90.2 Acquired absence of lung [part of]; Z90.710 Acquired absence of both cervix and uterus; Z85.3 Personal history of malignant neoplasm of breast; Z85.41 Personal history of malignant neoplasm of cervix uteri; Z92.3 Personal history of irradiation
CPT/HCPCS: 36415; 71046; 80053; 83605; 83735; 85025; 87040; 94640; 96361; 96365; 96375; 96376; 99285

== ENCOUNTER → 2019-04-21 | Outpatient (CLI) | payer MEDICARE ==
--- NOTE | 2019-04-21 16:24 | CT ---
EXAMINATION TYPE: CT chest w con DATE OF EXAM: 04/21/2019 COMPARISON: CTA chest February 01, [address] HISTORY: Lung cancer. CT DLP: 225.9 mGycm. Automated Exposure Control for Dose Reduction was Utilized. TECHNIQUE: CT scan of the thorax is performed following with IV Contrast, patient injected with 100 mL of Isovue 300. FINDINGS: LUNGS: There is background peripheral reticulation and fibrosis bilaterally with areas of honeycombin g present in the periphery of bilateral lower lungs. No new focal consolidation or groundglass opacit y. No pleural effusion or pneumothorax. No suspicious new nodules or masses. Left-sided volume loss w ith some left-sided mediastinal shift and slightly elevated left hemidiaphragm redemonstrated. MEDIASTINUM: There are stable prominent but subcentimeter paratracheal and pericarinal lymph nodes. Right hilar adenopathy axial image 27 shows enlargement but not significantly changed from prior CTs near axial image 27. No definitive new greater than 1 cm adenopathy. Persistent cardiomegaly with mod erate to severe right atrial dilatation. Surgical changes anterior superior left hilar region redemon strated. Enlarged main pulmonary artery axial image 26 again seen, CT finding consistent with underly ing pulmonary artery hypertension. Redemonstration of coronary artery calcification which is noted fo r underlying coronary artery disease along with calcification at level of aortic valve. Ascending aor ta measures up to 3.9 cm in diameter axial image 28 not significantly changed from prior. Moderate ca lcified plaque in the arch and descending aorta is noted. OTHER: There is S-shaped scoliosis with multilevel spurring and disc space narrowing throughout the t horacic spine. IMPRESSION: Persistent fairly advanced bilateral chronic parenchymal fibrotic changes greater in the periphery and lower lungs raising concern for IPF. Post treatment changes to left lung redemonstrated . Stable prominent right hilar adenopathy. No new mass or adenopathy noted.
== END | disposition home or self-care (01) ==
LOC: RADCTMAIN 14:10
PROVIDERS: ATTEND Internal Medicine Critical Care Medicine
DX: R59.0 Localized enlarged lymph nodes (principal); C34.90 Malignant neoplasm of unspecified part of unspecified bronchus or lung; Z91.09 Other allergy status, other than to drugs and biological substances; Z88.1 Allergy status to other antibiotic agents
CPT/HCPCS: 82565; 84520; 71260; 36415; Q9967

== ENCOUNTER → 2019-11-29 | Outpatient (CLI) | payer MEDICARE ==
--- NOTE | 2019-11-30 07:37 | CT ---
EXAMINATION TYPE: CT soft tissue neck w con DATE OF EXAM: 11/29/2019 HISTORY: vocal cord paralysis COMPARISON: CT neck August 26, 2017 CT DLP: 274.5 mGycm. Automated Exposure Control for Dose Reduction was Utilized. TECHNIQUE: CT scan of the neck is performed with IV Contrast, patient injected with 100 mL of Isovue 300, axial images are obtained, coronal and sagittal reformatted images are reviewed. FINDINGS: Airway: There is persistent slight asymmetry or fullness of the left piriform sinus coronal image 22 similar in appearance to prior study. No obvious mass. Correlate clinically. Lung apices show emphyse matous changes with peripheral reticular fibrosis similar to prior. There are persistent prominent bu t subcentimeter anterior superior mediastinal lymph nodes. Stable heterogeneous thyroid with suspecte d scattered subcentimeter nodules. Parotid/submandibular glands: No gross abnormality seen. Carotid/Vascular Structures: Mild to moderate mixed plaque left carotid bulb without significant sten osis. More moderate peripheral calcified plaque centered in right carotid bulb extending into proxima l internal carotid artery with increased narrowing but no greater than 50% stenosis. Moderate calcifi ed plaque of the arch extends into the great vessels without significant stenosis. Osseous Structures: More prominent levoconvex scoliosis or positioning. More prominent grade 1 retrol isthesis C2 on C3 and C3 on C4. Stable grade 1 anterolisthesis C4 on C5. Multilevel moderate to severe disc space narrowing greatest at C6-C7 level similar to prior. Moderate anterior spurring C5-C6 and C6-C7 level redemonstrated. Other: No definitive new greater than 1 cm neck adenopathy. Metallic prosthesis right humeral head re demonstrated on localizer. IMPRESSION: Findings similar to the 2018 study. No suspicious new mass or adenopathy to account for p yoli's symptoms of persistent hoarseness.
== END | disposition home or self-care (01) ==
LOC: RADCTMAIN 13:40
PROVIDERS: ATTEND Otolaryngology
DX: J38.01 Paralysis of vocal cords and larynx, unilateral (principal)
CPT/HCPCS: 82565; 84520; 70491; 36415; Q9967